=== PATIENT | female | born 1955 | race Caucasian/White ===

== ENCOUNTER 2016-11-15 07:21 | Day surgery (SDC) | payer BC, OTHER ==
[2016-11-09 15:42] VITALS: BMI 30.1
[~2016-11-15 07:21] MED LIST: LACTATED RINGERS 1,000 ML IV SCH; LIDOCAINE 1% 20 ML VIAL (10MG/ML) FOR IV START INTRADERMA PRN
[2016-11-15 07:39] VITALS: TEMP 98.9
[2016-11-15] MEDS: LACTATED RINGERS 1,000 ML IV ONE ×2 (07:45→07:53)
[2016-11-15 07:48] LABS: Glucose,Whole Blood 203 mg/dL (75-99)
[2016-11-15] MEDS ORDERED: PROPOFOL 10 MG/ML 20 ML VIAL IV ONE (07:55)
--- NOTE | 2016-11-15 08:04 | P.PCN ---
Date of Procedure: 11/15/16 Procedure(s) Performed: BRIEF HISTORY: Patient is a 61-year-old, pleasant, white female, scheduled for an upper endoscopy as a part of evaluation of intermittent nausea vomiting for the last 1 year duration. She has these episodes once a week or so. She does have long-standing history of diabetes mellitus diagnosed about 30 years ago. She denies any associated abdominal pain, heartburn, passive regurgitation. No recent weight loss. PROCEDURE PERFORMED: Esophagogastroduodenoscopy with biopsy. PREOPERATIVE DIAGNOSIS: Chronic intermittent nausea/vomiting. IV sedation per anesthesia. PROCEDURE: After informed consent was obtained, the patient was brought into the endoscopy unit. IV conscious sedation was administered by Anesthesia under continuous monitoring. Initially the Olympus GIF-140 video endoscope was inserted into the mouth. Esophagus intubated without any difficulty. It was gradually advanced into the stomach and duodenum and carefully examined. The bulb and the second part of the duodenum appeared normal. The scope at this time was withdrawn to the stomach, adequately insufflated with air, and upon careful examination, mucosa of the antrum had mild diffuse gastritis and biopsies were done from this area. The body, cardia and the fundus appeared normal. The scope was then withdrawn into the esophagus. The GE junction was located at 40 cm from the incisors. The esophagus appeared normal. There were no erosions or ulcerations seen and the patient tolerated the procedure well. IMPRESSION: 1. Mild antral gastritis. 2. No evidence of esophagitis or peptic ulcer or gastric outlet obstruction. RECOMMENDATIONS: The findings of this examination were discussed with the patient as well as a family. She was advised to follow with the biopsy results. She was advised to continue with current medications and use antiemetics as needed. She may have a component of early diabetic gastroparesis can't to be doing to her symptoms and hence I suggested on diet modification with small frequent meals.
[2016-11-15 08:09] VITALS: RESP 16
[2016-11-15 08:33] VITALS: BP 122/65; PULSE 45
== END 2016-11-15 09:05 | disposition home or self-care (01) ==
LOC: ORWHC2ENDO 07:21
PROVIDERS: ATTEND Internal Medicine Gastroenterology
DX: K29.50 Unspecified chronic gastritis without bleeding (principal); K21.9 Gastro-esophageal reflux disease without esophagitis; I10 Essential (primary) hypertension; E78.5 Hyperlipidemia, unspecified; I25.10 Atherosclerotic heart disease of native coronary artery without angina pectoris; Z95.5 Presence of coronary angioplasty implant and graft; E11.9 Type 2 diabetes mellitus without complications; Z79.4 Long term (current) use of insulin; F32.9 Major depressive disorder, single episode, unspecified; Z79.02 Long term (current) use of antithrombotics/antiplatelets; Z79.899 Other long term (current) drug therapy; Z88.0 Allergy status to penicillin
CPT/HCPCS: 88305; 88342; 43239; J2704

== ENCOUNTER 2016-12-28 14:24 | Inpatient (IN) | payer BC ==
[2016-12-28 14:47] LABS: Glucose,Whole Blood 339 mg/dL (75-99)
[2016-12-28] MEDS ORDERED: ONDANSETRON 4 MG/2 ML VIAL IVP STA (14:48)
[2016-12-28] MEDS ORDERED: SODIUM CHLORIDE 0.9% 1,000 ML IV STA (14:48)
[2016-12-28] MEDS ORDERED: INSULIN REGULAR 100 UNIT/ML VIAL IV ONE (14:49)
[2016-12-28 15:30] LABS: Basophils # (A) 0.1 k/uL (0-0.2); Basophils % (A) 0 %; CH 29.7; Eosinophils % (A) 0 %; HCT 42.5 % (34.0-46.0); HDW 2.38; HGB 13.8 gm/dL (11.4-16.0); Luc # (Auto) 0.35; Luc % (Auto) 2; Lymphocytes # (A) 1.4 k/uL (1.0-4.8); Lymphocytes % (A) 8 %; MCH 29.3 pg (25.0-35.0); MCHC 32.4 g/dL (31.0-37.0); MCV 90.6 fL (80.0-100.0); Mean Platelet Volume 8.7; Monocytes % (A) 6 %; Neutrophils # (A) 14.2 k/uL (1.3-7.7); Neutrophils % (A) 83 %; RBC 4.69 m/uL (3.80-5.40); RDW 14.6 % (11.5-15.5); WBC 17.1 k/uL (3.8-10.6); WBC (Perox) 16.72
[2016-12-28 15:38] LABS: Calcium 9.8 mg/dL (8.4-10.2); Potassium 4.3 mmol/L (3.5-5.1); Total Bilirubin 0.8 mg/dL (0.2-1.3); Total Protein 7.4 g/dL (6.3-8.2)
--- NOTE | 2016-12-28 15:39 | XR ---
EXAMINATION TYPE: XR chest 2V DATE OF EXAM: 12/28/2016 3:35 PM HISTORY: Nausea and vomiting. REFERENCE: Previous study dated 07/09/2015. FINDINGS: The lungs are clear. Pleural spaces are clear. The heart is not enlarged. IMPRESSION: NO ACUTE INTRATHORACIC ABNORMALITY.
[2016-12-28 15:42] LABS: INR 1.1 (<1.1); Prothrombin Time 10.8 sec (9.0-12.0)
[2016-12-28] MEDS ORDERED: NALOXONE 0.4 MG/ML 1 ML VIAL IV PRN (16:57)
--- NOTE | 2016-12-28 16:57 | ED ---
General Adult HPI - General Chief complaint: Recheck/Abnormal Lab/Rx Stated complaint: nausea,vomiting Time Seen by Provider: 12/28/16 14:27 Source: patient, EMS Mode of arrival: EMS - History of Present Illness Initial comments: Patient complains of elevated blood sugar. She has nausea and vomiting. She has epigastric abdominal pain as well. She has no fever, chills, chest pain or shortness of breath. She has no lightheadedness or dizziness. She has no back pain. Nothing makes her symptoms better or worse. She took a dose of insulin prior to arrival. She has no focal weakness. She has no loss of continence. - Related Data Home Medications Medication Instructions Recorded Confirmed Escitalopram [Lexapro] 10 mg PO QAM 09/28/14 12/28/16 Hydrochlorothiazide 25 mg PO QAM 09/28/14 12/28/16 Isosorbide Mononitrate ER [Imdur] 30 mg PO QAM 12/22/14 12/28/16 Losartan Potassium 100 mg PO HS 12/22/14 12/28/16 amLODIPine BESYLATE [Norvasc] 5 mg PO HS 06/30/15 12/28/16 Clopidogrel [Plavix] 75 mg PO QAM 07/12/15 12/28/16 Famotidine [Pepcid] 20 mg PO BID 11/09/16 12/28/16 Insulin Aspart (For Pump) [NovoLOG 0.01 unit SQ-PUMP CONTINUOUS 11/09/16 (For Pump)] Gabapentin [Neurontin] 100 mg PO BID 11/10/16 12/28/16 Lorcaserin HCl [Belviq] 10 mg PO BID 11/10/16 12/28/16 Aspirin EC [Ecotrin Low Dose] 81 mg PO QAM 12/28/16 12/28/16 Omeprazole [PriLOSEC] 40 mg PO QAM 12/28/16 12/28/16 Previous Rx's Medication Instructions Recorded Atorvastatin [Lipitor] 80 mg PO HS #90 tab 12/25/14 Allergies Allergy/AdvReac Type Severity Reaction Status Date / Time adhesive tape Allergy Rash/Hives Verified 12/28/16 15:51 Penicillins Allergy Rash/Hives Verified 12/28/16 15:51 Review of Systems ROS Statement: Those systems with pertinent positive or pertinent negative responses have been documented in the HPI. ROS Other: All systems not noted in ROS Statement are negative. Past Medical History Past Medical History: Coronary Artery Disease (CAD), Diabetes Mellitus, Hyperlipidemia, Hypertension, Vascular Disorder Additional Past Medical History / Comment(s): Insulin pump, peripheral neuropathy, poor circulation, PAD, PVD, currently experiencing vomiting History of Any Multi-Drug Resistant Organisms: None Reported Past Surgical History: Appendectomy, Bladder Surgery, Cholecystectomy, Heart Catheterization With Stent, Tubal Ligation Additional Past Surgical History / Comment(s): 07/14/15 CARDIAC CATH-STABLE. 12/24 PTCA with stent, colonoscopy, 10/12/14-aortogram, 10/27/14 RIGHT FEM POP BYPASS Past Anesthesia/Blood Transfusion Reactions: Motion Sickness Date of Last Stent Placement:: 12/24/14 Past Psychological History: Depression Additional Psychological History / Comment(s): Pt lives at home with her of 21 yrs. Pt is independent. Pt drives a car. Smoking Status: Former smoker Past Alcohol Use History: Occasional Additional Past Alcohol Use History / Comment(s): smoked age 16-1992 1 ppd Past Drug Use History: None Reported - Past Family History Father Family Medical History: Coronary Artery Disease (CAD) Mother Family Medical History: COPD, Coronary Artery Disease (CAD), Liver Disease, Myocardial Infarction ([place]) Additional Family Medical History / Comment(s): Mother at age 52 yr. cirrhosis of the liver. Course Vital Signs 12/28/16 14:28 Temperature 98.2 F Pulse Rate 79 Respiratory 16 Rate Blood Pressure 109/57 O2 Sat by Pulse 100 Oximetry EKG Findings - EKG Comments: EKG Findings:: Twelve-lead EKG is obtained, interpreted by me as showing ventricular rate 75 bpm, normal NV interval and QRS complexes, no ST elevation or depression, interpreted by me as normal sinus rhythm. Medical Decision Making - Medical Decision Making Patient presents with nausea and vomiting, hyperglycemia. I gave her IV fluids , 10 units IV regular insulin. Laboratory studies show elevated creatinine, elevated glucose, elevated anion gap, elevated lipase, and elevated troponin. Patient will be admitted to the hospital in serious condition. - Lab Data Result diagrams: 12/28/16 15:15 12/28/16 15:15 Lab Results 12/28/16 12/28/16 12/28/16 Range/Units 14:34 15:15 15:15 WBC 17.1 H (3.8-10.6) k/uL RBC 4.69 (3.80-5.40) m/uL Hgb 13.8 (11.4-16.0) gm/dL Hct 42.5 (34.0-46.0) % MCV 90.6 (80.0-100.0) fL MCH 29.3 (25.0-35.0) pg MCHC 32.4 (31.0-37.0) g/dL RDW 14.6 (11.5-15.5) % Plt Count 306 (150-450) k/uL Neutrophils % 83 % Lymphocytes % 8 % Monocytes % 6 % Eosinophils % 0 % Basophils % 0 % Neutrophils # 14.2 H (1.3-7.7) k/uL Lymphocytes # 1.4 (1.0-4.8) k/uL Monocytes # 1.0 (0-1.0) k/uL Eosinophils # 0.0 (0-0.7) k/uL Basophils # 0.1 (0-0.2) k/uL PT (9.0-12.0) sec INR (<1.1) APTT (22.0-30.0) sec Sodium 138 (137-145) mmol/L Potassium 4.3 (3.5-5.1) mmol/L Chloride 94 L (98-107) mmol/L Carbon Dioxide 21 L (22-30) mmol/L Anion Gap 23 mmol/L BUN 41 H (7-17) mg/dL Creatinine 2.03 H (0.52-1.04) mg/dL Est GFR (MDRD) Af Amer 30 (>60 ml/min/1.73 sqM) Est GFR (MDRD) Non-Af 25 (>60 ml/min/1.73 sqM) Glucose 305 H (74-99) mg/dL POC Glucose (mg/dL) 339 H (75-99) mg/dL POC Glu Horseradish Grinder ID Sabrina Vaca Calcium 9.8 (8.4-10.2) mg/dL Magnesium 2.0 (1.6-2.3) mg/dL Total Bilirubin 0.8 (0.2-1.3) mg/dL AST 25 (14-36) U/L ALT 28 (9-52) U/L Alkaline Phosphatase 159 H (38-126) U/L Troponin I (0.000-0.034) ng/mL NT-Pro-B Natriuret Pep pg/mL Total Protein 7.4 (6.3-8.2) g/dL Albumin 4.6 (3.5-5.0) g/dL Lipase 2685 H (23-300) U/L 12/28/16 12/28/16 12/28/16 Range/Units 15:15 15:15 15:15 WBC (3.8-10.6) k/uL RBC (3.80-5.40) m/uL Hgb (11.4-16.0) gm/dL Hct (34.0-46.0) % MCV (80.0-100.0) fL MCH (25.0-35.0) pg MCHC (31.0-37.0) g/dL RDW (11.5-15.5) % Plt Count (150-450) k/uL Neutrophils % % Lymphocytes % % Monocytes % % Eosinophils % % Basophils % % Neutrophils # (1.3-7.7) k/uL Lymphocytes # (1.0-4.8) k/uL Monocytes # (0-1.0) k/uL Eosinophils # (0-0.7) k/uL Basophils # (0-0.2) k/uL PT 10.8 (9.0-12.0) sec INR 1.1 (<1.1) APTT 20.0 L (22.0-30.0) sec Sodium (137-145) mmol/L Potassium (3.5-5.1) mmol/L Chloride (98-107) mmol/L Carbon Dioxide (22-30) mmol/L Anion Gap mmol/L BUN (7-17) mg/dL Creatinine (0.52-1.04) mg/dL Est GFR (MDRD) Af Amer (>60 ml/min/1.73 sqM) Est GFR (MDRD) Non-Af (>60 ml/min/1.73 sqM) Glucose (74-99) mg/dL POC Glucose (mg/dL) (75-99) mg/dL POC Glu Horseradish Grinder ID Calcium (8.4-10.2) mg/dL Magnesium (1.6-2.3) mg/dL Total Bilirubin (0.2-1.3) mg/dL AST (14-36) U/L ALT (9-52) U/L Alkaline Phosphatase (38-126) U/L Troponin I 0.037 H* (0.000-0.034) ng/mL NT-Pro-B Natriuret Pep 935 pg/mL Total Protein (6.3-8.2) g/dL Albumin (3.5-5.0) g/dL Lipase (23-300) U/L Disposition Clinical Impression: [facility] (acute kidney injury) Disposition: ADMITTED IP TO THIS HOSP Condition: Serious Time of Disposition: 16:57
[2016-12-28 16:58] LABS: Appearance,Urine Cloudy (Clear); Bacteria,Urine Few /hpf; Bilirubin,Urine Negative (Negative); Glucose,Urine (UA) 4+ (Negative); Granular Casts,Urine 1 /lpf (0); Leukocyte Esterase,Urine Negative (Negative); Nitrite,Urine Negative (Negative); Particle Count 4329; Protein,Urine Negative (Negative); RBC,Urine <1 /hpf (0-5); Specific Gravity,Urine 1.014 (1.001-1.035); Squamous Epithelial Cell,Urine 8 /hpf (0-4); UA Billing (MACRO vs. MICRO) MICRO; Urobilinogen,Urine <2.0 mg/dL (<2.0); WBC,Urine 3 /hpf (0-5)
[2016-12-28 17:00] LABS: Ketones,Urine 2+ (Negative)
[2016-12-28] MEDS ORDERED: Insulin Aspart (For Pump) 100 UNIT/ML VIAL SQ-PUMP SCH (17:00)
[2016-12-28] MEDS: MORPHINE SULFATE 4 MG/ML SYRINGE IV PRN (18:22)
[2016-12-28] MEDS: ONDANSETRON 4 MG/2 ML VIAL IVP PRN (18:26)
[2016-12-28] MEDS ORDERED: LOSARTAN 50 MG TAB PO SCH (21:00)
[2016-12-28] MEDS ORDERED: FAMOTIDINE 20 MG TAB PO SCH (21:00)
[2016-12-28] MEDS ORDERED: ACETAMINOPHEN TAB 325 MG TAB PO PRN (21:33)
[2016-12-28 22:23] LABS: Glucose,Whole Blood 223 mg/dL (75-99)
[2016-12-28] MEDS: GABAPENTIN 100 MG CAP PO SCH (22:33)
[2016-12-28] MEDS: ATORVASTATIN 80 MG TAB PO SCH (22:33)
[2016-12-29] MEDS: MORPHINE SULFATE 4 MG/ML SYRINGE IV PRN ×2 (01:58→07:38)
[2016-12-29] MEDS ORDERED: SODIUM CHLORIDE 0.9% 1,000 ML IV SCH (06:30)
[2016-12-29] MEDS: amLODIPine 5 MG TAB PO SCH ×2 (07:02→20:49)
[2016-12-29 07:21] LABS: Glucose,Whole Blood 320 mg/dL (75-99)
[2016-12-29] MEDS: ASPIRIN 81 MG CHEW PO SCH (08:35)
[2016-12-29] MEDS: GABAPENTIN 100 MG CAP PO SCH ×2 (08:35→20:49)
[2016-12-29] MEDS: ESCITALOPRAM 10 MG TAB PO SCH (08:35)
[2016-12-29] MEDS: CLOPIDOGREL 75 MG TAB PO SCH (08:35)
[2016-12-29] MEDS: HYDROCHLOROTHIAZIDE 25 MG TAB PO SCH ×2 (08:36→12:39)
[2016-12-29] MEDS: ISOSORBIDE MONONITRATE ER 30 MG TAB.ER.24H PO SCH (08:36)
[2016-12-29] MEDS ORDERED: INSULIN PUMP BASAL RATES 1 EACH MISC MISCELLANE PRN (10:41)
[2016-12-29] MEDS ORDERED: INSULIN LISPRO (humaLOG) 300 UNIT/3 ML VIAL SQ PRN (10:41)
[2016-12-29] MEDS ORDERED: INSPUCOR MISCELLANE PRN (10:41)
[2016-12-29] MEDS ORDERED: INSULIN PUMP ACTIVE INSULIN 1 EACH MISC MISCELLANE PRN (10:41)
[2016-12-29] MEDS ORDERED: INSULIN PUMP TARGET GLUCOSE 1 EACH MISC MISCELLANE PRN (10:41)
[2016-12-29 11:37] LABS: Glucose,Whole Blood 335 mg/dL (75-99)
[2016-12-29] MEDS: INSULIN PUMP MEAL BOLUS 1 UNIT MISC MISCELLANE SCH ×3 (12:40→20:52)
[2016-12-29] MEDS: CALCIUM CARBONATE LIQUID 500 MG/5 ML CUP PO SCH ×2 (13:29→17:11)
[2016-12-29] MEDS: SODIUM CHLORIDE 0.9% 1,000 ML IV SCH (13:30)
[2016-12-29] MEDS: PANTOPRAZOLE 40 MG TABLET PO SCH (13:30)
--- NOTE | 2016-12-29 15:42 | US ---
EXAMINATION TYPE: US kidneys/renal and bladder DATE OF EXAM: 12/29/2016 3:22 PM COMPARISON: Complete abdominal ultrasound August 02, 2016. CLINICAL HISTORY: renal failure. EXAM MEASUREMENTS: Right Kidney: 10.2 x 4.7 x 4.8 cm Left Kidney: 10.3 x 5.3 x 4.4 cm TECHNOLOGIST IMPRESSION: Right Kidney: each kidney shows a tubular anechoic structure midline, no other distinct mass Left Kidney: each kidney shows a tubular anechoic structure midline, no other distinct mass Bladder: wnl There is no evidence for hydronephrosis at this point in time. No nephrolithiasis is seen. No fredis s are identified. The urinary bladder is anechoic. Bilateral ureteral jets are not seen. Linear structure centrally in both kidneys could reflect ureter stents. IMPRESSION: No hydronephrosis is evident bilaterally.
--- NOTE | 2016-12-29 16:24 | HP ---
DATE OF ADMISSION: 12/28/2016 PRESENTING COMPLAINT: Nausea and vomiting. History of presenting complaint: This is a pleasant 61 -year-old patient of Dr. Perez whose chronic stable medical conditions include coronary artery disease with stent, hypertension, hyperlipidemia, peripheral artery disease. Patient is a diabetic on insulin pump with peripheral neuropathy. Patient presents with started vomiting early in the night with abdominal pain. Did have one bowel movement. Patient had bar-b-cue pork which was sitting around and this all started after that. Patient has a burning sensation in the epigastrium and in the chest. Feels tired. Still having some nausea. Denies any obvious fevers. REVIEW OF SYSTEMS: CONSTITUTIONAL: Tired. HEENT: None. RESPIRATORY: None. CARDIOVASCULAR: No precordial pain. GASTROINTESTINAL: As above. GENITOURINARY: None. MUSCULOSKELETAL: Some aches and pains in the joints. Dermatological: None. HEMATOLOGICAL: None. LYMPHATIC: None. PSYCHIATRY: None. NEUROLOGICAL: Numbness and tingling in the feet. PAST MEDICAL HISTORY: Coronary artery disease, diabetes mellitus type 2 on insulin pump, hyperlipidemia, hypertension, peripheral neuropathy, peripheral artery disease. PAST SURGICAL HISTORY: Appendectomy, bladder surgery, cholecystectomy, cardiac cath with stent, right femoropopliteal bypass. Past psych history of depression. SOCIAL HISTORY: . Smoked for about 20 years a pack a day; stopped in 1992. Family history of coronary artery disease, cirrhosis. HOME MEDICATIONS: 1. Norvasc 5 mg p.o. q.h.s. 2. Prilosec 40 mg p.o. daily. 3. Losartan 100 mg q.h.s. 4. Belviq 10 milligrams p.o. b.i.d. 5. Imdur ER 30 mg a day. 6. Humalog insulin pump. 7. Hydrochlorothiazide 25 mg a day. 8. Neurontin 100 mg b.i.d. 9. Pepcid 20 mg b.i.d. 10. Lexapro 10 mg daily. 11. Plavix 75 mg daily. 12. Lipitor 80 mg q.h.s. 13. Aspirin 81 mg daily. ALLERGIES TO ADHESIVE TAPE AND PENICILLIN. On examination: Vital signs on presentation: Temperature 100, pulse 84, respiratory rate 16, blood pressure 116/56, pulse ox 94% on 2 liters. GENERAL APPEARANCE: Well built, BMI of 31.5. Sitting up, tired appearing. EYES: Pupils equal pupils equal. Conjunctivae normal. HEENT: External appearance of nose and ears normal. Oral cavity normal. NECK: JVD not raised. Mass not palpable. RESPIRATORY: Effort normal. LUNGS: Fair air entry. CARDIOVASCULAR: First and second sounds normal. No edema. ABDOMEN: Upper abdomen diffuse mild tenderness. No guarding or rigidity. Liver and spleen not palpable. LYMPHATIC: No lymph nodes palpable in neck or axillae. PSYCHIATRY: Alert and oriented x3. Mood and affect was normal. NEUROLOGICAL: Pupils equal. Cranial nerves grossly intact. Power and sensation slight decreased sensation in the lower extremity. INVESTIGATIONS: White count 17.1, hemoglobin 13.8, potassium 4.3, BUN 41, creatinine 2.03. Troponin 0.037, 0.066. Accu-Cheks are noted. ASSESSMENT: 1. Acute food poisoning manifesting as abdominal pain, nausea, vomiting, often times these are self-limiting. 2. Diabetes mellitus type 2, chronically on insulin pump, now, uncontrolled. 3. Coronary artery disease with prior history of stent. 4. Hyperlipidemia. 5. Peripheral artery disease. 6. Diabetes mellitus, type II, causing peripheral neuropathy. 7. Troponin leak from hemodynamic instability. Does not cardiac presentation. 8. Chronic kidney disease, likely like a chronic component cannot rule out acute component. 9. Possible mild pancreatitis given the lipase was 2685 in the setting of renal failure. Will recheck it again. Will give the patient clear liquids. Given some TUMS. Sugars will be followed closely. We will check renal ultrasound. Repeat labs in the morning. Care was discussed with the patient and family at the bedside. Copy to Dr. Perez.
[2016-12-29 16:55] LABS: Glucose,Whole Blood 248 mg/dL (75-99)
[2016-12-29] MEDS: ATORVASTATIN 80 MG TAB PO SCH (20:49)
[2016-12-29 20:53] LABS: Glucose,Whole Blood 299 mg/dL (75-99)
[2016-12-30 02:10] LABS: Glucose,Whole Blood 197 mg/dL (75-99)
[2016-12-30] MEDS: SODIUM CHLORIDE 0.9% 1,000 ML IV SCH ×3 (04:57→16:38)
[2016-12-30 05:53] LABS: Glucose,Whole Blood 216 mg/dL (75-99)
[2016-12-30] MEDS: CALCIUM CARBONATE LIQUID 500 MG/5 ML CUP PO SCH (06:36)
[2016-12-30] MEDS: INSULIN PUMP MEAL BOLUS 1 UNIT MISC MISCELLANE SCH ×4 (06:36→21:05)
[2016-12-30] MEDS: PANTOPRAZOLE 40 MG TABLET PO SCH ×2 (06:37→16:37)
[2016-12-30] MEDS: ESCITALOPRAM 10 MG TAB PO SCH (08:51)
[2016-12-30] MEDS: ASPIRIN 81 MG CHEW PO SCH (08:51)
[2016-12-30] MEDS: CLOPIDOGREL 75 MG TAB PO SCH (08:51)
[2016-12-30] MEDS: ISOSORBIDE MONONITRATE ER 30 MG TAB.ER.24H PO SCH (08:51)
[2016-12-30] MEDS: GABAPENTIN 100 MG CAP PO SCH ×2 (08:52→19:44)
[2016-12-30 11:38] LABS: Glucose,Whole Blood 348 mg/dL (75-99)
[2016-12-30 16:23] LABS: Glucose,Whole Blood 290 mg/dL (75-99)
[2016-12-30] MEDS: CALCIUM CARBONATE 500 MG CHEWABLE PO SCH (16:37)
[2016-12-30] MEDS: amLODIPine 5 MG TAB PO SCH (19:44)
[2016-12-30] MEDS: ATORVASTATIN 80 MG TAB PO SCH (19:44)
[2016-12-30 21:22] LABS: Glucose,Whole Blood 252 mg/dL (75-99)
--- NOTE | 2016-12-30 22:22 | PN ---
DATE OF SERVICE: 12/30/2016 PRESENTING COMPLAINT: Nausea, vomiting. INTERVAL HISTORY: Patient presented with acute food poisoning and possibly acute pancreatitis. Feeling a bit better today, has been a bit tired. Review of systems done for constitutional, cardiovascular, GI, pulmonary; relevant findings as above. Current medications are reviewed. On examination, temperature 97.5, pulse 74, respirations 16, blood pressure 109/62, pulse ox 95% on room air. GENERAL APPEARANCE: Sitting up, feeling better. EYES: Pupils equal. Conjunctivae normal. NECK: JVD not raised. Mass not palpable. RESPIRATORY: Effort normal. Lungs are clear. CARDIOVASCULAR: Normal. ABDOMEN: Minimal tenderness, soft. PSYCHIATRY: Alert and oriented x3. Mood and affect were normal. INVESTIGATIONS: No labs from today. ASSESSMENT: 1. Acute pancreatitis with clinical improvement, idiopathic. 2. Diabetes mellitus type 2, chronically on insulin pump. 3. Coronary artery disease with prior history of stent. 4. Hyperlipidemia. 5. Peripheral artery disease. 6. Diabetes mellitus type 2, causing peripheral neuropathy. 7. Check troponin leak from hemodynamic instability, doubt a cardiac presentation. 8. Chronic kidney disease, stage 3 from hypertensive nephrosclerosis and diabetic nephropathy. PLAN: Will repeat labs in the morning. Encouraged to ambulate.
[2016-12-30] MEDS: ONDANSETRON 4 MG/2 ML VIAL IVP PRN (22:54)
[2016-12-31 06:33] LABS: Glucose,Whole Blood 290 mg/dL (75-99)
[2016-12-31] MEDS: SODIUM CHLORIDE 0.9% 1,000 ML IV SCH ×2 (06:37→22:29)
[2016-12-31] MEDS: CALCIUM CARBONATE 500 MG CHEWABLE PO SCH ×3 (06:38→18:01)
[2016-12-31] MEDS: PANTOPRAZOLE 40 MG TABLET PO SCH ×2 (06:38→16:24)
[2016-12-31] MEDS: INSULIN PUMP MEAL BOLUS 1 UNIT MISC MISCELLANE SCH ×4 (06:38→21:30)
[2016-12-31 06:49] LABS: Amylase 93 U/L (30-110); Anion Gap 11 mmol/L; Blood Urea Nitrogen 15 mg/dL (7-17); Calcium 8.8 mg/dL (8.4-10.2); Carbon Dioxide 26 mmol/L (22-30); Chloride 102 mmol/L (98-107); Glucose 265 mg/dL (74-99); Non-African American GFR(MDRD) >60 (>60 ml/min/1.73 sqM); Potassium 4.4 mmol/L (3.5-5.1); Sodium 139 mmol/L (137-145)
[2016-12-31] MEDS: ESCITALOPRAM 10 MG TAB PO SCH (08:13)
[2016-12-31] MEDS: ISOSORBIDE MONONITRATE ER 30 MG TAB.ER.24H PO SCH (08:13)
[2016-12-31] MEDS: GABAPENTIN 100 MG CAP PO SCH ×2 (08:13→20:24)
[2016-12-31] MEDS: CLOPIDOGREL 75 MG TAB PO SCH (08:13)
[2016-12-31] MEDS: ASPIRIN 81 MG CHEW PO SCH (08:13)
[2016-12-31 12:17] LABS: Glucose,Whole Blood 432 mg/dL (75-99)
--- NOTE | 2016-12-31 15:19 | CONS ---
DATE OF CONSULTATION: Maria Anderson is a 61-year-old lady with a known history of CAD, previous PCI performed by Dr. Knutson in 2014. She came into the hospital mainly with multiple medical problems in the form of elevated blood sugar. She has history of hypertension, type 2 diabetes, uses an insulin pump. Also has history of CAD, hypercholesterolemia, previous PCI. During that hospitalization, which was mostly for blood sugar control, nausea, vomiting, a troponin level was performed, it was equivocal and I was asked to see her in this regard. On questioning, patient denies any chest pain. EKG is unremarkable. Troponin profile does not suggest a myocardial injury. She is resting comfortably without symptoms. She has had a previous PCI of her right coronary artery that was performed in December of 2014 and subsequently in September that vessel was widely patent. Since then, she has not seen Dr. Knutson for at least 6 months. I am advising that from a cardiac standpoint, no intervention is necessary. A troponin profile and clinical picture do not represent a myocardial ischemia or injury. She can be discharged once the blood sugar control is optimal and advised to see Dr. Knutson. At the time of my evaluation, she is virtually asymptomatic without chest pain, shortness of breath or palpitation. PAST MEDICAL HISTORY: 1. Hypertension. 2. Type 2 diabetes on insulin pump with suboptimal blood sugar control. 3. Hypertension. 4. Hypercholesterolemia. 5. History of coronary artery disease with previous right coronary artery, percutaneous coronary intervention. Medications at home include Amlodipine, losartan, aspirin, Plavix, atorvastatin, gabapentin and Imdur. Allergies are PENICILLIN. REVIEW OF SYSTEMS: Unremarkable other than above-mentioned fact. On examination, blood pressure is 132/70, pulse rate 70 per minute. HEENT: Unremarkable. Fundus was not examined by me. Neck is supple. No JVD. I do not hear a carotid bruit. There is no thyromegaly. Heart exam reveals S1 and S2 heard normally without a rub, murmur or gallop. Lungs are clear. Abdomen is soft, nontender. Lower extremities reveal normal pulses. No edema. Central nervous system is normal. EKG revealed sinus mechanism. No acute changes. IMPRESSION: 1. No evidence of any chest pain or ongoing myocardial ischemia. Troponin levels are equivocal. 2. Type 2 diabetes mellitus with suboptimal blood sugar control being addressed by hospitalist. 3. Hypertension. 4. Hyperlipidemia. 5. History of previous PCI. RECOMMENDATIONS: From a cardiac standpoint, no intervention necessary. Patient can be discharged if her sugar control is optimal. She is advised to follow with Dr. Knutson in one week. Same medications including aspirin, Plavix and statin agents. Thank you very much for the consult.
[2016-12-31 17:36] LABS: Glucose,Whole Blood 283 mg/dL (75-99)
[2016-12-31] MEDS: ATORVASTATIN 80 MG TAB PO SCH (20:24)
[2016-12-31] MEDS: amLODIPine 5 MG TAB PO SCH (20:24)
[2016-12-31 21:29] LABS: Glucose,Whole Blood 218 mg/dL (75-99)
[2017-01-01 02:40] LABS: Glucose,Whole Blood 173 mg/dL (75-99)
[2017-01-01 06:16] LABS: Glucose,Whole Blood 192 mg/dL (75-99)
[2017-01-01] MEDS: CALCIUM CARBONATE 500 MG CHEWABLE PO SCH ×3 (07:02→17:48)
[2017-01-01] MEDS: PANTOPRAZOLE 40 MG TABLET PO SCH ×2 (07:02→17:48)
[2017-01-01] MEDS: INSULIN PUMP MEAL BOLUS 1 UNIT MISC MISCELLANE SCH ×4 (07:03→20:54)
[2017-01-01] MEDS: SODIUM CHLORIDE 0.9% 1,000 ML IV SCH ×3 (08:14→21:30)
[2017-01-01] MEDS: CLOPIDOGREL 75 MG TAB PO SCH (08:14)
[2017-01-01] MEDS: ESCITALOPRAM 10 MG TAB PO SCH (08:14)
[2017-01-01] MEDS: ASPIRIN 81 MG CHEW PO SCH (08:14)
[2017-01-01] MEDS: ISOSORBIDE MONONITRATE ER 30 MG TAB.ER.24H PO SCH (08:14)
[2017-01-01] MEDS: GABAPENTIN 100 MG CAP PO SCH ×2 (08:14→20:07)
--- NOTE | 2017-01-01 10:38 | PN ---
DATE OF SERVICE: 12/31/2016 Presenting complaint: Abdominal pain. INTERVAL HISTORY: This patient presented with acute pancreatitis ( ) abdominal pain, did not eat too much. is at the bedside. Has been out of bed. Review of systems done for constitutional, cardiovascular, GI, pulmonary; relevant findings as above. Current medications are reviewed. On examination, temperature 98.8, pulse 55, respirations 17, blood pressure 130/60, pulse ox 97% on room air. GENERAL APPEARANCE: Lying in bed, not in distress. EYES: Pupils equal. Conjunctivae normal. NECK: JVD not raised. Mass not palpable. RESPIRATORY: Effort normal. Lungs are clear. CARDIOVASCULAR: First and second sounds normal. No edema. ABDOMEN: Some epigastric tenderness. No guarding or rigidity. PSYCHIATRY: Alert and oriented x3. Mood and affect normal. INVESTIGATIONS: Lipase is 1119. Glucose noted 265, 432. ASSESSMENT: 1. Acute pancreatitis with some biochemical improvement, idiopathic. 2. Patient has diabetes mellitus type 2, chronically on insulin drip, sugars uncontrolled up to 400. Patient thinks she received the wrong meal. 3. Coronary artery disease with prior history of stent. 4. Hyperlipidemia. 5. Peripheral artery disease. 6. Diabetes mellitus type 2, causing peripheral neuropathy. 7. Troponin leak from hemodynamic instability, doubt a cardiac presentation. 8. Acute renal failure, probably prerenal on presentation. There is no evidence of chronic kidney disease as creatinine has totally normalized. PLAN: Care was discussed at length with the patient and . The sugars were raised up to 400, need better control. Diet will be looked at. Also, we will change her back to full liquids to make sure that symptoms are better. We will check again the lipase in the morning.
[2017-01-01] MEDS: ONDANSETRON 4 MG/2 ML VIAL IVP PRN (10:40)
[2017-01-01 12:06] LABS: Glucose,Whole Blood 269 mg/dL (75-99)
[2017-01-01 15:03] VITALS: BMI 29.8
--- NOTE | 2017-01-01 15:12 | P.PN ---
Subjective Principal diagnosis: Elevated blood sugars This is a 61-year-old female with known history of coronary artery disease and prior PCI, hypertension, diabetes, hyperlipidemia, who presented to the hospital with elevated blood sugar. Cardiology was initially requested to see the patient because of mildly abnormal troponins, not consistent with acute coronary syndrome. Overall from the heart standpoint the patient has been stable. He denies any chest pain or difficulty in breathing. The pressure this morning 140/70 with a heart rate in the 70s. Objective - Vital Signs Vital signs: Vital Signs Temp 98 F 01/01/17 14:49 Pulse 70 01/01/17 14:49 Resp 17 01/01/17 14:49 BP 140/75 01/01/17 14:49 Pulse Ox 97 01/01/17 14:49 Intake & Output 12/31/16 01/01/17 01/01/17 18:59 06:59 18:59 Intake Total 1600 1080 Output Total 240 Balance 1360 1080 Weight 74.1 kg 74.1 kg Intake: Intake, IV Titration 300 Amount Sodium Chloride 0.9% 1, 300 000 ml @ 100 mls/hr IV . Q10H [facility] Rx#:[id number] Oral 1600 780 Output: Urine 240 Other: Voiding Method Toilet Toilet Toilet # Voids 2 2 - Exam PHYSICAL EXAMINATION: HEENT: Head is atraumatic, normocephalic. Pupils equal, round. Neck is supple. There is no elevated jugular venous pressure. HEART EXAMINATION: Heart S1, S2 normal. No murmur or gallop heard. CHEST EXAMINATION: Lungs are clear to auscultation and precussion. No chest wall tenderness is noted on palpation or with deep breathing. ABDOMEN: Soft, nontender. Bowel sounds are heard. No organomegaly noted. EXTREMITIES: 2+ peripheral pulses with no evidence of peripheral edema and no calf tenderness noted. NEUROLOGIC patient is awake, alert and oriented -3. . - Labs CBC & Chem 7: 12/28/16 15:15 12/31/16 06:20 Labs: Abnormal Lab Results - Last 24 Hours (Table) 12/31/16 12/31/16 01/01/17 Range/Units 17:34 21:01 02:28 POC Glucose (mg/dL) 283 H 218 H 173 H (75-99) mg/dL Lipase (23-300) U/L 01/01/17 01/01/17 01/01/17 Range/Units 05:53 06:01 12:01 POC Glucose (mg/dL) 192 H 269 H (75-99) mg/dL Lipase 1358 H (23-300) U/L Assessment and Plan (1) CAD (coronary artery disease) Status: Acute (2) HTN (hypertension) Status: Acute (3) Hyperlipemia Status: Acute (4) [facility] (acute kidney injury) Status: Acute (5) Diabetes mellitus Status: Acute Plan: Patient is stable from a cardiology perspective. We will follow her along with you now on an as-needed basis only. Follow-up appointment will be made with Dr. Knutson in the office post discharge. DNP note has been reviewed, I agree with a documented findings and plan of care. Patient was seen and examined.
[2017-01-01 16:47] LABS: Glucose,Whole Blood 138 mg/dL (75-99)
[2017-01-01] MEDS: CALCIUM CARBONATE LIQUID 500 MG/5 ML CUP PO SCH (17:49)
[2017-01-01] MEDS: ATORVASTATIN 80 MG TAB PO SCH (20:07)
[2017-01-01] MEDS: amLODIPine 5 MG TAB PO SCH (20:07)
[2017-01-01 21:15] LABS: Glucose,Whole Blood 168 mg/dL (75-99)
[2017-01-02 02:50] LABS: Glucose,Whole Blood 53 mg/dL (75-99)
[2017-01-02 03:09] LABS: Glucose,Whole Blood 73 mg/dL (75-99)
[2017-01-02 03:46] LABS: Glucose,Whole Blood 196 mg/dL (75-99)
--- NOTE | 2017-01-02 06:29 | PN ---
DATE OF SERVICE: 01/01/2017 PRESENTING COMPLAINT: Abdominal pain. INTERVAL HISTORY: This patient presented with acute pancreatitis, having a bit more pain today, ( ) feel good, also on insulin pump. The patient's was scaled back to full liquid yesterday. Review of systems done for constitutional, cardiovascular, GI, pulmonary; relevant findings as above. Patient also having some nausea. Current medications are reviewed. On examination, temperature 96.8, pulse 56, respirations 17, blood pressure 140/75, pulse ox 97% on room air. GENERAL APPEARANCE: Lying in bed, tired appearing. EYES: Pupils equal. Conjunctivae normal. NECK: JVD not raised. Mass not palpable. RESPIRATORY: Effort normal. Lungs are clear. CARDIOVASCULAR: First and second sounds normal. No edema. ABDOMEN: Epigastric tenderness. No guarding or rigidity. PSYCHIATRY: Alert and oriented x3. Mood and affect, tired appearing. INVESTIGATIONS: Accu-Cheks are noted. Lipase is 1358. ASSESSMENT: 1. Acute pancreatitis with some clinical worsening and lipase going up, idiopathic. 2. Patient has diabetes mellitus type 2, chronically on insulin pump. Sugars still somewhat uncontrolled. 3. Coronary artery disease, prior history of stent. 4. Hyperlipidemia. 5. Peripheral arterial disease. 6. Diabetes mellitus type 2, causing peripheral neuropathy. 7. Troponin leak from hemodynamic instability. No further workup per cardiology. 8. Acute renal failure, probably prerenal on presentation, now recovered. PLAN: We will scale back the patient's diet to clear liquids again. Will repeat amylase and lipase in the morning. Will check triglycerides. Will also get a GI opinion. This was discussed with the patient.
[2017-01-02 07:04] LABS: Glucose,Whole Blood 244 mg/dL (75-99)
[2017-01-02] MEDS: INSULIN PUMP MEAL BOLUS 1 UNIT MISC MISCELLANE SCH ×4 (08:26→21:29)
[2017-01-02] MEDS: PANTOPRAZOLE 40 MG TABLET PO SCH ×2 (08:27→17:27)
[2017-01-02] MEDS: CALCIUM CARBONATE 500 MG CHEWABLE PO SCH ×3 (08:27→17:26)
[2017-01-02] MEDS: GABAPENTIN 100 MG CAP PO SCH ×2 (08:27→20:33)
[2017-01-02] MEDS: ASPIRIN 81 MG CHEW PO SCH (08:28)
[2017-01-02] MEDS: CLOPIDOGREL 75 MG TAB PO SCH (08:28)
[2017-01-02] MEDS: ISOSORBIDE MONONITRATE ER 30 MG TAB.ER.24H PO SCH (08:29)
[2017-01-02] MEDS: ESCITALOPRAM 10 MG TAB PO SCH (08:29)
[2017-01-02] MEDS: SODIUM CHLORIDE 0.9% 1,000 ML IV SCH ×3 (08:30→17:33)
[2017-01-02 09:32] LABS: Amylase 94 U/L (30-110); Triglycerides 140 mg/dL (<150)
--- NOTE | 2017-01-02 10:40 | P.CONS ---
History of Present Illness - Reason for Consult Consult date: 01/02/17 Abdominal pain Requesting physician: Shane Jett - History of Present Illness 61-year-old female patient Dr. Perez with a past medical history long- standing insulin-dependent diabetes mellitus, suspected diabetic gastroparesis, chronic nausea, pancreatitis , cholecystectomy for cholelithiasis, CAD PCI stent 2014, hyperlipidemia, chronic kidney disease, hypertension, PVD, PAD, and depression. Patient presents with acute on chronic intractable nausea with upper abdominal pain that started last after eating a pulled pork lettuce wrap. T-max 100.3. She has been taking a new weight loss medication for the last month called BELVIQ. Admission lipase 2685. Amylase 93. Currently lipase is 1430. Liver chemistries unremarkable. Calcium 8.8-9.8. Triglycerides 140. Troponin 0.037- 0.066. No history of known pancreatic disorders. No history of alcoholism. Review of Systems Constitutional: Denies fever, chills, sweats, weight gain, or loss. HEENT: Negative for migraines, blurred vision or loss, earaches, drainage, tinnitus, oral mucosal lesions, dysphagia, or odynophagia. CARDIAC: CAD. Hyperlipidemia. Hypertension. PVD. PAD. Negative for chest pain, arrhythmias, or palpitation. RESPIRATORY: Negative for shortness of breath, hemoptysis, cough, or sputum production. GI: See HPI for pertinent findings. : Negative for hematuria, urgency, frequency, polyuria, or dysuria. GYNc: Denies possibility of . Negative vaginal discharge. MUSCULOSKELETAL: Negative for muscle aches, swelling, arthritis, and arthralgias. NEUROLOGIC: Negative for stroke or TIA. ENDOCRINE: Diabetes mellitus. Negative for thyroid problems. SKIN: Negative for rash or itching. PSYCHIATRIC: Depression. All systems: negative (See HPI) Past Medical History Past Medical History: Coronary Artery Disease (CAD), Diabetes Mellitus, Hyperlipidemia, Hypertension, Vascular Disorder Additional Past Medical History / Comment(s): Insulin pump, peripheral neuropathy, poor circulation, PAD, PVD, currently experiencing vomiting History of Any Multi-Drug Resistant Organisms: None Reported Past Surgical History: Appendectomy, Bladder Surgery, Cholecystectomy, Heart Catheterization With Stent, Tubal Ligation Additional Past Surgical History / Comment(s): 07/14/15 CARDIAC CATH-STABLE. 12/24 PTCA with stent, colonoscopy, 10/12/14-aortogram, 10/27/14 RIGHT FEM POP BYPASS Past Anesthesia/Blood Transfusion Reactions: Motion Sickness Date of Last Stent Placement:: 12/24/14 Past Psychological History: Depression Additional Psychological History / Comment(s): Pt lives at home with her of 21 yrs. Pt is independent. Pt drives a car. Smoking Status: Former smoker Past Alcohol Use History: Occasional Additional Past Alcohol Use History / Comment(s): smoked age 16-1992 1 ppd Past Drug Use History: None Reported - Past Family History Father Family Medical History: Coronary Artery Disease (CAD) Mother Family Medical History: COPD, Coronary Artery Disease (CAD), Liver Disease, Myocardial Infarction ([place]) Additional Family Medical History / Comment(s): Mother at age 52 yr. cirrhosis of the liver. Medications and Allergies Home Medications Medication Instructions Recorded Confirmed Type Escitalopram [Lexapro] 10 mg PO QAM 09/28/14 12/28/16 History Hydrochlorothiazide 25 mg PO QAM 09/28/14 12/28/16 History Isosorbide Mononitrate ER [Imdur] 30 mg PO QAM 12/22/14 12/28/16 History Losartan Potassium 100 mg PO HS 12/22/14 12/28/16 History amLODIPine BESYLATE [Norvasc] 5 mg PO HS 06/30/15 12/28/16 History Clopidogrel [Plavix] 75 mg PO QAM 07/12/15 12/28/16 History Famotidine [Pepcid] 20 mg PO BID 11/09/16 12/28/16 History Insulin Aspart (For Pump) [NovoLOG 0.01 unit SQ-PUMP CONTINUOUS 11/09/16 History (For Pump)] Gabapentin [Neurontin] 100 mg PO BID 11/10/16 12/28/16 History Lorcaserin HCl [Belviq] 10 mg PO BID 11/10/16 12/28/16 History Aspirin EC [Ecotrin Low Dose] 81 mg PO QAM 12/28/16 12/28/16 History Omeprazole [PriLOSEC] 40 mg PO QAM 12/28/16 12/28/16 History Allergies Allergy/AdvReac Type Severity Reaction Status Date / Time adhesive tape Allergy Rash/Hives Verified 02/16/17 15:51 Penicillins Allergy Rash/Hives Verified 12/28/16 15:51 Physical Exam Vitals: Vital Signs Temp Pulse Pulse Resp BP Pulse Ox 01/02/17 07:00 97.7 F 77 16 146/63 100 01/01/17 23:00 99 F 62 20 140/69 94 L 01/01/17 19:57 67 147/70 01/01/17 15:30 98.4 F 62 16 142/68 97 01/01/17 14:49 98 F 70 17 140/75 97 01/01/17 14:44 66 17 Intake and Output 01/01/17 01/02/17 01/02/17 22:59 06:59 14:59 Intake Total 540 1100 Balance 540 1100 Intake: Intake, IV Titration 1100 Amount Sodium Chloride 0.9% 1, 1100 000 ml @ 100 mls/hr IV . Q10H FEROZ Rx#:[id number] Oral 540 Other: Voiding Method Toilet # Voids 2 1 Weight 73.936 kg 77 kg General appearance: The patient is alert, oriented, in no acute distress. HET: Head is normocephalic and atraumatic. Pupils are equal and reactive. Oropharynx is clear without lesions. Neck: Supple without lymphadenopathy. Trachea midline. Heart: S1 S2. Regular rate and rhythm. Lungs: No crackles or wheezes are heard. Abdomen: Soft, nontender, nondistended with bowel sounds. No peritoneal signs. No palpable organomegaly or masses. Extremities: Normal skin color and turgor. No cyanosis, rash, ulceration, clubbing, or edema. Radial and pedal pulses are 2/4 bilaterally. Neurological: No focal deficits. Strength and sensation are grossly intact. Results CBC & Chem 7: 12/28/16 15:15 12/31/16 06:20 Labs: Abnormal Lab Results - Last 24 Hours (Table) 01/01/17 01/01/17 01/01/17 Range/Units 12:01 16:43 20:51 POC Glucose (mg/dL) 269 H 138 H 168 H (75-99) mg/dL Lipase (23-300) U/L 01/02/17 01/02/17 01/02/17 Range/Units 02:48 03:07 03:36 POC Glucose (mg/dL) 53 L 73 L 196 H (75-99) mg/dL Lipase (23-300) U/L 01/02/17 01/02/17 Range/Units 06:55 08:08 POC Glucose (mg/dL) 244 H (75-99) mg/dL Lipase 1430 H (23-300) U/L Assessment and Plan (1) Acute pancreatitis Narrative/Plan: 61-year-old female presents with long-standing insulin-dependent diabetes mellitus suspect component of diabetic gastroparesis presents with acute on chronic nausea with upper abdominal pain and elevated lipase consistent with acute pancreatitis with history of cholecystectomy and cholelithiasis with unremarkable transaminases and bilirubin. Etiology of pancreatitis unclear however medication related cannot be entirely excluded with new weight loss drug prescribed over the last month. Possible autoimmune pathology. Possible idiopathic possible viral. Status: Acute Plan: 1. Continue with light diet as tolerated with IV hydration. 2. Will obtain ultrasound of the abdomen, TONY and IgG 4 subclass. 3. Supportive measures. Thank you for this kind referral and the opportunity to participate in the care of your patient. This consultation was discussed with Dr. Vargas. The impression and plan of care have been directed as dictated.
[2017-01-02 11:40] LABS: Glucose,Whole Blood 220 mg/dL (75-99)
[2017-01-02 16:30] LABS: Glucose,Whole Blood 178 mg/dL (75-99)
[2017-01-02] MEDS: ATORVASTATIN 80 MG TAB PO SCH (20:33)
[2017-01-02] MEDS: amLODIPine 5 MG TAB PO SCH (20:33)
[2017-01-02 21:06] LABS: Glucose,Whole Blood 131 mg/dL (75-99)
--- NOTE | 2017-01-02 23:27 | PN ---
DATE OF SERVICE: 01/02/2017 PRESENTING COMPLAINT: Abdominal pain. INTERVAL HISTORY: This patient presented with acute pancreatitis. She was switched back to a clear liquid diet yesterday. Patient is actually feeling better. Nausea is improved. She was seen by GI, who ordered an ultrasound. Sugars are doing better. Review of systems done for constitutional, cardiovascular, GI, pulmonary; relevant findings as above. Current medications are reviewed. On examination, temperature 98.3, pulse 66, respiration 16, blood pressure 149/63, pulse ox 96% on room air. GENERAL APPEARANCE: Sitting up; more comfortable. EYES: Pupils equal. Conjunctivae normal. NECK: JVD not raised. Mass not palpable. RESPIRATORY: Effort normal. Lungs are clear. CARDIOVASCULAR: First and second sounds normal. No edema. ABDOMEN: Decreased epigastric tenderness. Soft. Liver and spleen not palpable. PSYCHIATRY: Alert and oriented x3. Mood and affect more cheerful. INVESTIGATIONS: Lipase 1430. ASSESSMENT: 1. Acute pancreatitis which clinically seems to be more stabilizing. 2. Diabetes mellitus, type 2, chronically on insulin pump. 3. Coronary artery disease with prior history of stent. 4. Hyperlipidemia. 5. Peripheral arterial disease. 6. Diabetes mellitus, type 2, causing peripheral neuropathy. 7. Troponin leak from hemodynamic instability on presentation. No further workup per Cardiology. 8. Acute renal failure, probably prerenal, on presentation, now improved. PLAN: Patient's triglycerides were checked yet again; it was 140. Keep the patient on liquid diet. Will check labs in the morning. Will follow.
[2017-01-03 01:45] LABS: Glucose,Whole Blood 173 mg/dL (75-99)
[2017-01-03] MEDS: SODIUM CHLORIDE 0.9% 1,000 ML IV SCH ×2 (03:30→13:32)
[2017-01-03 07:11] LABS: Glucose,Whole Blood 174 mg/dL (75-99)
[2017-01-03 07:56] VITALS: RESP 16
--- NOTE | 2017-01-03 08:15 | US ---
EXAMINATION TYPE: US abdomen limited DATE OF EXAM: 01/03/2017 7:46 AM COMPARISON: NONE CLINICAL HISTORY: pancreatitis. Elevated pancreatic enzymes, GB removed x 38 years ago EXAM MEASUREMENTS: Liver Length: 15.9 cm Gallbladder Wall: Surgically absent CHD: 0.5 cm Right Kidney: 9.5 x 5.2 x 4.9 cm TECHNOLOGIST IMPRESSION: Pancreas: echogenic, heterogenous Liver: wnl Gallbladder: Surgically absent CHD: wnl Right Kidney: wnl IMPRESSION: STATUS POST CHOLECYSTECTOMY.
[2017-01-03] MEDS: ESCITALOPRAM 10 MG TAB PO SCH (08:47)
[2017-01-03] MEDS: ASPIRIN 81 MG CHEW PO SCH (08:47)
[2017-01-03] MEDS: CLOPIDOGREL 75 MG TAB PO SCH (08:47)
[2017-01-03] MEDS: ISOSORBIDE MONONITRATE ER 30 MG TAB.ER.24H PO SCH (08:47)
[2017-01-03] MEDS: CALCIUM CARBONATE 500 MG CHEWABLE PO SCH ×3 (08:47→18:11)
[2017-01-03] MEDS: PANTOPRAZOLE 40 MG TABLET PO SCH ×2 (08:48→18:11)
[2017-01-03] MEDS: GABAPENTIN 100 MG CAP PO SCH (08:48)
[2017-01-03] MEDS: INSULIN PUMP MEAL BOLUS 1 UNIT MISC MISCELLANE SCH ×3 (08:48→18:11)
[2017-01-03 08:50] LABS: ALT 24 U/L (9-52); AST 20 U/L (14-36); Alkaline Phosphatase 119 U/L (38-126); Amylase 95 U/L (30-110); Anion Gap 10 mmol/L; Blood Urea Nitrogen 8 mg/dL (7-17); Calcium 8.8 mg/dL (8.4-10.2); Carbon Dioxide 27 mmol/L (22-30); Chloride 106 mmol/L (98-107); Glucose 160 mg/dL (74-99); Non-African American GFR(MDRD) >60 (>60 ml/min/1.73 sqM); Potassium 4.3 mmol/L (3.5-5.1); Sodium 143 mmol/L (137-145); Total Bilirubin 0.7 mg/dL (0.2-1.3); Total Protein 6.4 g/dL (6.3-8.2)
--- NOTE | 2017-01-03 11:43 | P.PN ---
Subjective Principal diagnosis: Pancreatitis 61-year-old female with acute pancreatitis unclear etiology. Feels better this morning. Requesting diet advancement. Pancreatic enzymes improved; lipase 945. Liver enzymes normal. Afebrile. Objective - Vital Signs Vital signs: Vital Signs Temp 99.0 F 01/03/17 07:00 Pulse 67 01/03/17 08:00 Resp 16 01/03/17 08:00 BP 132/60 01/03/17 07:00 Pulse Ox 98 01/03/17 07:00 Intake & Output 01/02/17 01/03/17 01/03/17 18:59 06:59 18:59 Intake Total 740 1300 250 Balance 740 1300 250 Intake: Intake, IV Titration 500 1100 Amount Sodium Chloride 0.9% 1, 500 1100 000 ml @ 100 mls/hr IV . Q10H FEROZ Rx#:[id number] Oral 240 200 250 Other: Voiding Method Toilet Toilet # Voids 2 1 - Exam General appearance: The patient is alert, oriented, in no acute distress. HET: Head is normocephalic and atraumatic. Pupils are equal and reactive. Oropharynx is clear without lesions. Neck: Supple without lymphadenopathy. Trachea midline. Heart: S1 S2. Regular rate and rhythm. Lungs: No crackles or wheezes are heard. Abdomen: Soft, nontender, nondistended with bowel sounds. No peritoneal signs. No palpable organomegaly or masses. Extremities: Normal skin color and turgor. No cyanosis, rash, ulceration, clubbing, or edema. Radial and pedal pulses are 2/4 bilaterally. Neurological: No focal deficits. Strength and sensation are grossly intact. - Labs CBC & Chem 7: 12/28/16 15:15 01/03/17 08:20 Labs: Abnormal Lab Results - Last 24 Hours (Table) 01/02/17 01/02/17 01/03/17 Range/Units 16:23 20:55 01:43 Glucose (74-99) mg/dL POC Glucose (mg/dL) 178 H 131 H 173 H (75-99) mg/dL Lipase (23-300) U/L 01/03/17 01/03/17 Range/Units 07:09 08:20 Glucose 160 H (74-99) mg/dL POC Glucose (mg/dL) 174 H (75-99) mg/dL Lipase 945 H (23-300) U/L Assessment and Plan (1) Acute pancreatitis Narrative/Plan: 61-year-old female presents with long-standing insulin-dependent diabetes mellitus suspect component of diabetic gastroparesis presents with acute on chronic nausea with upper abdominal pain and elevated lipase consistent with acute pancreatitis with history of cholecystectomy and cholelithiasis with unremarkable transaminases and bilirubin. Etiology of pancreatitis unclear however medication related cannot be entirely excluded with new weight loss drug prescribed over the last month. Possible autoimmune pathology. Possible idiopathic possible viral. Status: Acute Plan: 1. Continue with diet advancement as tolerated with IV hydration. 2. Discharge per medicine. Follow up in GI office in 1-2 weeks after discharge. Assessment and plan of care discussed with Dr. Vargas.
[2017-01-03 12:02] LABS: Glucose,Whole Blood 196 mg/dL (75-99)
[2017-01-03 15:58] VITALS: BP 121/58; TEMP 99.3
[2017-01-03 16:32] VITALS: PULSE 67
[2017-01-03 16:54] LABS: Glucose,Whole Blood 152 mg/dL (75-99)
[2017-01-03 18:12] LABS: ANA w/Reflex to Titer NEGATIVE (NEGATIVE)
[2017-01-04 11:12] LABS: IgG Subclass 3 21.5 mg/dL (11.0-85.0); IgG Subclass 4 18.1 mg/dL (3.0-175.0)
--- NOTE | 2017-01-04 20:16 | DS ---
DATE OF ADMISSION: 12/28/2016 DATE OF DISCHARGE: 01/03/2017 FINAL DIAGNOSES: 1. Acute pancreatitis, idiopathic. 2. Diabetes mellitus, type 2, chronically on insulin pump. 3. Coronary artery disease with prior history of stent. 4. Hyperlipidemia. 5. Peripheral arterial disease. 6. Diabetes mellitus, type 2, causing peripheral neuropathy. 7. Troponin leak from hemodynamic instability on presentation. 8. Acute renal failure, probably prerenal, improved. CONSULTATIONS: 1. Dr. Vargas GI. 2. Dr. Knutson from Cardiology. HOSPITAL COURSE: This patient presented with acute pancreatitis, small amount of troponin leak. Patient's lipase was slowly coming up ( ) by the time of discharge, patient's abdomen is soft, non-tender. Tolerating a diet. Seen by Dr. Vargas; armand to be discharged. Care was discussed in detail with the patient. DISCHARGE MEDICATIONS: 1. Lexapro 10 mg a day. 2. Hydrochlorothiazide 25 mg a day. 3. Imdur ER 30 mg a day. 4. Losartan 100 mg at bedtime. 5. Lipitor 80 mg at bedtime. 6. Norvasc 5 mg p.o. at bedtime. 7. Plavix 75 mg a day. 8. Pepcid 20 mg b.i.d. 9. NovoLog for pump. 10. Neurontin 100 mg p.o. b.i.d. 11. Belviq 10 mg p.o. b.i.d. 12. Aspirin 81 mg p.o. daily. 13. Prilosec 40 mg daily. Follow up with Dr. Vargas in one week, Dr. Knutson in 2 weeks, Dr. Perez in 2 days. DIET: Soft, low-fat. Carbohydrate-consistent. Insulin pump to continue.
== END 2017-01-03 20:12 | disposition home or self-care (01) | DRG 682 ==
LOC: EC 14:24 → 6SEL 16:59 → 4MS4W 01-01 15:40
PROVIDERS: ADMIT Hospitalist; ATTEND Hospitalist
DX: N17.9 Acute kidney failure, unspecified (principal); K85.90 Acute pancreatitis without necrosis or infection, unspecified; E11.21 Type 2 diabetes mellitus with diabetic nephropathy; E11.42 Type 2 diabetes mellitus with diabetic polyneuropathy; T62.91XA Toxic effect of unspecified noxious substance eaten as food, accidental (unintentional), initial encounter; E11.22 Type 2 diabetes mellitus with diabetic chronic kidney disease; E11.65 Type 2 diabetes mellitus with hyperglycemia; E78.00 Pure hypercholesterolemia, unspecified; E78.5 Hyperlipidemia, unspecified; I12.9 Hypertensive chronic kidney disease with stage 1 through stage 4 chronic kidney disease, or unspecified chronic kidney disease; I25.10 Atherosclerotic heart disease of native coronary artery without angina pectoris; I73.9 Peripheral vascular disease, unspecified; N18.3 Chronic kidney disease, stage 3 (moderate); Z79.02 Long term (current) use of antithrombotics/antiplatelets; Z79.4 Long term (current) use of insulin; Z79.82 Long term (current) use of aspirin; Z82.49 Family history of ischemic heart disease and other diseases of the circulatory system; Z87.891 Personal history of nicotine dependence; Z88.0 Allergy status to penicillin; Z95.5 Presence of coronary angioplasty implant and graft; Z96.41 Presence of insulin pump (external) (internal); Z79.84 Long term (current) use of oral hypoglycemic drugs; Z79.899 Other long term (current) drug therapy
CPT/HCPCS: 36415; 71020; 76705; 76770; 80048; 80053; 81001; 82150; 82787; 83036; 83605; 83690; 83735; 83880; 84478; 84484; 85025; 85610; 85730; 86038; 87502; 93005; 96361; 96374; 96375; 99285

== ENCOUNTER 2017-06-20 11:16 | Inpatient (IN) | payer BC ==
[2017-06-20 11:36] LABS: Glucose,Whole Blood >600 mg/dL (75-99)
[2017-06-20] MEDS ORDERED: ONDANSETRON 4 MG/2 ML VIAL IVP STA ×2 (11:43→12:58)
[2017-06-20] MEDS ORDERED: SODIUM CHLORIDE 0.9% 1,000 ML IV STA (11:43)
[2017-06-20 12:36] LABS: Basophils # (A) 0.2 k/uL (0-0.2); Basophils % (A) 1 %; CH 30.2; CHCM 30.3; Eosinophils # (A) 0.2 k/uL (0-0.7); Eosinophils % (A) 1 %; HCT 43.6 % (34.0-46.0); HDW 2.51; HGB 13.4 gm/dL (11.4-16.0); Hypochromasia Moderate; Luc # (Auto) 0.31; Luc % (Auto) 2; Lymphocytes # (A) 1.8 k/uL (1.0-4.8); Lymphocytes % (A) 12 %; MCH 30.7 pg (25.0-35.0); MCHC 30.6 g/dL (31.0-37.0); MCV 100.4 fL (80.0-100.0); Macrocytosis Slight; Monocytes # (A) 0.7 k/uL (0-1.0); Monocytes % (A) 4 %; Neutrophils # (A) 12.4 k/uL (1.3-7.7); Neutrophils % (A) 80 %; RBC 4.35 m/uL (3.80-5.40); WBC 15.5 k/uL (3.8-10.6); WBC (Perox) 15.72
[2017-06-20 12:42] LABS: VBG PH 7.18 (7.31-7.41)
[2017-06-20 12:44] LABS: ALT 34 U/L (9-52); AST 21 U/L (14-36); Alkaline Phosphatase 166 U/L (38-126); Amylase 127 U/L (30-110); Anion Gap 29 mmol/L; Blood Urea Nitrogen 30 mg/dL (7-17); Calcium 9.3 mg/dL (8.4-10.2); Carbon Dioxide 12 mmol/L (22-30); Chloride 95 mmol/L (98-107); Magnesium 1.8 mg/dL (1.6-2.3); Non-African American GFR(MDRD) 52 (>60 ml/min/1.73 sqM); Potassium 4.7 mmol/L (3.5-5.1); Sodium 136 mmol/L (137-145); Total Bilirubin 0.7 mg/dL (0.2-1.3)
[2017-06-20] MEDS ORDERED: SODIUM CHLORIDE 0.9% 1,000 ML IV ONE (12:58)
--- NOTE | 2017-06-20 13:01 | XR ---
EXAMINATION TYPE: XR chest 2V DATE OF EXAM: 06/20/2017 COMPARISON: 12/28/2016 HISTORY: 61-year-old female with chest pain TECHNIQUE: PA and lateral views FINDINGS: The cardiomediastinal silhouette, aorta, and pulmonary vasculature are within normal limits. Mild dif fuse interstitial prominence is unchanged. A nodular density in each lower lung suggestive of nipple shadow. Otherwise, lungs and pleural spaces are clear. IMPRESSION: 1. Chronic changes without acute process seen. 2. A nodular density at each lower lung suspected to represent nipple shadows. Short interval follow- up recommended with the use of nipple markers.
[2017-06-20 13:02] LABS: Prothrombin Time 10.5 sec (9.0-12.0)
--- NOTE | 2017-06-20 13:02 | XR ---
EXAMINATION TYPE: XR abdomen complete w decub DATE OF EXAM: 06/20/2017 COMPARISON: Ultrasound abdomen 01/03/2017 HISTORY: Abdominal pain and vomiting TECHNIQUE: Supine, upright, and left side down lateral decubitus views of the abdomen are obtained. FINDINGS: There is no evidence for pneumoperitoneum. The bowel gas pattern is unremarkable as there is air throughout nondilated small and large bowel. No sizeable air fluid levels. No mass effects are seen. No unusual calcifications. Fallopian tubal ligation clips are present. There are overlying cardiac l jimbo. Surgical clips present in the right groin. There are vascular calcifications present. IMPRESSION: Unremarkable study
[2017-06-20 13:03] LABS: Partial Thromboplastin Time 22.6 sec (22.0-30.0)
[2017-06-20 13:04] LABS: Creatine Kinase 98 U/L (30-135)
[2017-06-20 13:08] LABS: Glucose 735 mg/dL (74-99)
[2017-06-20 13:14] LABS: Creatine Kinase MB 1.7 ng/mL (0.0-2.4); Troponin I <0.012 ng/mL (0.000-0.034)
[2017-06-20 13:21] LABS: Appearance,Urine Clear (Clear); Bilirubin,Urine Negative (Negative); Glucose,Urine (UA) 4+ (Negative); Leukocyte Esterase,Urine Negative (Negative); Nitrite,Urine Negative (Negative); Protein,Urine Negative (Negative); Specific Gravity,Urine 1.013 (1.001-1.035); UA Billing (MACRO vs. MICRO) CHEM; Urobilinogen,Urine <2.0 mg/dL (<2.0)
[2017-06-20 13:28] LABS: Ketones,Urine 3+ (Negative)
[2017-06-20] MEDS ORDERED: INSULIN REGULAR 100 UNIT in SODIUM CHLORIDE 0.9% 100 ML IV SCH (13:30)
[2017-06-20] MEDS ORDERED: SODIUM CHLORIDE 0.9% 1,000 ML IV SCH (13:30)
[2017-06-20 13:49] LABS: Glucose,Whole Blood >600 mg/dL (75-99)
--- NOTE | 2017-06-20 13:50 | ED ---
General Adult HPI - General Chief complaint: Chest Pain Stated complaint: HYPERGLYCEMIA, CHEST PAIN Time Seen by Provider: 06/20/17 11:29 Source: patient, RN notes reviewed, old records reviewed Mode of arrival: ambulatory Limitations: no limitations - History of Present Illness Initial comments: 61-year-old female with type 1 diabetes presents with elevated blood sugar and abdominal pain. Patient also reports developing nausea and vomiting today. She has had difficulty time controlling her blood glucose over the weekend. Patient does have a history of pancreatitis, she is complaining of epigastric abdominal pain. Also urinary frequency and increased thirst. Blood sugar read over 600 and her home, her. She also reports chest neck and shoulder pain. She believes this is likely from vomiting. Additional past medical history peripheral vascular disease status post bypass, pancreatitis and hypertension. - Related Data Home Medications Medication Instructions Recorded Confirmed Hydrochlorothiazide 25 mg PO HS 09/28/14 06/20/17 Isosorbide Mononitrate ER [Imdur] 30 mg PO QAM 12/22/14 06/20/17 Losartan Potassium 100 mg PO HS 12/22/14 06/20/17 amLODIPine BESYLATE [Norvasc] 5 mg PO QAM 06/30/15 06/20/17 Famotidine [Pepcid] 20 mg PO BID 11/09/16 06/20/17 Insulin Aspart (For Pump) [NovoLOG 0.01 unit SQ-PUMP CONTINUOUS 11/09/16 (For Pump)] Gabapentin [Neurontin] 100 mg PO BID 11/10/16 06/20/17 Aspirin EC [Ecotrin Low Dose] 81 mg PO QAM 12/28/16 06/20/17 Omeprazole [PriLOSEC] 40 mg PO QAM 12/28/16 06/20/17 rOPINIRole HCL [rOPINIRole HCL] 0.5 mg PO HS 06/20/17 06/20/17 Previous Rx's Medication Instructions Recorded Atorvastatin [Lipitor] 80 mg PO HS #90 tab 12/25/14 Allergies Allergy/AdvReac Type Severity Reaction Status Date / Time adhesive tape Allergy Rash/Hives Verified 06/20/17 12:05 Penicillins Allergy Rash/Hives Verified 06/20/17 12:05 Review of Systems ROS Statement: Those systems with pertinent positive or pertinent negative responses have been documented in the HPI. ROS Other: All systems not noted in ROS Statement are negative. Past Medical History Past Medical History: Coronary Artery Disease (CAD), Diabetes Mellitus, Hyperlipidemia, Hypertension, Vascular Disorder Additional Past Medical History / Comment(s): Insulin pump, peripheral neuropathy, poor circulation, PAD, PVD, currently experiencing vomiting History of Any Multi-Drug Resistant Organisms: None Reported Past Surgical History: Appendectomy, Bladder Surgery, Cholecystectomy, Heart Catheterization With Stent, Tubal Ligation Additional Past Surgical History / Comment(s): 07/14/15 CARDIAC CATH-STABLE. 12/24 PTCA with stent, colonoscopy, 10/12/14-aortogram, 10/27/14 RIGHT FEM POP BYPASS Past Anesthesia/Blood Transfusion Reactions: Motion Sickness Date of Last Stent Placement:: 12/24/14 Past Psychological History: Depression Smoking Status: Former smoker Past Alcohol Use History: Occasional Past Drug Use History: None Reported - Past Family History Father Family Medical History: Coronary Artery Disease (CAD) Mother Family Medical History: COPD, Coronary Artery Disease (CAD), Liver Disease, Myocardial Infarction ([place]) Additional Family Medical History / Comment(s): Mother at age 52 yr. cirrhosis of the liver. General Exam Limitations: no limitations General appearance: alert, in distress Head exam: Present: atraumatic, normocephalic Eye exam: Present: normal appearance, PERRL ENT exam: Present: normal exam, mucous membranes dry Neck exam: Present: normal inspection, full ROM. Absent: meningismus Respiratory exam: Present: normal lung sounds bilaterally, other. Absent: respiratory distress Cardiovascular Exam: Present: regular rate, normal rhythm GI/Abdominal exam: Present: soft. Absent: distended, tenderness, guarding Extremities exam: Present: normal inspection, normal capillary refill. Absent: pedal edema Back exam: Present: normal inspection Neurological exam: Present: alert, oriented X3, CN II-XII intact. Absent: motor sensory deficit Psychiatric exam: Present: normal affect, normal mood Skin exam: Present: warm, dry. Absent: cyanosis, diaphoretic Course Vital Signs 06/20/17 06/20/17 06/20/17 11:24 11:44 13:18 Temperature 98.4 F 97.4 F L Pulse Rate 78 Pulse Rate [ 99 Right Brachial] Respiratory 20 Rate Blood Pressure 179/75 O2 Sat by Pulse 98 Oximetry 06/20/17 13:20 Temperature 97.4 F L Pulse Rate 93 Pulse Rate [ Right Brachial] Respiratory 18 Rate Blood Pressure 181/77 O2 Sat by Pulse 98 Oximetry EKG Findings - EKG Comments: EKG Findings:: EKG shows normal sinus rhythm ventricular rate is 79,. 148, QRS duration 82, QTC 486 Medical Decision Making - Medical Decision Making 61-year-old female history type 1 diabetes. Presenting with hypoglycemia, abdominal pain nausea vomiting. Patient is found to be in DKA events positive for ketones, she has anion gap metabolic acidosis. Sugar is over 700. Patient is given 2 L of normal saline, started on a ns of 200 mL's per hour, she started on an insulin infusion. X-ray chest, and abdomen is negative for acute process. Venous pH is 7.18. Patient will be admitted to internal medicine. Diagnosis: DKA, anion gap metabolic acidosis, dehydration - Lab Data Result diagrams: 06/20/17 12:15 06/20/17 12:15 Lab Results 06/20/17 06/20/17 06/20/17 Range/Units 11:35 12:15 12:15 WBC (3.8-10.6) k/uL RBC (3.80-5.40) m/uL Hgb (11.4-16.0) gm/dL Hct (34.0-46.0) % MCV (80.0-100.0) fL MCH (25.0-35.0) pg MCHC (31.0-37.0) g/dL RDW (11.5-15.5) % Plt Count (150-450) k/uL Neutrophils % % Lymphocytes % % Monocytes % % Eosinophils % % Basophils % % Neutrophils # (1.3-7.7) k/uL Lymphocytes # (1.0-4.8) k/uL Monocytes # (0-1.0) k/uL Eosinophils # (0-0.7) k/uL Basophils # (0-0.2) k/uL Hypochromasia Macrocytosis PT (9.0-12.0) sec INR (<1.2) APTT (22.0-30.0) sec VBG pH (7.31-7.41) VBG pCO2 (37-51) mmHg VBG HCO3 (24-28) mmol/L Sodium 136 L (137-145) mmol/L Potassium 4.7 (3.5-5.1) mmol/L Chloride 95 L (98-107) mmol/L Carbon Dioxide 12 L (22-30) mmol/L Anion Gap 29 mmol/L BUN 30 H (7-17) mg/dL Creatinine 1.07 H (0.52-1.04) mg/dL Est GFR (MDRD) Af Amer >60 (>60 ml/min/1.73 sqM) Est GFR (MDRD) Non-Af 52 (>60 ml/min/1.73 sqM) Glucose 735 H* (74-99) mg/dL POC Glucose (mg/dL) >600 H (75-99) mg/dL POC Glu General Road Supervisor ID Tammy Hodge Calcium 9.3 (8.4-10.2) mg/dL Magnesium 1.8 (1.6-2.3) mg/dL Total Bilirubin 0.7 (0.2-1.3) mg/dL AST 21 (14-36) U/L ALT 34 (9-52) U/L Alkaline Phosphatase 166 H (38-126) U/L Total Creatine Kinase 98 (30-135) U/L CK-MB (CK-2) 1.7 (0.0-2.4) ng/mL CK-MB (CK-2) Rel Index 1.7 Troponin I <0.012 (0.000-0.034) ng/mL Total Protein 7.0 (6.3-8.2) g/dL Albumin 4.4 (3.5-5.0) g/dL Amylase 127 H (30-110) U/L Lipase 69 (23-300) U/L Urine Color Urine Appearance (Clear) Urine pH (5.0-8.0) Ur Specific [place] (1.001-1.035) Urine Protein (Negative) Urine Glucose (UA) (Negative) Urine Ketones (Negative) Urine Blood (Negative) Urine Nitrite (Negative) Urine Bilirubin (Negative) Urine Urobilinogen (<2.0) mg/dL Ur Leukocyte Esterase (Negative) 06/20/17 06/20/17 06/20/17 Range/Units 12:15 12:15 12:15 WBC 15.5 H (3.8-10.6) k/uL RBC 4.35 (3.80-5.40) m/uL Hgb 13.4 (11.4-16.0) gm/dL Hct 43.6 (34.0-46.0) % MCV 100.4 H (80.0-100.0) fL MCH 30.7 (25.0-35.0) pg MCHC 30.6 L (31.0-37.0) g/dL RDW 15.0 (11.5-15.5) % Plt Count 298 (150-450) k/uL Neutrophils % 80 % Lymphocytes % 12 % Monocytes % 4 % Eosinophils % 1 % Basophils % 1 % Neutrophils # 12.4 H (1.3-7.7) k/uL Lymphocytes # 1.8 (1.0-4.8) k/uL Monocytes # 0.7 (0-1.0) k/uL Eosinophils # 0.2 (0-0.7) k/uL Basophils # 0.2 (0-0.2) k/uL Hypochromasia Moderate Macrocytosis Slight PT 10.5 (9.0-12.0) sec INR 1.0 (<1.2) APTT 22.6 (22.0-30.0) sec VBG pH 7.18 L* (7.31-7.41) VBG pCO2 42 (37-51) mmHg VBG HCO3 15 L (24-28) mmol/L Sodium (137-145) mmol/L Potassium (3.5-5.1) mmol/L Chloride (98-107) mmol/L Carbon Dioxide (22-30) mmol/L Anion Gap mmol/L BUN (7-17) mg/dL Creatinine (0.52-1.04) mg/dL Est GFR (MDRD) Af Amer (>60 ml/min/1.73 sqM) Est GFR (MDRD) Non-Af (>60 ml/min/1.73 sqM) Glucose (74-99) mg/dL POC Glucose (mg/dL) (75-99) mg/dL POC Glu General Road Supervisor ID Calcium (8.4-10.2) mg/dL Magnesium (1.6-2.3) mg/dL Total Bilirubin (0.2-1.3) mg/dL AST (14-36) U/L ALT (9-52) U/L Alkaline Phosphatase (38-126) U/L Total Creatine Kinase (30-135) U/L CK-MB (CK-2) (0.0-2.4) ng/mL CK-MB (CK-2) Rel Index Troponin I (0.000-0.034) ng/mL Total Protein (6.3-8.2) g/dL Albumin (3.5-5.0) g/dL Amylase (30-110) U/L Lipase (23-300) U/L Urine Color Urine Appearance (Clear) Urine pH (5.0-8.0) Ur Specific [place] (1.001-1.035) Urine Protein (Negative) Urine Glucose (UA) (Negative) Urine Ketones (Negative) Urine Blood (Negative) Urine Nitrite (Negative) Urine Bilirubin (Negative) Urine Urobilinogen (<2.0) mg/dL Ur Leukocyte Esterase (Negative) 06/20/17 Range/Units 13:11 WBC (3.8-10.6) k/uL RBC (3.80-5.40) m/uL Hgb (11.4-16.0) gm/dL Hct (34.0-46.0) % MCV (80.0-100.0) fL MCH (25.0-35.0) pg MCHC (31.0-37.0) g/dL RDW (11.5-15.5) % Plt Count (150-450) k/uL Neutrophils % % Lymphocytes % % Monocytes % % Eosinophils % % Basophils % % Neutrophils # (1.3-7.7) k/uL Lymphocytes # (1.0-4.8) k/uL Monocytes # (0-1.0) k/uL Eosinophils # (0-0.7) k/uL Basophils # (0-0.2) k/uL Hypochromasia Macrocytosis PT (9.0-12.0) sec INR (<1.2) APTT (22.0-30.0) sec VBG pH (7.31-7.41) VBG pCO2 (37-51) mmHg VBG HCO3 (24-28) mmol/L Sodium (137-145) mmol/L Potassium (3.5-5.1) mmol/L Chloride (98-107) mmol/L Carbon Dioxide (22-30) mmol/L Anion Gap mmol/L BUN (7-17) mg/dL Creatinine (0.52-1.04) mg/dL Est GFR (MDRD) Af Amer (>60 ml/min/1.73 sqM) Est GFR (MDRD) Non-Af (>60 ml/min/1.73 sqM) Glucose (74-99) mg/dL POC Glucose (mg/dL) (75-99) mg/dL POC Glu General Road Supervisor ID Calcium (8.4-10.2) mg/dL Magnesium (1.6-2.3) mg/dL Total Bilirubin (0.2-1.3) mg/dL AST (14-36) U/L ALT (9-52) U/L Alkaline Phosphatase (38-126) U/L Total Creatine Kinase (30-135) U/L CK-MB (CK-2) (0.0-2.4) ng/mL CK-MB (CK-2) Rel Index Troponin I (0.000-0.034) ng/mL Total Protein (6.3-8.2) g/dL Albumin (3.5-5.0) g/dL Amylase (30-110) U/L Lipase (23-300) U/L Urine Color Colorless Urine Appearance Clear (Clear) Urine pH 5.0 (5.0-8.0) Ur Specific [place] 1.013 (1.001-1.035) Urine Protein Negative (Negative) Urine Glucose (UA) 4+ H (Negative) Urine Ketones 3+ H (Negative) Urine Blood Negative (Negative) Urine Nitrite Negative (Negative) Urine Bilirubin Negative (Negative) Urine Urobilinogen <2.0 (<2.0) mg/dL Ur Leukocyte Esterase Negative (Negative) Critical Care Time Critical Care Time: Yes Total Critical Care Time: 35 Disposition Clinical Impression: [facility] (acute kidney injury), DKA (diabetic ketoacidoses) Disposition[facility] Condition: Stable Referrals: Brian Perez MD [Primary Care Provider] - 1-2 days Decision to Admit Reason: Admit from EC Decision Date: 06/20/17 Decision Time: 13:51
[2017-06-20] MEDS ORDERED: MORPHINE SULFATE 4 MG/ML SYRINGE IVP STA (14:34)
[2017-06-20 14:49] LABS: Glucose,Whole Blood 584 mg/dL (75-99)
[2017-06-20 16:20] LABS: Glucose,Whole Blood 383 mg/dL (75-99)
[2017-06-20 16:34] LABS: Anion Gap 20 mmol/L; Blood Urea Nitrogen 29 mg/dL (7-17); Carbon Dioxide 13 mmol/L (22-30); Chloride 107 mmol/L (98-107); Glucose 409 mg/dL (74-99); Non-African American GFR(MDRD) 57 (>60 ml/min/1.73 sqM); Phosphorous 3.1 mg/dL (2.5-4.5); Potassium 4.2 mmol/L (3.5-5.1); Sodium 140 mmol/L (137-145)
[2017-06-20 16:59] LABS: Glucose,Whole Blood 260 mg/dL (75-99)
[2017-06-20] MEDS ORDERED: Insulin Aspart (For Pump) 100 UNIT/ML VIAL SQ-PUMP SCH (17:00)
[2017-06-20 18:14] LABS: Glucose,Whole Blood 150 mg/dL (75-99)
[2017-06-20] MEDS ORDERED: D5-0.45% NACL WITH KCL 20MEQ/L 1,000 ML IV SCH (19:00)
[2017-06-20 19:06] LABS: Glucose,Whole Blood 87 mg/dL (75-99)
[2017-06-20 19:27] LABS: Glucose,Whole Blood 95 mg/dL (75-99)
[2017-06-20 20:05] LABS: Anion Gap 8 mmol/L; Blood Urea Nitrogen 28 mg/dL (7-17); Carbon Dioxide 24 mmol/L (22-30); Chloride 106 mmol/L (98-107); Glucose 79 mg/dL (74-99); Non-African American GFR(MDRD) >60 (>60 ml/min/1.73 sqM); Phosphorous 2.2 mg/dL (2.5-4.5); Potassium 4.1 mmol/L (3.5-5.1); Sodium 138 mmol/L (137-145)
[2017-06-20 20:05] LABS: Glucose,Whole Blood 122 mg/dL (75-99)
[2017-06-20] MEDS: GABAPENTIN 100 MG CAP PO SCH (20:21)
[2017-06-20] MEDS: FAMOTIDINE 20 MG TAB PO SCH (20:21)
[2017-06-20 20:58] LABS: Glucose,Whole Blood 169 mg/dL (75-99)
[2017-06-20] MEDS ORDERED: LOSARTAN 50 MG TAB PO SCH (21:00)
[2017-06-20] MEDS ORDERED: MELATONIN 3 MG TABLET PO SCH (21:00)
[2017-06-20] MEDS ORDERED: HYDROCHLOROTHIAZIDE 25 MG TAB PO SCH (21:00)
[2017-06-20] MEDS ORDERED: ATORVASTATIN 80 MG TAB PO SCH (21:00)
[2017-06-20] MEDS ORDERED: INSULIN NPH 300 UNIT/3 ML VIAL SQ ONE (21:41)
[2017-06-20] MEDS ORDERED: INSULIN GLARGINE 100 UNIT/ML 10 ML VIAL SQ SCH (21:45)
[2017-06-20 22:05] LABS: Glucose,Whole Blood 148 mg/dL (75-99)
--- NOTE | 2017-06-20 23:54 | P.HPIM ---
History of Present Illness H&P Date: 06/20/17 Chief Complaint: Nausea vomiting History of presenting complaint: This is a pleasant 61-year-old patient of Dr. Perez. Chronic stable medical conditions include coronary artery disease with stent, hyperlipidemia, peripheral artery disease. And diuretic neuropathy. For 4 days patient not been feeling well sugars started running high and I'm of nausea vomiting abdominal pain came and sugars were running really high and patient's former diverticulitis acidosis put on insulin drip and admitted to the medical floor. Patient also had an episode of chest pain not sure what the duration some shortness of breath some dizziness with radiation to the neck and arm. GEN.: Tired EYES: None HEENT: None NECK: None RESPIRATORY: As above CARDIOVASCULAR: As above GASTROINTESTINAL: As above GENITOURINARY: None MUSCULOSKELETAL: None LYMPHATICS: None HEMATOLOGICAL: None PSYCHIATRY: None NEUROLOGICAL: Numbness in the feet Past medical history: Diabetes with peripheral neuropathy, coronary artery disease with stent, hyperlipidemia, peripheral arterial disease Past surgical history: Appendectomy, bladder surgery, cholecystectomy, coronary artery disease with stent, tubal ligation, right fem-pop bypass, bilateral cataract Social history: smoked a pack a day for 22 years to 89 he didsignificant alcohol history Family history: Coronary artery disease, mother age of 52, with cirrhosis of liver Home medications: Reviewed in the computer ALLERGIES: Adhesive and penicillin VITAL SIGNS: 98.4, 78, 20, 179/75, pulse of 98% room air GENERAL: Average built BMI 32.5, laying in bed tired appearing. EYES: Pupils equal. Conjunctiva normal. HEENT: External appearance of nose and ears normal, oral cavity grossly normal. NECK: JVD not raised; masses not palpable. HEART: First and second heart sounds are normal; no edema. LUNGS: Respiratory rate normal; clear to auscultation. ABDOMEN: Soft, nontender, liver spleen not palpable, no masses palpable. LYMPHATICS: No lymph nodes palpable in the axilla and neck. PSYCH: Alert and oriented x3; mood and affect normal. NEUROLOGICAL: Cranial nerves grossly intact; no facial asymmetry, power and sensation grossly intact. Investigations: Depression 4.1, BNP 28, creatinine 0.94 Accu-Chek was 584 and a blood glucose that was followed 9 White count 15.5 Assessment: -Acute diabetic ketoacidosis -Coronary artery disease with stent in place -Hyperlipidemia -Peripheral artery disease Diabetes mellitus type II causing peripheral neuropathy plan: Patient is put on insulin drip IV fluids. Home medications are resumed. Will give Lovenox for DVT prophylaxis. Once patient able to tolerate an advanced diet. Care was discussed with the patient. Follow and address closely Past Medical History Past Medical History: Coronary Artery Disease (CAD), Diabetes Mellitus, Hyperlipidemia, Hypertension, Vascular Disorder Additional Past Medical History / Comment(s): Insulin pump, peripheral neuropathy, poor circulation, PAD, PVD. History of Any Multi-Drug Resistant Organisms: None Reported Past Surgical History: Appendectomy, Bladder Surgery, Cholecystectomy, Heart Catheterization With Stent, Tubal Ligation Additional Past Surgical History / Comment(s): 07/14/15 CARDIAC CATH-STABLE. 12/24 PTCA with stent, colonoscopy, 10/12/14-aortogram, 10/27/14 RIGHT FEM POP BYPASS, MONISHA CATARACTS. Past Anesthesia/Blood Transfusion Reactions: Motion Sickness Date of Last Stent Placement:: 12/24/14 Smoking Status: Former smoker - Past Family History Father Family Medical History: Coronary Artery Disease (CAD) Mother Family Medical History: COPD, Coronary Artery Disease (CAD), Liver Disease, Myocardial Infarction ([place]) Additional Family Medical History / Comment(s): Mother at age 52 yr. cirrhosis of the liver. Medications and Allergies Home Medications Medication Instructions Recorded Confirmed Type Hydrochlorothiazide 25 mg PO HS 09/28/14 06/20/17 History Isosorbide Mononitrate ER [Imdur] 30 mg PO QAM 12/22/14 06/20/17 History Losartan Potassium 100 mg PO HS 12/22/14 06/20/17 History amLODIPine BESYLATE [Norvasc] 5 mg PO QAM 06/30/15 06/20/17 History Famotidine [Pepcid] 20 mg PO BID 11/09/16 06/20/17 History Insulin Aspart (For Pump) [NovoLOG 0.01 unit SQ-PUMP CONTINUOUS 11/09/16 History (For Pump)] Gabapentin [Neurontin] 100 mg PO BID 11/10/16 06/20/17 History Aspirin EC [Ecotrin Low Dose] 81 mg PO QAM 12/28/16 06/20/17 History Omeprazole [PriLOSEC] 40 mg PO QAM 12/28/16 06/20/17 History rOPINIRole HCL [rOPINIRole HCL] 0.5 mg PO HS 06/20/17 06/20/17 History Allergies Allergy/AdvReac Type Severity Reaction Status Date / Time adhesive tape Allergy Rash/Hives Verified 06/20/17 12:05 Penicillins Allergy Rash/Hives Verified 06/20/17 12:05 Results CBC & Chem 7: 06/20/17 12:15 06/20/17 19:28
[2017-06-21 05:53] LABS: Glucose,Whole Blood 115 mg/dL (75-99)
[2017-06-21] MEDS: INSULIN LISPRO (humaLOG) 300 UNIT/3 ML VIAL SQ SCH ×4 (06:01→12:17)
[2017-06-21 06:52] LABS: Basophils # (A) 0.1 k/uL (0-0.2); Basophils % (A) 1 %; CH 30.7; CHCM 32.7; Eosinophils # (A) 0.1 k/uL (0-0.7); Eosinophils % (A) 1 %; HCT 33.8 % (34.0-46.0); HDW 2.43; HGB 10.7 gm/dL (11.4-16.0); Luc # (Auto) 0.36; Luc % (Auto) 3; Lymphocytes # (A) 2.9 k/uL (1.0-4.8); Lymphocytes % (A) 28 %; MCH 29.7 pg (25.0-35.0); MCHC 31.6 g/dL (31.0-37.0); Mean Platelet Volume 8.6; Monocytes # (A) 0.6 k/uL (0-1.0); Monocytes % (A) 5 %; Neutrophils # (A) 6.6 k/uL (1.3-7.7); Neutrophils % (A) 62 %; RBC 3.58 m/uL (3.80-5.40); WBC 10.7 k/uL (3.8-10.6); WBC (Perox) 11.09
[2017-06-21 07:05] LABS: Anion Gap 7 mmol/L; Blood Urea Nitrogen 29 mg/dL (7-17); Calcium 8.2 mg/dL (8.4-10.2); Carbon Dioxide 24 mmol/L (22-30); Chloride 109 mmol/L (98-107); Glucose 101 mg/dL (74-99); Non-African American GFR(MDRD) 50 (>60 ml/min/1.73 sqM); Potassium 4.4 mmol/L (3.5-5.1); Sodium 140 mmol/L (137-145)
[2017-06-21 07:20] LABS: MCV 94.3 fL (80.0-100.0)
[2017-06-21] MEDS: FAMOTIDINE 20 MG TAB PO SCH (08:22)
[2017-06-21] MEDS: GABAPENTIN 100 MG CAP PO SCH (08:22)
--- NOTE | 2017-06-21 08:47 | CDI ---
In responding to this query, please exercise your independent professional judgment. The [facility] Coding Staff and Clinical Documentation Specialists appreciate your assistance in clarifying documentation, maintaining compliance with coding guidelines, accurately documenting patients condition and capturing severity of illness. The fact that a question is asked does not imply that any particular answer is desired or expected. Communication forms are a method of clarifying documentation and are not made part of the Legal Health Record. Thank you in advance for your clarification. Last Revision, September 2015 Janet Guadalupe [address] [place] [address] Documentation Clarification Form Date: 06/21/2017 8:34:00 AM From: Joselin Bruno RN, CDS Admit Date: 06/20/2017 1:25:00 PM Patient Name: Maria Anderson Visit Number: [id number] Dr. Shane Jett, Conflicting documentation has been found in the medical record. On 06/20/17 Diabetes Mellitus Type 1 is documented by ER physician. H&P states "Diabetes Mellitus type 2 causing peripheral neuropathy." Patient admitted for Diabetic Ketoacidosis presenting with blood glucose 735. History/Risk Factors: Diabetes Mellitus, Peripheral Neuropathy, CAd, PVD Clinical Indicators: Glucose: 735, GAP 20, BUN 30, CR 1.07, GFR 50, AMYLASE 127 , UA: 3+ ketones, 4+ glucose Treatment: Insulin infusion, Diabetic education In your opinion what is the most clinically appropriate diagnosis for this patient? - Diabetes Mellitus type 1 - Diabetes Mellitus type 2 - OTHER explanation of clinical findings - Unable to determine (no explanation for clinical findings) Please document in your progress notes and discharge summary in order to capture severity of illness and risk of mortality. Include clinical findings that support your diagnosis. FYI: Press F11 to launch patient chart. Thank you. CHARLIE
[2017-06-21] MEDS ORDERED: amLODIPine 5 MG TAB PO SCH (09:00)
[2017-06-21] MEDS ORDERED: ASPIRIN 81 MG CHEW PO SCH (09:00)
[2017-06-21] MEDS ORDERED: ENOXAPARIN 40 MG/0.4 ML SYRINGE SQ SCH (09:00)
[2017-06-21] MEDS ORDERED: ISOSORBIDE MONONITRATE ER 30 MG TAB.ER.24H PO SCH (09:00)
[2017-06-21 09:29] LABS: Glucose,Whole Blood 49 mg/dL (75-99)
[2017-06-21 09:46] LABS: Glucose,Whole Blood 70 mg/dL (75-99)
[2017-06-21 10:45] VITALS: RESP 18
[2017-06-21 11:37] VITALS: BMI 32.1
[2017-06-21 11:39] LABS: Glucose,Whole Blood 121 mg/dL (75-99)
[2017-06-21 12:49] VITALS: BP 114/55; PULSE 56; TEMP 98.5
--- NOTE | 2017-06-21 18:02 | P.DS ---
Providers Date of admission: 06/20/17 13:25 Attending physician: Shane Jett Primary care physician: Brian Sanabria [place] Hospital Course: 61-year-old female is admitted for diverticular acidosis and patient does have type 1 diabetes mellitus. Patient does have an insulin pump and her DKA was precipitated by inappropriate use of insulin and patient has not been checking her blood sugars as she is supposed to because of lack of test strips. Patient is elevated off appropriate way to use insulin pump and insulin pump is functioning at this time. Extensive counseling was provided and patient will be discharged today DKA resolved. Patient will follow-up with her primary care physician tomorrow. Patient blood sugars are better today. There were actually low on Lantus and pre-meal insulin regimen. PHYSICAL EXAMINATION: GENERAL: The patient is alert and oriented x3, not in any acute distress. Well developed, well nourished. HEENT: Pupils are round and equally reacting to light. EOMI. No scleral icterus. No conjunctival pallor. Normocephalic, atraumatic. No pharyngeal erythema. No thyromegaly. CARDIOVASCULAR: S1 and S2 present. No murmurs, rubs, or gallops. PULMONARY: Chest is clear to auscultation, no wheezing or crackles. ABDOMEN: Soft, nontender, nondistended, normoactive bowel sounds. No palpable organomegaly. MUSCULOSKELETAL: No joint swelling or deformity. EXTREMITIES: No cyanosis, clubbing, or pedal edema. NEUROLOGICAL: Gross neurological examination did not reveal any focal deficits. SKIN: No rashes. #1 diabetic ketoacidosis: Resolved a little red abnormalities were corrected. #2 leukocytosis likely reactive in nature without any signs or symptoms of infection. #3 type 1 diabetes mellitus uncontrolled blood sugars due to inappropriate use of insulin pump. #4 hypertension, I do not believe patient will need had a cold thiazide that's will be discontinued. Patient blood sugars are on the low normal side here. #5 mild acute renal failure: Secondary to intravascular depletion which resolved. Patient Condition at Discharge: Stable Plan - Discharge Summary New Discharge Prescriptions: Discontinued Hydrochlorothiazide 25 mg PO HS No Action Losartan Potassium 100 mg PO HS Isosorbide Mononitrate ER [Imdur] 30 mg PO QAM Atorvastatin [Lipitor] 80 mg PO HS #90 tab amLODIPine BESYLATE [Norvasc] 5 mg PO QAM Famotidine [Pepcid] 20 mg PO BID Insulin Aspart (For Pump) [NovoLOG (For Pump)] 0.01 unit SQ-PUMP CONTINUOUS Gabapentin [Neurontin] 100 mg PO BID Aspirin EC [Ecotrin Low Dose] 81 mg PO QAM Omeprazole [PriLOSEC] 40 mg PO QAM rOPINIRole HCL [rOPINIRole HCL] 0.5 mg PO HS Discharge Medication List Isosorbide Mononitrate ER [Imdur] 30 mg PO QAM 12/22/14 [History] Losartan Potassium 100 mg PO HS 12/22/14 [History] Atorvastatin [Lipitor] 80 mg PO HS #90 tab 12/25/14 [Rx] amLODIPine BESYLATE [Norvasc] 5 mg PO QAM 06/30/15 [History] Famotidine [Pepcid] 20 mg PO BID 11/09/16 [History] Insulin Aspart (For Pump) [NovoLOG (For Pump)] 0.01 unit SQ-PUMP CONTINUOUS [History] Gabapentin [Neurontin] 100 mg PO BID 11/10/16 [History] Aspirin EC [Ecotrin Low Dose] 81 mg PO QAM 12/28/16 [History] Omeprazole [PriLOSEC] 40 mg PO QAM 12/28/16 [History] rOPINIRole HCL [rOPINIRole HCL] 0.5 mg PO HS 06/20/17 [History] Follow up Appointment(s)/Referral(s): Brian Perez MD [Primary Care Provider] - 06/25/17 2:00 pm Patient Instructions/Handouts: Diabetic Ketoacidosis (DC) Discharge Disposition: HOME SELF-CARE
== END 2017-06-21 14:29 | disposition home or self-care (01) | DRG 639 ==
LOC: EC 11:16 → 6SEL 13:25
PROVIDERS: ADMIT Hospitalist; ATTEND Hospitalist
DX: E10.10 Type 1 diabetes mellitus with ketoacidosis without coma (principal); E10.42 Type 1 diabetes mellitus with diabetic polyneuropathy; E10.51 Type 1 diabetes mellitus with diabetic peripheral angiopathy without gangrene; T38.3X6A Underdosing of insulin and oral hypoglycemic [antidiabetic] drugs, initial encounter; I10 Essential (primary) hypertension; E86.0 Dehydration; I25.10 Atherosclerotic heart disease of native coronary artery without angina pectoris; E78.5 Hyperlipidemia, unspecified; Z95.5 Presence of coronary angioplasty implant and graft; Z87.891 Personal history of nicotine dependence; Z79.4 Long term (current) use of insulin; Z79.82 Long term (current) use of aspirin; Z79.899 Other long term (current) drug therapy
CPT/HCPCS: 36415; 71020; 74020; 80048; 80051; 80053; 81003; 82150; 82550; 82553; 82565; 82803; 82947; 83036; 83690; 83735; 84100; 84484; 84520; 85025; 85610; 85730; 93005; 96361; 96374; 96375; 96376; 99285

== ENCOUNTER → 2017-08-02 | Outpatient (CLI) | payer BC ==
--- NOTE | 2017-08-07 07:37 | MM ---
Reason for exam: screening (asymptomatic). Last mammogram was performed 2 years and 10 months ago. History: Patient is postmenopausal. Physical Findings: A clinical breast exam by your physician is recommended on an annual basis and results should be correlated with mammographic findings. MG Screening Mammo w CAD Bilateral CC and MLO view(s) were taken. Prior study comparison: September 24, 2014, mammogram. The breast tissue is heterogeneously dense. This may lower the sensitivity of mammography. No significant changes when compared with prior studies. ASSESSMENT: Negative, BI-RAD 1 RECOMMENDATION: Routine screening mammogram of both breasts in 1 year.
== END | disposition home or self-care (01) ==
LOC: RADMAMWWP 13:53
PROVIDERS: ATTEND Family Medicine
DX: Z12.31 Encounter for screening mammogram for malignant neoplasm of breast (principal)

== ENCOUNTER 2018-05-24 06:42 | Day surgery (SDC) | payer BC ==
[2018-05-22 08:37] VITALS: BMI 30.9
[2018-05-24] MEDS: LACTATED RINGERS 1,000 ML IV SCH ×2 (07:06→07:27)
[2018-05-24 07:13] VITALS: TEMP 99
[2018-05-24 07:13] LABS: Glucose,Whole Blood 184 mg/dL (75-99)
[2018-05-24] MEDS ORDERED: PROPOFOL 10 MG/ML 20 ML VIAL IV ONE (07:42)
[2018-05-24] MEDS ORDERED: LIDOCAINE 1% INJ 10MG/ML (20 ML MDV) ONE (07:42)
--- NOTE | 2018-05-24 07:54 | P.PCN ---
Date of Procedure: 05/24/18 Procedure(s) Performed: BRIEF HISTORY: Patient is a 62-year-old, pleasant, white female , scheduled for an upper endoscopy as a part of evaluation of chronic persistent nausea and occasional emesis for the last 1 year duration. She does have long-standing history of diabetes melitis. She has been on Prilosec 20 mg twice daily as well as Phenergan for nausea with some help. She is scheduled for an upper endoscopy to evaluate further. . PROCEDURE PERFORMED: Esophagogastroduodenoscopy biopsy . PREOPERATIVE DIAGNOSIS: chronic persistent nausea/vomiting of one year duration IV sedation per anesthesia. PROCEDURE: After informed consent was obtained, the patient was brought into the endoscopy unit. IV sedation was administered by Anesthesia under continuous monitoring. Initially the Olympus GIF-140 video endoscope was inserted into the mouth. Esophagus intubated without any difficulty. It was gradually advanced into the stomach and duodenum and carefully examined. The bulb and the second part of the duodenum appeared normal. The scope at this time was withdrawn to the stomach, adequately insufflated with air, and upon careful examination, mucosa of the antrum had mild gastritis and biopsies were done from this area. The , body, cardia and the fundus appeared normal. The scope was then withdrawn into the esophagus. The GE junction was located at 39 cm from the incisors. The esophagus appeared normal. There were no erosions or ulcerations seen . Biopsies were done from the distal esophagus and the patient tolerated the procedure well. IMPRESSION: 1. Mild antral gastritis. 2. No evidence of gastroparesis or gastric outlet obstruction. RECOMMENDATIONS: The findings of this examination were discussed with the patient as well as a family. She was advised to follow with the biopsy results. In the meantime she will continue with Prilosec 20 mg twice daily as well as Phenergan as needed and educated about small frequent meals.
[2018-05-24 07:55] VITALS: BP 99/55; PULSE 60; RESP 16
[2018-05-24 08:03] LABS: Glucose,Whole Blood 228 mg/dL (75-99)
== END 2018-05-24 08:41 | disposition home or self-care (01) ==
LOC: ORWHC2ENDO 06:42
PROVIDERS: ATTEND Internal Medicine Gastroenterology
DX: K29.50 Unspecified chronic gastritis without bleeding (principal); E11.9 Type 2 diabetes mellitus without complications; M54.5 Low back pain; G89.29 Other chronic pain; I10 Essential (primary) hypertension; Z95.5 Presence of coronary angioplasty implant and graft; Z96.41 Presence of insulin pump (external) (internal); Z79.4 Long term (current) use of insulin; Z79.899 Other long term (current) drug therapy; Z88.0 Allergy status to penicillin; Z91.048 Other nonmedicinal substance allergy status; Z87.891 Personal history of nicotine dependence
CPT/HCPCS: 88305; 43239; J2001; J2704

== ENCOUNTER → 2019-05-22 | Outpatient (CLI) | payer BC ==
[2019-05-22 11:55] LABS: HCT 38.5 % (34.0-46.0); HGB 12.6 gm/dL (11.4-16.0); MCH 29.4 pg (25.0-35.0); MCHC 32.7 g/dL (31.0-37.0); MCV 90.1 fL (80.0-100.0); Mean Platelet Volume 9.4; Platelet Count 218 k/uL (150-450); RBC 4.27 m/uL (3.80-5.40); RDW 14.4 % (11.5-15.5); WBC 9.2 k/uL (3.8-10.6)
[2019-05-22 12:20] LABS: Potassium 4.9 mmol/L (3.5-5.1)
== END | disposition home or self-care (01) ==
LOC: LABPAT 11:08
PROVIDERS: ATTEND Internal Medicine Interventional Cardiology
DX: Z01.812 Encounter for preprocedural laboratory examination (principal)
CPT/HCPCS: 36415; 80051; 82565; 82947; 84520; 85027

== ENCOUNTER 2019-05-26 06:13 | Day surgery (SDC) | payer BC ==
[2019-05-22 10:47] VITALS: BMI 28.1
[2019-05-26] MEDS ORDERED: ALPRAZolam 0.25 MG TAB PO PRN (06:22)
[2019-05-26] MEDS ORDERED: SODIUM CHLORIDE 0.9% 1,000 ML in EMPTY BAG 1 BAG IV ONE (06:22)
[2019-05-26] MEDS ORDERED: NITROGLYCERIN SL TABS 0.4 MG TAB SUBLINGUAL PRN ×2 (06:22→08:26)
[2019-05-26] MEDS ORDERED: ALPRAZolam 0.5 MG TAB PO PRN (06:22)
[2019-05-26 06:51] LABS: Glucose,Whole Blood 59 mg/dL (75-99)
[2019-05-26] MEDS ORDERED: DEXTROSE 5% IN WATER 250 ML IV ONE (06:52)
[2019-05-26] MEDS ORDERED: ASPIRIN 325 MG TAB PO ONE (07:00)
[2019-05-26] MEDS ORDERED: ATORVASTATIN 80 MG TAB PO ONE (07:00)
[2019-05-26] MEDS ORDERED: fentaNYL (PF) 50 MCG/ML 2 ML AMP IV ONE (07:30)
[2019-05-26] MEDS ORDERED: LIDOCAINE 1% INJ 10MG/ML (20 ML MDV) SQ ONE (07:34)
[2019-05-26] MEDS ORDERED: VERAPAMIL SYRINGE (5 MG/10 ML) INTRAARTER ONE (07:37)
[2019-05-26 07:40] LABS: Glucose,Whole Blood 84 mg/dL (75-99)
[2019-05-26] MEDS: HEPARIN SODIUM 1,000 UN/ML (10ML VL) IV ONE ×2 (07:44→07:58)
[2019-05-26] MEDS ORDERED: NITROGLYCERIN 1000MCG/10ML SYRINGE INTRACORON ONE (07:54)
[2019-05-26] MEDS ORDERED: CLOPIDOGREL 75 MG TAB PO ONE (08:01)
[2019-05-26] MEDS ORDERED: IOPAMIDOL-370 50ML BTL INJ ONE (08:10)
[2019-05-26] MEDS ORDERED: IOPAMIDOL-370 125ML BTL INJ ONE (08:10)
[2019-05-26] MEDS ORDERED: RX INFO: IV CONTRAST WAS GIVEN 1 EACH MISC MISCELLANE PRN ×2 (08:24→08:26)
[2019-05-26] MEDS ORDERED: PROMETHAZINE 25 MG TAB PO PRN (08:25)
[2019-05-26 08:26] LABS: Glucose,Whole Blood 47 mg/dL (75-99)
[2019-05-26] MEDS ORDERED: MAG HYDROX/AL HYDROX/SIMETH 30 ML CUP PO PRN (08:26)
[2019-05-26] MEDS ORDERED: ATROPINE SULFATE 0.1 MG/ML 10ML SYRINGE IV PRN (08:26)
[2019-05-26] MEDS ORDERED: ZOLPIDEM 5 MG TAB PO PRN (08:26)
[2019-05-26] MEDS ORDERED: SODIUM CHLORIDE 0.9% 1,000 ML IV SCH (08:30)
--- NOTE | 2019-05-26 08:56 | PTCA ---
PERCUTANEOUSTRANS CORORONARY ANGIOGRAPHY Mrs. Anderson is a 63-year-old female with known history of hypertension, hyperlipidemia, diabetes mellitus, who has been complaining of exertional chest discomfort. She underwent cardiac catheterization, was found to have moderate significant disease in the mid right coronary artery. In view of that, recommendation was made regarding Doppler flow wire measurement of the mid right coronary artery and depending on that, further recommendation will be made. Those findings and recommendation were discussed with the patient and she was in full understanding and agreement. PROCEDURE: A 6-Polish FR4 guiding catheter was introduced in the system. After cannulating the right coronary ostium, a [employer] Doppler FloWire was introduced in the distal right coronary artery and positioned distally. Following that, an iFR was calculated at 80%. At that point, a 2.5 x 18 mm Xience Kait stent was deployed postdilated to 16 atmospheres. After the last inflation, after appropriate wait, the balloon and the guidewire were withdrawn back in the guiding catheter. Images were obtained, repeated. Those images reveal stable successful stenting. At that point, the guiding catheter, the balloon and the guidewire were removed. Left ventriculogram was performed. Following that, catheter and sheath were removed. Hemostasis was obtained with deployment of TR band. There was no immediate complication. Patient was returned to her room in stable condition. Of note, the patient had no chest discomfort or significant EKG changes with inflation. He received a total of 10,000 units of intravenous heparin. Her ACT was monitored. RESULTS: Successful stenting of the mid right coronary artery with reduction of stenosis from 60% to 70% down to 0% with a positive pre iFR. RECOMMENDATION: Patient will be continued on aspirin, Plavix, angiotensin receptor enrique and statin. The importance of dual antiplatelet treatment were discussed with the patient and her family in full understanding and agreement. MMODL / IJN: [id number] /
[2019-05-26] MEDS ORDERED: amLODIPine 5 MG TAB PO SCH (09:00)
[2019-05-26] MEDS ORDERED: ESCITALOPRAM 20 MG TAB PO SCH (09:00)
[2019-05-26] MEDS ORDERED: GABAPENTIN 300 MG CAP PO SCH (09:00)
[2019-05-26] MEDS ORDERED: SODIUM CHLORIDE 0.9% 100 ML BAG ONE (09:05)
[2019-05-26] MEDS ORDERED: ADENOSINE 3 MG/ML 4 ML VIAL IVP ONE (09:05)
[2019-05-26 09:19] LABS: Glucose,Whole Blood 185 mg/dL (75-99)
--- NOTE | 2019-05-26 09:32 | CC ---
CARDIAC CATHETERIZATION REPORT Mrs. Anderson is a 63-year-old female with known history of hypertension, hyperlipidemia, diabetes mellitus, history of peripheral vascular disease and prior history of smoking, who presented with symptoms of exertional chest discomfort. Because of that, recommendation made regarding cardiac catheterization. The procedures, risks, and complications were discussed with the patient who is in full understanding and agreement. PROCEDURE: Patient was brought to the laboratory courier in a fasting semi-sedated state after receiving fentanyl and Benadryl and achieving moderate conscious sedated state. Using Xylocaine anesthesia and Seldinger technique, a 6-Prydeinig sheath was introduced in the right radial artery. Selective right and left coronary angiography was performed using 5- Prydeinig 3.5 bend right and left Sharon catheter. Multiple views of the coronary artery including hemiaxial views obtained. Following that, angioplasty and stenting was performed. Following that, 5-Prydeinig tight pigtail catheter was introduced in the left ventricle and a 30 degree GOODMAN view of the left ventricle was obtained. Following that, catheter and sheath were removed. Hemostasis was obtained with deployment of a TR band. There was no immediate complication. Patient is returned to her room in stable condition. Of note, the patient received intra-arterial verapamil and a total of 10,000 units of intravenous heparin. Her ACT was monitored. FINDINGS: LEFT MAIN: This is a large-sized vessel trifurcating into left circumflex, left anterior descending artery, ramus intermedius. Left main coronary artery has no evidence of high-grade stenosis. LEFT ANTERIOR DESCENDING ARTERY: This is a large-sized vessel, reaching toward the apex with a wrap around apex segment giving rise to a small diagonal branch. The left anterior descending artery in the proximal segment has 20% to 30% plaque, after the takeoff of the first septal technologist infectious disease, there is a 30% to 40% plaque. The rest of the vessel has no evidence of high-grade stenosis. LEFT CIRCUMFLEX: This is a nondominant vessel giving rise to a small obtuse marginal branch. The left circumflex has mild intimal disease without any evidence of high- grade stenosis. RAMUS INTERMEDIUS: This is a large-sized vessel reaching to the apical lateral wall, has diffuse mild intimal disease of 20% to 30% without any evidence of high-grade stenosis. RIGHT CORONARY ARTERY: This is a large dominant vessel, bifurcating distally into PDA and posterolateral segment branches. The right coronary artery stented segment proximally is patent. After the stented segment, there is a 60%-70% plaque. The rest of the vessel has no high-grade stenosis. LEFT VENTRICULOGRAM: Left ventriculogram is performed in 30 degree GOODMAN view and revealed normal left ventricular size and systolic function. Ejection fraction 60%. There was no significant mitral regurgitation. HEMODYNAMICS: There was no gradient across the aortic valve. The left ventricular end- diastolic pressure was 12 mmHg. CONCLUSION: 1. Borderline significant lesion in the mid right coronary artery distal to the prior stented segment. 2. Mild disease in the left anterior descending artery and the left circumflex. 3. Normal left ventricular size and systolic function. RECOMMENDATION: In view of finding anatomy, I recommend proceeding with a Doppler flow wire measurement of the right coronary artery. If hemodynamically significant, proceed with angioplasty and stenting. The procedure, as well as the risks and complication were discussed with the patient who is in full understanding and agreement. MMODL / IJN: [id number] /
[2019-05-26 11:39] VITALS: RESP 18
[2019-05-26 11:56] LABS: Glucose,Whole Blood 182 mg/dL (75-99)
[2019-05-26] MEDS: Insulin Aspart (For Pump) 100 UNIT/ML VIAL SQ-PUMP SCH (16:28)
[2019-05-26 16:54] LABS: Glucose,Whole Blood 251 mg/dL (75-99)
[2019-05-26] MEDS: ESCITALOPRAM 20 MG TAB PO SCH (17:51)
[2019-05-26] MEDS: ISOSORBIDE MONONITRATE ER 30 MG TAB.ER.24H PO SCH (17:51)
[2019-05-26] MEDS: GABAPENTIN 300 MG CAP PO SCH ×2 (17:51→21:51)
[2019-05-26] MEDS: amLODIPine 5 MG TAB PO SCH (17:52)
[2019-05-26 20:32] LABS: Glucose,Whole Blood 248 mg/dL (75-99)
[2019-05-26] MEDS ORDERED: ASPIRIN 81 MG PO SCH (21:00)
[2019-05-26] MEDS ORDERED: rOPINIRole HCL 4 MG TABLET PO SCH (21:00)
[2019-05-26] MEDS ORDERED: LOSARTAN 50 MG TAB PO SCH (21:00)
[2019-05-26] MEDS ORDERED: ATORVASTATIN 80 MG TAB PO SCH (21:00)
[2019-05-27 05:48] LABS: Glucose,Whole Blood 126 mg/dL (75-99)
[2019-05-27 06:43] LABS: African American GFR (CKD) >90 (>60 ml/min/1.73 sqM); Anion Gap 4 mmol/L; Blood Urea Nitrogen 20 mg/dL (7-17); Calcium 8.9 mg/dL (8.4-10.2); Carbon Dioxide 28 mmol/L (22-30); Chloride 109 mmol/L (98-107); Glucose 137 mg/dL (74-99); Potassium 4.6 mmol/L (3.5-5.1); Sodium 141 mmol/L (137-145)
--- NOTE | 2019-05-27 07:21 | PN ---
PROGRESS NOTE Mrs. Anderson is a 63-year-old female with known history of coronary artery disease, history of hypertension, hyperlipidemia, as well as a history of diabetes mellitus, who presented with symptoms of chest pain, underwent cardiac catheterization, was found to have significant lesion in the right coronary artery. After iFR, underwent stenting of that vessel, she is doing well this morning. Her breathing is stable. She is denying any chest pain. No dizziness. No palpitation. She denies any nausea. She is ambulating without difficulty. Continues to be on aspirin once a day, Lipitor 80 mg daily, Plavix 75 mg daily, gabapentin, insulin, isosorbide mononitrate 30 mg daily, losartan 100 mg daily, ropinirole. PHYSICAL EXAMINATION: Blood pressure 140/50 with the heart rate in the 50s. LUNGS: Clear. HEART: Regular rate and rhythm. S1, S2. No S3. No rub. ABDOMEN: Soft, nontender. EXTREMITIES: No edema. LAB DATA: Lab data revealed BUN and creatinine 20 and 0.81, potassium 4.6. IMPRESSION: 1. Status post stenting of the right coronary artery. 2. Hypertension. 3. Hyperlipidemia. 4. Diabetes mellitus. RECOMMENDATION: Patient will be discharged home today to be followed as an outpatient. MMODL / IJN: [id number] /
[2019-05-27] MEDS: ESCITALOPRAM 20 MG TAB PO SCH (08:25)
[2019-05-27] MEDS: amLODIPine 5 MG TAB PO SCH (08:25)
[2019-05-27] MEDS: ISOSORBIDE MONONITRATE ER 30 MG TAB.ER.24H PO SCH (08:25)
[2019-05-27] MEDS: GABAPENTIN 300 MG CAP PO SCH (08:25)
[2019-05-27] MEDS: Insulin Aspart (For Pump) 100 UNIT/ML VIAL SQ-PUMP SCH (08:33)
[2019-05-27 08:40] VITALS: BP 140/71; PULSE 50; TEMP 98
[2019-05-27] MEDS ORDERED: CLOPIDOGREL 75 MG TAB PO SCH (09:00)
== END 2019-05-27 08:46 | disposition home or self-care (01) ==
LOC: CATHCVL 06:13 → 3SCARD 08:13 → CATHCVL 05-27 08:46
PROVIDERS: ATTEND Internal Medicine Interventional Cardiology
DX: I25.10 Atherosclerotic heart disease of native coronary artery without angina pectoris (principal); I10 Essential (primary) hypertension; E11.9 Type 2 diabetes mellitus without complications; E78.2 Mixed hyperlipidemia; F17.210 Nicotine dependence, cigarettes, uncomplicated; E11.51 Type 2 diabetes mellitus with diabetic peripheral angiopathy without gangrene; Z88.0 Allergy status to penicillin; Z79.82 Long term (current) use of aspirin; Z79.4 Long term (current) use of insulin; Z79.899 Other long term (current) drug therapy; Z82.49 Family history of ischemic heart disease and other diseases of the circulatory system
CPT/HCPCS: 94760; 93571; 93458; 85347; 80048; C9600; C1887; C1894; C1769; C1874; J2001; J3010; J1644; J0153; Q9967 ×2

== ENCOUNTER → 2019-09-23 | Outpatient (CLI) | payer BC ==
--- NOTE | 2019-09-23 09:40 | MM ---
Reason for exam: screening (asymptomatic). Last mammogram was performed 2 years and 2 months ago. History: Patient is postmenopausal. Physical Findings: A clinical breast exam by your physician is recommended on an annual basis and results should be correlated with mammographic findings. MG Screening Mammo w CAD Bilateral CC and MLO view(s) were taken. Prior study comparison: August 02, 2017, bilateral MG screening mammo w CAD. September 24, 2014, mammogram. The breast tissue is heterogeneously dense. This may lower the sensitivity of mammography. Benign appearing bilateral calcifications. No significant changes when compared with prior studies. ASSESSMENT: Benign, BI-RAD 2 RECOMMENDATION: Routine screening mammogram of both breasts in 1 year.
== END | disposition home or self-care (01) ==
LOC: RADMAMWWP 06:56
PROVIDERS: ATTEND Family Medicine
DX: Z12.31 Encounter for screening mammogram for malignant neoplasm of breast (principal)
CPT/HCPCS: 77067

== ENCOUNTER → 2020-08-03 | Outpatient (CLI) | payer BC ==
[2020-08-03 10:03] LABS: Basophils # (A) 0.2 k/uL (0-0.2); Basophils % (A) 2 %; Eosinophils # (A) 0.4 k/uL (0-0.7); Eosinophils % (A) 3 %; HCT 42.8 % (34.0-46.0); HGB 13.4 gm/dL (11.4-16.0); Lymphocytes # (A) 3.5 k/uL (1.0-4.8); Lymphocytes % (A) 30 %; MCH 28.6 pg (25.0-35.0); MCHC 31.3 g/dL (31.0-37.0); MCV 91.2 fL (80.0-100.0); Mean Platelet Volume 8.1; Monocytes # (A) 0.7 k/uL (0-1.0); Monocytes % (A) 6 %; Neutrophils # (A) 6.6 k/uL (1.3-7.7); Neutrophils % (A) 57 %; Platelet Count 227 k/uL (150-450); RBC 4.69 m/uL (3.80-5.40); RDW 13.6 % (11.5-15.5); WBC 11.7 k/uL (3.8-10.6)
[2020-08-03 19:54] LABS: African American GFR (CKD) 62.3 (60.0-200.0); Albumin 3.9 g/dL (3.80-4.90); Albumin/Globulin Ratio 2.17 (1.60-3.17); Anion Gap 8.6 mmol/L (4.00-12.00); BUN/Creat Ratio 30.91 Ratio (12.00-20.00); Carbon Dioxide 25.4 mmol/L (21.6-31.8); Chol/HDL Ratio 2.48; Globulin 1.8 g/dL (1.6-3.3); LDL Cholesterol,Calculated 86.8 mg/dL (0.0-131.0); Non-African American GFR(CKD) 53.8 (60.0-200.0); Potassium 4.7 mmol/L (3.5-5.5); Total Bilirubin 0.6 mg/dL (0.2-1.2); Total Protein 5.7 g/dL (6.2-8.2); VLDL Calculation 12.2 mg/dL (5.00-40.00)
[2020-08-03 20:10] LABS: T4, Free (Free Thyroxine) 0.8 ng/dL (0.80-1.80)
== END | disposition home or self-care (01) ==
LOC: LABWHC1 08:54
PROVIDERS: ATTEND Nurse Practitioner Adult Health
DX: E10.9 Type 1 diabetes mellitus without complications (principal); E78.2 Mixed hyperlipidemia
CPT/HCPCS: 36415; 80053; 80061; 82550; 84439; 84443; 85025

== ENCOUNTER → 2020-10-29 | Outpatient (CLI) | payer BC ==
--- NOTE | 2020-10-29 11:06 | US ---
EXAMINATION TYPE: US venous doppler duplex LE DATE OF EXAM: 10/29/2020 10:54 AM COMPARISON: US 2016 CLINICAL HISTORY: R60.0 edema of lower extremities. Calf pain following recent long car ride SIDE PERFORMED: Bilateral TECHNIQUE: The lower extremity deep venous system is examined utilizing real time linear array sonog fabien with graded compression, doppler sonography and color-flow sonography. VESSELS IMAGED: Common Femoral Vein Deep Femoral Vein Greater Saphenous Vein * Femoral Vein Popliteal Vein Small Saphenous Vein * Proximal Calf Veins (* superficial vessels) Right Leg: Appears negative for DVT Left Leg: Appears negative for DVT IMPRESSION: 1. Bilateral large renal ultrasound negative for deep venous thrombosis.
== END | disposition home or self-care (01) ==
LOC: RADUSWWP 10:24
PROVIDERS: ATTEND Family Medicine
DX: R60.0 Localized edema (principal)
CPT/HCPCS: 93970

== ENCOUNTER → 2021-03-22 | Outpatient (CLI) | payer BC ==
[2021-03-22 08:25] LABS: HCT 39.6 % (34.0-46.0); HGB 13.1 gm/dL (11.4-16.0); MCHC 33.1 g/dL (31.0-37.0); MCV 93.7 fL (80.0-100.0); Mean Platelet Volume 8.7; Platelet Count 210 k/uL (150-450); RBC 4.23 m/uL (3.80-5.40); RDW 14.1 % (11.5-15.5); WBC 9.2 k/uL (3.8-10.6)
[2021-03-22 08:44] LABS: Potassium 4.8 mmol/L (3.5-5.1)
== END | disposition home or self-care (01) ==
LOC: LABPAT 07:36
PROVIDERS: ATTEND Internal Medicine Interventional Cardiology
DX: Z01.812 Encounter for preprocedural laboratory examination (principal); I25.10 Atherosclerotic heart disease of native coronary artery without angina pectoris
CPT/HCPCS: 36415; 80051; 82565; 84520; 85027

== ENCOUNTER → 2021-03-28 | Day surgery (SDC) | payer BC ==
[2021-03-21 16:03] VITALS: BMI 30.5
[~2021-03-28] MED LIST changes: +ALPRAZolam 0.25 MG TAB PO PRN; +ASPIRIN 325 MG TAB PO STA; +ASPIRIN 81 MG PO SCH; +ATORVASTATIN 80 MG TAB PO SCH; +CHOLECALCIFEROL 25 MCG (1000 IU) TABLET PO SCH; +ESCITALOPRAM 20 MG TAB PO SCH; +GABAPENTIN 300 MG CAP PO SCH; +HEPARIN SODIUM 1,000 UN/ML (10ML VL) IV ONE; +HEPARIN SODIUM 1,000 UN/ML (10ML VL) ONE; +HEPARIN SODIUM,PORCINE 10,000 UNIT in SODIUM CHLORIDE 0.9% 1,000 ML IRRIGATION PRN; +HEPARIN SODIUM,PORCINE 2,500 UNIT in SODIUM CHLORIDE 0.9% 250 ML IRRIGATION PRN; +IOPAMIDOL-370 125ML BTL INJ ONE; +ISOSORBIDE MONONITRATE ER 30 MG TAB.ER.24H PO SCH; -LACTATED RINGERS 1,000 ML IV SCH; -LIDOCAINE 1% 20 ML VIAL (10MG/ML) FOR IV START INTRADERMA PRN; +LIDOCAINE 1% INJ 10MG/ML (20 ML MDV) ONE; +LIDOCAINE 1% INJ 10MG/ML (20 ML MDV) SQ ONE; +LOSARTAN 50 MG TAB PO SCH; +MELATONIN 5 MG TABLET PO PRN; +MIDAZOLAM 2 MG/2 ML VIAL IVP ONE; +NITROGLYCERIN SL TABS 0.4 MG TAB SUBLINGUAL PRN; +PROMETHAZINE 25 MG TAB PO PRN; +RX INFO: IV CONTRAST WAS GIVEN 1 EACH MISC MISCELLANE PRN; +SODIUM CHLORIDE 0.9% 1,000 ML IV SCH; +SODIUM CHLORIDE 0.9% 1,000 ML in EMPTY BAG 1 BAG IV ONE; +VERAPAMIL 2.5 MG/ML 2 ML AMP ONE; +VERAPAMIL SYRINGE (5 MG/10 ML) INTRAARTER ONE; +amLODIPine 5 MG TAB PO SCH; +fentaNYL (PF) 50 MCG/ML 2 ML AMP IVP ONE; +fentaNYL (PF) 50 MCG/ML 2 ML AMP ONE
[2021-03-28 06:18] LABS: Glucose,Whole Blood 198 mg/dL (75-99)
[2021-03-28 06:21] VITALS: RESP 16; TEMP 98.3
--- NOTE | 2021-03-28 08:49 | CC ---
CARDIAC CATHETERIZATION REPORT Mrs. Anderson is a 65-year-old female with a known history of coronary artery disease, prior stenting, history of peripheral vascular disease and diabetes who presented with symptoms of recent onset angina pectoris, exertional pattern and relieved with rest. In view of that, recommendation was made regarding cardiac catheterization. The procedure as well as the risks and complications were discussed with the patient who is in full understanding and agreement. PROCEDURE: Patient was brought to the laboratory technologist in a fasting semi-sedated state after receiving fentanyl and Benadryl and achieving moderate conscious sedated state. Using Xylocaine anesthesia and Seldinger technique, a 6-Divehi sheath was introduced in the right radial artery. Selective right and left coronary angiography performed using 5-Divehi 3.5 bend right and left Sharon catheter. Multiple views of the coronary artery including hemiaxial views were obtained. The right Sharon was used to cross the aortic valve and left ventricular end-diastolic pressure was calculated. Following that, catheter and sheath were removed. Hemostasis was obtained with deployment of a TR band. There was no immediate complication. Patient was returned to her room in stable condition. Of note, patient received 4000 units of intravenous heparin as well as intra-arterial verapamil. FINDINGS: LEFT MAIN: This is a large-sized vessel, bifurcating into left circumflex and left anterior descending artery. Left main coronary artery has no evidence of high-grade stenosis. LEFT ANTERIOR DESCENDING ARTERY: This is a large-sized vessel reaching to the apex with a wraparound apex segment giving rise to a moderately sized diagonal branch. Proximally the left anterior descending artery has diffuse intimal disease of 20% to 30% without any evidence of high-grade stenosis. LEFT CIRCUMFLEX: This is a nondominant vessel giving rise to 2 obtuse marginal branches. The left circumflex has mild intimal disease in the mid segment of 20% to 30% without any evidence of high-grade stenosis. RIGHT CORONARY ARTERY: This is a large dominant vessel bifurcating distally PDA and posterolateral segment and branches. The stented segment in the proximal and mid RCA are patent. There is diffuse intimal disease throughout the vessel in the proximal and mid segment of 20% to 30% without any evidence of high-grade stenosis. LEFT VENTRICULOGRAM: Left ventriculogram was not performed. HEMODYNAMICS: There was no gradient across the aortic valve. The left ventricular end-diastolic pressure was 18 mmHg. CONCLUSION: 1. No evidence of restenosis at the site of prior stenting. 2. Mild triple-vessel coronary artery disease. RECOMMENDATION: In view of finding anatomy, recommend continue medical therapy with aggressive coronary risk modifications that have been initiated. Those findings and recommendations were discussed with the patient and her family and they are in full understanding and agreement. Duration of procedure is 18 minutes. MMTYRONEL / CINTHIAN: [id number] /
[2021-03-28 10:00] VITALS: PULSE 46
[2021-03-28 10:01] VITALS: BP 155/70
== END | disposition home or self-care (01) ==
LOC: CATHCVL 05:59
PROVIDERS: ATTEND Internal Medicine Interventional Cardiology
DX: I25.110 Atherosclerotic heart disease of native coronary artery with unstable angina pectoris (principal); I10 Essential (primary) hypertension; Z95.820 Peripheral vascular angioplasty status with implants and grafts; E78.00 Pure hypercholesterolemia, unspecified; E11.51 Type 2 diabetes mellitus with diabetic peripheral angiopathy without gangrene; Z20.822 Contact with and (suspected) exposure to COVID-19; E78.2 Mixed hyperlipidemia; Z82.49 Family history of ischemic heart disease and other diseases of the circulatory system; Z87.891 Personal history of nicotine dependence; Z90.49 Acquired absence of other specified parts of digestive tract; Z90.89 Acquired absence of other organs; Z98.890 Other specified postprocedural states; Z79.82 Long term (current) use of aspirin; Z79.4 Long term (current) use of insulin; Z79.899 Other long term (current) drug therapy
CPT/HCPCS: 93458; 87635; C1894; C1769; J2250; J2001; J3010; J1644; Q9967

== ENCOUNTER → 2022-06-20 | Outpatient (CLI) | payer BC ==
--- NOTE | 2022-06-20 10:24 | US ---
EXAMINATION TYPE: US groin RT DATE OF EXAM: 06/20/2022 COMPARISON: NONE CLINICAL HISTORY: R59.0 Localized enlarged lymph nodes. pain within the right groin Scanned over the patient's area of concern, there is a normal appearing 2.8 x 0.7 x 1.0cm lymph node seen. IMPRESSION: As above
== END | disposition home or self-care (01) ==
LOC: RADUSWWP 09:29
PROVIDERS: ATTEND Family Medicine
DX: R59.0 Localized enlarged lymph nodes (principal)

== ENCOUNTER → 2022-07-20 | Outpatient (CLI) | payer BC ==
--- NOTE | 2022-07-23 07:18 | CT ---
EXAMINATION TYPE: CT abdomen pelvis w con DATE OF EXAM: 07/20/2022 HISTORY: Right side inguinal hernia. Right groin pain CT DLP: 1019.5mGycm Automated Exposure Control for Dose Reduction was Utilized. CONTRAST: CT scan of the abdomen and pelvis is performed with IV Contrast, patient injected with 80 ML mL of Is ovue 300. COMPARISON: None. FINDINGS: LUNG BASES: No significant abnormality is appreciated. LIVER/GB: Gallbladder not seen and thought surgically absent. No biliary dilatation. PANCREAS: No significant abnormality is seen. SPLEEN: Prominent splenule anterior inferior to the spleen on coronal image 38 is felt present. ADRENALS: No significant abnormality is seen. KIDNEYS: Symmetric cortical medullary uptake and excretion without hydronephrosis seen bilaterally. BOWEL: Oral contrast does not reach the level of terminal ileum making evaluation of distal bowel sli ghtly suboptimal. No suspicious small or large bowel dilatation. UTERUS/ADNEXA: Anteverted uterus. Small focus of calcification centrally axial image 69. Tubal ligati on clips along the periphery. No free fluid. LYMPH NODES: No greater than 1cm abdominal or pelvic lymph nodes are appreciated. OSSEOUS STRUCTURES: Facet arthropathy lower lumbar levels. OTHER: Mild/moderate calcified plaque distal abdominal aorta extends into branch vessels. Surgical clips in the right groin region without recurrent hiatal hernia identified. Scarring is seen . Slightly asymmetrically prominent but subcentimeter lymph nodes at this level are identified. IMPRESSION: Asymmetric slightly more prominent borderline enlarged right groin lymph nodes with surgi ezequiel changes noted. No recurrent hiatal hernia seen. No well-formed fluid collection or abscess noted. .
== END | disposition home or self-care (01) ==
LOC: RADCTMAIN 15:12
PROVIDERS: ATTEND Surgery
DX: R10.31 Right lower quadrant pain (principal); R59.0 Localized enlarged lymph nodes
CPT/HCPCS: 82565; 84520; 74177; 36415; Q9967 ×2

== ENCOUNTER → 2022-08-07 | Outpatient (CLI) | payer BC ==
--- NOTE | 2022-08-08 11:31 | CT ---
EXAMINATION TYPE: CT lumbar spine wo con CT DLP: 905 mGycm, Automated exposure control for dose reduction was used. DATE OF EXAM: 08/07/2022 4:42 PM COMPARISON: CT abdomen pelvis 07/20/2022. CLINICAL INDICATION:Female, 66 years old with history of M54.16 RADICULOPATHY, LUMBAR REGION; TECHNIQUE: Multiple axial images were obtained from the midportion of T11 through the sacroiliac joel nts. Soft tissue and bone windows in coronal and sagittal planes were obtained and reviewed. FINDINGS: Alignment: There are 5 lumbar type vertebral bodies within normal alignment. Bone: No evidence of fracture is identified. Minimal scattered osteophyte formation. Discs: T12-L1: No spinal canal or neural foraminal stenosis is identified. L1-L2: No spinal canal or neural foraminal stenosis is identified. L2-L3: Disc bulging and facet joint arthropathy resulting in mild spinal canal and mild bilateral yulisa ral foramen stenosis. L3-L4: Disc bulging and facet joint arthropathy resulting in mild spinal canal and mild bilateral yulisa ral foramen stenosis. L4-L5: Disc bulging and facet joint arthropathy resulting in mild spinal canal and mild bilateral yulisa ral foramen stenosis. L5-S1: No spinal canal or neural foraminal stenosis is identified. Other: Mild atherosclerosis of the arterial vasculature. IMPRESSION: 1. No evidence of fracture of the lumbar spine. 2. No CT evidence for significant spinal canal neural foraminal stenosis.
== END | disposition home or self-care (01) ==
LOC: RADCTMAIN 16:20
PROVIDERS: ATTEND Family Medicine
DX: M54.16 Radiculopathy, lumbar region (principal)
CPT/HCPCS: 72131

== ENCOUNTER → 2022-08-24 | Outpatient (CLI) | payer BC ==
[2022-08-24 07:48] VITALS: BP 180/84; PULSE 43; RESP 16; TEMP 97.8
--- NOTE | 2022-08-24 14:46 | P.PAINPG ---
Objective - Vital Signs Vital signs: Intake & Output 08/23/22 08/24/22 08/24/22 18:59 06:59 18:59 Weight 79.832 kg PQRS Measure Charge Sheet Comment: HISTORY OF PRESENT ILLNESS: 66 yr old female as a referral from Dr Perez presents today w severe and chronic LBP secondary to spinal stenosis, DDD, spondylosis and facet arthropathy without myelopathy for evaluation. Pt states her pain level is currently at 8/10 in intensity, constant, dull/achy in character, localized in the lower lumbar spine with radiation of shooting pain down the lower extremities when standing and walking for periods of 10 minutes or more. Pain is relieved with medications (Tylenol), home daily exercise regimen, sitting and rest. PMH: CAD, Diabetes Mellitus, Hyperlipidemia, HTN, PVD, PAD PSH: Insulin Pump, Appendectomy, Bladder Surgery, Cholecystectomy, Aortogram (2013), Heart Catheterization With Stent (2014), Tubal Ligation, Colonoscopy/ EGD (2016), R Femoral Popliteal Bypass, BL Cataract Resection SH: Former tobacco user, No ETOH abuse, No illicit drug use FH: Fa- CAD. Mo- CAD/ CT/ Cirrhosis/ at age 54. All: See list Meds: See list REVIEW OF ORGAN SYSTEMS: CONSTITUTIONAL: No fevers or chills. No recent weight loss. NEUROLOGICAL: + numbness and tingling along the distal extremities. No seizure disorders or headaches. MUSCULOSKELETAL: + pain PSYCHIATRIC: Denies current depression or suicidal thoughts. Physical Examinations : Constitutional : Cooperative , not in acute distress . Neurologic : Cranial nerve II to XII intact. No focal neurological deficits. Psychiatric : alert & oriented x 3. Matching mood & appropriate affect. Judgment & insight intact. Musculoskeletal : Cervical Spine Motor strength in the deltoid and biceps: Normal right side. Normal Left side Motor strength biceps and the wrist extensors: Normal right side . Normal left side Motor strength in the triceps muscle: Normal right side. Normal left side Deep tendon reflexes: Normal at the biceps. Normal at Brachioradialis. Normal at triceps Vertebral body tenderness to deep palpation over Cervical facet loading test: positive bilaterally Spurling test: positive bilaterally Neck distraction test: positive bilaterally Ame sign: positive bilaterally Lumbar spine Motor strength lower extremities ,thigh and legs 5/5 Right side , 5/5 Left side Deep tendon reflexes : Normal Knee Jerk. Normal Ankle Jerk Vertebral body tenderness over L5 Lumbar facet Loading Test: positive Right / positive Left Range of motion of the lumbar spine Flexion 30 degrees, extension 10 degrees Straight Leg Raise test: Left/ Right positive at degree Moon test: positive right / positive left. Severe tenderness over the Sacroiliac joint on the Right / Left sides Gaenslen test: positive bilaterally Seated flexion test: positive bilaterally. Sacral spine : Severe tenderness over the Sacroiliac joint: right side / left side Range of motion: Flexion of the lumbar spine <60 degrees Range of motion: Extension of the lumbar spine <20 degrees Gaenslen's Test positive Eliezer's Test positive Moon test: positive right side / left side Thigh Thrust Test Sacral Thrust Test Imaging: CT without contrast from 08/07/22 reviewed Assessment/ Plan : Lumbar stenosis, Lumbar DDD Recommendation of DAVID L5-S1. May need a series of injections, up to 3 within a 6 mo period, for optimal pain relief. Risks, benefits of procedure discussed and patient verbalized understanding. Admits to aspirin or anti- coagulant use or medical history of diabetes. Protocol for discontinuation/ continuation of medications kaley procedure discussed. All questions answered. I have spent greater than 30 minutes on patient care today. Dr Canada was available by phone for the evaluation of this patient. The time was used to review the medical records including relevant urine studies and Prescription history (MAPs), review of the available imaging, evaluation and examination of the patient, coordination of care with the medical staff and if applicable referring physicians, as well as creation of the medical record - Pain Location Lower Back Non-Pharmacological Interventions: Home Exercise, Inactivity, Sitting, Stretching Pharmacological Interventions: PRN Medication PQRS Narrative: Smoking Status Former smoker Pain Intensity [Lower Back] 8 Scale Used Numeric (1 - 10) Hx Alcohol Use (MH) No Home Medications: Ambulatory Orders Isosorbide Mononitrate ER [Imdur] 30 mg PO DAILY 12/22/14 Losartan Potassium 100 mg PO DAILY 12/22/14 Atorvastatin [Lipitor] 80 mg PO HS #90 tab 12/25/14 amLODIPine BESYLATE [Norvasc] 5 mg PO DAILY 06/30/15 Insulin Aspart (For Pump) [NovoLOG (For Pump)] 0 unit SQ-PUMP CONTINUOUS 11/09/16 Aspirin EC [Ecotrin Low Dose] 81 mg PO HS 12/28/16 Promethazine HCl 25 mg PO DIRECTED PRN 05/22/18 Nitroglycerin Sl Tabs [Nitrostat] 0.4 mg SUBLINGUAL Q5M PRN #25 tab 05/27/19 Melatonin [Melatonin ER] 10 mg PO HS PRN 03/21/21 Desvenlafaxine [Desvenlafaxine ER] 50 mg PO DAILY 08/23/22 Ezetimibe [Zetia] 10 mg PO DAILY 08/23/22 Famotidine 40 mg PO DAILY 08/23/22 Rivaroxaban [Xarelto] 2.5 mg PO BID 08/23/22 Solifenacin Succinate [Vesicare] 5 mg PO DAILY 08/23/22 atenoloL 25 mg PO DAILY 08/23/22 Controlled Substance Measures - Controlled Substance Measures Is patient prescribed a controlled substance at discharge?: No
== END | disposition home or self-care (01) ==
LOC: PNWHC3 07:24
PROVIDERS: ATTEND Specialist
DX: M54.16 Radiculopathy, lumbar region (principal)
CPT/HCPCS: 99211

== ENCOUNTER → 2022-09-28 | Day surgery (SDC) | payer BC ==
[~2022-09-28] MED LIST changes: -ALPRAZolam 0.25 MG TAB PO PRN; -ASPIRIN 325 MG TAB PO STA; -ASPIRIN 81 MG PO SCH; -ATORVASTATIN 80 MG TAB PO SCH; -CHOLECALCIFEROL 25 MCG (1000 IU) TABLET PO SCH; -ESCITALOPRAM 20 MG TAB PO SCH; -GABAPENTIN 300 MG CAP PO SCH; -HEPARIN SODIUM 1,000 UN/ML (10ML VL) IV ONE; -HEPARIN SODIUM 1,000 UN/ML (10ML VL) ONE; -HEPARIN SODIUM,PORCINE 10,000 UNIT in SODIUM CHLORIDE 0.9% 1,000 ML IRRIGATION PRN; -HEPARIN SODIUM,PORCINE 2,500 UNIT in SODIUM CHLORIDE 0.9% 250 ML IRRIGATION PRN; +IOPAMIDOL M200 10 ML VIAL ONE; -IOPAMIDOL-370 125ML BTL INJ ONE; -ISOSORBIDE MONONITRATE ER 30 MG TAB.ER.24H PO SCH; +IV FLUID CONTINUATION 1,000 ML IV ONE; +LACTATED RINGERS 1,000 ML IV SCH; +LIDOCAINE 1% (10MG/ML) FOR IV START INTRADERMA PRN; -LIDOCAINE 1% INJ 10MG/ML (20 ML MDV) ONE; -LIDOCAINE 1% INJ 10MG/ML (20 ML MDV) SQ ONE; -LOSARTAN 50 MG TAB PO SCH; -MELATONIN 5 MG TABLET PO PRN; -MIDAZOLAM 2 MG/2 ML VIAL IVP ONE; +MIDAZOLAM 2 MG/2 ML VIAL ONE; -NITROGLYCERIN SL TABS 0.4 MG TAB SUBLINGUAL PRN; -PROMETHAZINE 25 MG TAB PO PRN; -RX INFO: IV CONTRAST WAS GIVEN 1 EACH MISC MISCELLANE PRN; -SODIUM CHLORIDE 0.9% 1,000 ML IV SCH; -SODIUM CHLORIDE 0.9% 1,000 ML in EMPTY BAG 1 BAG IV ONE; -VERAPAMIL 2.5 MG/ML 2 ML AMP ONE; -VERAPAMIL SYRINGE (5 MG/10 ML) INTRAARTER ONE; -amLODIPine 5 MG TAB PO SCH; -fentaNYL (PF) 50 MCG/ML 2 ML AMP IVP ONE; +methylPREDNISolone ACETATE 40 MG/ML 1 ML VIAL ONE
[2022-09-28 07:14] VITALS: TEMP 98.1
[2022-09-28 07:35] LABS: Glucose,Whole Blood 112 mg/dL (70-110)
--- NOTE | 2022-09-28 07:47 | P.PCN ---
Date of Procedure: 09/28/22 Procedure(s) Performed: PREOPERATIVE DIAGNOSIS: 1- Lumbar Degenerative Disc Diseases 2-lumbar spinal stenosis POSTOPERATIVE DIAGNOSIS: Same as preop diagnosis. PROCEDURE 1. Lumbar epidural steroid injection under fluoroscopic guidance at the L5-S1 level. (Fluoroscopy imaging was available in radiology department) 2. Lumbar epidurogram. ANESTHESIA: moderate sedation with intravenous Versed 1 mg ,and fentanyle 50 Mcg Sedation start time : 07 Sedation end time : 743 EBL: Minimal PROCEDURE INDICATION: The patient with low back pain and radiculitis symptoms unresponsive to conservative treatment. Fluoroscopy was used to optimize visualization of the needle placement and to maximize safety. PROCEDURE DESCRIPTION / TECHNIQUE: The patient was seen and identified in the preoperative area. Risks, benefits, complications including but not limited to infections ,bleeding ,allergic reaction to the medications ,nerve damage and not complete pain releife , and alternatives were discussed with the patient. The patient agreed to proceed with the procedure and signed the consent. IV was started, and vital signs were stable. Patient was taken to the OR and time out was completed. The patient was placed in the prone position on procedure table and a pillow was placed under the abdomen to reduce lumbar lordosis. The lumbosacral area was prepped and draped in the usual sterile fashion.ere closely monitored during the procedure. Conscious sedation was used during the procedure to decrease patients anxiety. Vital signs was monitered during the entire procedure. Using anterior-posterior fluoroscopy, the L5-S1 interlaminar space was identified and the skin over this site was marked and then infiltrated with 1% lidocaine subcutaneously. Subsequently, a 20-gauge Tuohy epidural needle was inserted and advanced toward the epidural space using the ``Loss of resistance technique and guided by AP and lateral fluoroscopy. The correct needle position in the epidural space was verified with the injection of 2 mL of the water soluble contrast dye Isovue 200 contrast and observing an excellent epidurogram with the epidural spread of the dye, after negative aspiration for blood and CSF and in the absence of paresthesias. Again after negative aspiration, a 6 ml mixture containing 40 mg of Depo-medrol ( Preservetive Free ), and 2 ml of preservative free Normal Saline, and 2 ml of preservative free lidocaine 1% solution was injected and a washout of epidurogram was seen. Needle was withdrawn intact, skin was cleansed, and bandages were applied. COMPLICATIONS: None DISPOSITION / PLANS: The patient was placed in a supine position and transferred to the recovery area in a stable condition for observation. There was no evidence of lower extremity motor or sensory deficit after the procedure. Patient was discharged from the recovery room after meeting discharge criteria. Home discharge instructions were given to the patient by the staff. The patient was reexamined prior to discharge. The patient will schedule a follow up in the clinic in 2-4 weeks. note= patient takes Xeralto and the last dose was more than 3 days ago
--- NOTE | 2022-09-28 07:55 | FL ---
Intraoperative/procedural fluoroscopic services were provided for lumbar epidural injection. Total fl uoroscopy time is 5 seconds with a total of 1 submitted image to PACS. Please see the operative note for further details.
[2022-09-28 07:57] VITALS: RESP 18
[2022-09-28 08:23] VITALS: BP 150/70; PULSE 45
== END ==
LOC: ORPAIN 06:24
PROVIDERS: ATTEND Specialist
DX: M51.16 Intervertebral disc disorders with radiculopathy, lumbar region (principal); M48.061 Spinal stenosis, lumbar region without neurogenic claudication; Z88.0 Allergy status to penicillin
CPT/HCPCS: 62323; J2250; J1030; J3010; Q9966

== ENCOUNTER → 2022-10-18 | Outpatient (CLI) | payer BC, MEDICARE ==
[2022-10-18 08:01] VITALS: BP 144/64; PULSE 48; RESP 18; TEMP 98
--- NOTE | 2022-10-18 14:23 | P.PAINPG ---
PQRS Measure Charge Sheet Comment: A 66 yr old female with a history of severe and chronic low back pain x 5 mo secondary to lumbar DDD and spondylosis with facet arthropathy without myelopathy presents today for evaluation s/p DAVID L4-L5. Pt states she experienced 40% pain relief s/p procedure. Pain level is currently at 4/10 in intensity, constant, localized in the mid to lower lumbar spine, sharp in character w shooting towards the BLEs. Pain is provoked by walking/ standing for periods of 20 min or more, bending and lifting. Pain is alleviated with chiropractic treatments as needed, medications (Tyl) and sitting. Interventional pain procedures completed include DAVID L4-L5 x1 Patient is currently on Tylenol Patient denies any side effects of the medication(s), denies excessive drowsiness or sleepiness, denies suicidal ideation and reports that the current pain medication is helping to control the pain and improve activities of daily living. Patient denies any motor or sensory deficits. Patient denies any fever or night sweats, denies any change in the bowel movements or urination. Physical Examination: -Constitutional: Cooperative. Not in acute distress . - Neurologic: Cranial nerve II to XII intact. No focal neurological deficits. - Psychatric: Alert & oriented x 3. Matching mood & appropriate affect. Judgment and insight intact. - Musculoskeletal: Cervical spine: Muscle bulk/ tone/ strength in the bilateral upper extremities normal Vertebral body tenderness to palpation over Spurling test positive Distraction test positive Facet loading test positive Thoracic spine Muscle bulk / tone/ strength in the bilateral paraspinal muscles normal Vertebral body tender to palpation over Facet loading test positive Lumbar spine: Motor bulk/ tone/ strength lower extremities , thigh and legs : 5/5 Deep tendon reflexes : Normal Knee Jerk. Normal Ankle Jerk . Vertebral body tenderness to palpation over Lumbar Facet Loading Test positive TTP over BL L4-L5, L5-S1 facets Straight Leg Raise: positive at 30 degrees right side/ left side Gaenslen's Test positive Sacral spine : Severe tenderness over the Sacroiliac joint: right side / left side Range of motion: Flexion of the lumbar spine <60 degrees Range of motion: Extension of the lumbar spine <20 degrees Gaenslen's Test positive Moon test: positive right side / left side Thigh Thrust Test Sacral Thrust Test Assessment and plan: Chronic low back pain secondary to lumbar degenerative disc disease, spondylosis with facet arthropathy without myelopathy Recommendation of BL facet blocks of the medial branches L4-L5, L5-S1 #1. May need a series of injections, up until RFA, for optimal pain relief. Risks, benefits of procedure discussed and pt verbalized understanding. Admits to anticoagulant use or medical history of diabetes. Protocol for discontinuation/ continuation of medications kaley procedure discussed. All patient questions answered I have spent less than 30 minutes on patient care today. Dr Canada was available by phone for the evaluation of this patient. The time was used to review the medical records including relevant urine studies and Prescription history (MAPs), review of the available imaging, evaluation and examination of the patient, coordination of care with the medical staff and if applicable referring physicians, as well as creation of the medical record PQRS Narrative: Smoking Status Former smoker Hx Alcohol Use (MH) No Home Medications: Ambulatory Orders Isosorbide Mononitrate ER [Imdur] 30 mg PO DAILY 12/22/14 Losartan Potassium 100 mg PO DAILY 12/22/14 Atorvastatin [Lipitor] 80 mg PO HS #90 tab 12/25/14 amLODIPine BESYLATE [Norvasc] 5 mg PO DAILY 06/30/15 Insulin Aspart (For Pump) [NovoLOG (For Pump)] 0 unit SQ-PUMP CONTINUOUS 11/09/16 Aspirin EC [Ecotrin Low Dose] 81 mg PO HS 12/28/16 Promethazine HCl 25 mg PO DIRECTED PRN 05/22/18 Nitroglycerin Sl Tabs [Nitrostat] 0.4 mg SUBLINGUAL Q5M PRN #25 tab 05/27/19 Melatonin [Melatonin ER] 10 mg PO HS PRN 03/21/21 Desvenlafaxine [Desvenlafaxine ER] 50 mg PO DAILY 08/23/22 Ezetimibe [Zetia] 10 mg PO DAILY 08/23/22 Famotidine 40 mg PO DAILY 08/23/22 Rivaroxaban [Xarelto] 2.5 mg PO BID 08/23/22 Solifenacin Succinate [Vesicare] 5 mg PO DAILY 08/23/22 atenoloL 25 mg PO DAILY 08/23/22 Controlled Substance Measures - Controlled Substance Measures Is patient prescribed a controlled substance at discharge?: No
== END ==
LOC: PNWHC3 07:30
PROVIDERS: ATTEND Specialist
DX: M47.816 Spondylosis without myelopathy or radiculopathy, lumbar region (principal); M51.36 Other intervertebral disc degeneration, lumbar region; G89.29 Other chronic pain; E11.9 Type 2 diabetes mellitus without complications; Z79.4 Long term (current) use of insulin; Z91.048 Other nonmedicinal substance allergy status; Z88.0 Allergy status to penicillin; Z87.891 Personal history of nicotine dependence
CPT/HCPCS: 99211

== ENCOUNTER → 2022-11-13 | Outpatient (CLI) | payer MEDICARE ==
--- NOTE | 2022-11-14 06:50 | MM ---
Reason for Exam: Screening (asymptomatic). Last mammogram was performed 3 year(s) and 2 month(s) ago. Patient History: Menarche at age 15. First Full-Term at age 19. Postmenopausal. Risk Values: Scarlet 5 year model risk: 1.2%. NCI Lifetime model risk: 4.6%. Prior Study Comparison: 09/24/2014 Bilateral Screening Mammogram, [facility]. 08/02/2017 Bilateral Screening Mammogram, [facility]. 09/23/2019 Bilateral Screening Mammogram, [facility]. Tissue Density: The breast tissue is heterogeneously dense. This may lower the sensitivity of mammography. Findings: Analyzed By CAD. Some benign-appearing vascular calcification bilaterally is redemonstrated. Benign-appearing bilateral axillary lymph nodes are again seen. There is no suspicious new group of microcalcifications or new suspicious mass in either breast. Overall Assessment: Benign, BI-RAD 2 Management: Screening Mammogram of both breasts in 1 year. A clinical breast exam by your physician is recommended on an annual basis and results should be correlated with mammographic findings. Electronically signed and approved by: Scott Valladares M.D.
== END | disposition home or self-care (01) ==
LOC: RADMAMWWP 10:12
PROVIDERS: ATTEND Family Medicine
DX: Z12.31 Encounter for screening mammogram for malignant neoplasm of breast (principal); Z78.0 Asymptomatic menopausal state
CPT/HCPCS: 77063; 77067

== ENCOUNTER 2022-11-24 07:38 | Day surgery (SDC) | payer MEDICARE ==
[2022-11-24 07:57] LABS: Glucose,Whole Blood 162 mg/dL (70-110)
[2022-11-24] MEDS ORDERED: LACTATED RINGERS 1,000 ML IV ONE (08:00)
[2022-11-24] MEDS ORDERED: methylPREDNISolone ACETATE 40 MG/ML 1 ML VIAL ONE (08:14)
[2022-11-24] MEDS ORDERED: MIDAZOLAM 2 MG/2 ML VIAL ONE (08:14)
[2022-11-24] MEDS ORDERED: fentaNYL (PF) 50 MCG/ML 2 ML AMP ONE (08:14)
[2022-11-24] MEDS ORDERED: ROPIVACAINE 5 MG/ML 20 ML AMPULE ONE (08:14)
--- NOTE | 2022-11-24 08:32 | P.PCN ---
Date of Procedure: 11/24/22 Procedure(s) Performed: PREOPERATIVE DIAGNOSIS : 1- Lumbar spondylosis with Facet Arthropathy without myelopathy . 2- Lumber degenerative disc disease POSTOPERATIVE DIAGNOSIS: 1- Lumbar spondylosis with Facet Arthropathy without myelopathy . 2- Lumber degenerative disc disease PROCEDURE: Diagnostic bilateral L3 , L4 , and L5 medial branch block under fluoroscopy guidance(fluoroscopy images available in the radiology Department ) ( To target the facet joint between bilateral L4-5 , and L5-S1 ) ANESTHESIA:, Monitored anesthesia care as per anesthesia department. EBL: Minimal COMPLICATION: None PROCEDURE INDICATION: Chronic low back pain secondary to Facet arthropathy unresponsive to conservative treatment. PROCEDURE DESCRIPTION: the patient was seen and identified in the preop holding area , risks and benefits and possible complications of the procedure and alternative were discussed with the patient, and the patient agreed to proceed with the procedure and signed the consent and vital signs monitored during the procedure and fluoroscopy was used to maximize the benefit and accuracy of the needle placement, and sedation was given to decrease patient anxiety, patient was taken to the procedure room and placed in prone position vital signs monitored in the back prepped with chlorhexidine X3 then under strict sterile technique using a right oblique fluoroscopy ,the junction of the transverse process and the superior articulating process of the right L3 , L4 , and L5 vertebra which corresponding to the fluoroscopy image of the eye of the Too dog on the block side for the medial branches and subsequently , after local infiltration of skin and subcu tissuies with Ropivacaine 0.5 % , one mL at each level ,then 22-gauge Quincke-type needles , 3 needle was used , each one of them placed at the junction of the base of the transverse process and the superior articular process at the appropriate level, and the needle was advanced until the periosteum contacted, needle placement confirmed with AP oblique and lateral view and after appropriate needle placement confirmed, and after negative aspiration for heme and CSF and there was no paresthesia 1-1/2 mL of Ropivacaine 0.5% mixed with 20 mg Depo-Medrol , then half mL injected at each level after negative aspiration the needle subsequently removed and the same procedure repeated for the left side at left side at L3 , L4 and L5 levels. At the end of the procedure and the needles removed and a bandage applied after the skin was cleaned the cleaning solution patient taken to recovery room in stable condition and monitors in the recovery room for 20-30 minutes and discharged home in stable condition after discharge criteria met and patient will follow up with the pain clinic in 2-4 weeks
[2022-11-24] MEDS ORDERED: IV FLUID CONTINUATION 1,000 ML IV ONE (08:42)
[2022-11-24 08:46] VITALS: RESP 16; TEMP 98
[2022-11-24 09:03] VITALS: BP 166/61; PULSE 40
--- NOTE | 2022-11-24 09:13 | FL ---
Intraoperative/procedural fluoroscopic services were provided for bilateral lumbar facet blocks. Tota l fluoroscopy time is 14 seconds with a total of 4 submitted images to PACS. Please see the operative note for further details.
== END 2022-11-24 09:13 | disposition home or self-care (01) ==
LOC: ORPAIN 07:38
PROVIDERS: ATTEND Specialist
DX: M47.816 Spondylosis without myelopathy or radiculopathy, lumbar region (principal); M51.36 Other intervertebral disc degeneration, lumbar region; G89.29 Other chronic pain; I25.10 Atherosclerotic heart disease of native coronary artery without angina pectoris; I10 Essential (primary) hypertension; E78.5 Hyperlipidemia, unspecified; G47.33 Obstructive sleep apnea (adult) (pediatric); E11.9 Type 2 diabetes mellitus without complications; Z95.5 Presence of coronary angioplasty implant and graft; Z99.89 Dependence on other enabling machines and devices; Z79.01 Long term (current) use of anticoagulants; Z96.41 Presence of insulin pump (external) (internal); Z79.82 Long term (current) use of aspirin; Z79.899 Other long term (current) drug therapy; Z88.0 Allergy status to penicillin; Z98.890 Other specified postprocedural states; Z90.49 Acquired absence of other specified parts of digestive tract; Z98.51 Tubal ligation status; T75.3XXD Motion sickness, subsequent encounter; Z91.09 Other allergy status, other than to drugs and biological substances
CPT/HCPCS: 64493; 64494; J2250; J1030; J3010; J2795

== ENCOUNTER → 2023-01-25 | Outpatient (CLI) | payer MEDICARE ==
[2023-01-25 16:42] LABS: ALT 15 U/L (8-44); AST 19 U/L (13-35); African American GFR (CKD) 56.6 (60.0-200.0); Albumin 3.9 g/dL (3.8-4.9); Alkaline Phosphatase 104 U/L (41-126); BUN/Creat Ratio 18.38 Ratio (12.00-20.00); Blood Urea Nitrogen 21.5 mg/dL (9.0-27.0); Calcium 9.4 mg/dL (8.7-10.3); Carbon Dioxide 27.4 mmol/L (20.0-27.5); Chloride 104 mmol/L (96-109); Chol/HDL Ratio 2.61 Ratio; Globulin 2.3 g/dL (1.6-3.3); Glucose 232 mg/dL (70-110); LDL Cholesterol,Calculated 85.5 mg/dL (0.0-131.0); Non-African American GFR(CKD) 48.9 (60.0-200.0); Potassium 5.1 mmol/L (3.5-5.5); Sodium 141 mmol/L (135-145); Total Protein 6.2 g/dL (6.2-8.2)
== END | disposition home or self-care (01) ==
LOC: LABWHC1 09:04
PROVIDERS: ATTEND Internal Medicine Interventional Cardiology
DX: E78.2 Mixed hyperlipidemia (principal)
CPT/HCPCS: 36415; 80053; 80061

== ENCOUNTER 2023-01-31 11:03 | Day surgery (SDC) | payer MEDICARE ==
[~2023-01-31 11:03] MED LIST changes: +ALPRAZolam 0.25 MG TAB PO PRN; +ALPRAZolam 0.5 MG TAB PO PRN; +ASPIRIN 325 MG TAB PO PRN; +HEPARIN SODIUM,PORCINE 10,000 UNIT in SODIUM CHLORIDE 0.9% 1,000 ML IRRIGATION PRN; +HEPARIN SODIUM,PORCINE 2,500 UNIT in SODIUM CHLORIDE 0.9% 250 ML IRRIGATION PRN; -IOPAMIDOL M200 10 ML VIAL ONE; -IV FLUID CONTINUATION 1,000 ML IV ONE; -LACTATED RINGERS 1,000 ML IV SCH; -LIDOCAINE 1% (10MG/ML) FOR IV START INTRADERMA PRN; -MIDAZOLAM 2 MG/2 ML VIAL ONE; +SODIUM CHLORIDE 0.9% 1,000 ML in EMPTY BAG 1 BAG IV ONE; +ZOLPIDEM 5 MG TAB PO PRN; -fentaNYL (PF) 50 MCG/ML 2 ML AMP ONE; -methylPREDNISolone ACETATE 40 MG/ML 1 ML VIAL ONE
[2023-01-31 11:37] LABS: Glucose,Whole Blood 158 mg/dL (70-110)
[2023-01-31] MEDS ORDERED: MIDAZOLAM 2 MG/2 ML VIAL IV ONE ×2 (14:13)
[2023-01-31] MEDS ORDERED: LIDOCAINE 1% INJ 10MG/ML (20 ML MDV) SQ ONE (14:14)
[2023-01-31] MEDS ORDERED: IOPAMIDOL-250 100ML BTL INTRAARTER ONE (14:59)
[2023-01-31] MEDS ORDERED: CLOPIDOGREL 75 MG TAB PO ONE (15:15)
--- NOTE | 2023-01-31 15:40 | P.OP ---
Date of Procedure: 01/31/23 Description of Procedure: Preoperative diagnosis: Bilateral iliac artery stenosis Postoperative diagnosis: Same Procedure: #1 ultrasound guided bilateral common femoral artery access #2 bilateral iliofemoral angiogram done #3 placement of catheter in aorta #4 bilateral iliac artery stent placement #5 moderate conscious sedation x 49 minutes of certified RN administration with hemodynamic monitoring Surgeon: Sandrine Romero D.O. EBL: 10 mL IV fluids: See records Urine output: Not measured Drains: None Complications: None immediately apparent Condition: Stable to recovery Operative indication and findings: Patient is a 67-year-old female with bilateral iliac artery stenosis as previously diagnosed. She has severe Leksell any claudication worse on her left. She presents today for bilateral iliac artery stents. Risks and benefits were discussed and she seemingly understood and was willing to proceed. Procedure in detail: The patient was taken to the special suite placed in supine position. Bilateral groins are prepped and draped in usual sterile fashion. A timeout was performed, all parties were in agreement. Using ultrasound, the left common femoral artery was identified. It was found to be compressible and free of significant calcific disease. A prone images stored. Using Seldinger technique a 7-Lao sheath was placed. The same was then attempted on the right, a 5-Lao sheath was left in place due to the significant amount of scar tissue from a previous femoral-popliteal bypass and lymph node biopsy. Bilateral iliofemoral angiogram performed reconfirming the areas of significant stenosis. Catheters and wires were used access the aorta and aortogram was performed showing true luminal gain due to the severe high-grade near occlusion of the left iliac artery. The worsened significantly left iliac artery the decision was made to place a covered stent in this location, due to the essentially focal and noncalcific nature of the right, noncovered stent was placed. The right femoral sheath was upsized to a 6-Lao sheath. A 7 x 57 visit peroneal balloon incidental noncovered stent was placed in the right common iliac artery at the same time as a left 7 x 59 the BX balloon expandable covered stent. After the procedure repeat angiogram was performed showing significant improvement of the areas of stenosis. Catheters and wires were then removed. Pre-closure angiogram the iliofemoral system were obtained to show suitable access for percutaneous closure device. Vascular closure devices were placed bilaterally and hemostasis was achieved with additional pressure. The patient tolerated the procedure well. Plan - Discharge Summary Discharge Rx Participant: No New Discharge Prescriptions: No Action Losartan Potassium 100 mg PO HS Isosorbide Mononitrate ER [Imdur] 30 mg PO HS Atorvastatin [Lipitor] 80 mg PO HS #90 tab amLODIPine BESYLATE [Norvasc] 5 mg PO BID Insulin Aspart (For Pump) [NovoLOG (For Pump)] 0 unit SQ-PUMP CONTINUOUS Aspirin EC [Ecotrin Low Dose] 81 mg PO HS Promethazine HCl 25 mg PO DIRECTED PRN PRN Reason: Nausea Nitroglycerin Sl Tabs [Nitrostat] 0.4 mg SUBLINGUAL Q5M PRN #25 tab PRN Reason: Chest Pain Ezetimibe [Zetia] 10 mg PO HS Melatonin [Melatonin ER] 10 mg PO HS PRN PRN Reason: Insomnia Desvenlafaxine [Desvenlafaxine ER] 50 mg PO HS atenoloL 25 mg PO HS Solifenacin Succinate [Vesicare] 5 mg PO HS Famotidine 40 mg PO DAILY Discharge Medication List Isosorbide Mononitrate ER [Imdur] 30 mg PO HS 12/22/14 [History] Losartan Potassium 100 mg PO HS 12/22/14 [History] Atorvastatin [Lipitor] 80 mg PO HS #90 tab 12/25/14 [Rx] amLODIPine BESYLATE [Norvasc] 5 mg PO BID 06/30/15 [History] Insulin Aspart (For Pump) [NovoLOG (For Pump)] 0 unit SQ-PUMP CONTINUOUS 11/09/16 [History] Aspirin EC [Ecotrin Low Dose] 81 mg PO HS 12/28/16 [History] Promethazine HCl 25 mg PO DIRECTED PRN 05/22/18 [History] Nitroglycerin Sl Tabs [Nitrostat] 0.4 mg SUBLINGUAL Q5M PRN #25 tab 05/27/19 [Rx] Melatonin [Melatonin ER] 10 mg PO HS PRN 03/21/21 [History] Desvenlafaxine [Desvenlafaxine ER] 50 mg PO HS 08/23/22 [History] Ezetimibe [Zetia] 10 mg PO HS 08/23/22 [History] Famotidine 40 mg PO DAILY 08/23/22 [History] Solifenacin Succinate [Vesicare] 5 mg PO HS 08/23/22 [History] atenoloL 25 mg PO HS 08/23/22 [History]
--- NOTE | 2023-01-31 15:47 | IR ---
EXAMINATION TYPE: IR stent intravas non coronary DATE OF EXAM: 01/31/2023 CLINICAL HISTORY: Leg pain TECHNIQUE: Fluoroscopy. COMPARISON: None. FINDINGS: Fluoroscopic guidance was provided during bilateral groin vascades procedure performed by Dr. Romero. A total of 4.4 minutes of fluoroscopic time was utilized during the procedure and 229 spo t images was acquired. Please refer to procedure note for further details. IMPRESSION: As Above.
[2023-01-31 22:24] VITALS: BP 180/78; PULSE 54; RESP 17; TEMP 98.2
== END 2023-01-31 21:22 | disposition home or self-care (01) ==
LOC: CATHCVL 11:03 → 6NMEDSUR 15:02 → CATHCVL 21:22
PROVIDERS: ATTEND Surgery
DX: I70.203 Unspecified atherosclerosis of native arteries of extremities, bilateral legs (principal); I74.5 Embolism and thrombosis of iliac artery
CPT/HCPCS: 37221; 76937; C1894 ×3; C1769 ×5; C1876; C1874; J2250; J2001; Q9966

== ENCOUNTER 2023-04-07 12:07 | Inpatient (IN) | payer MEDICARE ==
[2023-04-07 12:21] LABS: Glucose,Whole Blood >600 mg/dL (70-110)
[2023-04-07] MEDS ORDERED: SODIUM CHLORIDE 0.9% 1,000 ML IV STA ×2 (12:37)
[2023-04-07] MEDS ORDERED: ONDANSETRON 4 MG/2 ML VIAL IVP STA (12:37)
[2023-04-07] MEDS ORDERED: FAMOTIDINE 20 MG/2 ML VIAL IV STA (12:38)
--- NOTE | 2023-04-07 12:40 | ED ---
General Adult HPI - General Chief complaint: Nausea/Vomiting/Diarrhea Stated complaint: Hyperglycemia, Abd Pain Time Seen by Provider: 04/07/23 12:09 Source: patient, family, EMS, RN notes reviewed Mode of arrival: EMS Limitations: no limitations - History of Present Illness Initial comments: Patient is a pleasant 67-year-old female presenting to the emergency department with concerns with high blood sugar. Onset was last night. Blood sugar read high and does again today. Patient omits to 2 alcoholic beverages last night. Patient does not normally drink very much at all. Patient does have one episode of pancreatitis years ago. Patient does have some mild epigastric discomfort. Patient received 4 of Zofran by EMS with some mild improvement of symptoms. No chest pain. Patient has had an episode or 2 of diarrhea. Patient has had more than 6 or 8 episodes of vomiting. No fever. - Related Data Home Medications Medication Instructions Recorded Confirmed Isosorbide Mononitrate ER [Imdur] 30 mg PO HS 12/22/14 01/31/23 Losartan Potassium 100 mg PO HS 12/22/14 01/31/23 amLODIPine BESYLATE [Norvasc] 5 mg PO BID 06/30/15 01/31/23 Insulin Aspart (For Pump) [NovoLOG 0 unit SQ-PUMP CONTINUOUS 11/09/16 01/31/23 (For Pump)] Aspirin EC [Ecotrin Low Dose] 81 mg PO HS 12/28/16 01/31/23 Promethazine HCl 25 mg PO DIRECTED PRN 05/22/18 01/31/23 Melatonin [Melatonin ER] 10 mg PO HS PRN 03/21/21 01/31/23 Desvenlafaxine [Desvenlafaxine ER] 50 mg PO HS 08/23/22 01/31/23 Ezetimibe [Zetia] 10 mg PO HS 08/23/22 01/31/23 Famotidine 40 mg PO DAILY 08/23/22 01/31/23 Solifenacin Succinate [Vesicare] 5 mg PO HS 08/23/22 01/31/23 atenoloL 25 mg PO HS 08/23/22 01/31/23 Previous Rx's Medication Instructions Recorded Atorvastatin [Lipitor] 80 mg PO HS #90 tab 12/25/14 Nitroglycerin Sl Tabs [Nitrostat] 0.4 mg SUBLINGUAL Q5M PRN #25 tab 05/27/19 Clopidogrel [Plavix] 75 mg PO DAILY #30 tablet 01/31/23 Allergies Allergy/AdvReac Type Severity Reaction Status Date / Time adhesive tape Allergy Rash/Hives Verified 01/31/23 11:17 Penicillins Allergy Rash/Hives Verified 01/31/23 11:17 Review of Systems ROS Statement: Those systems with pertinent positive or pertinent negative responses have been documented in the HPI. ROS Other: All systems not noted in ROS Statement are negative. Constitutional: Denies: fever Eyes: Denies: eye pain ENT: Denies: ear pain Respiratory: Denies: cough Cardiovascular: Denies: chest pain Endocrine: Denies: fatigue Gastrointestinal: Reports: as per HPI, abdominal pain, nausea, vomiting, diarrhea Genitourinary: Denies: dysuria Musculoskeletal: Denies: back pain Skin: Denies: rash Neurological: Denies: weakness Past Medical History Past Medical History: Coronary Artery Disease (CAD), Chest Pain / Angina, Diabetes Mellitus, Hyperlipidemia, Hypertension, Sleep Apnea/CPAP/BIPAP, Vascular Disorder Additional Past Medical History / Comment(s): Has Insulin pump, RLS, peripheral neuropathy, poor circulation, PVD, heart murmur, hx pancreatitis X2, bladder leakage, gastric paresis, dupuytren's, CPAP use. History of Any Multi-Drug Resistant Organisms: None Reported Past Surgical History: Appendectomy, Bladder Surgery, Cholecystectomy, Heart Catheterization, Heart Catheterization With Stent, Orthopedic Surgery, Tubal Ligation Additional Past Surgical History / Comment(s): PTCA with stent, colonoscopy, aortogram, RIGHT FEM POP BYPASS, CATARACTS, bilateral carpal tunnel, right hand surgery. dye procedure. to lower extremities Past Anesthesia/Blood Transfusion Reactions: No Reported Reaction, Motion Sickness Additional Past Anesthesia/Blood Transfusion Reaction / Comment(s): Legs "jump" when she lies down (RLS). Date of Last Stent Placement:: 12/24/14 Past Psychological History: Anxiety Smoking Status: Former smoker Past Alcohol Use History: Occasional Past Drug Use History: None Reported - Past Family History Mother Family Medical History: No Reported History Additional Family Medical History / Comment(s): . Father Family Medical History: Cancer General Exam Limitations: no limitations General appearance: alert, in no apparent distress Head exam: Present: normocephalic Eye exam: Present: normal appearance Neck exam: Present: normal inspection Respiratory exam: Present: normal lung sounds bilaterally Cardiovascular Exam: Present: regular rate, normal rhythm Expanded Peripheral pulses: 2+: Posterior Tibialis (R), Posterior Tibialis (L) GI/Abdominal exam: Present: soft, tenderness (Mild epigastric tenderness), normal bowel sounds. Absent: distended, guarding, rebound, rigid, pulsatile mass Extremities exam: Present: normal inspection Neurological exam: Present: alert Psychiatric exam: Present: normal affect, normal mood Skin exam: Present: normal color Course Vital Signs 04/07/23 12:08 Temperature 98.0 F Pulse Rate 79 Respiratory 18 Rate Blood Pressure 139/55 EKG Findings - EKG Results: EKG: interpreted by ERMD (Septal Q waves. Nonspecific ST-T.), sinus rhythm, normal axis Medical Decision Making - Medical Decision Making Was pt. sent in by a medical professional or institution (Dr. PA, OFFICE SERVICES CLERK, urgent care, hospital, or senior care...) When possible be specific @ -No Did you speak to anyone other than the patient for history (EMS, parent, family, police, friend...)? What history was obtained from this source @ - is present and helps provide history including that patient is not a frequent drinker Did you review nursing and triage notes (agree or disagree)? Why? @ -I reviewed and agree with nursing and triage notes Were old charts reviewed (outside hosp., previous admission, EMS record, old EKG, old radiological studies, urgent care reports/EKG's, senior care records)? Report findings @ -Previous EKG reviewed Differential Diagnosis (chest pain, altered mental status, abdominal pain women, abdominal pain men, vaginal bleeding, weakness, fever, dyspnea, syncope, headache, dizziness, GI bleed, back pain, seizure, CVA, palpatations, mental health)? @ -Differential Abdominal Pain Women: Appendicitis, Cholecystitis, diverticulosis, ischemic bowel, pancreatitis, hepatitis, UTI, gastroenteritis, AAA, incarcerated hernia, bowel obstruction, constipation, inflammatory bowel, hepatitis, peptic ulcer disease, splenic infarction, perforated viscus, vulvitis, ovarian torsion, PID, kidney stone, placenta abruption, this is not meant to be an all-inclusive list EKG interpreted by me (3pts min.). @ -As above X-rays interpreted by me (1pt min.). @ -Abdominal x-rays show some fecal stasis otherwise no acute abnormality CT interpreted by me (1pt min.). @ -None done U/S interpreted by me (1pt. min.). @ -None done What testing was considered but not performed or refused? (CT, X-rays, U/S, labs)? Why? @ -None What meds were considered but not given or refused? Why? @ -None Did you discuss the management of the patient with other professionals (professionals i.e. , PA, OFFICE SERVICES CLERK, lab, RT, psych nurse, director of social work, ward aide, teacher, booking police officer, director case management)? Give summary @ -Case was discussed with Dr. Guillen, who will admit covering Dr. Perez Was smoking cessation discussed for >3mins.? @ -No Was critical care preformed (if so, how long)? @ -30 to miss critical care performed. Were there social determinants of health that impacted care today? How? (Homelessness, low income, unemployed, alcoholism, drug addiction, transportation, low edu. Level, literacy, decrease access to med. care, skilled nursing, rehab)? @ -No Was there de-escalation of care discussed even if they declined (Discuss DNR or withdrawal of care, Hospice)? DNR status @ -No What co-morbidities impacted this encounter? (DM, HTN, Smoking, COPD, CAD, Cancer, CVA, ARF, Chemo, Hep., AIDS, mental health diagnosis, sleep apnea, morbid obesity)? @ -None Was patient admitted / discharged? Hospital course, mention meds given and route, prescriptions, significant lab abnormalities, going to OR and other pertinent info. @ -Patient reevaluated and feels somewhat better. Patient with DKA criteria. IV insulin and drip will be provided. Patient will be admitted. Further hydrat ion will be provided. Undiagnosed new problem with uncertain prognosis? @ -No Drug Therapy requiring intensive monitoring for toxicity (Heparin, Nitro, Insulin, Cardizem)? @ -Patient on an insulin drip that will need monitoring and frequent blood checks Were any procedures done? @ -No Diagnosis/symptom? @ -Diabetic ketoacidosis Acute, or Chronic, or Acute on Chronic? @ -Acute Uncomplicated (without systemic symptoms) or Complicated (systemic symptoms)? @ -default Side effects of treatment? @ -No Exacerbation, Progression, or Severe Exacerbation? @ -No Poses a threat to life or bodily function? How? (Chest pain, [place], [place], pneumonia, PE, COPD, DKA, ARF, appy, cholecystitis, CVA, Diverticulitis, Homicidal, Suicidal, threat to staff... and all critical care pts) @ -Potential threat for related to severe acidosis, CO2 is 12 - Lab Data Result diagrams: 04/07/23 12:48 04/07/23 12:48 Lab Results 04/07/23 04/07/23 04/07/23 Range/Units 12:19 12:48 12:48 WBC 14.6 H (3.8-10.6) k/uL RBC 3.63 L (3.80-5.40) m/uL Hgb 11.1 L (11.4-16.0) gm/dL Hct 35.8 (34.0-46.0) % MCV 98.6 (80.0-100.0) fL MCH 30.7 (25.0-35.0) pg MCHC 31.1 (31.0-37.0) g/dL RDW 14.3 (11.5-15.5) % Plt Count 226 (150-450) k/uL MPV 9.2 Neutrophils % 84 % Lymphocytes % 6 % Monocytes % 7 % Eosinophils % 0 % Basophils % 0 % Neutrophils # 12.2 H (1.3-7.7) k/uL Lymphocytes # 0.9 L (1.0-4.8) k/uL Monocytes # 1.1 H (0-1.0) k/uL Eosinophils # 0.1 (0-0.7) k/uL Basophils # 0.1 (0-0.2) k/uL Hypochromasia Marked Sodium (137-145) mmol/L Potassium (3.5-5.1) mmol/L Chloride (98-107) mmol/L Carbon Dioxide (22-30) mmol/L Anion Gap mmol/L BUN (7-17) mg/dL Creatinine (0.52-1.04) mg/dL Est GFR (CKD-EPI)AfAm (>60 ml/min/1.73 sqM) Est GFR (CKD-EPI)NonAf (>60 ml/min/1.73 sqM) Glucose (74-99) mg/dL POC Glucose (mg/dL) >600 H (70-110) mg/dL POC Glu Director Of Construction ID Michael Chavis Calcium (8.4-10.2) mg/dL Total Bilirubin (0.2-1.3) mg/dL AST (14-36) U/L ALT (4-34) U/L Alkaline Phosphatase (38-126) U/L Troponin I (0.000-0.034) ng/mL Total Protein (6.3-8.2) g/dL Albumin (3.5-5.0) g/dL Amylase (30-110) U/L Lipase (23-300) U/L Urine Color Light Yellow Urine Appearance Clear (Clear) Urine pH 5.0 (5.0-8.0) Ur Specific Otis 1.018 (1.001-1.035) Urine Protein Negative (Negative) Urine Glucose (UA) 4+ H (Negative) Urine Ketones 1+ H (Negative) Urine Blood Negative (Negative) Urine Nitrite Negative (Negative) Urine Bilirubin Negative (Negative) Urine Urobilinogen <2.0 (<2.0) mg/dL Ur Leukocyte Esterase Negative (Negative) Acetone, Qual (Negative) 04/07/23 04/07/23 Range/Units 12:48 12:48 WBC (3.8-10.6) k/uL RBC (3.80-5.40) m/uL Hgb (11.4-16.0) gm/dL Hct (34.0-46.0) % MCV (80.0-100.0) fL MCH (25.0-35.0) pg MCHC (31.0-37.0) g/dL RDW (11.5-15.5) % Plt Count (150-450) k/uL MPV Neutrophils % % Lymphocytes % % Monocytes % % Eosinophils % % Basophils % % Neutrophils # (1.3-7.7) k/uL Lymphocytes # (1.0-4.8) k/uL Monocytes # (0-1.0) k/uL Eosinophils # (0-0.7) k/uL Basophils # (0-0.2) k/uL Hypochromasia Sodium 130 L (137-145) mmol/L Potassium 5.8 H (3.5-5.1) mmol/L Chloride 98 (98-107) mmol/L Carbon Dioxide 12 L (22-30) mmol/L Anion Gap 20 mmol/L BUN 37 H (7-17) mg/dL Creatinine 1.54 H (0.52-1.04) mg/dL Est GFR (CKD-EPI)AfAm 41 (>60 ml/min/1.73 sqM) Est GFR (CKD-EPI)NonAf 35 (>60 ml/min/1.73 sqM) Glucose 739 H* (74-99) mg/dL POC Glucose (mg/dL) (70-110) mg/dL POC Glu Director Of Construction ID Calcium 8.5 (8.4-10.2) mg/dL Total Bilirubin 1.0 (0.2-1.3) mg/dL AST 29 (14-36) U/L ALT 36 H (4-34) U/L Alkaline Phosphatase 113 (38-126) U/L Troponin I <0.012 (0.000-0.034) ng/mL Total Protein 5.6 L (6.3-8.2) g/dL Albumin 3.6 (3.5-5.0) g/dL Amylase 78 (30-110) U/L Lipase 68 (23-300) U/L Urine Color Urine Appearance (Clear) Urine pH (5.0-8.0) Ur Specific Otis (1.001-1.035) Urine Protein (Negative) Urine Glucose (UA) (Negative) Urine Ketones (Negative) Urine Blood (Negative) Urine Nitrite (Negative) Urine Bilirubin (Negative) Urine Urobilinogen (<2.0) mg/dL Ur Leukocyte Esterase (Negative) Acetone, Qual Positive (Negative) Critical Care Time Critical Care Time: Yes Total Critical Care Time: 32 Disposition Clinical Impression: DKA (diabetic ketoacidoses) Disposition: ADMITTED IP TO THIS HOSP Condition: Serious Is patient prescribed a controlled substance at d/c from ED?: No Referrals: Brian Perez MD [Primary Care Provider] - 1-2 days Time of Disposition: 13:59
[2023-04-07] MEDS ORDERED: INSULIN REGULAR 100 UNIT/ML VIAL (IV) IV ONE (13:07)
[2023-04-07 13:15] LABS: Basophils # (A) 0.1 k/uL (0-0.2); Basophils % (A) 0 %; Eosinophils # (A) 0.1 k/uL (0-0.7); Eosinophils % (A) 0 %; HCT 35.8 % (34.0-46.0); HGB 11.1 gm/dL (11.4-16.0); Hypochromasia Marked; Lymphocytes # (A) 0.9 k/uL (1.0-4.8); Lymphocytes % (A) 6 %; MCH 30.7 pg (25.0-35.0); MCHC 31.1 g/dL (31.0-37.0); MCV 98.6 fL (80.0-100.0); Mean Platelet Volume 9.2; Monocytes # (A) 1.1 k/uL (0-1.0); Monocytes % (A) 7 %; Neutrophils # (A) 12.2 k/uL (1.3-7.7); Neutrophils % (A) 84 %; Platelet Count 226 k/uL (150-450); RBC 3.63 m/uL (3.80-5.40); RDW 14.3 % (11.5-15.5); WBC 14.6 k/uL (3.8-10.6)
[2023-04-07 13:16] LABS: Appearance,Urine Clear (Clear); Bilirubin,Urine Negative (Negative); Blood,Urine Negative (Negative); Color,Urine Light Yellow; Glucose,Urine (UA) 4+ (Negative); Ketones,Urine 1+ (Negative); Leukocyte Esterase,Urine Negative (Negative); Nitrite,Urine Negative (Negative); Protein,Urine Negative (Negative); Specific Gravity,Urine 1.018 (1.001-1.035); Urobilinogen,Urine <2.0 mg/dL (<2.0)
--- NOTE | 2023-04-07 13:22 | XR ---
EXAMINATION TYPE: XR KUB DATE OF EXAM: 04/07/2023 1:10 PM CLINICAL HISTORY: Abdominal pain and hyperglycemia. TECHNIQUE: Two Upright KUB images of the abdomen are obtained. COMPARISON: CT abdomen and pelvis July 20, 2022 FINDINGS: Gas is seen in nondistended stomach. Scattered gas is seen in non-distended small bowel loo ps. Gas and fecal material is seen in non-distended colon. Mild to moderate diffuse colonic fecal pro minence. Tubal ligation clips redemonstrated over the bilateral pelvis. No free air. No visceromegaly . Lung bases are clear. Surgical clips right groin region are redemonstrated. Osseous structures are intact. IMPRESSION: Overall nonobstructive bowel gas pattern. Mild to moderate diffuse colonic fecal stasis or constipati on noted.
[2023-04-07 13:33] LABS: AST 29 U/L (14-36); African American GFR (CKD) 41 (>60 ml/min/1.73 sqM); Albumin 3.6 g/dL (3.5-5.0); Alkaline Phosphatase 113 U/L (38-126); Amylase 78 U/L (30-110); Anion Gap 20 mmol/L; Blood Urea Nitrogen 37 mg/dL (7-17); Calcium 8.5 mg/dL (8.4-10.2); Carbon Dioxide 12 mmol/L (22-30); Chloride 98 mmol/L (98-107); Lipase 68 U/L (23-300); Non-African American GFR(CKD) 35 (>60 ml/min/1.73 sqM); Potassium 5.8 mmol/L (3.5-5.1); Sodium 130 mmol/L (137-145); Total Protein 5.6 g/dL (6.3-8.2)
[2023-04-07 13:40] LABS: ALT 36 U/L (4-34)
[2023-04-07 13:45] LABS: Glucose 739 mg/dL (74-99)
[2023-04-07] MEDS ORDERED: SODIUM CHLORIDE 0.9% 1,000 ML IV ONE ×2 (13:59→14:43)
[2023-04-07] MEDS ORDERED: INSULIN REGULAR 100 UNIT in SODIUM CHLORIDE 0.9% 100 ML IV SCH (14:00)
[2023-04-07] MEDS ORDERED: MELATONIN 5 MG TABLET PO PRN (14:00)
[2023-04-07 14:08] LABS: INR 1.1 (<1.2); Partial Thromboplastin Time 22.1 sec (22.0-30.0); Prothrombin Time 11.6 sec (9.0-12.0)
[2023-04-07 15:11] LABS: Glucose,Whole Blood 543 mg/dL (70-110)
[2023-04-07 16:04] LABS: Glucose,Whole Blood 433 mg/dL (70-110)
[2023-04-07 16:31] LABS: VBG PH 7.28 (7.31-7.41)
[2023-04-07 16:42] LABS: Phosphorus 2.9 mg/dL (2.5-4.5)
[2023-04-07 16:43] LABS: Potassium 4.2 mmol/L (3.5-5.1)
[2023-04-07 17:05] LABS: Glucose,Whole Blood 395 mg/dL (70-110)
[2023-04-07] MEDS: SODIUM CHLORIDE 0.9% 1,000 ML IV SCH ×2 (17:10→18:32)
[2023-04-07 18:03] LABS: Glucose,Whole Blood 286 mg/dL (70-110)
[2023-04-07] MEDS ORDERED: SODIUM BICARB 8.4% 50 ML SYR (1 MEQ/ML) IV STA (18:12)
--- NOTE | 2023-04-07 18:39 | P.HPIM ---
History of Present Illness H&P Date: 04/07/23 History of Presenting Illness: Patient is a very pleasant 67-year-old female with a past medical history of CAD with previous stent placement, hypertension, hyperlipidemia, peripheral vascular disease status post bilateral iliac artery stenting on Plavix , type 1 diabetes mellitus with insulin pump, and obstructive sleep apnea CPAP dependent nightly. She reports that she and her were celebrating their anniversary last night and drinking alcoholic beverages which she normally does not drink. Patient reports this has been known to cause her recurrent episodes of pa ncreatitis as well as elevate her blood glucose levels in the past. Patient states she began noticing elevated blood glucose levels, abdominal pain, and nausea beginning yesterday evening and progressively worsening. Patient reports that this morning she had diffuse abdominal pain, uncontrolled nausea, multiple episodes of vomiting greater than 8, and 2 episodes of diarrhea similar to previous episodes of DKA. Patient states up until yesterday evening prior to celebrating her anniversary and drinking some alcoholic beverages she was feeling great, she denies having any known ill contacts, fevers, chills, chest pain, cough or congestion, shortness of breath, difficulties with her changes in her urinary function, or experiencing any numbness/tingling/weakness/swelling of her extremities. Patient underwent full evaluation in the emergency department. Vital signs stable upon arrival with temp 98.0F, heart rate 79, respiratory rate 18, blood pressure 139/55, and SpO2 of 99% on room air. Labs completed and reviewed. CBC completed showing leukocytosis with WBC count of 14.6 and normo cytic anemia with hemoglobin of 11.1. Coagulation profile unremarkable. Venous blood gas showing metabolic acidosis with pH of 7.28 and bicarb of 19. BMP revealing hypernatremia with sodium of 130, hyperkalemia with potassium of 5.8, hypocarbia with bicarb of 12, elevated anion gap at 20, acute kidney injury with BUN of 37, creatinine of 1.54, and GFR of 35, hyperglycemia with glucose of 739. Positive acetone. And urinalysis positive for glucose and ketones. Patient was given IV fluid bolus and started on insulin infusion for DKA. Discussed in great detail with the ED physician. Patient being admitted under our services to stepdown unit with telemetry at this time. Review of systems: Pertinent positives and negatives as discussed in HPI, a complete review of systems was performed and all other systems are negative. Physical exam: Vital signs reviewed and stable. General: Nontoxic, no distress and appears stated age. Derm: Skin warm and dry, normal coloration for ethnicity. Head: Atraumatic, normocephalic and symmetric. Eyes: EOMs intact, no lid lag, and anicteric sclera Mouth: no lip lesions, mucus membranes moist Cardiovascular: regular rate and rhythm with normal S1S2, systolic murmur, positive posterior tibial pulses bilaterally, and cap refill < 2 seconds. Lungs: Respirations even, regular, and unlabored on room air. Lungs CTA bilaterally, no rhonchi, no rales, no wheezing, and no accessory muscle usage. Abdominal: soft, nontender to palpation, no guarding, no appreciable organomegaly Ext: ROM intact. No gross muscle atrophy, no edema, no contractures Neuro: Speech clear, face symmetrical and CN II-XII grossly intact with no noted focal neuro deficits Psych: Alert and oriented to person, place, time, and situation. Appropriate and pleasant affect. Assessment and Plan of Care: Diabetic ketoacidosis Metabolic acidosis secondary to DKA Hyperkalemia, no need for correction as insulin infusion will decrease potassium Hyponatremia Hypocarbia -Vital signs stable upon arrival with temp 98.0F, heart rate 79, respiratory rate 18, blood pressure 139/55, and SpO2 of 99% on room air. -Labs completed and reviewed. CBC completed showing leukocytosis with WBC count of 14.6 and normocytic anemia with hemoglobin of 11.1. Coagulation profile unr emarkable. Venous blood gas showing metabolic acidosis with pH of 7.28 and bicarb of 19. BMP revealing hypernatremia with sodium of 130, hyperkalemia with potassium of 5.8, hypocarbia with bicarb of 12, elevated anion gap at 20, acute kidney injury with BUN of 37, creatinine of 1.54, and GFR of 35, hyperglycemia with glucose of 739. Positive acetone. -Urinalysis positive for glucose and ketones. -Patient was given IV fluid bolus and to continue on insulin infusion for DKA. Patient also to receive 1 amp of bicarb. -Discussed in great detail with the ED physician. Patient admitted under our services to stepdown unit with telemetry at this time. -Order placed for repeat phosphorus, BUN, creatinine, electrolytes, and VBG every 4 hours while patient remains on insulin infusion. -Patient to be strict nothing by mouth. -Symptomatic care with Zofran 4 mg IVP as needed for nausea. -Vigorous IV fluid hydration with 0.9% normal saline at 200 mL's per hour and once blood glucose levels are equal to or less than 300 mg/dL patient may be transitioned to D5 0.45%NS at 150 mL's per hour. -Continue point care glucose checks every hour. -Patient's personal insulin pump disconnected at this time, patient may resume at time of discharge. CAD with previous stent placement Hypertension Hyperlipidemia Peripheral vascular disease status post bilateral iliac artery stenting 01/31/23 -Home medications reviewed and reordered. Patient to continue daily Norvasc 5 mg twice daily, atenolol 25 mg nightly, atorvastatin 80 mg nightly, Plavix 75 mg daily, and isosorbide mononitrate 30 mg nightly Obstructive sleep apnea CPAP dependent nightly. -Order placed for patient to continue CPAP nightly and well mapping. The patient is admitted with an anticipated greater than 2 midnight stay for s[place] luation of diabetic ketoacidosis CODE STATUS: Full code DVT prophylaxis: heparin Discussed with: patient, RN, and ED physician Anticipated discharge date: clinical course to determine Anticipated discharge place: Patient was seen independently by Nurse Practitioner. This document was prepared using [employer] dictation software. Please allow for errors in agency sales representative while rare they do occur. Miguel Zambrano NP rendered care for this patient independently, reviewed the findings and plan as documented in the note above. I did not physically speak with or examine the patient on this date. Past Medical History Past Medical History: Coronary Artery Disease (CAD), Chest Pain / Angina, Diabetes Mellitus, Hyperlipidemia, Hypertension, Sleep Apnea/CPAP/BIPAP, Vascular Disorder Additional Past Medical History / Comment(s): Has Insulin pump, RLS, peripheral neuropathy, poor circulation, PVD, heart murmur, hx pancreatitis X2, bladder leakage, gastric paresis, dupuytren's, CPAP use. History of Any Multi-Drug Resistant Organisms: None Reported Past Surgical History: Appendectomy, Bladder Surgery, Cholecystectomy, Heart Catheterization, Heart Catheterization With Stent, Orthopedic Surgery, Tubal Ligation Additional Past Surgical History / Comment(s): PTCA with stent, colonoscopy, aortogram, RIGHT FEM POP BYPASS, CATARACTS, bilateral carpal tunnel, right hand surgery. dye procedure. to lower extremities Past Anesthesia/Blood Transfusion Reactions: No Reported Reaction, Motion Sickness Additional Past Anesthesia/Blood Transfusion Reaction / Comment(s): Legs "jump" when she lies down (RLS). Date of Last Stent Placement:: 12/24/14 Past Psychological History: Anxiety Smoking Status: Former smoker Past Alcohol Use History: Occasional Past Drug Use History: None Reported - Past Family History Mother Family Medical History: No Reported History Additional Family Medical History / Comment(s): . Father Family Medical History: Cancer Medications and Allergies Home Medications Medication Instructions Recorded Confirmed Type Isosorbide Mononitrate ER [Imdur] 30 mg PO HS 12/22/14 04/07/23 History Losartan Potassium 100 mg PO HS 12/22/14 04/07/23 History Atorvastatin [Lipitor] 80 mg PO HS #90 tab 12/25/14 04/07/23 Rx amLODIPine BESYLATE [Norvasc] 5 mg PO DAILY 06/30/15 04/07/23 History Insulin Aspart (For Pump) [NovoLOG 0.01 unit SQ-PUMP CONTINUOUS 11/09/16 History (For Pump)] Aspirin EC [Ecotrin Low Dose] 81 mg PO HS 12/28/16 04/07/23 History Ezetimibe [Zetia] 10 mg PO HS 08/23/22 04/07/23 History Famotidine 40 mg PO DAILY 08/23/22 04/07/23 History Solifenacin Succinate [Vesicare] 5 mg PO HS 08/23/22 04/07/23 History atenoloL 25 mg PO HS 08/23/22 04/07/23 History Clopidogrel [Plavix] 75 mg PO DAILY #30 tablet 01/31/23 04/07/23 Rx Pantoprazole Sodium [Protonix] 40 mg PO DAILY 04/07/23 04/07/23 History Vitamin D3(Unknown Dose) 1 tab PO DAILY 04/07/23 04/07/23 History Allergies Allergy/AdvReac Type Severity Reaction Status Date / Time adhesive tape Allergy Rash/Hives Verified 04/07/23 16:44 Penicillins Allergy Rash/Hives Verified 04/07/23 16:44 Physical Exam Vitals: Vital Signs Temp Pulse Resp BP 04/07/23 12:08 98.0 F 79 18 139/55 Intake and Output 04/06/23 04/07/23 04/07/23 22:59 06:59 14:59 Other: Weight 80.286 kg Results CBC & Chem 7: 04/09/23 08:11 04/09/23 08:11 Labs: Abnormal Lab Results - Last 24 Hours (Table) 04/07/23 04/07/23 04/07/23 Range/Units 12:19 12:48 12:48 WBC 14.6 H (3.8-10.6) k/uL RBC 3.63 L (3.80-5.40) m/uL Hgb 11.1 L (11.4-16.0) gm/dL Neutrophils # 12.2 H (1.3-7.7) k/uL Lymphocytes # 0.9 L (1.0-4.8) k/uL Monocytes # 1.1 H (0-1.0) k/uL Sodium (137-145) mmol/L Potassium (3.5-5.1) mmol/L Carbon Dioxide (22-30) mmol/L BUN (7-17) mg/dL Creatinine (0.52-1.04) mg/dL Glucose (74-99) mg/dL POC Glucose (mg/dL) >600 H (70-110) mg/dL ALT (4-34) U/L Total Protein (6.3-8.2) g/dL Urine Glucose (UA) 4+ H (Negative) Urine Ketones 1+ H (Negative) 04/07/23 Range/Units 12:48 WBC (3.8-10.6) k/uL RBC (3.80-5.40) m/uL Hgb (11.4-16.0) gm/dL Neutrophils # (1.3-7.7) k/uL Lymphocytes # (1.0-4.8) k/uL Monocytes # (0-1.0) k/uL Sodium 130 L (137-145) mmol/L Potassium 5.8 H (3.5-5.1) mmol/L Carbon Dioxide 12 L (22-30) mmol/L BUN 37 H (7-17) mg/dL Creatinine 1.54 H (0.52-1.04) mg/dL Glucose 739 H* (74-99) mg/dL POC Glucose (mg/dL) (70-110) mg/dL ALT 36 H (4-34) U/L Total Protein 5.6 L (6.3-8.2) g/dL Urine Glucose (UA) (Negative) Urine Ketones (Negative)
[2023-04-07] MEDS ORDERED: D5-0.45% NACL WITH KCL 20MEQ/L 1,000 ML IV SCH (19:00)
[2023-04-07 19:05] LABS: Glucose,Whole Blood 186 mg/dL (70-110)
[2023-04-07 19:54] LABS: Glucose,Whole Blood 171 mg/dL (70-110)
[2023-04-07 20:18] LABS: VBG PH 7.39 (7.31-7.41)
[2023-04-07 20:30] LABS: Potassium 4.1 mmol/L (3.5-5.1)
[2023-04-07] MEDS ORDERED: INSULIN DETEMIR (LEVEMIR) 100 UNIT/ML SYR SQ SCH (21:00)
[2023-04-07 21:08] LABS: Glucose,Whole Blood 145 mg/dL (70-110)
[2023-04-07] MEDS: atenoloL 25 MG TAB PO SCH (21:15)
[2023-04-07] MEDS: amLODIPine 5 MG TAB PO SCH (21:15)
[2023-04-07] MEDS: EZETIMIBE 10 MG TAB PO SCH (21:15)
[2023-04-07] MEDS: ISOSORBIDE MONONITRATE ER 30 MG TAB.ER.24H PO SCH (21:16)
[2023-04-07] MEDS: ATORVASTATIN 80 MG TAB PO SCH (21:16)
[2023-04-07 22:07] LABS: Glucose,Whole Blood 112 mg/dL (70-110)
[2023-04-07 22:56] LABS: VBG PH 7.38 (7.31-7.41)
[2023-04-07 23:12] LABS: Phosphorus 2.7 mg/dL (2.5-4.5); Potassium 4.3 mmol/L (3.5-5.1)
[2023-04-08] MEDS: HEPARIN SODIUM,PORCINE/PF 5,000 UNIT/0.5 ML SYRINGE SQ SCH ×3 (00:48→16:02)
[2023-04-08 02:08] LABS: VBG PH 7.36 (7.31-7.41)
[2023-04-08 02:15] LABS: Calcium 7.9 mg/dL (8.4-10.2); Phosphorus 3.9 mg/dL (2.5-4.5); Potassium 4.5 mmol/L (3.5-5.1)
[2023-04-08 06:02] LABS: Glucose,Whole Blood 52 mg/dL (70-110)
[2023-04-08 06:03] LABS: Glucose,Whole Blood 62 mg/dL (70-110)
[2023-04-08 06:27] LABS: Glucose,Whole Blood 117 mg/dL (70-110)
[2023-04-08 08:36] LABS: Glucose,Whole Blood 220 mg/dL (70-110)
[2023-04-08] MEDS ORDERED: FAMOTIDINE 20 MG TAB PO SCH (09:00)
[2023-04-08] MEDS: amLODIPine 5 MG TAB PO SCH ×2 (09:04→20:35)
[2023-04-08] MEDS: FAMOTIDINE 20 MG TAB PO SCH (09:04)
[2023-04-08] MEDS: SODIUM CHLORIDE 0.9% 1,000 ML IV SCH ×2 (09:04→18:48)
[2023-04-08] MEDS: CLOPIDOGREL 75 MG TAB PO SCH (09:04)
[2023-04-08 11:34] LABS: Glucose,Whole Blood 156 mg/dL (70-110)
[2023-04-08 12:31] VITALS: BMI 32.3
[2023-04-08 16:28] LABS: Glucose,Whole Blood 133 mg/dL (70-110)
--- NOTE | 2023-04-08 16:38 | P.PN ---
Subjective Progress Note Date: 04/08/23 Hospital course: Patient is a very pleasant 67-year-old female with a past medical history of CAD with previous stent placement, hypertension, hyperlipidemia, peripheral vascular disease status post bilateral iliac artery stenting on Plavix , type 1 diabetes mellitus with insulin pump, and obstructive sleep apnea CPAP dependent nightly. She reports that she and her were celebrating their anniversary last night and drinking alcoholic beverages which she normally does not drink. Patient reports this has been known to cause her recurrent episodes of pancreatitis as well as elevate her blood glucose levels in the past. Patient states she began noticing elevated blood glucose levels, abdominal pain, and nausea beginning yesterday evening and progressively worsening. Patient reports that this morning she had diffuse abdominal pain, uncontrolled nausea, multiple episodes of vomiting greater than 8, and 2 episodes of diarrhea similar to previous episodes of DKA. Patient states up until yesterday evening prior to celebrating her anniversary and drinking some alcoholic beverages she was feeling great, she denies having any known ill contacts, fevers, chills, chest pain, cough or congestion, shortness of breath, difficulties with her changes in her urinary function, or experiencing any numbness/tingling/weakness/swelling of her extremities. Patient underwent full evaluation in the emergency department. Vital signs stable upon arrival with temp 98.0F, heart rate 79, respiratory rate 18, blood pressure 139/55, and SpO2 of 99% on room air. Labs completed and reviewed. CBC completed showing leukocytosis with WBC count of 14.6 and normocytic anemia with hemoglobin of 11.1. Coagulation profile unremarkable. Venous blood gas showing metabolic acidosis with pH of 7.28 and bicarb of 19. BMP revealing hypernatremia with sodium of 130, hyperkalemia with potassium of 5.8, hypocarbia with bicarb of 12, elevated anion gap at 20, acute kidney injury with BUN of 37, creatinine of 1.54, and GFR of 35, hyperglycemia with glucose of 739. Positive acetone. And urinalysis positive for glucose and ketones. Patient was given IV fluid bolus and started on insulin infusion for DKA. Discussed in great detail with the ED physician. Patient being admitted under our services to stepdown unit with telemetry at this time. Physical exam: Patient seen and fully evaluated at bedside this morning. Patient reports he is feeling much better and no longer having any episodes of nausea or vomiting and tolerated eating oatmeal for breakfast. Anion gap was closed yesterday evening around 9 PM and patient was provided with an oral challenge and was able to tole rate oral intake without any episodes of nausea or vomiting so patient was given a one-time dose of Levemir 20 units and insulin infusion was discontinued. This morning patient had episode of hypoglycemia with blood glucose dropping down to 52. This resolved with oral intake. Instead of placing patient on NovoLog sliding scale patient requesting to use only insulin pump and this was restarted at this time.. Morning labs completed and reviewed. Sodium 134, chloride 104, bicarb 23, and anion gap of 7. Patient does have noted worsening renal function with BUN of 45, creatinine 2.01, and GFR of 25. Creatinine was 1.5 on admission with baseline creatinine around 1.0. Order placed to resume IV fluids at this time with 0.9% normal saline and we will repeat morning BMP to follow-up on reso lution/improvement of acute kidney injury. Vital signs reviewed and stable. General: Nontoxic, no distress and appears stated age. Derm: Skin warm and dry, normal coloration for ethnicity. Head: Atraumatic, normocephalic and symmetric. Eyes: EOMs intact, no lid lag, and anicteric sclera Mouth: no lip lesions, mucus membranes moist Cardiovascular: regular rate and rhythm with normal S1S2, systolic murmur, positive posterior tibial pulses bilaterally, and cap refill < 2 seconds. Lungs: Respirations even, regular, and unlabored on room air. Lungs CTA bilaterally, no rhonchi, no rales, no wheezing, and no accessory muscle usage. Abdominal: soft, nontender to palpation, no guarding, no appreciable organomegaly Ext: ROM intact. No gross muscle atrophy, no edema, no contractures Neuro: Speech clear, face symmetrical and CN II-XII grossly intact with no noted focal neuro deficits Psych: Alert and oriented to person, place, time, and situation. Appropriate and pleasant affect. Assessment and Plan of Care: Diabetic ketoacidosis Acute kidney injury Metabolic acidosis secondary to DKA Hyperkalemia, resolved HyponatremiaComment. Hypocarbia, Resolved -Anion gap closed yesterday evening around 9 PM and patient was provided with an oral challenge and was able to tolerate oral intake without any episodes of nausea or vomiting so patient was given a one-time dose of Levemir 20 units and insulin infusion was discontinued. This morning patient had episode of hypoglycemia with blood glucose dropping down to 52. This resolved with oral intake. Instead of placing patient on NovoLog sliding scale patient requesting to use only insulin pump and this was restarted at this time.. -Morning labs completed and reviewed. Sodium 134, chloride 104, bicarb 23, and anion gap of 7. Patient does have noted worsening renal function with BUN of 45, creatinine 2.01, and GFR of 25. Creatinine was 1.5 on admission with baseline creatinine around 1.0. -Order placed for continue gentle IV fluids at this time with 0.9% normal saline for treatment of acute kidney injury and we will repeat morning BMP to follow-up on resolution/improvement of acute kidney injury. -Order also placed for bladder scanning as needed to monitor for postvoid residual. -As stated above, Patient resumed use of personal insulin pump at this time, we will continue with glucose checks with meals and at bedtime. CAD with previous stent placement Hypertension Hyperlipidemia Peripheral vascular disease status post bilateral iliac artery stenting 01/31/23 -Patient to continue daily Norvasc 5 mg twice daily, atenolol 25 mg nightly, atorvastatin 80 mg nightly, Plavix 75 mg daily, and isosorbide mononitrate 30 mg nightly Obstructive sleep apnea CPAP dependent nightly. -Order placed for patient to continue CPAP nightly and well mapping. CODE STATUS: Full code DVT prophylaxis: heparin Discussed with: Patient and RN Anticipated discharge date: clinical course to determine Anticipated discharge place: Patient was seen independently by Nurse Practitioner. This document was prepared using [employer] dictation software. Please allow for errors in complaint inspector while rare they do occur. Miguel Zambrano NP rendered care for this patient independently, reviewed the f indings and plan as documented in the note above. I did not physically speak with or examine the patient on this date. Objective - Vital Signs Vital signs: Vital Signs Temp 99.2 F 04/08/23 04:47 Pulse 45 L 04/08/23 04:47 Resp 14 04/08/23 04:47 BP 97/50 04/08/23 04:47 Pulse Ox 94 L 04/08/23 04:47 FiO2 Intake & Output 04/07/23 04/08/23 04/08/23 18:59 06:59 18:59 Intake Total 38.354 578.980 Balance 38.354 578.980 Weight 80.286 kg Intake: Intake, IV Titration 38.354 38.980 Amount Insulin Regular 100 unit 38.354 38.980 In Sodium Chloride 0.9% 100 ml @ 0.1 UNITS/KG/HR 8.109 mls/hr IV .[id number] [facility] Rx#:[id number] Oral 540 Other: Voiding Method Toilet # Voids 1 - Labs CBC & Chem 7: 04/09/23 08:11 04/09/23 08:11 Labs: Abnormal Lab Results - Last 24 Hours (Table) 04/07/23 04/07/23 04/07/23 Range/Units 12:19 12:48 12:48 WBC 14.6 H (3.8-10.6) k/uL RBC 3.63 L (3.80-5.40) m/uL Hgb 11.1 L (11.4-16.0) gm/dL Neutrophils # 12.2 H (1.3-7.7) k/uL Lymphocytes # 0.9 L (1.0-4.8) k/uL Monocytes # 1.1 H (0-1.0) k/uL VBG pH (7.31-7.41) VBG HCO3 (24-28) mmol/L Sodium (137-145) mmol/L Potassium (3.5-5.1) mmol/L Carbon Dioxide (22-30) mmol/L BUN (7-17) mg/dL Creatinine (0.52-1.04) mg/dL Glucose (74-99) mg/dL POC Glucose (mg/dL) >600 H (70-110) mg/dL Calcium (8.4-10.2) mg/dL Phosphorus (2.5-4.5) mg/dL ALT (4-34) U/L Total Protein (6.3-8.2) g/dL Urine Glucose (UA) 4+ H (Negative) Urine Ketones 1+ H (Negative) 04/07/23 04/07/23 04/07/23 Range/Units 12:48 15:09 15:53 WBC (3.8-10.6) k/uL RBC (3.80-5.40) m/uL Hgb (11.4-16.0) gm/dL Neutrophils # (1.3-7.7) k/uL Lymphocytes # (1.0-4.8) k/uL Monocytes # (0-1.0) k/uL VBG pH (7.31-7.41) VBG HCO3 (24-28) mmol/L Sodium 130 L (137-145) mmol/L Potassium 5.8 H (3.5-5.1) mmol/L Carbon Dioxide 12 L (22-30) mmol/L BUN 37 H (7-17) mg/dL Creatinine 1.54 H 1.54 H (0.52-1.04) mg/dL Glucose 739 H* (74-99) mg/dL POC Glucose (mg/dL) 543 H (70-110) mg/dL Calcium (8.4-10.2) mg/dL Phosphorus (2.5-4.5) mg/dL ALT 36 H (4-34) U/L Total Protein 5.6 L (6.3-8.2) g/dL Urine Glucose (UA) (Negative) Urine Ketones (Negative) 04/07/23 04/07/23 04/07/23 Range/Units 15:53 15:53 16:00 WBC (3.8-10.6) k/uL RBC (3.80-5.40) m/uL Hgb (11.4-16.0) gm/dL Neutrophils # (1.3-7.7) k/uL Lymphocytes # (1.0-4.8) k/uL Monocytes # (0-1.0) k/uL VBG pH 7.28 L (7.31-7.41) VBG HCO3 19 L (24-28) mmol/L Sodium 132 L (137-145) mmol/L Potassium (3.5-5.1) mmol/L Carbon Dioxide 18 L (22-30) mmol/L BUN 38 H (7-17) mg/dL Creatinine 1.54 H (0.52-1.04) mg/dL Glucose 412 H (74-99) mg/dL POC Glucose (mg/dL) 433 H (70-110) mg/dL Calcium (8.4-10.2) mg/dL Phosphorus (2.5-4.5) mg/dL ALT (4-34) U/L Total Protein (6.3-8.2) g/dL Urine Glucose (UA) (Negative) Urine Ketones (Negative) 04/07/23 04/07/23 04/07/23 Range/Units 17:03 18:01 19:03 WBC (3.8-10.6) k/uL RBC (3.80-5.40) m/uL Hgb (11.4-16.0) gm/dL Neutrophils # (1.3-7.7) k/uL Lymphocytes # (1.0-4.8) k/uL Monocytes # (0-1.0) k/uL VBG pH (7.31-7.41) VBG HCO3 (24-28) mmol/L Sodium (137-145) mmol/L Potassium (3.5-5.1) mmol/L Carbon Dioxide (22-30) mmol/L BUN (7-17) mg/dL Creatinine (0.52-1.04) mg/dL Glucose (74-99) mg/dL POC Glucose (mg/dL) 395 H 286 H 186 H (70-110) mg/dL Calcium (8.4-10.2) mg/dL Phosphorus (2.5-4.5) mg/dL ALT (4-34) U/L Total Protein (6.3-8.2) g/dL Urine Glucose (UA) (Negative) Urine Ketones (Negative) 04/07/23 04/07/23 04/07/23 Range/Units 19:41 19:47 19:47 WBC (3.8-10.6) k/uL RBC (3.80-5.40) m/uL Hgb (11.4-16.0) gm/dL Neutrophils # (1.3-7.7) k/uL Lymphocytes # (1.0-4.8) k/uL Monocytes # (0-1.0) k/uL VBG pH (7.31-7.41) VBG HCO3 (24-28) mmol/L Sodium 134 L (137-145) mmol/L Potassium (3.5-5.1) mmol/L Carbon Dioxide (22-30) mmol/L BUN 43 H (7-17) mg/dL Creatinine 1.70 H 1.75 H (0.52-1.04) mg/dL Glucose 143 H (74-99) mg/dL POC Glucose (mg/dL) 171 H (70-110) mg/dL Calcium (8.4-10.2) mg/dL Phosphorus 2.0 L (2.5-4.5) mg/dL ALT (4-34) U/L Total Protein (6.3-8.2) g/dL Urine Glucose (UA) (Negative) Urine Ketones (Negative) 04/07/23 04/07/23 04/07/23 Range/Units 21:07 22:04 22:41 WBC (3.8-10.6) k/uL RBC (3.80-5.40) m/uL Hgb (11.4-16.0) gm/dL Neutrophils # (1.3-7.7) k/uL Lymphocytes # (1.0-4.8) k/uL Monocytes # (0-1.0) k/uL VBG pH (7.31-7.41) VBG HCO3 (24-28) mmol/L Sodium 132 L (137-145) mmol/L Potassium (3.5-5.1) mmol/L Carbon Dioxide (22-30) mmol/L BUN 45 H (7-17) mg/dL Creatinine 1.95 H (0.52-1.04) mg/dL Glucose (74-99) mg/dL POC Glucose (mg/dL) 145 H 112 H (70-110) mg/dL Calcium (8.4-10.2) mg/dL Phosphorus (2.5-4.5) mg/dL ALT (4-34) U/L Total Protein (6.3-8.2) g/dL Urine Glucose (UA) (Negative) Urine Ketones (Negative) 04/08/23 04/08/23 04/08/23 Range/Units 01:51 01:51 05:48 WBC (3.8-10.6) k/uL RBC (3.80-5.40) m/uL Hgb (11.4-16.0) gm/dL Neutrophils # (1.3-7.7) k/uL Lymphocytes # (1.0-4.8) k/uL Monocytes # (0-1.0) k/uL VBG pH (7.31-7.41) VBG HCO3 23 L (24-28) mmol/L Sodium 134 L (137-145) mmol/L Potassium (3.5-5.1) mmol/L Carbon Dioxide (22-30) mmol/L BUN 45 H (7-17) mg/dL Creatinine 2.01 H (0.52-1.04) mg/dL Glucose (74-99) mg/dL POC Glucose (mg/dL) 52 L (70-110) mg/dL Calcium 7.9 L (8.4-10.2) mg/dL Phosphorus (2.5-4.5) mg/dL ALT (4-34) U/L Total Protein (6.3-8.2) g/dL Urine Glucose (UA) (Negative) Urine Ketones (Negative) 04/08/23 04/08/23 Range/Units 06:02 06:25 WBC (3.8-10.6) k/uL RBC (3.80-5.40) m/uL Hgb (11.4-16.0) gm/dL Neutrophils # (1.3-7.7) k/uL Lymphocytes # (1.0-4.8) k/uL Monocytes # (0-1.0) k/uL VBG pH (7.31-7.41) VBG HCO3 (24-28) mmol/L Sodium (137-145) mmol/L Potassium (3.5-5.1) mmol/L Carbon Dioxide (22-30) mmol/L BUN (7-17) mg/dL Creatinine (0.52-1.04) mg/dL Glucose (74-99) mg/dL POC Glucose (mg/dL) 62 L 117 H (70-110) mg/dL Calcium (8.4-10.2) mg/dL Phosphorus (2.5-4.5) mg/dL ALT (4-34) U/L Total Protein (6.3-8.2) g/dL Urine Glucose (UA) (Negative) Urine Ketones (Negative)
[2023-04-08 20:13] LABS: Glucose,Whole Blood 105 mg/dL (70-110)
[2023-04-08] MEDS: atenoloL 25 MG TAB PO SCH (20:35)
[2023-04-08] MEDS: EZETIMIBE 10 MG TAB PO SCH (20:35)
[2023-04-08] MEDS: ACETAMINOPHEN TAB 325 MG TAB PO PRN (20:36)
[2023-04-08] MEDS: ATORVASTATIN 80 MG TAB PO SCH (20:36)
[2023-04-08] MEDS: ISOSORBIDE MONONITRATE ER 30 MG TAB.ER.24H PO SCH (20:36)
[2023-04-09] MEDS: ACETAMINOPHEN TAB 325 MG TAB PO PRN ×4 (00:26→22:16)
[2023-04-09] MEDS: HEPARIN SODIUM,PORCINE/PF 5,000 UNIT/0.5 ML SYRINGE SQ SCH ×3 (00:26→20:12)
[2023-04-09] MEDS: SODIUM CHLORIDE 0.9% 1,000 ML IV SCH ×2 (04:25→18:32)
[2023-04-09] MEDS: ONDANSETRON 4 MG/2 ML VIAL IVP PRN (04:38)
[2023-04-09 04:40] LABS: Glucose,Whole Blood 125 mg/dL (70-110)
[2023-04-09] MEDS ORDERED: KETOROLAC 15 MG/ML 1 ML VIAL IVP STA (08:38)
[2023-04-09] MEDS: amLODIPine 5 MG TAB PO SCH ×2 (08:52→21:22)
[2023-04-09] MEDS: FAMOTIDINE 20 MG TAB PO SCH (08:53)
[2023-04-09] MEDS: CLOPIDOGREL 75 MG TAB PO SCH (08:53)
[2023-04-09 09:08] LABS: Calcium 7.8 mg/dL (8.4-10.2); Magnesium 1.8 mg/dL (1.6-2.3); Potassium 3.8 mmol/L (3.5-5.1)
[2023-04-09 09:20] LABS: HCT 30.6 % (34.0-46.0); MCH 29.8 pg (25.0-35.0); MCHC 32.6 g/dL (31.0-37.0); Mean Platelet Volume 9.3; Platelet Count 170 k/uL (150-450); RBC 3.35 m/uL (3.80-5.40); RDW 14.9 % (11.5-15.5); WBC 18.4 k/uL (3.8-10.6)
[2023-04-09 09:27] LABS: MCV 91.3 fL (80.0-100.0)
--- NOTE | 2023-04-09 09:49 | XR ---
EXAMINATION TYPE: XR chest 1V portable DATE OF EXAM: 04/09/2023 CLINICAL HISTORY: Congestion and fever. TECHNIQUE: Single AP portable upright view of the chest is obtained. COMPARISON: Chest x-ray from June 30, 2017 FINDINGS: Reticular increased markings bilaterally redemonstrated. No new focal airspace opacity, pl eural effusion, or pneumothorax is seen. Cardiac silhouette size stable and within normal limits. Oss eous structures are intact. IMPRESSION: Chronic changes without new acute focal infiltrate
[2023-04-09 11:22] LABS: Glucose,Whole Blood 163 mg/dL (70-110)
[2023-04-09] MEDS ORDERED: CEFDINIR 300 MG CAP PO SCH (15:45)
--- NOTE | 2023-04-09 15:58 | P.PN ---
Subjective Progress Note Date: 04/09/23 Hospital course: Patient is a very pleasant 67-year-old female with a past medical history of CAD with previous stent placement, hypertension, hyperlipidemia, peripheral vascular disease status post bilateral iliac artery stenting on Plavix , type 1 diabetes mellitus with insulin pump, and obstructive sleep apnea CPAP dependent nightly. She reports that she and her were celebrating their anniversary last night and drinking alcoholic beverages which she normally does not drink. Patient reports this has been known to cause her recurrent episodes of pancreatitis as well as elevate her blood glucose levels in the past. Patient states she began noticing elevated blood glucose levels, abdominal pain, and nausea beginning yesterday evening and progressively worsening. Patient reports that this morning she had diffuse abdominal pain, uncontrolled nausea, multiple episodes of vomiting greater than 8, and 2 episodes of diarrhea similar to previous episodes of DKA. Patient states up until yesterday evening prior to celebrating her anniversary and drinking some alcoholic beverages she was feeling great, she denies having any known ill contacts, fevers, chills, chest pain, cough or congestion, shortness of breath, difficulties with her changes in her urinary function, or experiencing any numbness/tingling/weakness/swelling of her extremities. Patient underwent full evaluation in the emergency department. Vital signs stable upon arrival with temp 98.0F, heart rate 79, respiratory rate 18, blood pressure 139/55, and SpO2 of 99% on room air. Labs completed and reviewed. CBC completed showing leukocytosis with WBC count of 14.6 and normocytic anemia with hemoglobin of 11.1. Coagulation profile unremarkable. Venous blood gas showing metabolic acidosis with pH of 7.28 and bicarb of 19. BMP revealing hypernatremia with sodium of 130, hyperkalemia with potassium of 5.8, hypocarbia with bicarb of 12, elevated anion gap at 20, acute kidney injury with BUN of 37, creatinine of 1.54, and GFR of 35, hyperglycemia with glucose of 739. Positive acetone. And urinalysis positive for glucose and ketones. Patient was given IV fluid bolus and started on insulin infusion for DKA. She was admitted under our services to stepdown unit with telemetry at this time. Patient was weaned off of insulin infusion and placed back on carb consistent diet. Patient using her own insulin pump to control blood glucose levels and these levels are being monitored closely by staff. Patient did develop acute kidney injury with creatinine elevating up to 2.01 but this resolved with IV fluid hydration and creatinine is currently 1.25. Overnight on 04/08/23 through 04/09/23 patient began running an elevated temperature. Physical exam: Patient seen and fully evaluated at bedside this morning. Patient was reported to spike a temperature overnight and currently has a fever with oral temp of 102.0F. Patient nonspecific with complains reports only experiencing gene ralized body aches and some stuffiness to her nose. She denies having any nasal drainage, sinus pressure pain, earache or drainage, sore throat or dysphasia, cough, shortness of breath, chest pain, abdominal pain, nausea, vomiting, or experiencing any difficulties with her changes in urinary or bowel function. Patient denies having any noted rash or any other complaints at this time. Vital signs reviewed and stable. General: Nontoxic, no distress and appears stated age. Derm: Skin warm and dry, normal coloration for ethnicity. Head: Atraumatic, normocephalic and symmetric. Eyes: EOMs intact, no lid lag, and anicteric sclera Mouth: no lip lesions, mucus membranes moist Cardiovascular: regular rate and rhythm with normal S1S2, systolic murmur, positive posterior tibial pulses bilaterally, and cap refill < 2 seconds. Lungs: Respirations even, regular, and unlabored on room air. Lungs CTA bilaterally, no rhonchi, no rales, no wheezing, and no accessory muscle usage. Abdominal: soft, nontender to palpation, no guarding, no appreciable organomegaly Ext: ROM intact. No gross muscle atrophy, no edema, no contractures Neuro: Speech clear, face symmetrical and CN II-XII grossly intact with no noted focal neuro deficits Psych: Alert and oriented to person, place, time, and situation. Appropriate and pleasant affect. Assessment and Plan of Care: Pyrexia unclear etiology Leukocytosis Diabetic ketoacidosis, resolved Acute kidney injury, resolved after IV fluid hydration Metabolic acidosis secondary to DKA, resolved Hyperkalemia, resolved Hyponatremia, resolved Hypocarbia, Resolved -Patient was reported to spike a temperature overnight and currently has a fever with oral temp of 102.0F. Patient nonspecific with complains reports only experiencing generalized body aches and some stuffiness to her nose. -Morning labs reviewed. CBC showing worsening leukocytosis with WBC count increasing to 18.4 and stable normocytic anemia with hemoglobin of 10.0. BMP revealing resolution of acute kidney injury with BUN of 35, creatinine 1.25, and GFR 45. -Order placed for Tylenol 650 mg by mouth every 4 hours as needed for mild pain/fever -Order placed for Covid PCR, influenza A, influenza B, and RSV PCR is to be completed. Chest x-ray to be completed. Urinalysis reviewed and was negative for infection and patient free from any urinary complaints at this time. -At this time we will continue gentle IV fluids with 0.9% normal saline for an additional 24 hours. -Blood culture and pro-calcitonin to be obtained. -We will start patient on empiric antibiotics with Cefdinir 600 mg daily and clindamycin 600 mg 3 times daily for treatment of acute sinusitis/development of pneumonia pending further results. -As stated above, Patient resumed use of personal insulin pump once weaned off of insulin infusion when DKA resolved, blood glucose levels stable ranging from 105-220 over the past 24 hours. CAD with previous stent placement Hypertension Hyperlipidemia Peripheral vascular disease status post bilateral iliac artery stenting 01/31/23 -Patient to continue daily Norvasc 5 mg twice daily, atenolol 25 mg nightly, atorvastatin 80 mg nightly, Plavix 75 mg daily, and isosorbide mononitrate 30 mg nightly Obstructive sleep apnea CPAP dependent nightly. -Order placed for patient to continue CPAP nightly and well mapping. CODE STATUS: Full code DVT prophylaxis: heparin Discussed with: Patient and RN Anticipated discharge date: clinical course to determine Anticipated discharge place: Patient was seen independently by Nurse Practitioner. This document was prepared using [employer] dictation software. Please allow for errors in city magistrate while rare they do occur. Miguel Zambrano NP rendered care for this patient independently, reviewed the findings and plan as documented in the note above. I did not physically speak with or examine the patient on this date. Objective - Vital Signs Vital signs: Vital Signs Temp 100.1 F H 04/09/23 04:00 Pulse 82 04/09/23 04:00 Resp 20 04/09/23 04:00 BP 182/77 04/09/23 04:00 Pulse Ox 94 L 04/09/23 04:00 FiO2 Intake & Output 04/08/23 04/09/23 04/09/23 18:59 06:59 18:59 Intake Total 1240 540 0 Output Total 200 Balance 1240 340 0 Weight 80.286 kg Intake: Intake, IV Titration 1000 Amount Sodium Chloride 0.9% 1, 1000 000 ml @ 100 mls/hr IV . Q10H [facility] Rx#:[id number] Oral 240 540 0 Output: Oral Regurgitation 200 Other: Voiding Method Toilet Toilet # Voids 2 1 - Labs CBC & Chem 7: 04/09/23 08:11 04/09/23 08:11 Labs: Abnormal Lab Results - Last 24 Hours (Table) 04/08/23 04/08/23 04/08/23 Range/Units 08:33 11:32 16:27 POC Glucose (mg/dL) 220 H 156 H 133 H (70-110) mg/dL 04/09/23 Range/Units 04:36 POC Glucose (mg/dL) 125 H (70-110) mg/dL
[2023-04-09] MEDS ORDERED: CLINDAMYCIN 150 MG CAP PO SCH (16:00)
[2023-04-09 16:27] LABS: Glucose,Whole Blood 259 mg/dL (70-110)
--- NOTE | 2023-04-09 16:36 | CT ---
EXAMINATION TYPE: CT sinus wo con CT DLP: 411.5 mGycm, Automated exposure control for dose reduction was used. DATE OF EXAM: 04/09/2023 4:16 PM COMPARISON: None. CLINICAL INDICATION:Female, 67 years old with history of fever, sinus congestion; , congestion and fe renée. TECHNIQUE: Multiple thin axial images were obtained through the paranasal sinuses without the use of IV contrast. Additional coronal and sagittal reformatted images were submitted for evaluation. Contrast used: none Oral contrast used: none FINDINGS: Frontal sinuses: Hypoplastic right normal left mucosal thickening near the recesses with narrowing bi laterally. Maxillary Sinuses: Normally developed and mostly aerated there are scattered mild/minimal mucosal thi ckening. Maxillary Infundibula([facility]): Mildly narrowed bilaterally, No Michael cells identified. Ethmoid sinuses: Scattered mild mucosal thickening in the anterior and posterior aspects bilaterally. Ethmoidal notch: Protected right unprotected left anterior ethmoidal arteries. Sphenoid sinuses: Normally developed with scattered mucosal thickening.. There is sellar sphenoid sin us pneumatization without evidence of dehiscence. No dehiscence of carotid canal. No evidence of opt ic nerve dehiscence within the sphenoid sinus. No evidence of Onodi cells. Sphenoethmoidal recesses: Mucosal thickening with partial obstruction. Nasal septum: Within normal limits with mild deviation to the left posteriorly. Nasal Turbinates: Mild mucosal thickening most pronounced in the left middle and inferior turbinates. Mastoid air cells & middle ears: Few opacified left mastoid air cells. The right mastoid sinuses are hypoplastic. The middle ears are grossly unremarkable. Modified Soft tissues & Brain: Partially seen without gross abnormality. Globes are intact. Other: Cribriform plate demonstrates symmetric Keros classification type 2 cribriform plate. No evidence of bony dehiscence of skull base. Lamina papyracea is intact without evidence of remote orbital fracture or orbital prolapse into the e thmoid sinus. IMPRESSION: 1. Mild paranasal sinus disease. 2. The ostiomeatal units, frontonasal and sphenoethmoidal recesses are partially narrowed bilaterally .
--- NOTE | 2023-04-09 16:38 | US ---
EXAMINATION TYPE: US groin RT DATE OF EXAM: 04/09/2023 COMPARISON: US, CT CLINICAL INDICATION: Female, 67 years old with history of painful lump right groin, fever; Fever, pt states right groin palp, however pt unable to feel palpable when tech was bedside Technique: Grayscale imaging of the right groin. FINDINGS: No organizing fluid collection or mass. IMPRESSION: No organizing fluid collection or mass.
[2023-04-09 17:33] LABS: Glucose,Whole Blood 253 mg/dL (70-110)
[2023-04-09 18:00] LABS: ABG Base Excess -1.9 mmol/L; ABG HCO3 23 mmol/L (21-25); ABG Oxygen Saturation 75.1 % (94-97); ABG PCO2 36 mmHg (35-45); ABG PH 7.41 (7.35-7.45); ABG TCO2 24 mmol/L (19-24); Allen Test Performed? Yes
[2023-04-09] MEDS: IPRATROPIUM-ALBUTEROL 3 ML NEB INHALATION PRN (18:07)
[2023-04-09 18:17] LABS: ABG PO2 39 mmHg (83-108)
--- NOTE | 2023-04-09 18:27 | XR ---
EXAMINATION TYPE: XR chest 1V portable DATE OF EXAM: 04/09/2023 6:12 PM COMPARISON: Chest radiographs from 04/09/2023 earlier in the day. TECHNIQUE: XR chest 1V portable Frontal view of the chest. CLINICAL INDICATION:Female, 67 years old with history of hypoxia; FINDINGS: Lungs/Pleura: Right lower airspace opacities. There is no evidence of pleural effusion or pneumothora x. Chronic appearing airspace opacities throughout the lungs. Pulmonary vascularity: Unremarkable. Heart/mediastinum: Cardiomediastinal silhouette is unremarkable. Musculoskeletal: No acute osseous pathology. IMPRESSION: Right lower lung airspace opacities new from same day radiograph correlate for aspiration consider de veloping pneumonia. Chronic airspace opacities throughout the lungs remain present.
--- NOTE | 2023-04-09 18:28 | P.PN ---
Progress Note - Text Progress Note Date: 04/09/23 Received a page from RN that patient whom was previously on room air now hypoxic requiring oxygen supplementation at 11 L O2 with SpO2 of 86% and remains febrile at 102F. When the bedside to assess, found patient to be tachypneic and labored with respirations show, patient over and expressing that she is short of breath. She is alert and oriented but showing episodes of confusion. Blood glucose checked resulting at 253. Patient's at bedside reports patient did have episode of emesis last night. When the bedside to assess, Orders place for stat repeat chest x-ray, ABG, and lactate. ABG drawn by next with venous blood however resulting at pH 7.41 and PcO2 36. Stat x-ray at bedside, upon personal review showing concerns of right lower lobe infiltrate. Concerns of aspiration. Respiratory brought to bedside for breathing treatment. Patient has been updated on plan. Patient started on IV antibiotics clindamycin 600 mg every 6 hours and Rocephin 2 g every 24 hours for treatment of aspiration pneumonitis.
[2023-04-09 20:03] LABS: Glucose,Whole Blood 259 mg/dL (70-110)
[2023-04-09] MEDS ORDERED: DEXTROSE 50% SYRINGE 50 ML IVP PRN ×2 (20:09)
[2023-04-09 20:11] LABS: Calcium 7.7 mg/dL (8.4-10.2); Potassium 4.2 mmol/L (3.5-5.1)
--- NOTE | 2023-04-09 21:12 | CT ---
EXAMINATION TYPE: CT brain wo con CT DLP: 1371.4 mGycm, Automated exposure control for dose reduction was used. DATE OF EXAM: 04/09/2023 9:02 PM COMPARISON: None. CLINICAL INDICATION:Female, 67 years old with history of AMS, AMS TECHNIQUE: Brain: Axial CT images of the brain were obtained with coronal and sagittal reformats created and rev iewed. Contrast used: None. Oral contrast used: None. FINDINGS: Brain: Extra-axial spaces: No abnormal extra-axial fluid collections. Ventricular system: Within normal limits Cerebral parenchyma: No acute intraparenchymal hemorrhage or mass effect. The herron-white junction is well differentiated. Cerebellum: Unremarkable. Mass effect: No evidence of midline shift. Intracranial vasculature: unremarkable Soft tissues: Normal. Calvarium/osseous structures: No depressed skull fracture. Paranasal sinuses and mastoid air cells: Mild scattered paranasal sinus disease. Visualized orbits: Orbital contents are intact. IMPRESSION: No acute intracranial process.
[2023-04-09] MEDS: atenoloL 25 MG TAB PO SCH (21:22)
[2023-04-09] MEDS: ATORVASTATIN 80 MG TAB PO SCH (21:22)
[2023-04-09] MEDS: INSULIN ASPART (NovoLOG) 100 UNIT/ML VIAL SQ SCH (21:22)
[2023-04-09] MEDS: ISOSORBIDE MONONITRATE ER 30 MG TAB.ER.24H PO SCH (21:22)
[2023-04-09] MEDS: EZETIMIBE 10 MG TAB PO SCH (21:22)
[2023-04-10] MEDS: SODIUM CHLORIDE 0.9% 1,000 ML IV SCH ×3 (00:20→17:24)
[2023-04-10] MEDS: CLINDAMYCIN 600 MG in DEXTROSE 5% IN WATER 50 ML IVPB SCH ×8 (00:20→19:21)
[2023-04-10] MEDS: HEPARIN SODIUM,PORCINE/PF 5,000 UNIT/0.5 ML SYRINGE SQ SCH ×3 (00:20→16:46)
[2023-04-10] MEDS: IPRATROPIUM-ALBUTEROL 3 ML NEB INHALATION PRN ×2 (01:20→08:22)
[2023-04-10 01:31] LABS: Glucose,Whole Blood 134 mg/dL (70-110)
[2023-04-10 01:43] LABS: ABG Base Excess -5.1 mmol/L; ABG HCO3 20 mmol/L (21-25); ABG Oxygen Saturation 90.6 % (94-97); ABG PCO2 32 mmHg (35-45); ABG TCO2 21 mmol/L (19-24); Allen Test Performed? Yes
[2023-04-10] MEDS ORDERED: ACETAMINOPHEN IV (For NPO) 1,000 MG in EMPTY BAG 1 BAG IVPB PRN (01:46)
[2023-04-10 01:49] LABS: ABG PO2 55 mmHg (83-108)
[2023-04-10] MEDS: ONDANSETRON 4 MG/2 ML VIAL IVP PRN (01:54)
[2023-04-10 05:26] LABS: Glucose,Whole Blood 345 mg/dL (70-110)
[2023-04-10] MEDS: INSULIN ASPART (NovoLOG) 100 UNIT/ML VIAL SQ SCH ×4 (06:11→22:34)
[2023-04-10] MEDS: FAMOTIDINE 20 MG TAB PO SCH (09:49)
[2023-04-10] MEDS: amLODIPine 5 MG TAB PO SCH ×2 (09:49→21:14)
[2023-04-10] MEDS: CLOPIDOGREL 75 MG TAB PO SCH (09:49)
[2023-04-10 11:48] LABS: Glucose,Whole Blood 318 mg/dL (70-110)
--- NOTE | 2023-04-10 12:16 | P.CNPUL ---
History of Present Illness Consult date: 04/10/23 History of present illness: 67-year-old female patient with known history of diabetes mellitus along with history of coronary artery disease previous coronary artery stenting, hypertension hyperlipidemia, peripheral Vascular disease with previous bilateral iliac artery stenting. The patient has type 1 diabetes mellitus and the patient's current on insulin pump. She also has obstructive sleep apnea maintained on CPAP therapy. The patient came into the hospital after weekend celebration and the patient was drinking alcoholic beverages. She has had previous episodes of pancreatitis also. She came into the hospital and the patient was having diffuse abdominal pain, along with nausea and emesis. She was found to be in a mild component of DKA. Her serum bicarb level was down to 12 and anion gap was at 20. The patient also had an acute kidney injury with a BUN of 37 and a creatinine 1.5. Blood sugar was 739. Acetone was positive. PH was at 7.28 with a CBC showing a WBC count of 14.6 and the hemoglobin of 11.1. The patient was using her on insulin pump to control the blood sugar. The patient was treated accordingly. The patient however, developed an acute hypoxic respiratory failure which appeared to be febrile and tachypneic and hypoxic. She apparently aspirated. She was having some altered mentation. Chest x-ray was ordered and the patient was identified to have a right lower lobe pulmonary infiltrate which is of a new onset of the patient's current on accommodation of Rocephin and Zithromax. On today's evaluation, she is awake and alert and communicating. She is on 4 L of oxygen by nasal cannula. There is obvious triggers the right lung base consistent with an underlying aspiration. The blood gas showed a pH of 7.4 with a pCO2 of 32 and pO2 of 55 and this was on FiO2 of 44%. The white cell count was 18.4 with a hemoglobin of 10 and a platelet count of 170. Review of Systems Constitutional: Reports fatigue, Reports poor appetite, Reports weakness Eyes: denies as per HPI, denies blurred vision, denies bulging eye, denies decreased vision, denies diplopia, denies discharge, denies dry eye, denies irritation, denies itching, denies pain, denies photophobia, denies loss of peripheral vision, denies loss of vision, denies tunnel vision/blind spots Ears: deny: decreased hearing, ear discharge, earache, tinnitus Ears, nose, mouth and throat: Reports as per HPI Breasts: absent: as per HPI, change in shape, gynecomastia, masses, nipple discharge, pain, skin changes, swelling Cardiovascular: Reports as per HPI Respiratory: Reports cough, Reports dyspnea Gastrointestinal: Reports nausea, Reports vomiting Genitourinary: Reports as per HPI Menstruation: Reports as per HPI Musculoskeletal: Reports as per HPI Musculoskeletal: absent: ankle pain, ankle stiffness, ankle swelling Integumentary: Reports as per HPI Neurological: Reports as per HPI, Reports change in mentation Psychiatric: Reports as per HPI Endocrine: Reports excessive thirst, Reports fatigue, Reports high blood sugars Hematologic/Lymphatic: Reports as per HPI Allergic/Immunologic: Reports as per HPI Past Medical History Past Medical History: Coronary Artery Disease (CAD), Chest Pain / Angina, Diabetes Mellitus, Hyperlipidemia, Hypertension, Sleep Apnea/CPAP/BIPAP, Vascular Disorder Additional Past Medical History / Comment(s): Has Insulin pump, RLS, peripheral neuropathy, poor circulation, PVD, heart murmur, hx pancreatitis X2, bladder leakage, gastric paresis, dupuytren's, CPAP use. History of Any Multi-Drug Resistant Organisms: None Reported Past Surgical History: Appendectomy, Bladder Surgery, Cholecystectomy, Heart Catheterization, Heart Catheterization With Stent, Orthopedic Surgery, Tubal Ligation Additional Past Surgical History / Comment(s): PTCA with stent, colonoscopy, aortogram, RIGHT FEM POP BYPASS, CATARACTS, bilateral carpal tunnel, right hand surgery. dye procedure. to lower extremities Past Anesthesia/Blood Transfusion Reactions: No Reported Reaction, Motion Sickness Additional Past Anesthesia/Blood Transfusion Reaction / Comment(s): Legs "jump" when she lies down (RLS). Date of Last Stent Placement:: 12/24/14 Past Psychological History: Anxiety Smoking Status: Former smoker Past Alcohol Use History: Occasional Past Drug Use History: None Reported - Past Family History Mother Family Medical History: No Reported History Additional Family Medical History / Comment(s): . Father Family Medical History: Cancer Medications and Allergies Home Medications Medication Instructions Recorded Confirmed Type Isosorbide Mononitrate ER [Imdur] 30 mg PO HS 12/22/14 04/07/23 History Losartan Potassium 100 mg PO HS 12/22/14 04/07/23 History Atorvastatin [Lipitor] 80 mg PO HS #90 tab 12/25/14 04/07/23 Rx amLODIPine BESYLATE [Norvasc] 5 mg PO DAILY 06/30/15 04/07/23 History Insulin Aspart (For Pump) [NovoLOG 0.01 unit SQ-PUMP CONTINUOUS 11/09/16 04/07/23 History (For Pump)] Aspirin EC [Ecotrin Low Dose] 81 mg PO HS 12/28/16 04/07/23 History Ezetimibe [Zetia] 10 mg PO HS 08/23/22 04/07/23 History Famotidine 40 mg PO DAILY 08/23/22 04/07/23 History Solifenacin Succinate [Vesicare] 5 mg PO HS 08/23/22 04/07/23 History atenoloL 25 mg PO HS 08/23/22 04/07/23 History Clopidogrel [Plavix] 75 mg PO DAILY #30 tablet 01/31/23 04/07/23 Rx Pantoprazole Sodium [Protonix] 40 mg PO DAILY 04/07/23 04/07/23 History Vitamin D3(Unknown Dose) 1 tab PO DAILY 04/07/23 04/07/23 History Allergies Allergy/AdvReac Type Severity Reaction Status Date / Time adhesive tape Allergy Rash/Hives Verified 04/07/23 16:44 Penicillins Allergy Rash/Hives Verified 04/07/23 16:44 Physical Exam Vitals: Vital Signs Temp Pulse Pulse Resp BP Pulse Ox FiO2 04/10/23 09:38 98.9 F 64 18 91/58 97 04/10/23 08:31 68 04/10/23 08:22 66 99 04/10/23 03:35 100.8 F H 73 30 H 107/58 99 04/10/23 02:15 80 24 124/56 99 04/10/23 01:45 102.8 F H 89 28 H 153/75 99 100 04/10/23 01:32 87 04/10/23 01:25 92 L 04/10/23 01:22 84 04/10/23 01:15 100.8 F H 84 34 H 141/70 92 L 04/10/23 00:00 100.8 F H 67 18 127/60 97 04/09/23 22:15 102.3 F H 04/09/23 20:00 99.5 F 73 20 148/66 91 L 04/09/23 18:22 88 04/09/23 18:10 90 04/09/23 17:00 101.8 F H 85 20 187/82 76 L 04/09/23 14:00 61 18 04/09/23 12:00 99.5 F 61 18 113/57 92 L Intake and Output 04/09/23 04/10/23 04/10/23 22:59 06:59 14:59 Intake Total 100 10 10 Output Total 300 Balance 100 -290 10 Intake: IV 10 10 Invasive Line 2 10 10 Oral 100 Output: Urine 300 Uretheral (Romero) 100 Other: Voiding Method Bedside Commode Bedside Commode # Voids 1 General: Nontoxic, no distress and appears stated age. The patient is currently comfortable on 4 L of oxygen by nasal cannula. No chest pain. Derm: Skin warm and dry, normal coloration for ethnicity. Head: Atraumatic, normocephalic and symmetric. Eyes: EOMs intact, no lid lag, and anicteric sclera Mouth: no lip lesions, mucus membranes moist Cardiovascular: regular rate and rhythm with normal S1S2, systolic murmur, positive posterior tibial pulses bilaterally, and cap refill < 2 seconds. Lungs: Respirations even, regular, and unlabored on room air. Lungs CTA bilaterally, no rhonchi, no rales, no wheezing, and no accessory muscle usage. The patient's corrected in the right lung base Abdominal: soft, nontender to palpation, no guarding, no appreciable organomegaly Ext: ROM intact. No gross muscle atrophy, no edema, no contractures Neuro: Speech clear, face symmetrical and CN II-XII grossly intact with no noted focal neuro deficits Psych: Alert and oriented to person, place, time, and situation. Appropriate and pleasant affect. Results - Laboratory Findings CBC and BMP: 04/09/23 08:11 04/09/23 19:00 ABG ABG pH 7.40 (7.35-7.45) 04/10/23 01:40 ABG pCO2 32 mmHg (35-45) L 04/10/23 01:40 ABG pO2 55 mmHg (83-108) L* 04/10/23 01:40 ABG O2 Saturation 90.6 % (94-97) L 04/10/23 01:40 PT/INR, D-dimer PT 11.6 sec (9.0-12.0) 04/07/23 13:45 INR 1.1 (<1.2) 04/07/23 13:45 Abnormal lab findings: Abnormal Labs 04/07/23 04/07/23 04/07/23 12:19 12:48 12:48 WBC 14.6 H RBC 3.63 L Hgb 11.1 L Hct Neutrophils # 12.2 H Lymphocytes # 0.9 L Monocytes # 1.1 H ABG pCO2 ABG pO2 ABG HCO3 ABG O2 Saturation VBG pH VBG HCO3 Sodium Potassium Carbon Dioxide BUN Creatinine Glucose POC Glucose (mg/dL) >600 H Calcium Phosphorus ALT Total Protein Procalcitonin Urine Glucose (UA) 4+ H Urine Ketones 1+ H 04/07/23 04/07/23 04/07/23 12:48 15:09 15:53 WBC RBC Hgb Hct Neutrophils # Lymphocytes # Monocytes # ABG pCO2 ABG pO2 ABG HCO3 ABG O2 Saturation VBG pH VBG HCO3 Sodium 130 L Potassium 5.8 H Carbon Dioxide 12 L BUN 37 H Creatinine 1.54 H 1.54 H Glucose 739 H* POC Glucose (mg/dL) 543 H Calcium Phosphorus ALT 36 H Total Protein 5.6 L Procalcitonin Urine Glucose (UA) Urine Ketones 04/07/23 04/07/23 04/07/23 15:53 15:53 16:00 WBC RBC Hgb Hct Neutrophils # Lymphocytes # Monocytes # ABG pCO2 ABG pO2 ABG HCO3 ABG O2 Saturation VBG pH 7.28 L VBG HCO3 19 L Sodium 132 L Potassium Carbon Dioxide 18 L BUN 38 H Creatinine 1.54 H Glucose 412 H POC Glucose (mg/dL) 433 H Calcium Phosphorus ALT Total Protein Procalcitonin Urine Glucose (UA) Urine Ketones 04/07/23 04/07/23 04/07/23 17:03 18:01 19:03 WBC RBC Hgb Hct Neutrophils # Lymphocytes # Monocytes # ABG pCO2 ABG pO2 ABG HCO3 ABG O2 Saturation VBG pH VBG HCO3 Sodium Potassium Carbon Dioxide BUN Creatinine Glucose POC Glucose (mg/dL) 395 H 286 H 186 H Calcium Phosphorus ALT Total Protein Procalcitonin Urine Glucose (UA) Urine Ketones 04/07/23 04/07/23 04/07/23 19:41 19:47 19:47 WBC RBC Hgb Hct Neutrophils # Lymphocytes # Monocytes # ABG pCO2 ABG pO2 ABG HCO3 ABG O2 Saturation VBG pH VBG HCO3 Sodium 134 L Potassium Carbon Dioxide BUN 43 H Creatinine 1.70 H 1.75 H Glucose 143 H POC Glucose (mg/dL) 171 H Calcium Phosphorus 2.0 L ALT Total Protein Procalcitonin Urine Glucose (UA) Urine Ketones 04/07/23 04/07/23 04/07/23 21:07 22:04 22:41 WBC RBC Hgb Hct Neutrophils # Lymphocytes # Monocytes # ABG pCO2 ABG pO2 ABG HCO3 ABG O2 Saturation VBG pH VBG HCO3 Sodium 132 L Potassium Carbon Dioxide BUN 45 H Creatinine 1.95 H Glucose POC Glucose (mg/dL) 145 H 112 H Calcium Phosphorus ALT Total Protein Procalcitonin Urine Glucose (UA) Urine Ketones 04/08/23 04/08/23 04/08/23 01:51 01:51 05:48 WBC RBC Hgb Hct Neutrophils # Lymphocytes # Monocytes # ABG pCO2 ABG pO2 ABG HCO3 ABG O2 Saturation VBG pH VBG HCO3 23 L Sodium 134 L Potassium Carbon Dioxide BUN 45 H Creatinine 2.01 H Glucose POC Glucose (mg/dL) 52 L Calcium 7.9 L Phosphorus ALT Total Protein Procalcitonin Urine Glucose (UA) Urine Ketones 04/08/23 04/08/23 04/08/23 06:02 06:25 08:33 WBC RBC Hgb Hct Neutrophils # Lymphocytes # Monocytes # ABG pCO2 ABG pO2 ABG HCO3 ABG O2 Saturation VBG pH VBG HCO3 Sodium Potassium Carbon Dioxide BUN Creatinine Glucose POC Glucose (mg/dL) 62 L 117 H 220 H Calcium Phosphorus ALT Total Protein Procalcitonin Urine Glucose (UA) Urine Ketones 04/08/23 04/08/23 04/09/23 11:32 16:27 04:36 WBC RBC Hgb Hct Neutrophils # Lymphocytes # Monocytes # ABG pCO2 ABG pO2 ABG HCO3 ABG O2 Saturation VBG pH VBG HCO3 Sodium Potassium Carbon Dioxide BUN Creatinine Glucose POC Glucose (mg/dL) 156 H 133 H 125 H Calcium Phosphorus ALT Total Protein Procalcitonin Urine Glucose (UA) Urine Ketones 04/09/23 04/09/23 04/09/23 08:11 08:11 11:21 WBC 18.4 H RBC 3.35 L Hgb 10.0 L Hct 30.6 L Neutrophils # Lymphocytes # Monocytes # ABG pCO2 ABG pO2 ABG HCO3 ABG O2 Saturation VBG pH VBG HCO3 Sodium 135 L Potassium Carbon Dioxide BUN 35 H Creatinine 1.25 H Glucose 138 H POC Glucose (mg/dL) 163 H Calcium 7.8 L Phosphorus ALT Total Protein Procalcitonin Urine Glucose (UA) Urine Ketones 04/09/23 04/09/23 04/09/23 16:26 17:13 17:55 WBC RBC Hgb Hct Neutrophils # Lymphocytes # Monocytes # ABG pCO2 ABG pO2 39 L* ABG HCO3 ABG O2 Saturation 75.1 L VBG pH VBG HCO3 Sodium Potassium Carbon Dioxide BUN Creatinine Glucose POC Glucose (mg/dL) 259 H 253 H Calcium Phosphorus ALT Total Protein Procalcitonin Urine Glucose (UA) Urine Ketones 04/09/23 04/09/23 04/09/23 19:00 19:00 19:54 WBC RBC Hgb Hct Neutrophils # Lymphocytes # Monocytes # ABG pCO2 ABG pO2 ABG HCO3 ABG O2 Saturation VBG pH VBG HCO3 Sodium 132 L Potassium Carbon Dioxide 21 L BUN 34 H Creatinine 1.26 H Glucose 224 H POC Glucose (mg/dL) 259 H Calcium 7.7 L Phosphorus ALT Total Protein Procalcitonin 10.90 H Urine Glucose (UA) Urine Ketones 04/10/23 04/10/23 04/10/23 01:18 01:40 05:20 WBC RBC Hgb Hct Neutrophils # Lymphocytes # Monocytes # ABG pCO2 32 L ABG pO2 55 L* ABG HCO3 20 L ABG O2 Saturation 90.6 L VBG pH VBG HCO3 Sodium Potassium Carbon Dioxide BUN Creatinine Glucose POC Glucose (mg/dL) 134 H 345 H Calcium Phosphorus ALT Total Protein Procalcitonin Urine Glucose (UA) Urine Ketones - Diagnostic Findings Chest x-ray: image reviewed Assessment and Plan Plan: Acute hypoxic respiratory failure secondary to an aspiration pneumonia and the patient is currently on 4 L nasal cannula. She was taken off the nonrebreather facemask. The patient is currently on 4 L of oxygen by nasal cannula and this is likely an aspiration pneumonia involving the right lower lobe. Acute right lower lobe aspiration pneumonia Acute Leukocytosis Altered mental status secondary to above, improved and the patient's mentation is back to normal Diabetes mellitus type 1 maintain on insulin pump on outpatient basis Diabetic ketoacidosis, resolved Acute kidney injury, resulted fluid resuscitation treatment of DKA. Metabolic acidosis secondary to DKA, resolved Hyperkalemia, resolved Hyponatremia, resolved CAD with previous stent placement Hypertension Hyperlipidemia Peripheral vascular disease status post bilateral iliac artery stenting 01/31/23 Plan Provide the patient incentive spirometer Wean down FiO2 as tolerated [facility] about 90% Continue Rocephin and clindamycin Repeat chest x-ray was placed 24 hours Management of diabetes per medicine We'll continue to follow
--- NOTE | 2023-04-10 14:37 | P.PN ---
Subjective Progress Note Date: 04/10/23 Hospital course: Patient is a very pleasant 67-year-old female with a past medical history of CAD with previous stent placement, hypertension, hyperlipidemia, peripheral vascular disease status post bilateral iliac artery stenting on Plavix , type 1 diabetes mellitus with insulin pump, and obstructive sleep apnea CPAP dependent nightly. She reports that she and her were celebrating their anniversary last night and drinking alcoholic beverages which she normally does not drink. Patient reports this has been known to cause her recurrent episodes of pancreatitis as well as elevate her blood glucose levels in the past. Patient states she began noticing elevated blood glucose levels, abdominal pain, and nausea beginning yesterday evening and progressively worsening. Patient reports that this morning she had diffuse abdominal pain, uncontrolled nausea, multiple episodes of vomiting greater than 8, and 2 episodes of diarrhea similar to previous episodes of DKA. Patient states up until yesterday evening prior to celebrating her anniversary and drinking some alcoholic beverages she was feeling great, she denies having any known ill contacts, fevers, chills, chest pain, cough or congestion, shortness of breath, difficulties with her changes in her urinary function, or experiencing any numbness/tingling/weakness/swelling of her extremities. Patient underwent full evaluation in the emergency department. Vital signs stable upon arrival with temp 98.0F, heart rate 79, respiratory rate 18, blood pressure 139/55, and SpO2 of 99% on room air. Labs completed and reviewed. CBC completed showing leukocytosis with WBC count of 14.6 and normocytic anemia with hemoglobin of 11.1. Coagulation profile unremarkable. Venous blood gas showing metabolic acidosis with pH of 7.28 and bicarb of 19. BMP revealing hypernatremia with sodium of 130, hyperkalemia with potassium of 5.8, hypocarbia with bicarb of 12, elevated anion gap at 20, acute kidney injury with BUN of 37, creatinine of 1.54, and GFR of 35, hyperglycemia with glucose of 739. Positive acetone. And urinalysis positive for glucose and ketones. Patient was given IV fluid bolus and started on insulin infusion for DKA. She was admitted under our services to stepdown unit with telemetry at this time. Patient was weaned off of insulin infusion and placed back on carb consistent diet. Patient using her own insulin pump to control blood glucose levels and these levels are being monitored closely by staff. Patient did develop acute kidney injury with creatinine elevating up to 2.01 but this resolved with IV fluid hydration and creatinine is currently 1.25. Overnight on 04/08/23 through 04/09/23 patient began running an elevated temperature as high as 103F. Covid PCR, influenza A, influenza B, and RSV were obtained all negative. Chest x-ray initially completed negative for acute process. CT sinuses negative for acute process. Patient then reports tenderness right groin from previous stent placement and ultrasound completed negative for abscess or abnormality. Later in the evening patient went from room air to acute respiratory distress with hypoxia with oxygen saturation of 76% on room air. Patient started on 4 L via nasal cannula and was titrated up to 15 L via nonrebreather. Repeat chest x-ray completed at this time showing right lower lobe infiltrate consistent with a spiration pneumonitis. Oral antibiotics discontinued and patient placed on IV antibiotics with clindamycin 600 mg every 6 hours and Rocephin 2 g every 24 hours for treatment of aspiration pneumonitis. Physical exam: Patient seen and fully evaluated at bedside this morning. Per RN patient had worsening mentation overnight and she was taken down for a CT brain which was negative for acute intracranial process. Patient maintained on 15 L nonrebreather throughout the night. Consult placed this morning to tableau developer for evaluation.. Patient's mentation much improved this morning. Patient currently alert and oriented to person, place, time, and situation. She has been weaned down to 4 L O2 via nasal cannula and is maintaining SpO2 at 97% at this time. Vital signs reviewed and stable. General: Nontoxic, no distress and appears stated age. Derm: Skin warm and dry, normal coloration for ethnicity. Head: Atraumatic, normocephalic and symmetric. Eyes: EOMs intact, no lid lag, and anicteric sclera Mouth: no lip lesions, mucus membranes moist Cardiovascular: regular rate and rhythm with normal S1S2, systolic murmur, positive posterior tibial pulses bilaterally, and cap refill < 2 seconds. Lungs: Respirations even, regular, and unlabored on room air. Lungs CTA bilaterally, no rhonchi, no rales, no wheezing, and no accessory muscle usage. Abdominal: soft, nontender to palpation, no guarding, no appreciable organomegaly Ext: ROM intact. No gross muscle atrophy, no edema, no contractures Neuro: Speech clear, face symmetrical and CN II-XII grossly intact with no noted focal neuro deficits Psych: Alert and oriented to person, place, time, and situation. Appropriate and pleasant affect. Assessment and Plan of Care: Aspiration pneumonia right lower lobe, it is believed patient aspirated with emesis experienced during episode of DKA Acute hypoxic respiratory failure secondary to above Acute metabolic encephalopathy secondary to above and resolved currently at baseline mentation Leukocytosis Diabetic ketoacidosis, resolved Acute kidney injury, likely on underlying chronic kidney disease Metabolic acidosis secondary to DKA, resolved Hyperkalemia, resolved Hyponatremia, resolved Hypocarbia, Resolved -Chest x-ray consistent with right lower lobe infiltrate concerning for aspiration pneumonitis -Patient started on IV antibiotics with Rocephin 2 g daily and clindamycin 600 mg every 6 hours -Pro-calcitonin 10.90 -Per RN patient had worsening mentation overnight and she was taken down for a CT brain and upon review of radiology report was negative for acute intracranial process. -Patient was maintained on 15 L nonrebreather throughout the night. She has been weaned down to 4 L O2 via nasal cannula and is maintaining SpO2 at 97% at this time. -Consult placed this morning to tableau developer for evaluation and discussed plan of care with Dr. Vallejo... -Patient's mentation much improved this morning and she is alert and oriented to person, place, time, and situation. -Influenza A, influenza B, Covid, and RSV PCR's were all negative. -Morning labs reviewed revealing resolution of previously noted leukocytosis with WBC count decreasing from 18.4 down to 9.6. -Order placed for Tylenol 650 mg by mouth every 4 hours as needed for mild pain/fever -Morning labs reviewed. CBC gentle resolution of previous leukocytosis with WBC count decreasing from 18.4 down to 9.6. Hemoglobin stable at 9.4. Thrombocytopenia with platelet count of 124. BMP showing hyponatremia with sodium 133, normal potassium of 4.1, chloride of 104, bicarb 19, anion gap of 10. Renal function remains elevated with BUN of 43, creatinine 1.85, and GFR of 28. Liver profile revealing elevated AST of 125 and ALT of 49. -At this time we will continue gentle IV fluids with 0.9% normal saline for an additional 24 hours in order placed for repeat morning CBC and BMP. -Follow up on Blood culture -Now that patient has returned to normal mentation returned back to use of her personal insulin pump CAD with previous stent placement Hypertension Hyperlipidemia Peripheral vascular disease status post bilateral iliac artery stenting 01/31/23 Painful lump right groin 2 months -Ultrasound right groin completed showing no organizing fluid collection or mass seen. -Patient to continue daily Norvasc 5 mg twice daily, atenolol 25 mg nightly, atorvastatin 80 mg nightly, Plavix 75 mg daily, and isosorbide mononitrate 30 mg nightly Obstructive sleep apnea CPAP dependent nightly. -Order placed for patient to continue CPAP nightly and well napping. CODE STATUS: DO NOT RESUSCITATE/DO NOT INTUBATE DVT prophylaxis: heparin Discussed with: Patient, tableau developer and RN Anticipated discharge date: clinical course to determine Anticipated discharge place: Home Patient was seen independently by Nurse Practitioner. This document was prepared using Grid20/20 dictation software. Please allow for errors in dot net developer while rare they do occur. I reviewed the documentation as provided by the GHAZAL above, who is the original author of this note. I agree with the documented assessment and plan, with the following changes: none Objective - Vital Signs Vital signs: Vital Signs Temp 98.9 F 04/10/23 09:38 Pulse 71 04/10/23 12:17 Resp 18 04/10/23 12:20 BP 100/58 04/10/23 12:17 Pulse Ox 94 L 04/10/23 12:20 FiO2 100 04/10/23 01:45 Intake & Output 04/09/23 04/10/23 04/10/23 18:59 06:59 18:59 Intake Total 0 110 10 Output Total 300 25 Balance 0 -190 -15 Intake: IV 10 10 Invasive Line 2 10 10 Oral 0 100 Output: Urine 300 25 Uretheral (Romero) 100 25 Other: Voiding Method Toilet Bedside Commode Bedside Commode # Voids 1 - Labs CBC & Chem 7: 04/11/23 08:05 04/11/23 08:05 Labs: Abnormal Lab Results - Last 24 Hours (Table) 04/09/23 04/09/23 04/09/23 Range/Units 16:26 17:13 17:55 ABG pCO2 (35-45) mmHg ABG pO2 39 L* (83-108) mmHg ABG HCO3 (21-25) mmol/L ABG O2 Saturation 75.1 L (94-97) % Sodium (137-145) mmol/L Carbon Dioxide (22-30) mmol/L BUN (7-17) mg/dL Creatinine (0.52-1.04) mg/dL Glucose (74-99) mg/dL POC Glucose (mg/dL) 259 H 253 H (70-110) mg/dL Calcium (8.4-10.2) mg/dL Procalcitonin (0.02-0.09) ng/mL 04/09/23 04/09/23 04/09/23 Range/Units 19:00 19:00 19:54 ABG pCO2 (35-45) mmHg ABG pO2 (83-108) mmHg ABG HCO3 (21-25) mmol/L ABG O2 Saturation (94-97) % Sodium 132 L (137-145) mmol/L Carbon Dioxide 21 L (22-30) mmol/L BUN 34 H (7-17) mg/dL Creatinine 1.26 H (0.52-1.04) mg/dL Glucose 224 H (74-99) mg/dL POC Glucose (mg/dL) 259 H (70-110) mg/dL Calcium 7.7 L (8.4-10.2) mg/dL Procalcitonin 10.90 H (0.02-0.09) ng/mL 04/10/23 04/10/23 04/10/23 Range/Units 01:18 01:40 05:20 ABG pCO2 32 L (35-45) mmHg ABG pO2 55 L* (83-108) mmHg ABG HCO3 20 L (21-25) mmol/L ABG O2 Saturation 90.6 L (94-97) % Sodium (137-145) mmol/L Carbon Dioxide (22-30) mmol/L BUN (7-17) mg/dL Creatinine (0.52-1.04) mg/dL Glucose (74-99) mg/dL POC Glucose (mg/dL) 134 H 345 H (70-110) mg/dL Calcium (8.4-10.2) mg/dL Procalcitonin (0.02-0.09) ng/mL 04/10/23 Range/Units 11:43 ABG pCO2 (35-45) mmHg ABG pO2 (83-108) mmHg ABG HCO3 (21-25) mmol/L ABG O2 Saturation (94-97) % Sodium (137-145) mmol/L Carbon Dioxide (22-30) mmol/L BUN (7-17) mg/dL Creatinine (0.52-1.04) mg/dL Glucose (74-99) mg/dL POC Glucose (mg/dL) 318 H (70-110) mg/dL Calcium (8.4-10.2) mg/dL Procalcitonin (0.02-0.09) ng/mL
[2023-04-10 16:29] LABS: HCT 28.6 % (34.0-46.0); HGB 9.4 gm/dL (11.4-16.0); MCH 30.5 pg (25.0-35.0); MCHC 32.7 g/dL (31.0-37.0); MCV 93.3 fL (80.0-100.0); Mean Platelet Volume 9.9; Platelet Count 124 k/uL (150-450); RBC 3.07 m/uL (3.80-5.40); RDW 14.9 % (11.5-15.5); WBC 9.6 k/uL (3.8-10.6)
[2023-04-10 16:32] LABS: VBG PH 7.35 (7.31-7.41)
[2023-04-10 16:44] LABS: Glucose,Whole Blood 253 mg/dL (70-110)
[2023-04-10] MEDS: ACETAMINOPHEN TAB 325 MG TAB PO PRN (16:45)
[2023-04-10 16:58] LABS: Albumin 2.8 g/dL (3.5-5.0); Calcium 7.1 mg/dL (8.4-10.2); Magnesium 1.7 mg/dL (1.6-2.3); Potassium 4.1 mmol/L (3.5-5.1); Total Bilirubin 0.4 mg/dL (0.2-1.3); Total Protein 5.1 g/dL (6.3-8.2)
[2023-04-10] MEDS: MAGNESIUM SULFATE-D5W PMX 1 GM in DEXTROSE/WATER 1 100ML.BAG IVPB SCH ×2 (17:58→21:14)
[2023-04-10 19:47] LABS: Glucose,Whole Blood 209 mg/dL (70-110)
[2023-04-10] MEDS: EZETIMIBE 10 MG TAB PO SCH (21:14)
[2023-04-10] MEDS: ISOSORBIDE MONONITRATE ER 30 MG TAB.ER.24H PO SCH (21:14)
[2023-04-10] MEDS: atenoloL 25 MG TAB PO SCH (21:15)
[2023-04-10] MEDS: ATORVASTATIN 80 MG TAB PO SCH (21:15)
--- NOTE | 2023-04-11 00:19 | XR ---
EXAMINATION TYPE: XR chest 1V portable DATE OF EXAM: 04/11/2023 COMPARISON: 04/09/2023 INDICATION: Hypoxemia TECHNIQUE: Single frontal view of the chest is obtained. FINDINGS: The heart size is mildly prominent. The pulmonary vasculature is normal. Mild diffuse increased lung markings are present greater at the right lung base. Correlate for pulmon oj edema. Pneumonia could be considered. Continued follow-up is recommended. IMPRESSION: 1. Increasing diffuse lung markings greater at the right lung base. Correlate for pulmonary edema or pneumonia. Follow-up is recommended
[2023-04-11] MEDS: CLINDAMYCIN 600 MG in DEXTROSE 5% IN WATER 50 ML IVPB SCH ×8 (00:36→17:22)
[2023-04-11] MEDS: HEPARIN SODIUM,PORCINE/PF 5,000 UNIT/0.5 ML SYRINGE SQ SCH ×3 (00:36→17:22)
[2023-04-11] MEDS: ACETAMINOPHEN TAB 325 MG TAB PO PRN ×4 (00:37→20:39)
[2023-04-11 06:14] LABS: Glucose,Whole Blood 343 mg/dL (70-110)
[2023-04-11] MEDS: SODIUM CHLORIDE 0.9% 1,000 ML IV SCH ×2 (06:19→16:11)
[2023-04-11] MEDS: INSULIN ASPART (NovoLOG) 100 UNIT/ML VIAL SQ SCH ×4 (06:19→22:38)
--- NOTE | 2023-04-11 07:59 | XR ---
EXAMINATION TYPE: XR chest 1V portable DATE OF EXAM: 04/11/2023 CLINICAL HISTORY: Difficulty breathing an right lower lobe infiltrate progress study. TECHNIQUE: Single AP portable upright view of the chest is obtained. COMPARISON: Chest x-ray from one day earlier and older studies FINDINGS: Reticular increased markings bilaterally redemonstrated. Improved aeration right lung base . Patchy left basilar opacity redemonstrated. Cardiac silhouette size stable and mildly enlarged. Oss eous structures are intact. IMPRESSION: Mild cardiomegaly with interstitial fibrosis and/or edema redemonstrated and stable. Stab le patchy left basilar atelectasis and/or acute infiltrate. Improved aeration right lung base noted.
[2023-04-11 08:34] LABS: HCT 25.9 % (34.0-46.0); HGB 8.8 gm/dL (11.4-16.0); MCH 31.4 pg (25.0-35.0); MCHC 33.9 g/dL (31.0-37.0); MCV 92.6 fL (80.0-100.0); Mean Platelet Volume 11.1; Platelet Count 117 k/uL (150-450); WBC 8.5 k/uL (3.8-10.6)
[2023-04-11 09:04] LABS: Albumin 2.4 g/dL (3.5-5.0); Magnesium 2.4 mg/dL (1.6-2.3); Potassium 3.8 mmol/L (3.5-5.1); Total Bilirubin 0.7 mg/dL (0.2-1.3); Total Protein 4.6 g/dL (6.3-8.2)
[2023-04-11] MEDS: amLODIPine 5 MG TAB PO SCH ×2 (09:11→20:39)
[2023-04-11] MEDS: CLOPIDOGREL 75 MG TAB PO SCH (09:12)
[2023-04-11] MEDS: FAMOTIDINE 20 MG TAB PO SCH (09:12)
[2023-04-11] MEDS: INSULIN DETEMIR (LEVEMIR) 100 UNIT/ML SYR SQ SCH (11:14)
--- NOTE | 2023-04-11 12:03 | P.PN ---
Subjective Progress Note Date: 04/11/23 67-year-old female patient with known history of diabetes mellitus along with history of coronary artery disease previous coronary artery stenting, hypertension hyperlipidemia, peripheral Vascular disease with previous bilateral iliac artery stenting. The patient has type 1 diabetes mellitus and the pat abhay's current on insulin pump. She also has obstructive sleep apnea maintained on CPAP therapy. The patient came into the hospital after weekend celebration and the patient was drinking alcoholic beverages. She has had previous episodes of pancreatitis also. She came into the hospital and the patient was having diffuse abdominal pain, along with nausea and emesis. She was found to be in a mild component of DKA. Her serum bicarb level was down to 12 and anion gap was at 20. The patient also had an acute kidney injury with a BUN of 37 and a creatinine 1.5. Blood sugar was 739. Acetone was positive. PH was at 7.28 with a CBC showing a WBC count of 14.6 and the hemoglobin of 11.1. The patient was using her on insulin pump to control the blood sugar. The patient was treated accordingly. The patient however, developed an acute hypoxic respiratory failure which appeared to be febrile and tachypneic and hypoxic. She apparently aspirated. She was having some altered mentation. Chest x-ray was ordered and the patient was identified to have a right lower lobe pulmonary infiltrate which is of a new onset of the patient's current on accommodation of Rocephin and Zithromax. On today's evaluation, she is awake and alert and communicating. She is on 4 L of oxygen by nasal cannula. There is obvious triggers the right lung base consistent with an underlying aspi ration. The blood gas showed a pH of 7.4 with a pCO2 of 32 and pO2 of 55 and this was on FiO2 of 44%. The white cell count was 18.4 with a hemoglobin of 10 and a platelet count of 170. On today's evaluation of 04/10/2023, the patient is complaining of some vague abdominal pain. She is known to have previous episodes of pancreatitis. Otherwise, she is on oxygen. His oxygen requirements went up yesterday and the patient was placed on 8 L and currently she is down to 5 L again. Pulse ox on 8 L was up to 97%. The chest x-ray from today shows improvement in the right lower lobe pulmonary infiltrates. The patient's blood sugar from today is 288. Motor the patient was hospitalized for an acute DKA which is essentially recovered and the patient's anion gap is down to 11 and a serum bicarbs at 17. Sodium levels of 129. The white cycles of 8.5 with a hemoglobin of 8.8 and a platelet count of 117. The patient has limited cough. No significant sputum production. No signs of any respiratory distress. She is known to have coronary artery disease with previous coronary stenting, hypertension and hyperlipidemia and peripheral vascular disease. She is known to be diabetic and she is on insulin pump on outpatient basis. She does have a component of chronic kidney disease, stage III Objective - Vital Signs Vital signs: Vital Signs Temp 98.5 F 04/11/23 04:00 Pulse 63 04/11/23 04:00 Resp 24 04/11/23 04:00 BP 118/64 04/11/23 04:00 Pulse Ox 94 L 04/11/23 04:00 FiO2 100 04/10/23 01:45 Intake & Output 04/10/23 04/11/23 04/11/23 18:59 06:59 18:59 Intake Total 260 540 Output Total 75 300 Balance 185 240 Intake: IV 10 Invasive Line 2 10 Intake, IV Titration 250 Amount Clindamycin 600 mg In 50 Dextrose 5% in Water 50 ml @ 50 mls/hr IVPB Q6HR FEROZ Rx#:[id number] Magnesium Sulfate-D5w Pmx 100 1 gm In Dextrose/Water 1 100ml.bag @ 100 mls/hr IVPB Q1H FEROZ Rx#: [id number] cefTRIAXone 2 gm In 100 Sodium Chloride 0.9% 50 ml @ 100 mls/hr IVPB Q24HR FEROZ Rx#:[id number] Oral 540 Output: Urine 75 300 Uretheral (Romero) 25 Other: Voiding Method Bedside Commode Bedside Commode # Voids 1 - Exam General: Nontoxic, no distress and appears stated age. The patient is currently comfortable on 5-8 liters per minute nasal cannula Head: Atraumatic, normocephalic and symmetric. Eyes: EOMs intact, no lid lag, and anicteric sclera Mouth: no lip lesions, mucus membranes moist Cardiovascular: regular rate and rhythm with normal S1S2, systolic murmur, positive posterior tibial pulses bilaterally, and cap refill < 2 seconds. Lungs: Respirations even, regular, and unlabored on room air. Lungs CTA bilaterally, no rhonchi, no rales, no wheezing, and no accessory muscle usage. The patient's corrected in the right lung base Abdominal: soft, nontender to palpation, no guarding, no appreciable organomegaly Ext: ROM intact. No gross muscle atrophy, no edema, no contractures Neuro: Speech clear, face symmetrical and CN II-XII grossly intact with no noted focal neuro deficits Psych: Alert and oriented to person, place, time, and situation. Appropriate and pleasant affect. - Labs CBC & Chem 7: 04/11/23 08:05 04/11/23 08:05 Labs: Abnormal Lab Results - Last 24 Hours (Table) 04/10/23 04/10/23 04/10/23 Range/Units 11:43 15:15 15:15 RBC 3.07 L (3.80-5.40) m/uL Hgb 9.4 L (11.4-16.0) gm/dL Hct 28.6 L (34.0-46.0) % Plt Count 124 L (150-450) k/uL VBG pCO2 (37-51) mmHg VBG HCO3 (24-28) mmol/L Sodium 133 L (137-145) mmol/L Carbon Dioxide 19 L (22-30) mmol/L BUN 43 H (7-17) mg/dL Creatinine 1.85 H (0.52-1.04) mg/dL Glucose 258 H (74-99) mg/dL POC Glucose (mg/dL) 318 H (70-110) mg/dL Calcium 7.1 L (8.4-10.2) mg/dL Magnesium (1.6-2.3) mg/dL AST 125 H (14-36) U/L ALT 49 H (4-34) U/L Total Protein 5.1 L (6.3-8.2) g/dL Albumin 2.8 L (3.5-5.0) g/dL 04/10/23 04/10/23 04/10/23 Range/Units 15:15 16:39 19:44 RBC (3.80-5.40) m/uL Hgb (11.4-16.0) gm/dL Hct (34.0-46.0) % Plt Count (150-450) k/uL VBG pCO2 36 L (37-51) mmHg VBG HCO3 20 L (24-28) mmol/L Sodium (137-145) mmol/L Carbon Dioxide (22-30) mmol/L BUN (7-17) mg/dL Creatinine (0.52-1.04) mg/dL Glucose (74-99) mg/dL POC Glucose (mg/dL) 253 H 209 H (70-110) mg/dL Calcium (8.4-10.2) mg/dL Magnesium (1.6-2.3) mg/dL AST (14-36) U/L ALT (4-34) U/L Total Protein (6.3-8.2) g/dL Albumin (3.5-5.0) g/dL 04/11/23 04/11/23 04/11/23 Range/Units 06:12 08:05 08:05 RBC 2.80 L (3.80-5.40) m/uL Hgb 8.8 L (11.4-16.0) gm/dL Hct 25.9 L (34.0-46.0) % Plt Count 117 L (150-450) k/uL VBG pCO2 (37-51) mmHg VBG HCO3 (24-28) mmol/L Sodium 129 L (137-145) mmol/L Carbon Dioxide 17 L (22-30) mmol/L BUN 49 H (7-17) mg/dL Creatinine 1.93 H (0.52-1.04) mg/dL Glucose 288 H (74-99) mg/dL POC Glucose (mg/dL) 343 H (70-110) mg/dL Calcium 7.0 L (8.4-10.2) mg/dL Magnesium 2.4 H (1.6-2.3) mg/dL AST 107 H (14-36) U/L ALT 47 H (4-34) U/L Total Protein 4.6 L (6.3-8.2) g/dL Albumin 2.4 L (3.5-5.0) g/dL Assessment and Plan Plan: Acute hypoxic respiratory failure secondary to an aspiration pneumonia and the patient is currently on oxygen between 5 and 8 L and the patient is able to maintain a saturation above 90%. No further episode of aspiration chest x-ray from today showing some improvement in the right lower lobe pulmonary infiltrate. The patient remains on a combination of Rocephin and clindamycin. Acute right lower lobe aspiration pneumonia, still hypoxic, improvement on the chest x-ray findings Acute Leukocytosis, improving Altered mental status secondary to above, improved and the patient's mentation i s back to normal Diabetes mellitus type 1 maintain on insulin pump on outpatient basis, blood sugars elevated and the patient has a component of non-anion gap metabolic acidosis Diabetic ketoacidosis, resolved Acute kidney injury, resulted fluid resuscitation treatment of DKA. Metabolic acidosis secondary to DKA, resolved, and the patient has a component of melena negative metabolic acidosis Hyperkalemia, resolved Hyponatremia, resolved CAD with previous stent placement Hypertension Hyperlipidemia Peripheral vascular disease status post bilateral iliac artery stenting 01/31/23 Plan Provide the patient incentive spirometer Wean down FiO2 as tolerated to [facility] about 90% Continue Rocephin and clindamycin Provide the patient incentive spirometer Start the patient on Levemir insulin 12 units daily along with sliding scale coverage for intensive blood sugar control Monitor serum bicarb Monitor the anion gap Repeat chest x-ray was placed 24 hours Titrate FiO2 to maintain a saturation above 90% We'll continue to follow
[2023-04-11 12:06] LABS: Glucose,Whole Blood 309 mg/dL (70-110)
[2023-04-11] MEDS ORDERED: SODIUM CHLORIDE 0.9% 1,000 ML IV SCH ×2 (15:15)
--- NOTE | 2023-04-11 15:45 | P.PN ---
Subjective Progress Note Date: 04/11/23 Patient seen and examined at bedside. No acute changes overnight. Patient states that her breathing has improved since admission. Patient denies chest pain, nausea, vomiting, fever or chills. Patient does admit to epigastric pain. Patient states that she has had pancreatitis in the past and is concerned. Objective - Vital Signs Vital signs: Vital Signs Temp 98.0 F 04/11/23 12:00 Pulse 51 L 04/11/23 12:00 Resp 18 04/11/23 12:00 BP 120/59 04/11/23 12:00 Pulse Ox 98 04/11/23 12:00 FiO2 100 04/10/23 01:45 Intake & Output 04/10/23 04/11/23 04/11/23 18:59 06:59 18:59 Intake Total 260 540 Output Total 75 300 Balance 185 240 Intake: IV 10 Invasive Line 2 10 Intake, IV Titration 250 Amount Clindamycin 600 mg In 50 Dextrose 5% in Water 50 ml @ 50 mls/hr IVPB Q6HR FEROZ Rx#:[id number] Magnesium Sulfate-D5w Pmx 100 1 gm In Dextrose/Water 1 100ml.bag @ 100 mls/hr IVPB Q1H FEROZ Rx#: [id number] cefTRIAXone 2 gm In 100 Sodium Chloride 0.9% 50 ml @ 100 mls/hr IVPB Q24HR FEROZ Rx#:[id number] Oral 540 Output: Urine 75 300 Uretheral (Romero) 25 Other: Voiding Method Bedside Commode Bedside Commode Bedside Commode # Voids 1 - Exam General: [non toxic], [no distress], [appears at stated age] Derm: [warm], [dry] Head: [atraumatic], [normocephalic], [symmetric] Eyes: [EOMI], [no lid lag], [anicteric sclera] Mouth: [no lip lesion], [mucus membranes moist] Cardiovascular: [S1S2 reg], [no murmur], [positive posterior tibial pulse bilateral], Lungs: [CTA bilateral], [no rhonchi, no rales] , [no accessory muscle use] Abdominal: [soft], [ nontender to palpation], [no guarding], [no appreciable organomegaly] Ext: [no gross muscle atrophy], [no edema], [no contractures] Neuro: [ CN II-XI grossly intact], [no focal neuro deficits] Psych: [Alert], [oriented], [appropriate affect] - Labs CBC & Chem 7: 04/11/23 08:05 04/11/23 08:05 Labs: Abnormal Lab Results - Last 24 Hours (Table) 04/10/23 04/10/23 04/10/23 Range/Units 15:15 15:15 15:15 RBC 3.07 L (3.80-5.40) m/uL Hgb 9.4 L (11.4-16.0) gm/dL Hct 28.6 L (34.0-46.0) % Plt Count 124 L (150-450) k/uL VBG pCO2 36 L (37-51) mmHg VBG HCO3 20 L (24-28) mmol/L Sodium 133 L (137-145) mmol/L Carbon Dioxide 19 L (22-30) mmol/L BUN 43 H (7-17) mg/dL Creatinine 1.85 H (0.52-1.04) mg/dL Glucose 258 H (74-99) mg/dL POC Glucose (mg/dL) (70-110) mg/dL Calcium 7.1 L (8.4-10.2) mg/dL Magnesium (1.6-2.3) mg/dL AST 125 H (14-36) U/L ALT 49 H (4-34) U/L Total Protein 5.1 L (6.3-8.2) g/dL Albumin 2.8 L (3.5-5.0) g/dL 04/10/23 04/10/23 04/11/23 Range/Units 16:39 19:44 06:12 RBC (3.80-5.40) m/uL Hgb (11.4-16.0) gm/dL Hct (34.0-46.0) % Plt Count (150-450) k/uL VBG pCO2 (37-51) mmHg VBG HCO3 (24-28) mmol/L Sodium (137-145) mmol/L Carbon Dioxide (22-30) mmol/L BUN (7-17) mg/dL Creatinine (0.52-1.04) mg/dL Glucose (74-99) mg/dL POC Glucose (mg/dL) 253 H 209 H 343 H (70-110) mg/dL Calcium (8.4-10.2) mg/dL Magnesium (1.6-2.3) mg/dL AST (14-36) U/L ALT (4-34) U/L Total Protein (6.3-8.2) g/dL Albumin (3.5-5.0) g/dL 04/11/23 04/11/23 04/11/23 Range/Units 08:05 08:05 12:03 RBC 2.80 L (3.80-5.40) m/uL Hgb 8.8 L (11.4-16.0) gm/dL Hct 25.9 L (34.0-46.0) % Plt Count 117 L (150-450) k/uL VBG pCO2 (37-51) mmHg VBG HCO3 (24-28) mmol/L Sodium 129 L (137-145) mmol/L Carbon Dioxide 17 L (22-30) mmol/L BUN 49 H (7-17) mg/dL Creatinine 1.93 H (0.52-1.04) mg/dL Glucose 288 H (74-99) mg/dL POC Glucose (mg/dL) 309 H (70-110) mg/dL Calcium 7.0 L (8.4-10.2) mg/dL Magnesium 2.4 H (1.6-2.3) mg/dL AST 107 H (14-36) U/L ALT 47 H (4-34) U/L Total Protein 4.6 L (6.3-8.2) g/dL Albumin 2.4 L (3.5-5.0) g/dL Assessment and Plan Assessment: Aspiration pneumonia right lower lobe, it is believed patient aspirated with emesis experienced during episode of DKA Acute hypoxic respiratory failure secondary to above -Chest x-ray consistent with right lower lobe infiltrate concerning for aspirat ion pneumonitis -Wean down FiO2 as tolerated to [facility] about 90% -Patient started on IV antibiotics with Rocephin 2 g daily and clindamycin 600 mg every 6 hours -Pro-calcitonin 10.90 -Morning labs reviewed revealing resolution of previously noted leukocytosis with WBC count decreasing from 18.4 down to 8.5 -Influenza A, influenza B, Covid, and RSV PCR's were all negative. -pulmonary recommendations appreciated Hyponatremia likely related to HHS -long acting insulin added today -sodium chloride 75ml/hr added -glucose checks q 6 hours Acute kidney injury on chronic kidney disease -creatinine trending up -start slow IV hydartion with sodium chloride 75ml/hr -consult nephrology -obtain renal ultrasound Normocytic anemia multifactorial likely dilutional, inflammatory and related to renal disease -trend cbc -no sign of acute GI bleeeding -check iron studies Diabetic ketoacidosis, resolved -insulin 12u sub q daily added today -Patient is on an insulin pump but it does not seem to be working appropriately blood sugars have been in the 300s Acute metabolic encephalopathy secondary to above resolved -CT brain and upon review of radiology report was negative for acute intracranial process. -Patient's mentation much improved this morning and she is alert and oriented to person, place, time, and situation. Hyperkalemia, resolved Chronic conditions: CAD with previous stent placement Hypertension Hyperlipidemia Peripheral vascular disease status post bilateral iliac artery stenting 01/31/23 Painful lump right groin 2 months -Ultrasound right groin completed showing no organizing fluid collection or mass seen. -Patient to continue daily Norvasc 5 mg twice daily, atenolol 25 mg nightly, atorvastatin 80 mg nightly, Plavix 75 mg daily, and isosorbide mononitrate 30 mg nightly Obstructive sleep apnea CPAP dependent nightly. -Order placed for patient to continue CPAP nightly and well napping. CODE STATUS: DO NOT RESUSCITATE/DO NOT INTUBATE DVT prophylaxis: heparin Anticipated discharge date: clinical course to determine Anticipated discharge place: Home vs home with home care vs rehab This document was prepared using [employer] dictation software. Please allow for errors in draw operator while rare they do occur.
[2023-04-11] MEDS: IPRATROPIUM-ALBUTEROL 3 ML NEB INHALATION PRN (16:04)
[2023-04-11 16:54] LABS: Glucose,Whole Blood 127 mg/dL (70-110)
[2023-04-11 19:59] LABS: Glucose,Whole Blood 115 mg/dL (70-110)
--- NOTE | 2023-04-11 20:18 | US ---
EXAMINATION TYPE: US abdomen comp/pelvis limited DATE OF EXAM: 04/11/2023 COMPARISON: 01/03/17 CLINICAL INDICATION: Female, 67 years old with history of abdominal pain; epigastric pain. Cholecyste ctomy years ago EXAM MEASUREMENTS: Liver Length: 17.8 cm Gallbladder Wall: Surgically absent CBD: 0.44 cm Spleen: 10.1 cm Right Kidney: 10.4 x 5.5 x 4.8 cm Left Kidney: 10.7 x 4.3 x 5.4 cm Pancreas: Parts visualized appear wnl Liver: wnl Gallbladder: Surgically absent CBD: wnl Spleen: wnl Right Kidney: No hydronephrosis or masses seen Left Kidney: No hydronephrosis or masses seen Upper IVC: wnl Abd Aorta: wnl Bladder: wnl Bilateral Jets Seen No The visualized portions are unremarkable. The abdominal aorta and upper IVC are within normal limits. The urinary bladder appears unremarkable. Both ureteral jets are not visualized. The liver is unrema rkable without focal lesion. Both kidneys are unremarkable without evidence of hydronephrosis, solid mass, or shadowing calculi. Common bile duct is within normal limits. The gallbladder is surgically a bsent. The spleen is within normal limits. IMPRESSION: 1. No ultrasound evidence for acute process. 2. Postcholecystectomy changes.
[2023-04-11] MEDS: ATORVASTATIN 80 MG TAB PO SCH (20:39)
[2023-04-11] MEDS: EZETIMIBE 10 MG TAB PO SCH (20:39)
[2023-04-11] MEDS: ISOSORBIDE MONONITRATE ER 30 MG TAB.ER.24H PO SCH (20:39)
[2023-04-11] MEDS: atenoloL 25 MG TAB PO SCH (20:39)
[2023-04-12] MEDS: HEPARIN SODIUM,PORCINE/PF 5,000 UNIT/0.5 ML SYRINGE SQ SCH ×3 (01:52→17:12)
[2023-04-12] MEDS: CLINDAMYCIN 600 MG in DEXTROSE 5% IN WATER 50 ML IVPB SCH ×8 (01:52→17:59)
[2023-04-12 02:10] LABS: Glucose,Whole Blood 73 mg/dL (70-110)
[2023-04-12] MEDS: SODIUM CHLORIDE 0.9% 1,000 ML IV SCH (05:18)
[2023-04-12 06:08] LABS: Glucose,Whole Blood 68 mg/dL (70-110)
[2023-04-12 06:27] LABS: Glucose,Whole Blood 81 mg/dL (70-110)
[2023-04-12] MEDS ORDERED: INSULIN DETEMIR (LEVEMIR) 100 UNIT/ML SYR SQ SCH (07:00)
[2023-04-12] MEDS: INSULIN ASPART (NovoLOG) 100 UNIT/ML VIAL SQ SCH ×2 (07:46→12:15)
[2023-04-12] MEDS: INSULIN DETEMIR (LEVEMIR) 100 UNIT/ML SYR SQ SCH (08:13)
[2023-04-12] MEDS: ACETAMINOPHEN TAB 325 MG TAB PO PRN (09:03)
[2023-04-12] MEDS: FAMOTIDINE 20 MG TAB PO SCH (09:04)
[2023-04-12] MEDS: amLODIPine 5 MG TAB PO SCH ×2 (09:04→20:36)
[2023-04-12] MEDS: CLOPIDOGREL 75 MG TAB PO SCH (09:04)
[2023-04-12 09:14] LABS: HCT 28.9 % (34.0-46.0); HGB 9.3 gm/dL (11.4-16.0); MCH 29.7 pg (25.0-35.0); MCHC 32.2 g/dL (31.0-37.0); MCV 92.4 fL (80.0-100.0); Mean Platelet Volume 10.4; Platelet Count 133 k/uL (150-450); RBC 3.12 m/uL (3.80-5.40); RDW 15.4 % (11.5-15.5); WBC 6.5 k/uL (3.8-10.6)
[2023-04-12 09:51] LABS: Albumin 2.6 g/dL (3.5-5.0); Calcium 7.4 mg/dL (8.4-10.2); Magnesium 2.5 mg/dL (1.6-2.3); Total Bilirubin 0.8 mg/dL (0.2-1.3); Total Protein 4.9 g/dL (6.3-8.2)
--- NOTE | 2023-04-12 11:40 | P.NPCON ---
History of Present Illness - Reason for Consult acute renal failure, chronic renal failure - History of Present Illness Reason for consultation: Acute kidney injury on chronic kidney disease History of present illness: Patient is a 67-year-old female seen in renal consultation for acute kidney injury on chronic kidney disease. Patient has chronic kidney disease stage IIIA with baseline creatinine in the range of 1-1.2. Patient's creatinine this admission was 1.5 and peaked at 2.01 on 03/31/2023. It is 1.61 today. Patient has long-standing history of diabetes. Patient came to the hospital due to vomiting. She was noted to be in DKA. She is currently on normal saline. Oral intake is good. No vomiting or diarrhea now. Has been waiting. No gross hematuria. Hemodynamically stable. She is also on IV antibiotics for right lower lobe pneumonia. She denies use of nonsteroidals. She does have a history of coronary artery disease and has cardiac stents. Also has peripheral vascular disease with lower extremity stents. No proteinuria noted on UA. present at bedside. Vital signs are stable. Afebrile. General: No acute distress. HEENT: Head exam is unremarkable. LUNGS: No audible rhonchi or wheezes. HEART: Rate and Rhythm are regular. ABDOMEN: Soft, nontender. EXTREMITITES: No edema. Past Medical History Past Medical History: Coronary Artery Disease (CAD), Chest Pain / Angina, Diabetes Mellitus, Hyperlipidemia, Hypertension, Sleep Apnea/CPAP/BIPAP, Vascular Disorder Additional Past Medical History / Comment(s): Has Insulin pump, RLS, peripheral neuropathy, poor circulation, PVD, heart murmur, hx pancreatitis X2, bladder leakage, gastric paresis, dupuytren's, CPAP use. History of Any Multi-Drug Resistant Organisms: None Reported Past Surgical History: Appendectomy, Bladder Surgery, Cholecystectomy, Heart Catheterization, Heart Catheterization With Stent, Orthopedic Surgery, Tubal Ligation Additional Past Surgical History / Comment(s): PTCA with stent, colonoscopy, aortogram, RIGHT FEM POP BYPASS, CATARACTS, bilateral carpal tunnel, right hand surgery. dye procedure. to lower extremities Past Anesthesia/Blood Transfusion Reactions: No Reported Reaction, Motion Sickness Additional Past Anesthesia/Blood Transfusion Reaction / Comment(s): Legs "jump" when she lies down (RLS). Date of Last Stent Placement:: 12/24/14 Past Psychological History: Anxiety Smoking Status: Former smoker Past Alcohol Use History: Occasional Past Drug Use History: None Reported - Past Family History Mother Family Medical History: No Reported History Additional Family Medical History / Comment(s): . Father Family Medical History: Cancer Medications and Allergies Home Medications Medication Instructions Recorded Confirmed Type RX: Isosorbide Mononitrate ER 30 mg PO HS 12/22/14 04/07/23 History [Imdur] RX: Losartan Potassium 100 mg PO HS 12/22/14 04/07/23 History RX: Atorvastatin [Lipitor] 80 mg PO HS #90 tab 12/25/14 04/07/23 Rx RX: amLODIPine BESYLATE [Norvasc] 5 mg PO DAILY 06/30/15 04/07/23 History RX: Insulin Aspart (For Pump) 0.01 unit SQ-PUMP CONTINUOUS 11/09/16 04/07/23 History [NovoLOG (For Pump)] RX: Aspirin EC [Ecotrin Low Dose] 81 mg PO HS 12/28/16 04/07/23 History Ezetimibe [Zetia] 10 mg PO HS 08/23/22 04/07/23 History RX: Famotidine 40 mg PO DAILY 08/23/22 04/07/23 History RX: atenoloL 25 mg PO HS 08/23/22 04/07/23 History Solifenacin Succinate [Vesicare] 5 mg PO HS 08/23/22 04/07/23 History Clopidogrel [Plavix] 75 mg PO DAILY #30 tablet 01/31/23 04/07/23 Rx Pantoprazole Sodium [Protonix] 40 mg PO DAILY 04/07/23 04/07/23 History Vitamin D3(Unknown Dose) 1 tab PO DAILY 04/07/23 04/07/23 History Allergies Allergy/AdvReac Type Severity Reaction Status Date / Time adhesive tape Allergy Rash/Hives Verified 04/07/23 16:44 Penicillins Allergy Rash/Hives Verified 04/07/23 16:44 Physical Exam Vitals: Vital Signs Temp Pulse Pulse Resp BP Pulse Ox 04/12/23 10:50 100.2 F H 04/12/23 10:34 72 18 04/12/23 08:57 100.2 F H 72 18 149/77 91 L 04/12/23 08:19 93 L 04/12/23 04:00 59 L 20 122/64 93 L 04/12/23 02:00 60 22 04/12/23 00:00 60 22 100/58 93 L 04/11/23 20:00 98.2 F 64 18 110/56 92 L 04/11/23 16:12 77 16 04/11/23 16:04 72 16 04/11/23 16:00 59 L 18 118/59 92 L 04/11/23 14:00 51 L 18 04/11/23 12:00 98.0 F 51 L 18 120/59 98 Intake and Output 04/11/23 04/12/23 04/12/23 22:59 06:59 14:59 Other: Voiding Method Bedside Commode Bedside Commode Bedside Commode # Voids 1 1 # Bowel Movements 1 Results - Lab Results Most recent lab results ABG pH 7.40 (7.35-7.45) 04/10/23 01:40 ABG pCO2 32 mmHg (35-45) L 04/10/23 01:40 ABG pO2 55 mmHg (83-108) L* 04/10/23 01:40 ABG HCO3 20 mmol/L (21-25) L 04/10/23 01:40 ABG O2 Saturation 90.6 % (94-97) L 04/10/23 01:40 Calcium 7.4 mg/dL (8.4-10.2) L 04/12/23 08:45 Phosphorus 3.9 mg/dL (2.5-4.5) 04/08/23 01:51 Magnesium 2.5 mg/dL (1.6-2.3) H 04/12/23 08:45 04/12/23 08:45 04/12/23 08:45 Assessment and Plan Plan: Assessment: 1. Acute kidney injury secondary to severe sepsis secondary to pneumonia and also hypovolemia from DKA. Creatinine peaked at 2.0 on this admission and is 1.61 today. No proteinuria on UA. 2. Chronic kidney disease stage III with baseline creatinine 1-1.2. Suspect diabetic kidney disease. 3. DKA, resolved. 4. Type 1 diabetes mellitus. 5. Metabolic acidosis secondary to acute kidney injury and IV fluids. Improved. 6. Hyponatremia secondary to acute kidney injury. 7. Anemia. Rule out iron deficiency. 8. Aspiration pneumonia on antibiotics. Plan: Normal saline at 50 mL an hour. Encourage oral intake. Check renal ultrasound. 1500 mL fluid restriction. Check iron studies. Continue to monitor renal function and urine output. Thank you for the consultation. I will continue to follow the patient with you during her hospital stay.
[2023-04-12 11:45] LABS: Glucose,Whole Blood 275 mg/dL (70-110)
[2023-04-12] MEDS ORDERED: DEXTROSE 50% SYRINGE 50 ML IVP PRN ×2 (13:22)
[2023-04-12 13:33] LABS: Band Neutrophils % 1 %; Lymphocytes # (M) 0.46 k/uL (1.0-4.8); Monocytes # (M) 0.46 k/uL (0-1.0); Neutrophils % (M) 85 %; Nucleated Red Blood Cells 0 /100 WBC (0-0); Total Cells Counted 100
[2023-04-12 13:35] LABS: Poikilocytosis (M) Present
--- NOTE | 2023-04-12 15:00 | P.PN ---
Subjective Progress Note Date: 04/12/23 Hospital course: Patient is a very pleasant 67-year-old female with a past medical history of CAD with previous stent placement, hypertension, hyperlipidemia, peripheral vascular disease status post bilateral iliac artery stenting on Plavix , type 1 diabetes mellitus with insulin pump, and obstructive sleep apnea CPAP dependent nightly. She reports that she and her were celebrating their anniversary last night and drinking alcoholic beverages which she normally does not drink. Patient reports this has been known to cause her recurrent episodes of pancreatitis as well as elevate her blood glucose levels in the past. Patient states she began noticing elevated blood glucose levels, abdominal pain, and nausea beginning yesterday evening and progressively worsening. Patient reports that this morning she had diffuse abdominal pain, uncontrolled nausea, multiple episodes of vomiting greater than 8, and 2 episodes of diarrhea similar to previous episodes of DKA. Patient states up until yesterday evening prior to celebrating her anniversary and drinking some alcoholic beverages she was feeling great, she denies having any known ill contacts, fevers, chills, chest pain, cough or congestion, shortness of breath, difficulties with her changes in her urinary function, or experiencing any numbness/tingling/weakness/swelling of her extremities. Patient underwent full evaluation in the emergency department. Vital signs stable upon arrival with temp 98.0F, heart rate 79, respiratory rate 18, blood pressure 139/55, and SpO2 of 99% on room air. Labs completed and reviewed. CBC completed showing leukocytosis with WBC count of 14.6 and nor mocytic anemia with hemoglobin of 11.1. Coagulation profile unremarkable. Venous blood gas showing metabolic acidosis with pH of 7.28 and bicarb of 19. BMP revealing hypernatremia with sodium of 130, hyperkalemia with potassium of 5.8, hypocarbia with bicarb of 12, elevated anion gap at 20, acute kidney injury with BUN of 37, creatinine of 1.54, and GFR of 35, hyperglycemia with glucose of 739. Positive acetone. And urinalysis positive for glucose and ketones. Patient was given IV fluid bolus and started on insulin infusion for DKA. She was admitted under our services to stepdown unit with telemetry at this time. Patient was weaned off of insulin infusion and placed back on carb consistent diet. Patient using her own insulin pump to control blood glucose levels and these levels are being monitored closely by staff. Patient did develop acute kidney injury with creatinine elevating up to 2.01 but this resolved with IV fluid hydration and creatinine is currently 1.25. Overnight on 04/08/23 through 04/09/23 patient began running an elevated temperature as high as 103F. Covid PCR, influenza A, influenza B, and RSV were obtained all negative. Chest x-ray initially completed negative for acute process. CT sinuses negative for acute process. Patient then reports tenderness right groin from previous stent placement and ultrasound completed negative for abscess or abnormality. Later in the evening patient went from room air to acute respiratory distress with hypoxia with oxygen saturation of 76% on room air. Patient started on 4 L via nasal cannula and was titrated up to 15 L via nonrebreather. Repeat chest x-ray completed at this time showing right lower lobe infiltrate consistent with aspiration pneumonitis. Oral antibiotics discontinued and patient placed on IV antibiotics with clindamycin 600 mg every 6 hours and Rocephin 2 g every 24 hours for treatment of aspiration pneumonitis. Physical exam: Patient seen and fully evaluated at bedside this morning. She had another episode of hypoglycemia overnight. Patient was started back on long-acting Levemir yesterday. Levemir again discontinued. Discussed with patient's at bedside patient's to bring in supply so patient can return to insulin pump to obtain optimal control over blood glucose levels. Vital signs reviewed and stable. General: Nontoxic, no distress and appears stated age. Derm: Skin warm and dry, normal coloration for ethnicity. Head: Atraumatic, normocephalic and symmetric. Eyes: EOMs intact, no lid lag, and anicteric sclera Mouth: no lip lesions, mucus membranes moist Cardiovascular: regular rate and rhythm with normal S1S2, systolic murmur, positive posterior tibial pulses bilaterally, and cap refill < 2 seconds. Lungs: Respirations even, regular, and unlabored on 4 L O2. Lungs diminished with crackles at the right lower lobe. No rhonchi, no rales, no wheezing, and no accessory muscle usage. Abdominal: soft, nontender to palpation, no guarding, no appreciable organomegaly Ext: ROM intact. No gross muscle atrophy, no edema, no contractures Neuro: Speech clear, face symmetrical and CN II-XII grossly intact with no noted focal neuro deficits Psych: Alert and oriented to person, place, time, and situation. Appropriate and pleasant affect. Assessment and Plan of Care: Aspiration pneumonia right lower lobe, it is believed patient aspirated with emesis experienced during episode of DKA Acute hypoxic respiratory failure secondary to above Sepsis secondary to above Transaminitis secondary to sepsis -Chest x-ray consistent with right lower lobe infiltrate concerning for aspiration pneumonitis -Wean down FiO2 as tolerated to maintain SpO2 equal to or greater than 90% -Continue with IV antibiotics with Rocephin 2 g daily and clindamycin 600 mg every 6 hours -Pro-calcitonin 10.90 -Morning labs reviewed. CBC showing continued resolution of leukocytosis with WBC count of 6.5, normocytic anemia with hemoglobin of 9.3 and thrombocytopenia with platelet count of 133. BMP revealing hyponatremia with sodium 131, hypochloremia with chloride of 20, and elevated renal function with BUN of 50, creatinine 1.61, and GFR of 33. -Influenza A, influenza B, Covid, and RSV PCR's were all negative. -Marine Mammal Trainer following and discussed plan of care. Hyponatremia likely related to HHS -Patient was started back on long-acting Levemir yesterday and began exp eriencing another episode of hypoglycemia this morning. Levemir again discontinued. Discussed with patient's at bedside patient's to bring in supply so patient can return to insulin pump to obtain optimal control over blood glucose levels. -Continue with gentle IV fluid hydration with 0.9% normal saline at 50 mL's per hour. -Continue glucose checks 5 times daily before meals at bedtime and at 2 AM Acute kidney injury onstage III chronic kidney disease with baseline creatinine of 1.2 -Morning labs reviewed. BUN of 50, creatinine 1.61, and GFR of 33. -Continue gentle IV fluid hydration with 0.9% normal saline at 50 mL's per hour. -Nephrology following and review documentation in chart. They're recommending continued IV fluid hydration, renal ultrasound, and 1500 mL fluid restriction. -Renal ultrasound completed showing unremarkable kidneys without evidence of hydronephrosis, solid mass, or shadowing calculi Normocytic anemia multifactorial likely dilutional, inflammatory and related to renal disease -Trend WBC -No sign of acute GI bleeeding -Follow up on iron studies Diabetic ketoacidosis, resolved Episode of hypoglycemia -Patient DKA resolved and was initially using home pump however. Patient and RN meet O broke to pump and patient was placed back on sliding scale. 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 -Patient was started back on long-acting Levemir yesterday and again had a hypoglycemic event this morning. Levemir again discontinued. Discussed with patient's at bedside patient's to bring in supply so patient can return to insulin pump to obtain optimal control over blood glucose levels. Acute metabolic encephalopathy secondary to above resolved -CT brain and upon review of radiology report was negative for acute intracranial process. -Patient's mentation much improved this morning and she is alert and oriented to person, place, time, and situation. Hyperkalemia, resolved Chronic conditions: CAD with previous stent placement Hypertension Hyperlipidemia Peripheral vascular disease status post bilateral iliac artery stenting 01/31/23 Painful lump right groin 2 months -Ultrasound right groin completed showing no organizing fluid collection or mass seen. -Patient to continue daily Norvasc 5 mg twice daily, atenolol 25 mg nightly, atorvastatin 80 mg nightly, Plavix 75 mg daily, and isosorbide mononitrate 30 mg nightly Obstructive sleep apnea CPAP dependent nightly. -Order placed for patient to continue CPAP nightly and well napping. CODE STATUS: DO NOT RESUSCITATE/DO NOT INTUBATE DVT prophylaxis: heparin Discussed with: Patient, child care leader and RN Anticipated discharge date: clinical course to determine Anticipated discharge place: Home Patient was seen independently by Nurse Practitioner. This document was prepared using [employer] dictation software. Please allow for errors in band director while rare they do occur. I reviewed the documentation as provided by the GHAZAL above, who is the original author of this note. I agree with the documented assessment and plan, with the following changes: none Objective - Vital Signs Vital signs: Vital Signs Temp 98.2 F 04/11/23 20:00 Pulse 59 L 04/12/23 04:00 Resp 20 04/12/23 04:00 BP 122/64 04/12/23 04:00 Pulse Ox 93 L 04/12/23 04:00 FiO2 100 04/10/23 01:45 Intake & Output 04/11/23 04/12/23 04/12/23 18:59 06:59 18:59 Other: Voiding Method Bedside Commode Bedside Commode # Voids 1 1 # Bowel Movements 1 - Labs CBC & Chem 7: 04/12/23 08:45 04/12/23 08:45 Labs: Abnormal Lab Results - Last 24 Hours (Table) 04/11/23 04/11/23 04/11/23 Range/Units 08:05 08:05 12:03 RBC 2.80 L (3.80-5.40) m/uL Hgb 8.8 L (11.4-16.0) gm/dL Hct 25.9 L (34.0-46.0) % Plt Count 117 L (150-450) k/uL Sodium 129 L (137-145) mmol/L Carbon Dioxide 17 L (22-30) mmol/L BUN 49 H (7-17) mg/dL Creatinine 1.93 H (0.52-1.04) mg/dL Glucose 288 H (74-99) mg/dL POC Glucose (mg/dL) 309 H (70-110) mg/dL Calcium 7.0 L (8.4-10.2) mg/dL Magnesium 2.4 H (1.6-2.3) mg/dL AST 107 H (14-36) U/L ALT 47 H (4-34) U/L Total Protein 4.6 L (6.3-8.2) g/dL Albumin 2.4 L (3.5-5.0) g/dL 04/11/23 04/11/23 04/12/23 Range/Units 16:33 19:57 06:07 RBC (3.80-5.40) m/uL Hgb (11.4-16.0) gm/dL Hct (34.0-46.0) % Plt Count (150-450) k/uL Sodium (137-145) mmol/L Carbon Dioxide (22-30) mmol/L BUN (7-17) mg/dL Creatinine (0.52-1.04) mg/dL Glucose (74-99) mg/dL POC Glucose (mg/dL) 127 H 115 H 68 L (70-110) mg/dL Calcium (8.4-10.2) mg/dL Magnesium (1.6-2.3) mg/dL AST (14-36) U/L ALT (4-34) U/L Total Protein (6.3-8.2) g/dL Albumin (3.5-5.0) g/dL
--- NOTE | 2023-04-12 15:31 | P.PN ---
Subjective Progress Note Date: 04/12/23 67-year-old female patient with known history of diabetes mellitus along with history of coronary artery disease previous coronary artery stenting, hypertension hyperlipidemia, peripheral Vascular disease with previous bilateral iliac artery stenting. The patient has type 1 diabetes mellitus and the pat abhay's current on insulin pump. She also has obstructive sleep apnea maintained on CPAP therapy. The patient came into the hospital after weekend celebration and the patient was drinking alcoholic beverages. She has had previous episodes of pancreatitis also. She came into the hospital and the patient was having diffuse abdominal pain, along with nausea and emesis. She was found to be in a mild component of DKA. Her serum bicarb level was down to 12 and anion gap was at 20. The patient also had an acute kidney injury with a BUN of 37 and a creatinine 1.5. Blood sugar was 739. Acetone was positive. PH was at 7.28 with a CBC showing a WBC count of 14.6 and the hemoglobin of 11.1. The patient was using her on insulin pump to control the blood sugar. The patient was treated accordingly. The patient however, developed an acute hypoxic respiratory failure which appeared to be febrile and tachypneic and hypoxic. She apparently aspirated. She was having some altered mentation. Chest x-ray was ordered and the patient was identified to have a right lower lobe pulmonary infiltrate which is of a new onset of the patient's current on accommodation of Rocephin and Zithromax. On today's evaluation, she is awake and alert and communicating. She is on 4 L of oxygen by nasal cannula. There is obvious triggers the right lung base consistent with an underlying aspi ration. The blood gas showed a pH of 7.4 with a pCO2 of 32 and pO2 of 55 and this was on FiO2 of 44%. The white cell count was 18.4 with a hemoglobin of 10 and a platelet count of 170. On today's evaluation of 04/10/2023, the patient is complaining of some vague abdominal pain. She is known to have previous episodes of pancreatitis. Otherwise, she is on oxygen. His oxygen requirements went up yesterday and the patient was placed on 8 L and currently she is down to 5 L again. Pulse ox on 8 L was up to 97%. The chest x-ray from today shows improvement in the right lower lobe pulmonary infiltrates. The patient's blood sugar from today is 288. Motor the patient was hospitalized for an acute DKA which is essentially recovered and the patient's anion gap is down to 11 and a serum bicarbs at 17. Sodium levels of 129. The white cycles of 8.5 with a hemoglobin of 8.8 and a platelet count of 117. The patient has limited cough. No significant sputum production. No signs of any respiratory distress. She is known to have coronary artery disease with previous coronary stenting, hypertension and hyperlipidemia and peripheral vascular disease. She is known to be diabetic and she is on insulin pump on outpatient basis. She does have a component of chronic kidney disease, stage III On today's evaluation of 04/12/2023, the patient has no new complaints. She still on oxygen at 4 L/m nasal cannula. No significant shortness of breath. No significant abdominal pain. The ultrasound of THE ABDOMEN WAS DONE AND WAS ESSENTIALLY NEGATIVE A NONSPECIFIC.. Meanwhile, the patient was given Levemir insulin which cause some hypoglycemia. The patient will be taken off the Levemir insulin and she'll be gradually transitioned into her insulin pump. She remains on accommodation of Rocephin and clindamycin. Blood work from today shows a BUN of 50 and a creatinine of 1.6 and a WBC count of 6.5 with a hemoglobin of 9.3 and a platelet count of 133. Nephrology was also consulted on the case regarding the renal failure noted the patient had an underlying chronic kidney disease stage III . Recovered from the DKA and the patient's gap is currently closed at 8 with a serum bicarb of 20 Objective - Vital Signs Vital signs: Vital Signs Temp 100.2 F H 04/12/23 10:50 Pulse 72 04/12/23 10:34 Resp 18 04/12/23 10:34 BP 149/77 04/12/23 08:57 Pulse Ox 91 L 04/12/23 08:57 FiO2 100 04/10/23 01:45 Intake & Output 04/11/23 04/12/23 04/12/23 18:59 06:59 18:59 Other: Voiding Method Bedside Commode Bedside Commode Bedside Commode # Voids 1 1 # Bowel Movements 1 - Exam General: Nontoxic, no distress and appears stated age. The patient is currently comfortable on 5-8 liters per minute nasal cannula Head: Atraumatic, normocephalic and symmetric. Eyes: EOMs intact, no lid lag, and anicteric sclera Mouth: no lip lesions, mucus membranes moist Cardiovascular: regular rate and rhythm with normal S1S2, systolic murmur, positive posterior tibial pulses bilaterally, and cap refill < 2 seconds. Lungs: Respirations even, regular, and unlabored on room air. Lungs CTA bilaterally, no rhonchi, no rales, no wheezing, and no accessory muscle usage. The patient's corrected in the right lung base Abdominal: soft, nontender to palpation, no guarding, no appreciable organomegaly Ext: ROM intact. No gross muscle atrophy, no edema, no contractures Neuro: Speech clear, face symmetrical and CN II-XII grossly intact with no noted focal neuro deficits Psych: Alert and oriented to person, place, time, and situation. Appropriate and pleasant affect. - Labs CBC & Chem 7: 04/12/23 08:45 04/12/23 08:45 Labs: Abnormal Lab Results - Last 24 Hours (Table) 04/11/23 04/11/23 04/11/23 Range/Units 12:03 16:33 19:57 RBC (3.80-5.40) m/uL Hgb (11.4-16.0) gm/dL Hct (34.0-46.0) % Plt Count (150-450) k/uL Sodium (137-145) mmol/L Carbon Dioxide (22-30) mmol/L BUN (7-17) mg/dL Creatinine (0.52-1.04) mg/dL Glucose (74-99) mg/dL POC Glucose (mg/dL) 309 H 127 H 115 H (70-110) mg/dL Calcium (8.4-10.2) mg/dL Magnesium (1.6-2.3) mg/dL AST (14-36) U/L ALT (4-34) U/L Total Protein (6.3-8.2) g/dL Albumin (3.5-5.0) g/dL 04/12/23 04/12/23 04/12/23 Range/Units 06:07 08:45 08:45 RBC 3.12 L (3.80-5.40) m/uL Hgb 9.3 L (11.4-16.0) gm/dL Hct 28.9 L (34.0-46.0) % Plt Count 133 L (150-450) k/uL Sodium 131 L (137-145) mmol/L Carbon Dioxide 20 L (22-30) mmol/L BUN 50 H (7-17) mg/dL Creatinine 1.61 H (0.52-1.04) mg/dL Glucose 174 H (74-99) mg/dL POC Glucose (mg/dL) 68 L (70-110) mg/dL Calcium 7.4 L (8.4-10.2) mg/dL Magnesium 2.5 H (1.6-2.3) mg/dL AST 101 H (14-36) U/L ALT 49 H (4-34) U/L Total Protein 4.9 L (6.3-8.2) g/dL Albumin 2.6 L (3.5-5.0) g/dL Assessment and Plan Plan: Acute hypoxic respiratory failure secondary to an aspiration pneumonia and the patient is currently on oxygen between 5 and 8 L and the patient is able to maintain a saturation above 90%. No further episode of aspiration chest x-ray from today showing some improvement in the right lower lobe pulmonary infiltra te. The patient remains on a combination of Rocephin and clindamycin. Acute right lower lobe aspiration pneumonia, still hypoxic, improvement on the chest x-ray findings Acute Leukocytosis, improving Altered mental status secondary to above, improved and the patient's mentation is back to normal Diabetes mellitus type 1 maintain on insulin pump on outpatient basis, blood sugars elevated and the patient has a component of non-anion gap metabolic acidosis Diabetic ketoacidosis, resolved Acute kidney injury, resulted fluid resuscitation treatment of DKA. Metabolic acidosis secondary to DKA, resolved, and the patient has a component of melena negative metabolic acidosis Hyperkalemia, resolved Hyponatremia, resolved CAD with previous stent placement Hypertension Hyperlipidemia Peripheral vascular disease status post bilateral iliac artery stenting 01/31/23 Plan Provide the patient incentive spirometer Wean down FiO2 as tolerated to [facility] about 90% Continue Rocephin and clindamycin Provide the patient incentive spirometer Repeated chest x-ray tomorrow Titrate FiO2 to maintain a saturation above 90% stop Levemir insulin the patient insulin pump Monitor serum bicarb Monitor the anion gap Repeat chest x-ray was placed 24 hours Titrate FiO2 to maintain a saturation above 90% We'll continue to follow
[2023-04-12 16:32] LABS: Glucose,Whole Blood 209 mg/dL (70-110)
[2023-04-12 16:49] LABS: % Iron Saturation 4.1 (12.00-45.00)
[2023-04-12] MEDS ORDERED: INSULIN ASPART (NovoLOG) 100 UNIT/ML VIAL SQ PRN (16:56)
[2023-04-12] MEDS ORDERED: INSPUCOR MISCELLANE PRN (16:56)
[2023-04-12] MEDS: INSULIN PUMP MEAL BOLUS 1 UNIT MISC MISCELLANE SCH ×2 (17:59→20:37)
[2023-04-12 20:16] LABS: Glucose,Whole Blood 117 mg/dL (70-110)
[2023-04-12] MEDS: atenoloL 25 MG TAB PO SCH (20:36)
[2023-04-12] MEDS: EZETIMIBE 10 MG TAB PO SCH (20:36)
[2023-04-12] MEDS: ATORVASTATIN 80 MG TAB PO SCH (20:36)
[2023-04-12] MEDS: ISOSORBIDE MONONITRATE ER 30 MG TAB.ER.24H PO SCH (20:36)
[2023-04-13] MEDS: SODIUM CHLORIDE 0.9% 1,000 ML IV SCH (00:03)
[2023-04-13] MEDS: HEPARIN SODIUM,PORCINE/PF 5,000 UNIT/0.5 ML SYRINGE SQ SCH ×3 (00:03→16:55)
[2023-04-13] MEDS: CLINDAMYCIN 600 MG in DEXTROSE 5% IN WATER 50 ML IVPB SCH ×8 (00:03→16:55)
[2023-04-13] MEDS ORDERED: INSULIN ASPART (NovoLOG) 100 UNIT/ML VIAL SQ SCH (02:00)
[2023-04-13 02:01] LABS: Glucose,Whole Blood 105 mg/dL (70-110)
[2023-04-13 06:13] LABS: Glucose,Whole Blood 269 mg/dL (70-110)
[2023-04-13] MEDS: INSULIN PUMP MEAL BOLUS 1 UNIT MISC MISCELLANE SCH ×4 (06:30→20:25)
[2023-04-13] MEDS ORDERED: INSULIN DETEMIR (LEVEMIR) 100 UNIT/ML SYR SQ SCH (07:00)
--- NOTE | 2023-04-13 08:13 | XR ---
EXAMINATION TYPE: XR chest 2V DATE OF EXAM: 04/13/2023 COMPARISON: 04/11/2023 HISTORY: Shortness of breath TECHNIQUE: Frontal and lateral views of the chest are obtained. FINDINGS: Scattered senescent parenchymal changes noted. Hyperinflation compatible with COPD. Mixed scattered reticulonodular densities may reflect underlying pneumonia. No significant change sanam reciated. Correlate clinically. Heart size is stable. Mediastinal structures are stable and grossly unremarkable. No evidence for hilar prominence. Degenerative changes dorsal spine. IMPRESSION: 1. Mixed scattered reticulonodular densities may reflect underlying pneumonia. No significant change appreciated. Correlate clinically.
[2023-04-13 08:50] LABS: HCT 29.1 % (34.0-46.0); HGB 9.3 gm/dL (11.4-16.0); Hypochromasia Slight; MCH 30.7 pg (25.0-35.0); MCHC 32.1 g/dL (31.0-37.0); MCV 95.5 fL (80.0-100.0); Mean Platelet Volume 10.3; Platelet Count 147 k/uL (150-450); RBC 3.05 m/uL (3.80-5.40); RDW 15.3 % (11.5-15.5); WBC 7.2 k/uL (3.8-10.6)
[2023-04-13] MEDS: amLODIPine 5 MG TAB PO SCH ×2 (09:17→20:25)
[2023-04-13] MEDS: CLOPIDOGREL 75 MG TAB PO SCH (09:17)
[2023-04-13] MEDS: FAMOTIDINE 20 MG TAB PO SCH (09:17)
[2023-04-13 09:19] LABS: Albumin 2.5 g/dL (3.5-5.0); Calcium 7.2 mg/dL (8.4-10.2); Magnesium 2.5 mg/dL (1.6-2.3); Potassium 4.4 mmol/L (3.5-5.1); Total Bilirubin 0.8 mg/dL (0.2-1.3); Total Protein 4.8 g/dL (6.3-8.2)
--- NOTE | 2023-04-13 10:38 | P.PN ---
Subjective Patient is seen in follow-up for acute kidney injury. Renal function stable. Blood sugar 260. Acidosis worse. Overall feels better. Oral intake is good. No vomiting or diarrhea. Vital signs are stable. General: No acute distress. HEENT: Head exam is unremarkable. LUNGS: No audible rhonchi or wheezes. HEART: Rate and Rhythm are regular. ABDOMEN: Nontender. EXTREMITITES: No edema. Objective - Vital Signs Vital signs: Vital Signs Temp 98.8 F 04/13/23 08:00 Pulse 58 L 04/13/23 08:00 Resp 18 04/13/23 08:00 BP 118/63 04/13/23 08:00 Pulse Ox 94 L 04/13/23 08:37 FiO2 100 04/10/23 01:45 Intake & Output 04/12/23 04/13/23 04/13/23 18:59 06:59 18:59 Intake Total 450 118 Output Total 400 Balance 50 118 Intake: IV 450 Sodium Chloride 0.9% 1, 450 000 ml @ 50 mls/hr IV . Q20H [facility] Rx#:[id number] Oral 118 Output: Urine 400 Other: Voiding Method Bedside Commode Bedside Commode # Voids 2 - Labs CBC & Chem 7: 04/13/23 07:16 04/13/23 07:16 Labs: Abnormal Lab Results - Last 24 Hours (Table) 04/12/23 04/12/23 04/12/23 Range/Units 08:45 08:45 08:45 RBC (3.80-5.40) m/uL Hgb (11.4-16.0) gm/dL Hct (34.0-46.0) % Plt Count (150-450) k/uL Lymphocytes # (Manual) 0.46 L (1.0-4.8) k/uL Sodium (137-145) mmol/L Carbon Dioxide (22-30) mmol/L BUN (7-17) mg/dL Creatinine (0.52-1.04) mg/dL Glucose (74-99) mg/dL POC Glucose (mg/dL) (70-110) mg/dL Calcium (8.4-10.2) mg/dL Magnesium (1.6-2.3) mg/dL Iron 8 L (50-170) ug/dL TIBC 189 L (228-460) ug/dL % Saturation 4.10 L (12.00-45.00) Transferrin 135.0 L (204.0-354.0) mg/dL Ferritin 398.0 H (10.0-291.0) ng/mL AST (14-36) U/L ALT (4-34) U/L Total Protein (6.3-8.2) g/dL Albumin (3.5-5.0) g/dL Vitamin B12 1607.0 H (200.0-944.0) pg/mL 04/12/23 04/12/23 04/12/23 Range/Units 11:44 16:30 20:14 RBC (3.80-5.40) m/uL Hgb (11.4-16.0) gm/dL Hct (34.0-46.0) % Plt Count (150-450) k/uL Lymphocytes # (Manual) (1.0-4.8) k/uL Sodium (137-145) mmol/L Carbon Dioxide (22-30) mmol/L BUN (7-17) mg/dL Creatinine (0.52-1.04) mg/dL Glucose (74-99) mg/dL POC Glucose (mg/dL) 275 H 209 H 117 H (70-110) mg/dL Calcium (8.4-10.2) mg/dL Magnesium (1.6-2.3) mg/dL Iron (50-170) ug/dL TIBC (228-460) ug/dL % Saturation (12.00-45.00) Transferrin (204.0-354.0) mg/dL Ferritin (10.0-291.0) ng/mL AST (14-36) U/L ALT (4-34) U/L Total Protein (6.3-8.2) g/dL Albumin (3.5-5.0) g/dL Vitamin B12 (200.0-944.0) pg/mL 04/13/23 04/13/23 04/13/23 Range/Units 06:11 07:16 07:16 RBC 3.05 L (3.80-5.40) m/uL Hgb 9.3 L (11.4-16.0) gm/dL Hct 29.1 L (34.0-46.0) % Plt Count 147 L (150-450) k/uL Lymphocytes # (Manual) (1.0-4.8) k/uL Sodium 129 L (137-145) mmol/L Carbon Dioxide 15 L (22-30) mmol/L BUN 49 H (7-17) mg/dL Creatinine 1.64 H (0.52-1.04) mg/dL Glucose 259 H (74-99) mg/dL POC Glucose (mg/dL) 269 H (70-110) mg/dL Calcium 7.2 L (8.4-10.2) mg/dL Magnesium 2.5 H (1.6-2.3) mg/dL Iron (50-170) ug/dL TIBC (228-460) ug/dL % Saturation (12.00-45.00) Transferrin (204.0-354.0) mg/dL Ferritin (10.0-291.0) ng/mL AST 82 H (14-36) U/L ALT 44 H (4-34) U/L Total Protein 4.8 L (6.3-8.2) g/dL Albumin 2.5 L (3.5-5.0) g/dL Vitamin B12 (200.0-944.0) pg/mL Microbiology - Last 24 Hours (Table) 04/10/23 19:19 Blood Culture - Preliminary Blood Assessment and Plan Plan: Assessment: 1. Acute kidney injury secondary to severe sepsis secondary to pneumonia and also hypovolemia from DKA. Creatinine peaked at 2.0 on this admission and is 1.64 today. No proteinuria on UA. No hydronephrosis noted on kidney ultrasound. 2. Chronic kidney disease stage III with baseline creatinine 1-1.2. Suspect diabetic kidney disease. 3. DKA, resolved. 4. Type 1 diabetes mellitus. 5. Metabolic acidosis secondary to acute kidney injury and IV fluids. 6. Hyponatremia secondary to acute kidney injury and hyperglycemia. Receiving antibiotics with D5W. 7. Anemia. Iron deficiency noted. 8. Aspiration pneumonia on antibiotics. Plan: Change IV fluids to bicarb drip. Add oral bicarb as well. Add IV iron. Encourage oral intake. Blood sugar control. Avoid nephrotoxins. Continue to monitor renal function and urine output.
[2023-04-13 11:43] LABS: Glucose,Whole Blood 350 mg/dL (70-110)
[2023-04-13] MEDS: SODIUM FERRIC GLUCONAT-SUCROSE 125 MG in SODIUM CHLORIDE 0.9% 100 ML IVPB SCH (12:21)
[2023-04-13] MEDS: SODIUM BICARBONATE TAB 650 MG TAB PO SCH ×3 (12:21→21:36)
--- NOTE | 2023-04-13 13:00 | P.PN ---
Subjective Progress Note Date: 04/13/23 Hospital course: Patient is a very pleasant 67-year-old female with a past medical history of CAD with previous stent placement, hypertension, hyperlipidemia, peripheral vascular disease status post bilateral iliac artery stenting on Plavix , type 1 diabetes mellitus with insulin pump, and obstructive sleep apnea CPAP dependent nightly. Patient presented to the emergency department with her on 04/07/23 with a chief complaint of elevated glucose levels and intractable nausea and vomiting. Patient reports she and her were celebrating their anniversary and drinking alcoholic beverages which she normally does not drink. Patient underwent full evaluation in the emergency department. Vital signs stable upon arrival with temp 98.0F, heart rate 79, respiratory rate 18, blood pressure 139/55, and SpO2 of 99% on room air. Labs completed and reviewed. CBC completed showing leukocytosis with WBC count of 14.6 and normocytic anemia with hemoglobin of 11.1. Coagulation profile unremarkable. Venous blood gas showing metabolic acidosis with pH of 7.28 and bicarb of 19. BMP revealing hypernatremia with sodium of 130, hyperkalemia with potassium of 5.8, hypocarbia with bicarb of 12, elevated anion gap at 20, acute kidney injury with BUN of 37, creatinine of 1.54, and GFR of 35, hyperglycemia with glucose of 739. Positive acetone. And urinalysis positive for glucose and ketones. Patient was given IV fluid bolus and started on insulin infusion for DKA. She was admitted under our services to stepdown unit with telemetry at this time. Patient was weaned off of insulin infusion and placed back on carb consistent diet. Patient using her own insulin pump to control blood glucose levels and these levels are being monitored closely by staff. Patient did develop acute kidney injury with creatinine elevating up to 2.01 but this resolved with IV fluid hydration and creatinine is currently 1.25. Overnight on 04/08/23 through 04/09/23 patient began running an elevated temperature as high as 103F. Covid PCR, influenza A, influenza B, and RSV were obtained all negative. Chest x-ray initially completed negative for acute process. CT sinuses negative for acute process. Patient then reports tenderness right groin from previous stent placement and ultrasound completed negative for abscess or abnormality. Later in the evening patient went from room air to acute respiratory distress with hypoxia with oxygen saturation of 76% on room air. Patient started on 4 L via nasal cannula and was titrated up to 15 L via nonrebreather. Repeat chest x-ray completed at this time showing right lower lobe infiltrate consistent with aspiration pneumonitis. Pro-calcitonin 10.90. Oral antibiotics discontinued and patient placed on IV antibiotics with clindamycin 600 mg every 6 hours and Rocephin 2 g every 24 hours for treatment of aspiration pneumonitis. Physical exam: Patient seen and fully evaluated at bedside this morning. Her brought in equipment for her insulin pump. Patient reports feeling better today. She is currently afebrile and temperature high over the past 24 hours was 100.2 with last noted elevated temp being at 10:50 AM on 04/12/23. Patient reports she is breathing better, but remains on 4 L O2 via nasal cannula with SpO2 of 95% at this time. Vital signs reviewed and stable. General: Nontoxic, no distress and appears stated age. Derm: Skin warm and dry, normal coloration for ethnicity. Head: Atraumatic, normocephalic and symmetric. Eyes: EOMs intact, no lid lag, and anicteric sclera Mouth: no lip lesions, mucus membranes moist Cardiovascular: regular rate and rhythm with normal S1S2, systolic murmur, positive posterior tibial pulses bilaterally, and cap refill < 2 seconds. Lungs: Respirations even, regular, and unlabored on 4 L O2. Lungs diminished with crackles at the right lower lobe. No rhonchi, no rales, no wheezing, and no accessory muscle usage. Abdominal: soft, nontender to palpation, no guarding, no appreciable organomega ly Ext: ROM intact. No gross muscle atrophy, no edema, no contractures Neuro: Speech clear, face symmetrical and CN II-XII grossly intact with no noted focal neuro deficits Psych: Alert and oriented to person, place, time, and situation. Appropriate and pleasant affect. Assessment and Plan of Care: Aspiration pneumonia right lower lobe, it is believed patient aspirated with emesis experienced during episode of DKA Acute hypoxic respiratory failure secondary to above Sepsis secondary to above Transaminitis secondary to sepsis Acute kidney injury on stage III chronic kidney disease with baseline creatinine of 1.0 Hyponatremia. Multifactorial secondary to sepsis, AKA, and hyperglycemia Metabolic acidosis Diabetic ketoacidosis, resolved -Morning labs reviewed. CBC showing stable normocytic anemia with hemoglobin of 9.3 and thrombocytopenia with platelet count of 147. BMP showing hyponatremia with sodium of 129 and worsening hypocarbia with bicarb of 15. Renal function remains elevated with BUN of 49, creatinine 1.64, and GFR of 33. -Discussed plan of care with fluid dynamicist, he is starting patient on bicarb infusion and 50 mL per hour and recommending continuation of sodium bicarb tablets 650 mg 3 times daily. -Patient has been brought supplies in for insulin pump and patient reconnected to personal insulin pump at this time.. We will continue to monitor blood glucose levels closely. -Personal insulin pump should provide optimal control of blood glucose levels. We will continue to monitor closely. -Wean down FiO2 as tolerated to maintain SpO2 equal to or greater than 90%, patient remains on 4 L O2 via nasal cannula -Continue with IV antibiotics with Rocephin 2 g daily and clindamycin 600 mg every 6 hours -Chalk Cutter following and reviewed documentation in chart. -Continue glucose checks 5 times daily before meals, at bedtime and at 2 AM -Renal ultrasound completed showing unremarkable kidneys without evidence of hydronephrosis, solid mass, or shadowing calculi Normocytic anemia multifactorial likely dilutional, inflammatory and related to renal disease -Trend CBC -No sign of acute GI bleeeding -Follow up on iron studies Acute metabolic encephalopathy secondary to aspiration pneumonia, resolved -CT brain and upon review of radiology report was negative for acute intracranial process. -Patient's mentation much improved this morning and she is alert and oriented to person, place, time, and situation. Hyperkalemia, resolved Chronic conditions: CAD with previous stent placement Hypertension Hyperlipidemia Peripheral vascular disease status post bilateral iliac artery stenting 01/31/23 Painful lump right groin 2 months -Ultrasound right groin completed showing no organizing fluid collection or mass seen. -Patient to continue daily Norvasc 5 mg twice daily, atenolol 25 mg nightly, atorvastatin 80 mg nightly, Plavix 75 mg daily, and isosorbide mononitrate 30 mg nightly Obstructive sleep apnea CPAP dependent nightly. -Order placed for patient to continue CPAP nightly and well napping. CODE STATUS: DO NOT RESUSCITATE/DO NOT INTUBATE DVT prophylaxis: heparin Discussed with: Patient, aquarist and RN Anticipated discharge date: clinical course to determine Anticipated discharge place: Home Patient was seen independently by Nurse Practitioner. This document was prepared using reportbrain dictation software. Please allow for errors in mailroom courier while rare they do occur. I reviewed the documentation as provided by the GHAZAL above, who is the original author of this note. I agree with the documented assessment and plan, with the following changes: none Objective - Vital Signs Vital signs: Vital Signs Temp 97.7 F 04/13/23 04:00 Pulse 62 04/13/23 04:00 Resp 20 04/13/23 04:00 BP 132/65 04/13/23 04:00 Pulse Ox 95 04/13/23 04:00 FiO2 100 04/10/23 01:45 Intake & Output 04/12/23 04/13/23 04/13/23 18:59 06:59 18:59 Intake Total 450 Output Total 400 Balance 50 Intake: IV 450 Sodium Chloride 0.9% 1, 450 000 ml @ 50 mls/hr IV . Q20H [facility] Rx#:[id number] Output: Urine 400 Other: Voiding Method Bedside Commode Bedside Commode # Voids 2 - Labs CBC & Chem 7: 04/13/23 07:16 04/13/23 07:16 Labs: Abnormal Lab Results - Last 24 Hours (Table) 04/12/23 04/12/23 04/12/23 Range/Units 08:45 08:45 08:45 RBC 3.12 L (3.80-5.40) m/uL Hgb 9.3 L (11.4-16.0) gm/dL Hct 28.9 L (34.0-46.0) % Plt Count 133 L (150-450) k/uL Lymphocytes # (Manual) 0.46 L (1.0-4.8) k/uL Sodium 131 L (137-145) mmol/L Carbon Dioxide 20 L (22-30) mmol/L BUN 50 H (7-17) mg/dL Creatinine 1.61 H (0.52-1.04) mg/dL Glucose 174 H (74-99) mg/dL POC Glucose (mg/dL) (70-110) mg/dL Calcium 7.4 L (8.4-10.2) mg/dL Magnesium 2.5 H (1.6-2.3) mg/dL Iron 8 L (50-170) ug/dL TIBC 189 L (228-460) ug/dL % Saturation 4.10 L (12.00-45.00) Transferrin 135.0 L (204.0-354.0) mg/dL Ferritin 398.0 H (10.0-291.0) ng/mL AST 101 H (14-36) U/L ALT 49 H (4-34) U/L Total Protein 4.9 L (6.3-8.2) g/dL Albumin 2.6 L (3.5-5.0) g/dL Vitamin B12 1607.0 H (200.0-944.0) pg/mL 04/12/23 04/12/23 04/12/23 Range/Units 11:44 16:30 20:14 RBC (3.80-5.40) m/uL Hgb (11.4-16.0) gm/dL Hct (34.0-46.0) % Plt Count (150-450) k/uL Lymphocytes # (Manual) (1.0-4.8) k/uL Sodium (137-145) mmol/L Carbon Dioxide (22-30) mmol/L BUN (7-17) mg/dL Creatinine (0.52-1.04) mg/dL Glucose (74-99) mg/dL POC Glucose (mg/dL) 275 H 209 H 117 H (70-110) mg/dL Calcium (8.4-10.2) mg/dL Magnesium (1.6-2.3) mg/dL Iron (50-170) ug/dL TIBC (228-460) ug/dL % Saturation (12.00-45.00) Transferrin (204.0-354.0) mg/dL Ferritin (10.0-291.0) ng/mL AST (14-36) U/L ALT (4-34) U/L Total Protein (6.3-8.2) g/dL Albumin (3.5-5.0) g/dL Vitamin B12 (200.0-944.0) pg/mL 04/13/23 Range/Units 06:11 RBC (3.80-5.40) m/uL Hgb (11.4-16.0) gm/dL Hct (34.0-46.0) % Plt Count (150-450) k/uL Lymphocytes # (Manual) (1.0-4.8) k/uL Sodium (137-145) mmol/L Carbon Dioxide (22-30) mmol/L BUN (7-17) mg/dL Creatinine (0.52-1.04) mg/dL Glucose (74-99) mg/dL POC Glucose (mg/dL) 269 H (70-110) mg/dL Calcium (8.4-10.2) mg/dL Magnesium (1.6-2.3) mg/dL Iron (50-170) ug/dL TIBC (228-460) ug/dL % Saturation (12.00-45.00) Transferrin (204.0-354.0) mg/dL Ferritin (10.0-291.0) ng/mL AST (14-36) U/L ALT (4-34) U/L Total Protein (6.3-8.2) g/dL Albumin (3.5-5.0) g/dL Vitamin B12 (200.0-944.0) pg/mL Microbiology - Last 24 Hours (Table) 04/10/23 19:19 Blood Culture - Preliminary Blood
--- NOTE | 2023-04-13 13:54 | P.PN ---
Subjective Progress Note Date: 04/13/23 67-year-old female patient with known history of diabetes mellitus along with history of coronary artery disease previous coronary artery stenting, hypertension hyperlipidemia, peripheral Vascular disease with previous bilateral iliac artery stenting. The patient has type 1 diabetes mellitus and the pat abhay's current on insulin pump. She also has obstructive sleep apnea maintained on CPAP therapy. The patient came into the hospital after weekend celebration and the patient was drinking alcoholic beverages. She has had previous episodes of pancreatitis also. She came into the hospital and the patient was having diffuse abdominal pain, along with nausea and emesis. She was found to be in a mild component of DKA. Her serum bicarb level was down to 12 and anion gap was at 20. The patient also had an acute kidney injury with a BUN of 37 and a creatinine 1.5. Blood sugar was 739. Acetone was positive. PH was at 7.28 with a CBC showing a WBC count of 14.6 and the hemoglobin of 11.1. The patient was using her on insulin pump to control the blood sugar. The patient was treated accordingly. The patient however, developed an acute hypoxic respiratory failure which appeared to be febrile and tachypneic and hypoxic. She apparently aspirated. She was having some altered mentation. Chest x-ray was ordered and the patient was identified to have a right lower lobe pulmonary infiltrate which is of a new onset of the patient's current on accommodation of Rocephin and Zithromax. On today's evaluation, she is awake and alert and communicating. She is on 4 L of oxygen by nasal cannula. There is obvious triggers the right lung base consistent with an underlying aspi ration. The blood gas showed a pH of 7.4 with a pCO2 of 32 and pO2 of 55 and this was on FiO2 of 44%. The white cell count was 18.4 with a hemoglobin of 10 and a platelet count of 170. On today's evaluation of 04/10/2023, the patient is complaining of some vague abdominal pain. She is known to have previous episodes of pancreatitis. Otherwise, she is on oxygen. His oxygen requirements went up yesterday and the patient was placed on 8 L and currently she is down to 5 L again. Pulse ox on 8 L was up to 97%. The chest x-ray from today shows improvement in the right lower lobe pulmonary infiltrates. The patient's blood sugar from today is 288. Motor the patient was hospitalized for an acute DKA which is essentially recovered and the patient's anion gap is down to 11 and a serum bicarbs at 17. Sodium levels of 129. The white cycles of 8.5 with a hemoglobin of 8.8 and a platelet count of 117. The patient has limited cough. No significant sputum production. No signs of any respiratory distress. She is known to have coronary artery disease with previous coronary stenting, hypertension and hyperlipidemia and peripheral vascular disease. She is known to be diabetic and she is on insulin pump on outpatient basis. She does have a component of chronic kidney disease, stage III On today's evaluation of 04/12/2023, the patient has no new complaints. She still on oxygen at 4 L/m nasal cannula. No significant shortness of breath. No significant abdominal pain. The ultrasound of THE ABDOMEN WAS DONE AND WAS ESSENTIALLY NEGATIVE A NONSPECIFIC.. Meanwhile, the patient was given Levemir insulin which cause some hypoglycemia. The patient will be taken off the Levemir insulin and she'll be gradually transitioned into her insulin pump. She remains on accommodation of Rocephin and clindamycin. Blood work from today shows a BUN of 50 and a creatinine of 1.6 and a WBC count of 6.5 with a hemoglobin of 9.3 and a platelet count of 133. Nephrology was also consulted on the case regarding the renal failure noted the patient had an underlying chronic kidney disease stage III . Recovered from the DKA and the patient's gap is currently closed at 8 with a serum bicarb of 20 On 04/13/2023, the patient's condition is stable. The patient was already weaned down to 2 L of oxygen by nasal cannula and the patient is going to be placed on room air oxygen and the oxygen saturation is going to be monitored. No respiratory difficulties for now. The patient remains on a combination of Rocephin and clindamycin. On a separate note, the patient is being seen by nephrology. The patient's chronic kidney disease. Creatinine is stable. The patient has developed recurrent non-anion gap metabolic acidosis and the patient is currently on a bicarb infusion per recommendations given by tracie. The patient is also on a insulin pump. The most recent blood work shows a WBC count of 7.2 with a hemoglobin of 9.3 and a platelet count of 147. BUN is at 49 with a creatinine of 1.6 and the sodium is at 129. Blood sugars are fluctuating. Currently is elevated at 259. Objective - Vital Signs Vital signs: Vital Signs Temp 98.8 F 04/13/23 08:00 Pulse 59 L 04/13/23 12:00 Resp 18 04/13/23 12:00 BP 128/61 04/13/23 12:00 Pulse Ox 94 L 04/13/23 12:00 FiO2 100 04/10/23 01:45 Intake & Output 04/12/23 04/13/23 04/13/23 18:59 06:59 18:59 Intake Total 450 118 Output Total 400 Balance 50 118 Intake: IV 450 Sodium Chloride 0.9% 1, 450 000 ml @ 50 mls/hr IV . Q20H FEROZ Rx#:[id number] Oral 118 Output: Urine 400 Other: Voiding Method Bedside Commode Bedside Commode # Voids 2 - Exam General: Nontoxic, no distress and appears stated age. The patient is currently comfortable on room air oxygen for now Head: Atraumatic, normocephalic and symmetric. Eyes: EOMs intact, no lid lag, and anicteric sclera Mouth: no lip lesions, mucus membranes moist Cardiovascular: regular rate and rhythm with normal S1S2, systolic murmur, positive posterior tibial pulses bilaterally, and cap refill < 2 seconds. Lungs: Respirations even, regular, and unlabored on room air. Lungs CTA bilaterally, no rhonchi, no rales, no wheezing, and no accessory muscle usage. The patient's corrected in the right lung base Abdominal: soft, nontender to palpation, no guarding, no appreciable organomegaly Ext: ROM intact. No gross muscle atrophy, no edema, no contractures Neuro: Speech clear, face symmetrical and CN II-XII grossly intact with no noted focal neuro deficits Psych: Alert and oriented to person, place, time, and situation. Appropriate and pleasant affect. - Labs CBC & Chem 7: 04/13/23 07:16 04/13/23 07:16 Labs: Abnormal Lab Results - Last 24 Hours (Table) 04/12/23 04/12/23 04/12/23 Range/Units 08:45 08:45 16:30 RBC (3.80-5.40) m/uL Hgb (11.4-16.0) gm/dL Hct (34.0-46.0) % Plt Count (150-450) k/uL Sodium (137-145) mmol/L Carbon Dioxide (22-30) mmol/L BUN (7-17) mg/dL Creatinine (0.52-1.04) mg/dL Glucose (74-99) mg/dL POC Glucose (mg/dL) 209 H (70-110) mg/dL Calcium (8.4-10.2) mg/dL Magnesium (1.6-2.3) mg/dL Iron 8 L (50-170) ug/dL TIBC 189 L (228-460) ug/dL % Saturation 4.10 L (12.00-45.00) Transferrin 135.0 L (204.0-354.0) mg/dL Ferritin 398.0 H (10.0-291.0) ng/mL AST (14-36) U/L ALT (4-34) U/L Total Protein (6.3-8.2) g/dL Albumin (3.5-5.0) g/dL Vitamin B12 1607.0 H (200.0-944.0) pg/mL 04/12/23 04/13/23 04/13/23 Range/Units 20:14 06:11 07:16 RBC (3.80-5.40) m/uL Hgb (11.4-16.0) gm/dL Hct (34.0-46.0) % Plt Count (150-450) k/uL Sodium 129 L (137-145) mmol/L Carbon Dioxide 15 L (22-30) mmol/L BUN 49 H (7-17) mg/dL Creatinine 1.64 H (0.52-1.04) mg/dL Glucose 259 H (74-99) mg/dL POC Glucose (mg/dL) 117 H 269 H (70-110) mg/dL Calcium 7.2 L (8.4-10.2) mg/dL Magnesium 2.5 H (1.6-2.3) mg/dL Iron (50-170) ug/dL TIBC (228-460) ug/dL % Saturation (12.00-45.00) Transferrin (204.0-354.0) mg/dL Ferritin (10.0-291.0) ng/mL AST 82 H (14-36) U/L ALT 44 H (4-34) U/L Total Protein 4.8 L (6.3-8.2) g/dL Albumin 2.5 L (3.5-5.0) g/dL Vitamin B12 (200.0-944.0) pg/mL 04/13/23 04/13/23 Range/Units 07:16 11:40 RBC 3.05 L (3.80-5.40) m/uL Hgb 9.3 L (11.4-16.0) gm/dL Hct 29.1 L (34.0-46.0) % Plt Count 147 L (150-450) k/uL Sodium (137-145) mmol/L Carbon Dioxide (22-30) mmol/L BUN (7-17) mg/dL Creatinine (0.52-1.04) mg/dL Glucose (74-99) mg/dL POC Glucose (mg/dL) 350 H (70-110) mg/dL Calcium (8.4-10.2) mg/dL Magnesium (1.6-2.3) mg/dL Iron (50-170) ug/dL TIBC (228-460) ug/dL % Saturation (12.00-45.00) Transferrin (204.0-354.0) mg/dL Ferritin (10.0-291.0) ng/mL AST (14-36) U/L ALT (4-34) U/L Total Protein (6.3-8.2) g/dL Albumin (3.5-5.0) g/dL Vitamin B12 (200.0-944.0) pg/mL Microbiology - Last 24 Hours (Table) 04/10/23 19:19 Blood Culture - Preliminary Blood Assessment and Plan Plan: Acute hypoxic respiratory failure secondary to an aspiration pneumonia recovered and the patient's oxygenation is normalized and the patient is currently on room air oxygen. The patient remains on a combination of Rocephin and clindamycin. Chest x-ray shows improved aeration of the right lung Acute right lower lobe aspiration pneumonia, still hypoxic, improvement on the chest x-ray findings Acute Leukocytosis, improving, white cell count is also improved and normalized Altered mental status secondary to above, improved and the patient's mentation is back to normal Diabetes mellitus type 1 maintain on insulin pump on outpatient basis, blood sugars elevated and the patient has a component of non-anion gap metabolic acidosis Diabetic ketoacidosis, resolved Acute kidney injury, resulted fluid resuscitation treatment of DKA. Metabolic acidosis secondary to DKA, resolved, and the patient has a component of melena negative metabolic acidosis Hyperkalemia, resolved Hyponatremia, resolved CAD with previous stent placement Hypertension Hyperlipidemia Peripheral vascular disease status post bilateral iliac artery stenting 01/31/23 Plan Oxygenation is improved and the patient is currently on room air oxygen Provide the patient incentive spirometer The patient can be discharged on a combination of Ceftin and clindamycin at time of discharge, to complete a seven-day course Provide the patient incentive spirometer Chest x-ray from this morning has been noted Titrate FiO2 to maintain a saturation above 90% , currently on room air oxygen Continue insulin pump Monitor serum bicarb, the patient was given bicarb infusion by nephrology Monitor the anion gap
[2023-04-13 16:23] LABS: Glucose,Whole Blood 279 mg/dL (70-110)
[2023-04-13] MEDS: DEXTROSE 5% IN WATER 1,000 ML with SODIUM BICARB (1 MEQ/ML) 150 ML IV SCH (16:55)
[2023-04-13 20:08] LABS: Glucose,Whole Blood 281 mg/dL (70-110)
[2023-04-13] MEDS: ATORVASTATIN 80 MG TAB PO SCH (20:25)
[2023-04-13] MEDS: atenoloL 25 MG TAB PO SCH (20:25)
[2023-04-13] MEDS: ISOSORBIDE MONONITRATE ER 30 MG TAB.ER.24H PO SCH (20:25)
[2023-04-13] MEDS: EZETIMIBE 10 MG TAB PO SCH (20:25)
[2023-04-14] MEDS: HEPARIN SODIUM,PORCINE/PF 5,000 UNIT/0.5 ML SYRINGE SQ SCH ×4 (00:18→23:53)
[2023-04-14] MEDS: CLINDAMYCIN 600 MG in DEXTROSE 5% IN WATER 50 ML IVPB SCH ×10 (00:18→23:53)
[2023-04-14 02:33] LABS: Glucose,Whole Blood 126 mg/dL (70-110)
[2023-04-14 06:17] LABS: Glucose,Whole Blood 130 mg/dL (70-110)
[2023-04-14] MEDS: INSULIN PUMP MEAL BOLUS 1 UNIT MISC MISCELLANE SCH ×4 (06:32→20:21)
[2023-04-14 07:41] LABS: Calcium 7.6 mg/dL (8.4-10.2); Magnesium 2.4 mg/dL (1.6-2.3); Potassium 3.7 mmol/L (3.5-5.1)
[2023-04-14] MEDS: CLOPIDOGREL 75 MG TAB PO SCH (09:07)
[2023-04-14] MEDS: FAMOTIDINE 20 MG TAB PO SCH (09:07)
[2023-04-14] MEDS: amLODIPine 5 MG TAB PO SCH ×2 (09:07→20:21)
[2023-04-14] MEDS: SODIUM BICARBONATE TAB 650 MG TAB PO SCH (09:07)
--- NOTE | 2023-04-14 12:03 | P.PN ---
Subjective Progress Note Date: 04/14/23 67-year-old female patient with known history of diabetes mellitus along with history of coronary artery disease previous coronary artery stenting, hypertension hyperlipidemia, peripheral Vascular disease with previous bilateral iliac artery stenting. The patient has type 1 diabetes mellitus and the pat abhay's current on insulin pump. She also has obstructive sleep apnea maintained on CPAP therapy. The patient came into the hospital after weekend celebration and the patient was drinking alcoholic beverages. She has had previous episodes of pancreatitis also. She came into the hospital and the patient was having diffuse abdominal pain, along with nausea and emesis. She was found to be in a mild component of DKA. Her serum bicarb level was down to 12 and anion gap was at 20. The patient also had an acute kidney injury with a BUN of 37 and a creatinine 1.5. Blood sugar was 739. Acetone was positive. PH was at 7.28 with a CBC showing a WBC count of 14.6 and the hemoglobin of 11.1. The patient was using her on insulin pump to control the blood sugar. The patient was treated accordingly. The patient however, developed an acute hypoxic respiratory failure which appeared to be febrile and tachypneic and hypoxic. She apparently aspirated. She was having some altered mentation. Chest x-ray was ordered and the patient was identified to have a right lower lobe pulmonary infiltrate which is of a new onset of the patient's current on accommodation of Rocephin and Zithromax. On today's evaluation, she is awake and alert and communicating. She is on 4 L of oxygen by nasal cannula. There is obvious triggers the right lung base consistent with an underlying aspi ration. The blood gas showed a pH of 7.4 with a pCO2 of 32 and pO2 of 55 and this was on FiO2 of 44%. The white cell count was 18.4 with a hemoglobin of 10 and a platelet count of 170. On today's evaluation of 04/10/2023, the patient is complaining of some vague abdominal pain. She is known to have previous episodes of pancreatitis. Otherwise, she is on oxygen. His oxygen requirements went up yesterday and the patient was placed on 8 L and currently she is down to 5 L again. Pulse ox on 8 L was up to 97%. The chest x-ray from today shows improvement in the right lower lobe pulmonary infiltrates. The patient's blood sugar from today is 288. Motor the patient was hospitalized for an acute DKA which is essentially recovered and the patient's anion gap is down to 11 and a serum bicarbs at 17. Sodium levels of 129. The white cycles of 8.5 with a hemoglobin of 8.8 and a platelet count of 117. The patient has limited cough. No significant sputum production. No signs of any respiratory distress. She is known to have coronary artery disease with previous coronary stenting, hypertension and hyperlipidemia and peripheral vascular disease. She is known to be diabetic and she is on insulin pump on outpatient basis. She does have a component of chronic kidney disease, stage III On today's evaluation of 04/12/2023, the patient has no new complaints. She still on oxygen at 4 L/m nasal cannula. No significant shortness of breath. No significant abdominal pain. The ultrasound of THE ABDOMEN WAS DONE AND WAS ESSENTIALLY NEGATIVE A NONSPECIFIC.. Meanwhile, the patient was given Levemir insulin which cause some hypoglycemia. The patient will be taken off the Levemir insulin and she'll be gradually transitioned into her insulin pump. She remains on accommodation of Rocephin and clindamycin. Blood work from today shows a BUN of 50 and a creatinine of 1.6 and a WBC count of 6.5 with a hemoglobin of 9.3 and a platelet count of 133. Nephrology was also consulted on the case regarding the renal failure noted the patient had an underlying chronic kidney disease stage III . Recovered from the DKA and the patient's gap is currently closed at 8 with a serum bicarb of 20 On 04/13/2023, the patient's condition is stable. The patient was already weaned down to 2 L of oxygen by nasal cannula and the patient is going to be placed on room air oxygen and the oxygen saturation is going to be monitored. No respiratory difficulties for now. The patient remains on a combination of Rocephin and clindamycin. On a separate note, the patient is being seen by nephrology. The patient's chronic kidney disease. Creatinine is stable. The patient has developed recurrent non-anion gap metabolic acidosis and the patient is currently on a bicarb infusion per recommendations given by tracie. The patient is also on a insulin pump. The most recent blood work shows a WBC count of 7.2 with a hemoglobin of 9.3 and a platelet count of 147. BUN is at 49 with a creatinine of 1.6 and the sodium is at 129. Blood sugars are fluctuating. Currently is elevated at 259. On 04/14/2023, no new complaints and the patient is doing well. He is on 2 L of oxygen by nasal cannula with a pulse ox of 94%. On room air, her pulse ox is 91%. The patient had a non-anion gap metabolic acidosis which is recovered and the serum bicarbs of 24. The patient's creatinine is down to 1.3. No nausea or emesis. She is back on her insulin pump. Objective - Vital Signs Vital signs: Vital Signs Temp 98.2 F 04/13/23 20:00 Pulse 61 04/14/23 04:00 Resp 18 04/14/23 04:00 BP 135/57 04/14/23 04:00 Pulse Ox 94 L 04/14/23 08:49 FiO2 100 04/10/23 01:45 Intake & Output 04/13/23 04/14/23 04/14/23 18:59 06:59 18:59 Intake Total 118 250 0 Balance 118 250 0 Intake: Oral 118 250 0 Other: Voiding Method Bedside Commode # Voids 3 1 - Exam General: Nontoxic, no distress and appears stated age. The patient is currently comfortable on room air oxygen for now Head: Atraumatic, normocephalic and symmetric. Eyes: EOMs intact, no lid lag, and anicteric sclera Mouth: no lip lesions, mucus membranes moist Cardiovascular: regular rate and rhythm with normal S1S2, systolic murmur, positive posterior tibial pulses bilaterally, and cap refill < 2 seconds. Lungs: Respirations even, regular, and unlabored on room air. Lungs CTA bilaterally, no rhonchi, no rales, no wheezing, and no accessory muscle usage. The patient's corrected in the right lung base Abdominal: soft, nontender to palpation, no guarding, no appreciable organomegaly Ext: ROM intact. No gross muscle atrophy, no edema, no contractures Neuro: Speech clear, face symmetrical and CN II-XII grossly intact with no noted focal neuro deficits Psych: Alert and oriented to person, place, time, and situation. Appropriate and pleasant affect. - Labs CBC & Chem 7: 04/13/23 07:16 04/14/23 07:08 Labs: Abnormal Lab Results - Last 24 Hours (Table) 04/13/23 04/13/23 04/13/23 Range/Units 11:40 16:19 20:07 Sodium (137-145) mmol/L BUN (7-17) mg/dL Creatinine (0.52-1.04) mg/dL Glucose (74-99) mg/dL POC Glucose (mg/dL) 350 H 279 H 281 H (70-110) mg/dL Calcium (8.4-10.2) mg/dL Magnesium (1.6-2.3) mg/dL 04/14/23 04/14/23 04/14/23 Range/Units 02:29 06:15 07:08 Sodium 135 L (137-145) mmol/L BUN 44 H (7-17) mg/dL Creatinine 1.30 H (0.52-1.04) mg/dL Glucose 120 H (74-99) mg/dL POC Glucose (mg/dL) 126 H 130 H (70-110) mg/dL Calcium 7.6 L (8.4-10.2) mg/dL Magnesium 2.4 H (1.6-2.3) mg/dL Microbiology - Last 24 Hours (Table) 04/10/23 19:19 Blood Culture - Preliminary Blood Assessment and Plan Plan: Acute hypoxic respiratory failure secondary to an aspiration pneumonia recovered and the patient's oxygenation is normalized and the patient is currently on room air oxygen. The patient remains on a combination of Rocephin and clindamycin. Chest x-ray shows improved aeration of the right lung Acute right lower lobe aspiration pneumonia, still hypoxic, improvement on the chest x-ray findings Acute Leukocytosis, improving, white cell count is also improved and normalized Altered mental status secondary to above, improved and the patient's mentation is back to normal Diabetes mellitus type 1 maintain on insulin pump on outpatient basis, blood sugars elevated and the patient has a component of non-anion gap metabolic acidosis Diabetic ketoacidosis, resolved Acute kidney injury, resulted fluid resuscitation treatment of DKA. Metabolic acidosis secondary to DKA, resolved, and the patient has a component of melena negative metabolic acidosis Hyperkalemia, resolved Hyponatremia, resolved CAD with previous stent placement Hypertension Hyperlipidemia Peripheral vascular disease status post bilateral iliac artery stenting 01/31/23 Plan Oxygenation is improved and the patient is currently on room air oxygen Evaluate this patient for home O2. Provide the patient incentive spirometer The patient can be discharged on a combination of Ceftin and clindamycin at time of discharge, to complete a seven-day course Provide the patient incentive spirometer Patient is back on insulin pump Acidosis is recovered Creatinine is improved
[2023-04-14] MEDS: SODIUM FERRIC GLUCONAT-SUCROSE 125 MG in SODIUM CHLORIDE 0.9% 100 ML IVPB SCH (12:25)
[2023-04-14] MEDS: DEXTROSE 5% IN WATER 1,000 ML with SODIUM BICARB (1 MEQ/ML) 150 ML IV SCH ×2 (12:25→18:40)
[2023-04-14 12:59] LABS: Glucose,Whole Blood 149 mg/dL (70-110)
--- NOTE | 2023-04-14 13:16 | P.PN ---
Subjective Progress Note Date: 04/14/23 Hospital course: Patient is a very pleasant 67-year-old female with a past medical history of CAD with previous stent placement, hypertension, hyperlipidemia, peripheral vascular disease status post bilateral iliac artery stenting on Plavix , type 1 diabetes mellitus with insulin pump, and obstructive sleep apnea CPAP dependent nightly. Patient presented to the emergency department with her on 04/07/23 with a chief complaint of elevated glucose levels and intractable nausea and vomiting. Patient reports she and her were celebrating their anniversary and drinking alcoholic beverages which she normally does not drink. Patient underwent full evaluation in the emergency department. Vital signs stable upon arrival with temp 98.0F, heart rate 79, respiratory rate 18, blood pressure 139/55, and SpO2 of 99% on room air. Labs completed and reviewed. CBC completed showing leukocytosis with WBC count of 14.6 and normocytic anemia with hemoglobin of 11.1. Coagulation profile unremarkable. Venous blood gas showing metabolic acidosis with pH of 7.28 and bicarb of 19. BMP revealing hypernatremia with sodium of 130, hyperkalemia with potassium of 5.8, hypocarbia with bicarb of 12, elevated anion gap at 20, acute kidney injury with BUN of 37, creatinine of 1.54, and GFR of 35, hyperglycemia with glucose of 739. Positive acetone. And urinalysis positive for glucose and ketones. Patient was given IV fluid bolus and started on insulin infusion for DKA. She was admitted under our services to stepdown unit with telemetry at this time. Patient was weaned off of insulin infusion and placed back on carb consistent diet. Patient using her own insulin pump to control blood glucose levels and these levels are being monitored closely by staff. Patient did develop acute kidney injury with creatinine elevating up to 2.01 but this resolved with IV fluid hydration and creatinine is currently 1.25. Overnight on 04/08/23 through 04/09/23 patient began running an elevated temperature as high as 103F. Covid PCR, influenza A, influenza B, and RSV were obtained all negative. Chest x-ray initially completed negative for acute process. CT sinuses negative for acute process. Patient then reports tenderness right groin from previous stent placement and ultrasound completed negative for abscess or abnormality. Later in the evening patient went from room air to acute respiratory distress with hypoxia with oxygen saturation of 76% on room air. Patient started on 4 L via nasal cannula and was titrated up to 15 L via nonrebreather. Repeat chest x-ray completed at this time showing right lower lobe infiltrate consistent with aspiration pneumonitis. Pro-calcitonin 10.90. Oral antibiotics discontinued and patient placed on IV antibiotics with clindamycin 600 mg every 6 hours and Rocephin 2 g every 24 hours for treatment of aspiration pneumonitis. Physical exam: Patient seen and fully evaluated at bedside this morning. Patient sitting up in the chair and appears agitated. Patient wanting to go home. Discussed with RN to complete ambulatory pulse ox. RN reports patient was taken off of oxygen and shortly later just prior to ambulation noted to be 79% on room air. Discussed with beck operator as patient unable to get home oxygen, patient will require an additional complaints in the hospital until she can be fully weaned off of oxygen. Vital signs reviewed and stable. General: Nontoxic, no distress and appears stated age. Derm: Skin warm and dry, normal coloration for ethnicity. Head: Atraumatic, normocephalic and symmetric. Eyes: EOMs intact, no lid lag, and anicteric sclera Mouth: no lip lesions, mucus membranes moist Cardiovascular: regular rate and rhythm with normal S1S2, systolic murmur, positive posterior tibial pulses bilaterally, and cap refill < 2 seconds. Lungs: Respirations even, regular, and unlabored on 2 L O2. Lungs diminished with No noted crackles, rhonchi, rales, or wheezing, and no accessory muscle usage. Abdominal: soft, nontender to palpation, no guarding, no appreciable organomegaly Ext: ROM intact. No gross muscle atrophy, no edema, no contractures Neuro: Speech clear, face symmetrical and CN II-XII grossly intact with no noted focal neuro deficits Psych: Alert and oriented to person, place, time, and situation. Appropriate and pleasant affect. Assessment and Plan of Care: Aspiration pneumonia right lower lobe, it is believed patient aspirated with emesis experienced during episode of DKA Acute hypoxic respiratory failure secondary to above Sepsis secondary to above Transaminitis secondary to sepsis Acute kidney injury on stage III chronic kidney disease with baseline creatinine of 1.0 Hyponatremia. Multifactorial secondary to sepsis, AKA, and hyperglycemia Metabolic acidosis, resolved Diabetic ketoacidosis, resolved -Morning labs reviewed. BMP showing resolution of metabolic acidosis. Sodium 135, chloride 104, I carb 24, and anion gap of 7. Renal function also improving with BUN 44, creatinine 1.30, and GFR 43. -Nephrology following, patient remains on bicarb infusion and 50 mL per hour and nephrology recommending continuation of sodium bicarb tablets 650 mg 3 times daily. -Patient resumed home insulin pump yesterday for optimal control of blood glucose levels, since resumption of personal insulin pump blood glucose levels have ranged between 126-281 over the past 24 hours. -Wean down FiO2 as tolerated to maintain SpO2 equal to or greater than 90%, patient remains on 2 L O2 via nasal cannula (Home O2 [place], RN reports patient desaturated to 79% room air) -Continue with IV antibiotics with Rocephin 2 g daily and clindamycin 600 mg every 6 hours (day 6 of antibiotics after elevated pro-calcitonin of 10.90) -Industrial Maintenance Tech following and recommending discharge once patient can be weaned off of oxygen -Continue glucose checks 5 times daily before meals, at bedtime and at 2 AM Iron deficiency anemia -Hemoglobin stable at 9.3. Iron 8, TIBC 189, iron percent saturation 4.10, transferrin 135, and total ferritin 398. -Today is day 2/3 IV iron supplementation with Ferric sodium gluconate 125 mg. Recommend discharge home on daily ferrous sulfate 325 mg. Acute metabolic encephalopathy secondary to aspiration pneumonia, resolved -CT brain and upon review of radiology report was negative for acute intracranial process. -Patient's mentation much improved this morning and she is alert and oriented to person, place, time, and situation. Hyperkalemia, secondary to acute kidney injury resolved Chronic conditions: CAD with previous stent placement Hypertension Hyperlipidemia Peripheral vascular disease status post bilateral iliac artery stenting 01/31/23 Painful lump right groin 2 months -Ultrasound right groin completed showing no organizing fluid collection or mass seen. -Patient to continue daily Norvasc 5 mg twice daily, atenolol 25 mg nightly, atorvastatin 80 mg nightly, Plavix 75 mg daily, and isosorbide mononitrate 30 mg nightly Obstructive sleep apnea CPAP dependent nightly. -Order placed for patient to continue CPAP nightly and well napping. CODE STATUS: DO NOT RESUSCITATE/DO NOT INTUBATE DVT prophylaxis: heparin Discussed with: Patient, beck operator and RN Anticipated discharge date: clinical course to determine Anticipated discharge place: Home Patient was seen independently by Nurse Practitioner. This document was prepared using [employer] dictation software. Please allow for errors in technical specialist while rare they do occur. I reviewed the documentation as provided by the GHAZAL above, who is the original author of this note. I agree with the documented assessment and plan, with the following changes: none Objective - Vital Signs Vital signs: Vital Signs Temp 98.2 F 04/13/23 20:00 Pulse 61 04/14/23 04:00 Resp 18 04/14/23 04:00 BP 135/57 04/14/23 04:00 Pulse Ox 94 L 04/14/23 04:00 FiO2 100 04/10/23 01:45 Intake & Output 04/13/23 04/14/23 04/14/23 18:59 06:59 18:59 Intake Total 118 250 Balance 118 250 Intake: Oral 118 250 Other: Voiding Method Bedside Commode # Voids 3 1 - Labs CBC & Chem 7: 04/13/23 07:16 04/14/23 07:08 Labs: Abnormal Lab Results - Last 24 Hours (Table) 04/13/23 04/13/23 04/13/23 Range/Units 07:16 07:16 11:40 RBC 3.05 L (3.80-5.40) m/uL Hgb 9.3 L (11.4-16.0) gm/dL Hct 29.1 L (34.0-46.0) % Plt Count 147 L (150-450) k/uL Sodium 129 L (137-145) mmol/L Carbon Dioxide 15 L (22-30) mmol/L BUN 49 H (7-17) mg/dL Creatinine 1.64 H (0.52-1.04) mg/dL Glucose 259 H (74-99) mg/dL POC Glucose (mg/dL) 350 H (70-110) mg/dL Calcium 7.2 L (8.4-10.2) mg/dL Magnesium 2.5 H (1.6-2.3) mg/dL AST 82 H (14-36) U/L ALT 44 H (4-34) U/L Total Protein 4.8 L (6.3-8.2) g/dL Albumin 2.5 L (3.5-5.0) g/dL 04/13/23 04/13/23 04/14/23 Range/Units 16:19 20:07 02:29 RBC (3.80-5.40) m/uL Hgb (11.4-16.0) gm/dL Hct (34.0-46.0) % Plt Count (150-450) k/uL Sodium (137-145) mmol/L Carbon Dioxide (22-30) mmol/L BUN (7-17) mg/dL Creatinine (0.52-1.04) mg/dL Glucose (74-99) mg/dL POC Glucose (mg/dL) 279 H 281 H 126 H (70-110) mg/dL Calcium (8.4-10.2) mg/dL Magnesium (1.6-2.3) mg/dL AST (14-36) U/L ALT (4-34) U/L Total Protein (6.3-8.2) g/dL Albumin (3.5-5.0) g/dL 04/14/23 04/14/23 Range/Units 06:15 07:08 RBC (3.80-5.40) m/uL Hgb (11.4-16.0) gm/dL Hct (34.0-46.0) % Plt Count (150-450) k/uL Sodium 135 L (137-145) mmol/L Carbon Dioxide (22-30) mmol/L BUN 44 H (7-17) mg/dL Creatinine 1.30 H (0.52-1.04) mg/dL Glucose 120 H (74-99) mg/dL POC Glucose (mg/dL) 130 H (70-110) mg/dL Calcium 7.6 L (8.4-10.2) mg/dL Magnesium 2.4 H (1.6-2.3) mg/dL AST (14-36) U/L ALT (4-34) U/L Total Protein (6.3-8.2) g/dL Albumin (3.5-5.0) g/dL Microbiology - Last 24 Hours (Table) 04/10/23 19:19 Blood Culture - Preliminary Blood
--- NOTE | 2023-04-14 15:06 | P.PN ---
Subjective Progress Note Date: 04/14/23 Follow-up for acute kidney injury. Doing better. No nausea vomiting diarrhea. No documented urine output. Objective - Vital Signs Vital signs: Vital Signs Temp 98.6 F 04/14/23 08:50 Pulse 52 L 04/14/23 08:50 Resp 18 04/14/23 08:50 BP 140/65 04/14/23 08:50 Pulse Ox 95 04/14/23 08:50 FiO2 100 04/10/23 01:45 Intake & Output 04/13/23 04/14/23 04/14/23 18:59 06:59 18:59 Intake Total 118 250 0 Balance 118 250 0 Intake: Oral 118 250 0 Other: Voiding Method Bedside Commode Bedside Commode # Voids 3 1 - Exam No acute distress S1-S2 heard Lungs clear No edema - Labs CBC & Chem 7: 04/13/23 07:16 04/14/23 07:08 Labs: Abnormal Lab Results - Last 24 Hours (Table) 04/13/23 04/13/23 04/14/23 Range/Units 16:19 20:07 02:29 Sodium (137-145) mmol/L BUN (7-17) mg/dL Creatinine (0.52-1.04) mg/dL Glucose (74-99) mg/dL POC Glucose (mg/dL) 279 H 281 H 126 H (70-110) mg/dL Calcium (8.4-10.2) mg/dL Magnesium (1.6-2.3) mg/dL 04/14/23 04/14/23 04/14/23 Range/Units 06:15 07:08 12:57 Sodium 135 L (137-145) mmol/L BUN 44 H (7-17) mg/dL Creatinine 1.30 H (0.52-1.04) mg/dL Glucose 120 H (74-99) mg/dL POC Glucose (mg/dL) 130 H 149 H (70-110) mg/dL Calcium 7.6 L (8.4-10.2) mg/dL Magnesium 2.4 H (1.6-2.3) mg/dL Microbiology - Last 24 Hours (Table) 04/10/23 19:19 Blood Culture - Preliminary Blood Assessment and Plan Assessment: #1 acute kidney injury secondary to septic ATN and component of hypovolemia. #2 chronic kidney disease stage III with a baseline creatinine of 1-1.2 MG per DL suspect diabetic kidney disease. #3 type 1 diabetes mellitus #4 DKA resolved #5 anemia with chronic kidney disease #6 hypertension with chronic kidney disease Plan: #1 renal function stable and improving. #2 stop sodium bicarbonate #3 stable from nephrology for discharge.
[2023-04-14 16:24] LABS: Glucose,Whole Blood 133 mg/dL (70-110)
[2023-04-14 20:01] LABS: Glucose,Whole Blood 158 mg/dL (70-110)
[2023-04-14] MEDS: atenoloL 25 MG TAB PO SCH (20:20)
[2023-04-14] MEDS: EZETIMIBE 10 MG TAB PO SCH (20:21)
[2023-04-14] MEDS: ATORVASTATIN 80 MG TAB PO SCH (20:21)
[2023-04-14] MEDS: ISOSORBIDE MONONITRATE ER 30 MG TAB.ER.24H PO SCH (20:21)
[2023-04-15 02:09] LABS: Glucose,Whole Blood 159 mg/dL (70-110)
[2023-04-15 06:06] LABS: Glucose,Whole Blood 97 mg/dL (70-110)
[2023-04-15] MEDS: CLINDAMYCIN 600 MG in DEXTROSE 5% IN WATER 50 ML IVPB SCH ×2 (06:25)
[2023-04-15 07:40] LABS: HCT 28.3 % (34.0-46.0); HGB 9.5 gm/dL (11.4-16.0); MCH 30.5 pg (25.0-35.0); MCHC 33.4 g/dL (31.0-37.0); MCV 91.2 fL (80.0-100.0); Mean Platelet Volume 9.5; Platelet Count 257 k/uL (150-450); RDW 15.3 % (11.5-15.5); WBC 12.1 k/uL (3.8-10.6)
[2023-04-15 07:46] LABS: Albumin 2.4 g/dL (3.5-5.0); Calcium 7.3 mg/dL (8.4-10.2); Magnesium 2.2 mg/dL (1.6-2.3); Potassium 3.4 mmol/L (3.5-5.1); Total Bilirubin 0.6 mg/dL (0.2-1.3); Total Protein 4.8 g/dL (6.3-8.2)
[2023-04-15] MEDS: INSULIN PUMP MEAL BOLUS 1 UNIT MISC MISCELLANE SCH ×2 (09:04→12:32)
[2023-04-15] MEDS: DEXTROSE 5% IN WATER 1,000 ML with SODIUM BICARB (1 MEQ/ML) 150 ML IV SCH (09:12)
[2023-04-15] MEDS: HEPARIN SODIUM,PORCINE/PF 5,000 UNIT/0.5 ML SYRINGE SQ SCH (09:12)
[2023-04-15] MEDS: CLOPIDOGREL 75 MG TAB PO SCH (09:13)
[2023-04-15] MEDS: FAMOTIDINE 20 MG TAB PO SCH (09:13)
[2023-04-15] MEDS: amLODIPine 5 MG TAB PO SCH (09:13)
[2023-04-15] MEDS: SODIUM FERRIC GLUCONAT-SUCROSE 125 MG in SODIUM CHLORIDE 0.9% 100 ML IVPB SCH (10:26)
--- NOTE | 2023-04-15 10:33 | P.DS ---
Providers Date of admission: 04/07/23 13:59 Expected date of discharge: 04/15/23 Attending physician: Edwin Schumacher MD Consults: 04/10/23 08:27 Consult Physician Routine Consulting Provider: Rolando Schneider Consult Reason/Comments: aspiation pneumonitis Do you want consulting provider notified?: Yes 04/11/23 15:03 Consult Physician Routine Consulting Provider: Juan Miguel Gibbs Consult Reason/Comments: paul Do you want consulting provider notified?: Yes Primary care physician: Brian Daniele [facility] Course: Discharge Diagnosis: Aspiration pneumonia right lower lobe with sepsis Acute hypoxic respiratory failure secondary to above Transaminitis secondary to sepsis Acute kidney injury on stage III chronic kidney disease with baseline creatinine of 1.0 Hyponatremia Metabolic acidosis Diabetic ketoacidosis Iron deficiency anemia Acute metabolic encephalopathy secondary to aspiration pneumonia Hyperkalemia, secondary to acute kidney injury resolved CAD with previous stent placement Hypertension Hyperlipidemia Peripheral vascular disease status post bilateral iliac artery stenting 01/31/23 Painful lump right groin 2 months Obstructive sleep apnea CPAP dependent nightly. Hospital Course: Patient is a very pleasant 67-year-old female with CAD and previous stent placement, hypertension, hyperlipidemia, peripheral vascular disease status post bilateral iliac artery stenting on Plavix , type 1 diabetes mellitus with insulin pump, and obstructive sleep apnea CPAP dependent nightly who presented w ith elevated glucose levels and intractable nausea and vomiting. In the emergency department she underwent an extensive evaluation. Vital signs stable upon arrival. Laboratory analysis remarkable for WBC count 14.6, hemoglobin of 11.1, potassium 5, bicarbonate 12, anion gap 22, BUN 37, creatinine 1.54, and glucose of 739. She was acetone positive. Venous blood gas with pH of 7.28 and bicarb of 19. She was started on IV fluid bolus and insulin infusion for DKA. Patient was weaned off of insulin infusion and placed back on carb consistent diet. Patient using her own insulin pump to control blood glucose levels and these levels are being monitored closely by staff. Patient did develop acute kidney injury with creatinine elevating up to 2.01 but this resolved with IV fluid hydration and creatinine is currently 1.25. Overnight on 04/08/23 through 04/09/23 patient began running an elevated temperature as high as 103F. Covid PCR, influenza A, influenza B, and RSV were obtained all negative. Chest x-ray initially completed negative for acute process. CT sinuses negative for acute process. Patient then reports tenderness right groin from previous stent placement and ultrasound completed negative for abscess or abnormality. Later in the evening patient went from room air to acute respiratory distress with hypoxia with oxygen saturation of 76% on room air. Patient started on 4 L via nasal cannula and was titrated up to 15 L via nonrebreather. Repeat chest x-ray completed at this time showing right lower lobe infiltrate consistent with aspiration pneumonitis. Pro-calcitonin 10.90. Oral antibiotics discontinued and patient placed on IV antibiotics with clindamycin 600 mg every 6 hours and Rocephin 2 g every 24 hours for treatment of aspiration pneumonitis. She has continued to improve slowly. She initially was hypoxic when recovering, but this resolved. Follow up: Dr. Perez next week, CBC in 2 days with results to Dr. Perez, 2 additional days of omnicef and clinda, 1 week of lactobacillus. Patient seen and examined at bedside. No shortness of breath, doing well, up and walking around, no nausea. Vital signs reviewed and stable. General: nontoxic, no distress, appears at stated age Cardiovascular: S1S2 reg, no murmur, positive posterior tibial pulse bilateral, Lungs: CTA bilateral, no rhonchi, no rales , no accessory muscle use Abdominal: soft, nontender to palpation, no guarding, no appreciable organomegaly Ext: no gross muscle atrophy, no edema, no contractures Neuro: CN II-XI grossly intact, no focal neuro deficits Psych: Alert, oriented, appropriate affect A total of 34 minutes of time were spent preparing this complex discharge summary. Patient was discharged on 04/15/23. This dictation was prepared using [employer] voice recognition software. Though every attempt is made to correct errors during during dictation some may still exist. Plan - Discharge Summary Discharge Rx Participant: No New Discharge Prescriptions: New clindamycin HCL 300 mg PO TID #6 capsule Lactobacillus Acidophilus [Acidophilus Probiotic] 1 each PO AC-BID #14 capsule Cefdinir [Omnicef] 300 mg PO Q12HR #4 capsule Continue Losartan Potassium 100 mg PO HS Isosorbide Mononitrate ER [Imdur] 30 mg PO HS Atorvastatin [Lipitor] 80 mg PO HS #90 tab amLODIPine BESYLATE [Norvasc] 5 mg PO DAILY Insulin Aspart (For Pump) [NovoLOG (For Pump)] 0.01 unit SQ-PUMP CONTINUOUS Aspirin EC [Ecotrin Low Dose] 81 mg PO HS Ezetimibe [Zetia] 10 mg PO HS Vitamin D3(Unknown Dose) 1 tab PO DAILY Pantoprazole Sodium [Protonix] 40 mg PO DAILY atenoloL 25 mg PO HS Solifenacin Succinate [Vesicare] 5 mg PO HS Famotidine 40 mg PO DAILY Clopidogrel [Plavix] 75 mg PO DAILY #30 tablet Discharge Medication List Isosorbide Mononitrate ER [Imdur] 30 mg PO HS 12/22/14 [History] Losartan Potassium 100 mg PO HS 12/22/14 [History] Atorvastatin [Lipitor] 80 mg PO HS #90 tab 12/25/14 [Rx] amLODIPine BESYLATE [Norvasc] 5 mg PO DAILY 06/30/15 [History] Insulin Aspart (For Pump) [NovoLOG (For Pump)] 0.01 unit SQ-PUMP CONTINUOUS 11/09/16 [History] Aspirin EC [Ecotrin Low Dose] 81 mg PO HS 12/28/16 [History] Ezetimibe [Zetia] 10 mg PO HS 08/23/22 [History] Famotidine 40 mg PO DAILY 08/23/22 [History] Solifenacin Succinate [Vesicare] 5 mg PO HS 08/23/22 [History] atenoloL 25 mg PO HS 08/23/22 [History] Clopidogrel [Plavix] 75 mg PO DAILY #30 tablet 01/31/23 [Rx] Pantoprazole Sodium [Protonix] 40 mg PO DAILY 04/07/23 [History] Vitamin D3(Unknown Dose) 1 tab PO DAILY 04/07/23 [History] Cefdinir [Omnicef] 300 mg PO Q12HR #4 capsule 04/15/23 [Rx] Lactobacillus Acidophilus [Acidophilus Probiotic] 1 each PO AC-BID #14 capsule 04/15/23 [Rx] clindamycin HCL 300 mg PO TID #6 capsule 04/15/23 [Rx] Follow up Appointment(s)/Referral(s): Brian Perez MD [Primary Care Provider] - 1-2 days Ambulatory/Diagnostic Orders: Complete Blood Count w/diff [LAB.AMB] Location: None Selected Activity/Diet/Wound Care/Special Instructions: Activity: as tolerated Diet: consistent carb Special Instructions: Please continue to check blood sugar 3 times daily Repeat Blood work on Sunday04/17/23 Return with temp greater than 100.4F, worsening breathing, increasing or decreasing blood sugars. Thank you for trusting us with your care. We wish you well on your journey to better health. Discharge Disposition: HOME SELF-CARE
[2023-04-15 11:31] LABS: Glucose,Whole Blood 119 mg/dL (70-110)
--- NOTE | 2023-04-15 12:04 | P.PN ---
Subjective Progress Note Date: 04/15/23 67-year-old female patient with known history of diabetes mellitus along with history of coronary artery disease previous coronary artery stenting, hypertension hyperlipidemia, peripheral Vascular disease with previous bilateral iliac artery stenting. The patient has type 1 diabetes mellitus and the pat abhay's current on insulin pump. She also has obstructive sleep apnea maintained on CPAP therapy. The patient came into the hospital after weekend celebration and the patient was drinking alcoholic beverages. She has had previous episodes of pancreatitis also. She came into the hospital and the patient was having diffuse abdominal pain, along with nausea and emesis. She was found to be in a mild component of DKA. Her serum bicarb level was down to 12 and anion gap was at 20. The patient also had an acute kidney injury with a BUN of 37 and a creatinine 1.5. Blood sugar was 739. Acetone was positive. PH was at 7.28 with a CBC showing a WBC count of 14.6 and the hemoglobin of 11.1. The patient was using her on insulin pump to control the blood sugar. The patient was treated accordingly. The patient however, developed an acute hypoxic respiratory failure which appeared to be febrile and tachypneic and hypoxic. She apparently aspirated. She was having some altered mentation. Chest x-ray was ordered and the patient was identified to have a right lower lobe pulmonary infiltrate which is of a new onset of the patient's current on accommodation of Rocephin and Zithromax. On today's evaluation, she is awake and alert and communicating. She is on 4 L of oxygen by nasal cannula. There is obvious triggers the right lung base consistent with an underlying aspi ration. The blood gas showed a pH of 7.4 with a pCO2 of 32 and pO2 of 55 and this was on FiO2 of 44%. The white cell count was 18.4 with a hemoglobin of 10 and a platelet count of 170. On today's evaluation of 04/10/2023, the patient is complaining of some vague abdominal pain. She is known to have previous episodes of pancreatitis. Otherwise, she is on oxygen. His oxygen requirements went up yesterday and the patient was placed on 8 L and currently she is down to 5 L again. Pulse ox on 8 L was up to 97%. The chest x-ray from today shows improvement in the right lower lobe pulmonary infiltrates. The patient's blood sugar from today is 288. Motor the patient was hospitalized for an acute DKA which is essentially recovered and the patient's anion gap is down to 11 and a serum bicarbs at 17. Sodium levels of 129. The white cycles of 8.5 with a hemoglobin of 8.8 and a platelet count of 117. The patient has limited cough. No significant sputum production. No signs of any respiratory distress. She is known to have coronary artery disease with previous coronary stenting, hypertension and hyperlipidemia and peripheral vascular disease. She is known to be diabetic and she is on insulin pump on outpatient basis. She does have a component of chronic kidney disease, stage III On today's evaluation of 04/12/2023, the patient has no new complaints. She still on oxygen at 4 L/m nasal cannula. No significant shortness of breath. No significant abdominal pain. The ultrasound of THE ABDOMEN WAS DONE AND WAS ESSENTIALLY NEGATIVE A NONSPECIFIC.. Meanwhile, the patient was given Levemir insulin which cause some hypoglycemia. The patient will be taken off the Levemir insulin and she'll be gradually transitioned into her insulin pump. She remains on accommodation of Rocephin and clindamycin. Blood work from today shows a BUN of 50 and a creatinine of 1.6 and a WBC count of 6.5 with a hemoglobin of 9.3 and a platelet count of 133. Nephrology was also consulted on the case regarding the renal failure noted the patient had an underlying chronic kidney disease stage III . Recovered from the DKA and the patient's gap is currently closed at 8 with a serum bicarb of 20 On 04/13/2023, the patient's condition is stable. The patient was already weaned down to 2 L of oxygen by nasal cannula and the patient is going to be placed on room air oxygen and the oxygen saturation is going to be monitored. No respiratory difficulties for now. The patient remains on a combination of Rocephin and clindamycin. On a separate note, the patient is being seen by nephrology. The patient's chronic kidney disease. Creatinine is stable. The patient has developed recurrent non-anion gap metabolic acidosis and the patient is currently on a bicarb infusion per recommendations given by tracie. The patient is also on a insulin pump. The most recent blood work shows a WBC count of 7.2 with a hemoglobin of 9.3 and a platelet count of 147. BUN is at 49 with a creatinine of 1.6 and the sodium is at 129. Blood sugars are fluctuating. Currently is elevated at 259. On 04/14/2023, no new complaints and the patient is doing well. He is on 2 L of oxygen by nasal cannula with a pulse ox of 94%. On room air, her pulse ox is 91%. The patient had a non-anion gap metabolic acidosis which is recovered and the serum bicarbs of 24. The patient's creatinine is down to 1.3. No nausea or emesis. She is back on her insulin pump. On 04/15/2023, the patient is doing well, no complaints, oxygenation is improved and the patient is going to go home on a combination of Omnicef and clindamycin. No need for home O2. Pulse ox is 94% on room air oxygen. Objective - Vital Signs Vital signs: Vital Signs Temp 99 F 04/15/23 03:28 Pulse 57 L 04/15/23 03:28 Resp 18 04/15/23 03:28 BP 127/50 04/15/23 03:28 Pulse Ox 93 L 04/15/23 03:28 FiO2 100 04/10/23 01:45 Intake & Output 04/14/23 04/15/23 04/15/23 18:59 06:59 18:59 Intake Total 490 Output Total 0 Balance 490 0 Intake: Oral 490 Output: Gastric Drainage 0 Urine 0 Stool 0 Urine/Stool Mix 0 Emesis 0 Oral Regurgitation 0 Other: Voiding Method Bedside Commode Bedside Commode # Voids 1 # Bowel Movements 0 - Exam General: Nontoxic, no distress and appears stated age. The patient is currently comfortable on room air oxygen for now Head: Atraumatic, normocephalic and symmetric. Eyes: EOMs intact, no lid lag, and anicteric sclera Mouth: no lip lesions, mucus membranes moist Cardiovascular: regular rate and rhythm with normal S1S2, systolic murmur, positive posterior tibial pulses bilaterally, and cap refill < 2 seconds. Lungs: Respirations even, regular, and unlabored on room air. Lungs CTA bilaterally, no rhonchi, no rales, no wheezing, and no accessory muscle usage. The patient's corrected in the right lung base Abdominal: soft, nontender to palpation, no guarding, no appreciable organomegaly Ext: ROM intact. No gross muscle atrophy, no edema, no contractures Neuro: Speech clear, face symmetrical and CN II-XII grossly intact with no noted focal neuro deficits Psych: Alert and oriented to person, place, time, and situation. Appropriate and pleasant affect. - Labs CBC & Chem 7: 04/15/23 06:24 04/15/23 06:24 Labs: Abnormal Lab Results - Last 24 Hours (Table) 04/14/23 04/14/23 04/14/23 Range/Units 12:57 16:23 19:59 WBC (3.8-10.6) k/uL RBC (3.80-5.40) m/uL Hgb (11.4-16.0) gm/dL Hct (34.0-46.0) % Sodium (137-145) mmol/L Potassium (3.5-5.1) mmol/L BUN (7-17) mg/dL POC Glucose (mg/dL) 149 H 133 H 158 H (70-110) mg/dL Calcium (8.4-10.2) mg/dL AST (14-36) U/L ALT (4-34) U/L Total Protein (6.3-8.2) g/dL Albumin (3.5-5.0) g/dL 04/15/23 04/15/23 04/15/23 Range/Units 02:07 06:24 06:24 WBC 12.1 H (3.8-10.6) k/uL RBC 3.10 L (3.80-5.40) m/uL Hgb 9.5 L (11.4-16.0) gm/dL Hct 28.3 L (34.0-46.0) % Sodium 136 L (137-145) mmol/L Potassium 3.4 L (3.5-5.1) mmol/L BUN 27 H (7-17) mg/dL POC Glucose (mg/dL) 159 H (70-110) mg/dL Calcium 7.3 L (8.4-10.2) mg/dL AST 93 H (14-36) U/L ALT 51 H (4-34) U/L Total Protein 4.8 L (6.3-8.2) g/dL Albumin 2.4 L (3.5-5.0) g/dL Microbiology - Last 24 Hours (Table) 04/10/23 19:19 Blood Culture - Preliminary Blood Assessment and Plan Plan: Acute hypoxic respiratory failure secondary to an aspiration pneumonia recovered and the patient's oxygenation is normalized and the patient is currently on room air oxygen. The patient remains on a combination of Rocephin and clindamycin. Chest x-ray shows improved aeration of the right lung Acute right lower lobe aspiration pneumonia, still hypoxic, improvement on the chest x-ray findings Acute Leukocytosis, improving, white cell count is also improved and normalized Altered mental status secondary to above, improved and the patient's mentation is back to normal Diabetes mellitus type 1 maintain on insulin pump on outpatient basis, blood sugars elevated and the patient has a component of non-anion gap metabolic acidosis Diabetic ketoacidosis, resolved Acute kidney injury, resulted fluid resuscitation treatment of DKA. Metabolic acidosis secondary to DKA, resolved, and the patient has a component of melena negative metabolic acidosis Hyperkalemia, resolved Hyponatremia, resolved CAD with previous stent placement Hypertension Hyperlipidemia Peripheral vascular disease status post bilateral iliac artery stenting 01/31/23 Plan Oxygenation is improved and the patient is currently on room air oxygen The patient is to be discharged home on a combination of Omnicef and clindamycin Patient is back on insulin pump Acidosis is recovered Creatinine is improved
[2023-04-15 12:28] VITALS: RESP 16; TEMP 96.6
[2023-04-15 12:29] VITALS: BP 149/72; PULSE 60
== END 2023-04-15 12:50 | disposition home or self-care (01) | DRG 637 ==
LOC: EC 12:07 → 3SCARD 13:59
PROVIDERS: ADMIT Family Medicine; ATTEND Family Medicine
DX: E10.10 Type 1 diabetes mellitus with ketoacidosis without coma (principal); A41.9 Sepsis, unspecified organism; J69.0 Pneumonitis due to inhalation of food and vomit; G93.41 Metabolic encephalopathy; N17.0 Acute kidney failure with tubular necrosis; J96.01 Acute respiratory failure with hypoxia; J96.02 Acute respiratory failure with hypercapnia; R65.20 Severe sepsis without septic shock; E87.1 Hypo-osmolality and hyponatremia; Z87.891 Personal history of nicotine dependence; D50.9 Iron deficiency anemia, unspecified; D63.1 Anemia in chronic kidney disease; E10.22 Type 1 diabetes mellitus with diabetic chronic kidney disease; E10.51 Type 1 diabetes mellitus with diabetic peripheral angiopathy without gangrene; E10.649 Type 1 diabetes mellitus with hypoglycemia without coma; T38.3X5A Adverse effect of insulin and oral hypoglycemic [antidiabetic] drugs, initial encounter; E78.5 Hyperlipidemia, unspecified; E86.1 Hypovolemia; E87.5 Hyperkalemia; F41.9 Anxiety disorder, unspecified; N18.31 Chronic kidney disease, stage 3a; R19.00 Intra-abdominal and pelvic swelling, mass and lump, unspecified site; G25.81 Restless legs syndrome; I12.9 Hypertensive chronic kidney disease with stage 1 through stage 4 chronic kidney disease, or unspecified chronic kidney disease; Z20.822 Contact with and (suspected) exposure to COVID-19; G47.33 Obstructive sleep apnea (adult) (pediatric); I25.10 Atherosclerotic heart disease of native coronary artery without angina pectoris; Z79.02 Long term (current) use of antithrombotics/antiplatelets; Z79.4 Long term (current) use of insulin; Z79.899 Other long term (current) drug therapy; Z95.5 Presence of coronary angioplasty implant and graft; Z96.41 Presence of insulin pump (external) (internal); Z28.21 Immunization not carried out because of patient refusal
CPT/HCPCS: 36415; 36600; 70450; 70486; 71045; 71046; 74018; 76700; 76857; 80048; 80051; 80053; 81003; 82009; 82150; 82306; 82565; 82607; 82728; 82746; 82803; 82805; 82947; 83540; 83550; 83690; 83735; 84100; 84145; 84484; 84520; 85025; 85027; 85610; 85730; 87040; 87502; 87634; 87635; 93005; 94640; 94760; 96361; 96374; 96375; 99291

== ENCOUNTER → 2023-10-13 | Outpatient (CLI) | payer MEDICARE ==
[2023-10-13 23:00] LABS: Basophils # (A) 0.18 X 10*3/uL (0.00-0.10); Basophils % (A) 1.9 %; Eosinophils # (A) 0.43 X 10*3/uL (0.04-0.35); Eosinophils % (A) 4.5 %; HCT 37.3 % (37.2-46.3); HGB 12.3 g/dL (12.0-15.0); Lymphocytes # (A) 3.47 X 10*3/uL (0.90-5.00); Lymphocytes % (A) 36.2 %; MCH 29.1 pg (27.0-32.0); MCV 88.4 FL (80.0-97.0); Mean Platelet Volume 11.1 FL (9.5-12.2); Monocytes # (A) 0.83 X 10*3/uL (0.20-1.00); Monocytes % (A) 8.7 %; NRBC Per 100 WBC 0 X 10*3/uL (0.00-0.01); Neutrophils # (A) 4.65 X 10*3/uL (1.80-7.70); Neutrophils % (A) 48.5 %; Platelet Count 309 X 10*3/uL (140-440); RBC 4.22 X 10*6/uL (4.10-5.20); RDW 15.6 % (11.5-14.5); WBC 9.58 X 10*3/uL (4.50-10.00)
== END | disposition home or self-care (01) ==
LOC: LABWHC1 12:10
PROVIDERS: ATTEND Internal Medicine Gastroenterology
DX: D64.9 Anemia, unspecified (principal)
CPT/HCPCS: 36415; 85025

== ENCOUNTER 2023-10-16 06:39 | Day surgery (SDC) | payer MEDICARE ==
[2023-10-16] MEDS ORDERED: LACTATED RINGERS 1,000 ML IV ONE (06:58)
[2023-10-16] MEDS ORDERED: LACTATED RINGERS 1,000 ML IV SCH (06:59)
[2023-10-16 07:14] LABS: Glucose,Whole Blood 144 mg/dL (70-110)
[2023-10-16 07:25] VITALS: TEMP 97.2
[2023-10-16] MEDS ORDERED: PROPOFOL 10 MG/ML 20 ML VIAL IV ONE (08:00)
[2023-10-16] MEDS ORDERED: LIDOCAINE 1% INJ 10MG/ML (20 ML MDV) ONE (08:00)
--- NOTE | 2023-10-16 08:19 | P.PCN ---
Date of Procedure: 10/16/23 Procedure(s) Performed: Brief history: Patient is a pleasant 67-year-old pleasant white female scheduled for an elective upper endoscopy as well as colonoscopy as a part of evaluation of intermittent episodes of nausea vomiting for the last several months duration. She has long-standing history of diabetes melitis of 40 years duration. His and scheduled for an upper endoscopy as well as colonoscopy as a part of screening for colorectal neoplasia Procedure performed: Esophagogastroduodenoscopy biopsy Colonoscopy Preoperative diagnosis: Intermittent nausea vomiting/history of GERD Screening for colon cancer Anesthesia: MAC Procedure: After informed consent was obtained from the patient was brought into the endoscopy unit and IV sedation was administered by anesthesia under continuous monitoring. Initially upper endoscopy was done. The Olympus GF 160 video endoscope was inserted inserted into the mouth and esophagus intubated without any difficulty and was gradually advanced into the stomach and duodenum and carefully examined. The bulb and second part of the duodenum appeared normal. Biopsies were done from the duodenum to rule out celiac disease The scope was then withdrawn into the stomach adequately insufflated with air and upon careful examination the antrum had diffuse gastritis and biopsies were done from this area. Mucosa of the body, cardia and fundus appeared normal. The scope was then withdrawn into the esophagus. The GE junction was located at 40 cm to the incisors. It appeared regular with no erythema erosions or ulcerations. Rest of the esophagus appeared normal. Patient tolerated the procedure well. At this time the patient continued to remain sedation. Initial digital rectal examination was normal. Olympus CF 160 video colonoscope was then inserted into the rectum and gradually advanced to the cecum without any difficulty. Careful examination was performed as the scope was gradually being withdrawn. The prep was poor and several areas of the colon.. The cecum, ascending colon, transverse colon, descending colon, sigmoid colon and rectum appeared normal. Retroflexion was performed in the rectum and no lesions were noted. Patient tolerated the procedure well. Impression: 1. Upper endoscopy revealed mild diffuse antral gastritis but no evidence of esophagitis or peptic ulcer disease 2. Colonoscopy colonoscopy was normal with no evidence of colorectal neoplasia except she had poor prep Recommendations: Findings of this examination were discussed with the patient as well as a family. She was advised to follow with the biopsy results. She will be seen in office in 2 weeks. Apparently repeat colonoscopy in 5 years.
[2023-10-16 08:32] LABS: Glucose,Whole Blood 143 mg/dL (70-110)
[2023-10-16 09:02] VITALS: BP 148/69; PULSE 53; RESP 18
== END 2023-10-16 09:07 | disposition home or self-care (01) ==
LOC: ORWHC2ENDO 06:39
PROVIDERS: ATTEND Internal Medicine Gastroenterology
DX: Z12.11 Encounter for screening for malignant neoplasm of colon (principal); K29.50 Unspecified chronic gastritis without bleeding; I10 Essential (primary) hypertension; E78.5 Hyperlipidemia, unspecified; I25.10 Atherosclerotic heart disease of native coronary artery without angina pectoris; G47.33 Obstructive sleep apnea (adult) (pediatric); F41.9 Anxiety disorder, unspecified; F32.A Depression, unspecified; Z88.0 Allergy status to penicillin; Z79.82 Long term (current) use of aspirin; Z79.899 Other long term (current) drug therapy; Z90.89 Acquired absence of other organs
CPT/HCPCS: 88305; 43239; G0121; J2001; J2704; 45378

== ENCOUNTER → 2023-11-14 | Outpatient (CLI) | payer MEDICARE ==
[2023-11-14 18:56] LABS: HCT 38.9 % (37.2-46.3); HGB 12.5 g/dL (12.0-15.0); MCH 29.5 pg (27.0-32.0); MCHC 32.1 g/dL (32.0-37.0); MCV 91.7 FL (80.0-97.0); Mean Platelet Volume 10.5 FL (9.5-12.2); NRBC Per 100 WBC 0 X 10*3/uL (0.00-0.01); Platelet Count 295 X 10*3/uL (140-440); RBC 4.24 X 10*6/uL (4.10-5.20); RDW 14.6 % (11.5-14.5); WBC 9.02 X 10*3/uL (4.50-10.00)
[2023-11-14 23:10] LABS: Blood Urea Nitrogen 25.2 mg/dL (9.0-27.0)
[2023-11-14 23:11] LABS: Carbon Dioxide 20.9 mmol/L (21.6-31.8); Chloride 103 mmol/L (96-109); Potassium 4.9 mmol/L (3.5-5.5); Sodium 138 mmol/L (135-145)
== END | disposition home or self-care (01) ==
LOC: LABPAT 12:36
PROVIDERS: ATTEND Internal Medicine Interventional Cardiology
DX: Z01.812 Encounter for preprocedural laboratory examination (principal); R07.9 Chest pain, unspecified
CPT/HCPCS: 80051; 82565; 84520; 85027

== ENCOUNTER 2023-11-19 05:37 | Day surgery (SDC) | payer MEDICARE ==
[2023-11-19] MEDS ORDERED: ALPRAZolam 0.5 MG TAB PO PRN (05:46)
[2023-11-19] MEDS ORDERED: ALPRAZolam 0.25 MG TAB PO PRN (05:46)
[2023-11-19] MEDS ORDERED: HEPARIN SODIUM,PORCINE 10,000 UNIT in SODIUM CHLORIDE 0.9% 1,000 ML IRRIGATION PRN (05:46)
[2023-11-19] MEDS ORDERED: SODIUM CHLORIDE 0.9% 1,000 ML in EMPTY BAG 1 BAG IV SCH (05:46)
[2023-11-19] MEDS ORDERED: NITROGLYCERIN SL TABS 0.4 MG TAB SUBLINGUAL PRN (05:46)
[2023-11-19] MEDS ORDERED: HEPARIN SODIUM,PORCINE (1 ML) 2,500 UNIT in SODIUM CHLORIDE 0.9% 250 ML IRRIGATION PRN (05:46)
[2023-11-19] MEDS ORDERED: SODIUM CHLORIDE 0.9% 1,000 ML IV ONE (06:11)
[2023-11-19 06:30] LABS: Glucose,Whole Blood 132 mg/dL (70-110)
[2023-11-19 06:43] VITALS: RESP 16; TEMP 97.7
[2023-11-19] MEDS ORDERED: ASPIRIN 325 MG TAB PO ONE (07:00)
[2023-11-19] MEDS ORDERED: LIDOCAINE 1% INJ 10MG/ML (20 ML MDV) ONE (07:30)
[2023-11-19] MEDS ORDERED: HEPARIN SODIUM 1,000 UN/ML (10ML VL) ONE (07:30)
[2023-11-19] MEDS ORDERED: fentaNYL (PF) 50 MCG/ML 2 ML AMP ONE (07:30)
[2023-11-19] MEDS ORDERED: VERAPAMIL 2.5 MG/ML 2 ML AMP ONE (07:30)
[2023-11-19] MEDS ORDERED: fentaNYL (PF) 50 MCG/1 ML VIAL IVP ONE (07:32)
[2023-11-19] MEDS ORDERED: LIDOCAINE 1% INJ 10MG/ML (20 ML MDV) SQ ONE (07:33)
[2023-11-19] MEDS ORDERED: VERAPAMIL SYRINGE (5 MG/10 ML) INTRAARTER ONE (07:35)
[2023-11-19] MEDS ORDERED: MIDAZOLAM 2 MG/2 ML VIAL IVP ONE (07:37)
[2023-11-19] MEDS ORDERED: HEPARIN SODIUM 1,000 UN/ML (10ML VL) IV ONE (07:38)
[2023-11-19] MEDS ORDERED: IOPAMIDOL-370 100ML BTL INJ ONE (07:44)
[2023-11-19] MEDS ORDERED: NON FORMULARY DRUG (Desvenlafaxine [Desvenlafaxine Er] 50 MG Tab.Er.24h) PO PRN (07:58)
[2023-11-19] MEDS ORDERED: RX INFO: IV CONTRAST WAS GIVEN 1 EACH MISC MISCELLANE PRN (07:58)
[2023-11-19] MEDS ORDERED: Insulin Aspart (For Pump) 100 UNIT/ML VIAL SQ-PUMP SCH (08:00)
[2023-11-19] MEDS ORDERED: SODIUM CHLORIDE 0.9% 1,000 ML IV SCH (08:00)
--- NOTE | 2023-11-19 08:04 | P.CARDCATH ---
Date of Procedure: 11/19/23 Description of Procedure: Cardiac Catheterization: The patient is a 68-year-old female with known history of hypertension, hyperlipidemia, diabetes mellitus and a prior history of CAD who has been complaining of chest discomfort and had an abnormal MPI. Recommendations were made regarding cardiac catheterization, the risks and the complications were discussed with the patient who is in full understanding and agreement. Procedure Description: Patient was brought to laboratory inspector in fasting semi-sedated state after receiving Fentanyl and Benadryl achieiving moderate conscious sedated state. Using Xylocaine Anesthesia and modified Seldinger technique, a 6-Austrian sheath was introduced in the right radial artery . Subsequently, selective coronary angiography was performed using a 5-Austrian 3.5 bend Sharon catheter. Multiple views of the coronary artery including hemiaxial views were obtained. The right Sharon catheter was used to cross the aortic valve and LVEDP was calculated. Following that, catheter and sheath were removed. Hemostasis was obtained with deployment of vascular band . There was no immediate complication. Patient was returned to room in stable condition. Of note, the patient received a total of 4000 units of intravenous heparin as well as intra-arterial verapamil. Findings: Left main: This is a large size vessel, bifurcating into LAD and left circumflex, left main has no obstructive disease LAD: This is a large size vessel, reaching to the apex, giving rise to moderatel y sized diagonal branch. The LAD after the takeoff of the first septal fabric coating supervisor has a 30-40% plaque no evidence of high-grade stenosis Left circumflex: This is a nondominant vessel giving rise to 3 obtuse marginal branch the first one is very proximal. The left circumflex has mild intimal disease with no high-grade stenosis RCA: This is a dominant vessel bifurcating distally to PDA and PLV. The proximal and mid RCA stented segment is patent with no evidence of significant in-stent restenosis. It has 20-30% plaque segment and a 20% plaque distal to the stent with no evidence of high-grade stenosis Left Ventriculogram: Not performed Hemodynamics: He was no gradient across the aortic valve , LVEDP was 10-15 mmHg Conclusion: 1. No evidence of significant restenosis in the RCA stent 2. Mild triple-vessel disease with no progression since 2020 3. Right dominance 4. Normal LVEDP Recommendations: Have recommended to continue medical therapy with the aggressive coronary risks modifications. The findings and the recommendations were discussed with the patient and the family and they were in full understanding and agreement. Duration of sedation is 13 minutes.
[2023-11-19] MEDS ORDERED: CLOPIDOGREL 75 MG TAB PO SCH (09:00)
[2023-11-19 12:43] VITALS: BP 122/78; PULSE 57
[2023-11-19] MEDS ORDERED: NON FORMULARY DRUG (Valsartan [Valsartan] 320 MG Tablet) PO SCH (21:00)
[2023-11-19] MEDS ORDERED: ASPIRIN 81 MG PO SCH (21:00)
[2023-11-19] MEDS ORDERED: EZETIMIBE 10 MG TAB PO SCH (21:00)
[2023-11-19] MEDS ORDERED: amLODIPine 10 MG TAB PO SCH (21:00)
[2023-11-19] MEDS ORDERED: ATORVASTATIN 80 MG TAB PO SCH (21:00)
[2023-11-19] MEDS ORDERED: PANTOPRAZOLE 40 MG TABLET PO SCH (21:00)
[2023-11-19] MEDS ORDERED: FAMOTIDINE 20 MG TAB PO SCH (21:00)
[2023-11-19] MEDS ORDERED: SOLIFENACIN SUCCINATE 5 MG PO SCH (21:00)
[2023-11-19] MEDS ORDERED: ISOSORBIDE MONONITRATE ER 30 MG TAB.ER.24H PO SCH (21:00)
== END 2023-11-19 11:26 | disposition home or self-care (01) ==
LOC: CATHCVL 05:37
PROVIDERS: ATTEND Internal Medicine Interventional Cardiology
DX: I25.10 Atherosclerotic heart disease of native coronary artery without angina pectoris (principal); I10 Essential (primary) hypertension; E78.5 Hyperlipidemia, unspecified; E11.9 Type 2 diabetes mellitus without complications; I73.9 Peripheral vascular disease, unspecified; Z98.61 Coronary angioplasty status; Z79.82 Long term (current) use of aspirin; Z79.899 Other long term (current) drug therapy; Z82.49 Family history of ischemic heart disease and other diseases of the circulatory system
CPT/HCPCS: 93458; 99152; C1769 ×2; C1894; J2250; J2001; J1644; Q9967; J3010

== ENCOUNTER 2023-12-07 16:50 | Inpatient (IN) | payer MEDICARE ==
[2023-12-07 17:14] LABS: Glucose,Whole Blood 535 mg/dL (70-110)
[2023-12-07] MEDS: ASPIRIN 81 MG PO STA ×3 (17:21→17:24)
[2023-12-07 17:26] LABS: Basophils # (A) 0.1 k/uL (0-0.2); Basophils % (A) 1 %; Eosinophils # (A) 0.1 k/uL (0-0.7); Eosinophils % (A) 1 %; HCT 38.9 % (34.0-46.0); HGB 12.8 gm/dL (11.4-16.0); Hypochromasia Slight; Lymphocytes # (A) 1.6 k/uL (1.0-4.8); Lymphocytes % (A) 11 %; MCH 31.1 pg (25.0-35.0); MCHC 32.8 g/dL (31.0-37.0); MCV 94.8 fL (80.0-100.0); Mean Platelet Volume 8.7; Monocytes # (A) 0.5 k/uL (0-1.0); Monocytes % (A) 4 %; Neutrophils # (A) 11.6 k/uL (1.3-7.7); Neutrophils % (A) 82 %; Platelet Count 241 k/uL (150-450); RDW 13.9 % (11.5-15.5); WBC 14.1 k/uL (3.8-10.6)
[2023-12-07 17:32] LABS: Appearance,Urine Clear (Clear); Bilirubin,Urine Negative (Negative); Blood,Urine Negative (Negative); Color,Urine Light Yellow; Glucose,Urine (UA) 4+ (Negative); Ketones,Urine 1+ (Negative); Leukocyte Esterase,Urine Negative (Negative); Nitrite,Urine Negative (Negative); PH, Urine 5.5 (5.0-8.0); Protein,Urine Negative (Negative); Specific Gravity,Urine 1.011 (1.001-1.035); Urobilinogen,Urine <2.0 mg/dL (<2.0)
[2023-12-07 17:38] LABS: ALT 22 U/L (4-34); AST 29 U/L (14-36); African American GFR (CKD) 29 (>60 ml/min/1.73 sqM); Albumin 4.1 g/dL (3.5-5.0); Alkaline Phosphatase 116 U/L (38-126); Amylase 98 U/L (30-110); Anion Gap 19 mmol/L; Blood Urea Nitrogen 45 mg/dL (7-17); Calcium 8.9 mg/dL (8.4-10.2); Carbon Dioxide 12 mmol/L (22-30); Chloride 102 mmol/L (98-107); Lipase 112 U/L (23-300); Non-African American GFR(CKD) 25 (>60 ml/min/1.73 sqM); Potassium 5.7 mmol/L (3.5-5.1); Sodium 133 mmol/L (137-145); Total Bilirubin 0.6 mg/dL (0.2-1.3); Total Protein 6.7 g/dL (6.3-8.2)
[2023-12-07 17:57] LABS: Glucose 534 mg/dL (74-99)
--- NOTE | 2023-12-07 18:01 | XR ---
EXAMINATION TYPE: XR chest 1V portable DATE OF EXAM: 12/07/2023 COMPARISON: 04/13/2023 INDICATION: Abdomen pain TECHNIQUE: Single frontal view of the chest is obtained. FINDINGS: The heart size is normal. The pulmonary vasculature is normal. The lungs are clear. IMPRESSION: 1. No acute pulmonary process.
[2023-12-07] MEDS: INSULIN REGULAR 100 UNIT/ML VIAL (IV) SQ STA (18:31)
[2023-12-07] MEDS: SODIUM CHLORIDE 0.9% 2,000 ML IV ONE (18:32)
[2023-12-07 19:48] LABS: Glucose,Whole Blood 412 mg/dL (70-110)
[2023-12-07 20:52] LABS: Glucose,Whole Blood 292 mg/dL (70-110)
[2023-12-07] MEDS ORDERED: DEXTROSE 50% SYRINGE 50 ML IVP PRN ×2 (21:00)
[2023-12-07] MEDS ORDERED: Magnesium Replacement Protocol 1 EACH MISC MISCELLANE PRN (21:00)
[2023-12-07] MEDS ORDERED: Potassium Replacement Protocol 1 EACH MISC MISCELLANE PRN (21:00)
[2023-12-07 22:31] LABS: Glucose,Whole Blood 167 mg/dL (70-110)
[2023-12-07] MEDS ORDERED: NALOXONE 0.4 MG/ML 1 ML VIAL IV PRN (22:34)
[2023-12-07] MEDS: D5-0.45% NACL WITH KCL 20MEQ/L 1,000 ML IV SCH (23:31)
[2023-12-07] MEDS: INSULIN REGULAR BOLUS (FROM DRIP BAG) IV ONE (23:31)
[2023-12-07] MEDS: INSULIN REGULAR 100 UNIT in SODIUM CHLORIDE 0.9% 100 ML IV SCH (23:32)
[2023-12-07 23:39] LABS: Glucose,Whole Blood 126 mg/dL (70-110)
[2023-12-07 23:47] LABS: VBG PH 7.46 (7.31-7.41)
[2023-12-08 00:09] LABS: African American GFR (CKD) 32 (>60 ml/min/1.73 sqM); Anion Gap 5 mmol/L; Blood Urea Nitrogen 45 mg/dL (7-17); Carbon Dioxide 21 mmol/L (22-30); Chloride 110 mmol/L (98-107); Glucose 122 mg/dL (74-99); Non-African American GFR(CKD) 28 (>60 ml/min/1.73 sqM); Potassium 4.7 mmol/L (3.5-5.1); Sodium 136 mmol/L (137-145)
[2023-12-08 00:35] LABS: Glucose,Whole Blood 86 mg/dL (70-110)
--- NOTE | 2023-12-08 01:08 | P.HPIM ---
History of Present Illness H&P Date: 12/07/23 Chief Complaint: Nausea vomiting 68-year-old female with diabetes mellitus, coronary artery disease Patient coming in with nausea vomiting and uncontrolled blood sugar. She reports that for the first time in her life she took some Mounjaro on Sunday after which she started having severe nausea vomiting with uncontrolled blood sugars she had very poor p.o. intake and not tolerating food. She was describing some vague abdominal discomfort. She does have insulin pump, today came in for evaluation for the symptoms denies any associated fevers chills coughing chest pain trouble breathing denies any urinary or bowel habit changes. Denies any GI bleeding She was found to be in DKA while in the ED, she reports that the last time she was in DKA was in March of last year Denies any tobacco smoking illicit drugs or heavy alcohol review of systems Pertinent positives as noted in HPI. All other systems were reviewed and are negative on exam Constitutional: No acute distress, conversant, pleasant Eyes: Anicteric sclerae, moist conjunctiva, Pupils equal round reactive to light ENMT: NC/AT Oropharynx clear, no erythema, or exudates Neck: Supple, no masses, or JVD No carotid bruits No thyromegaly Lungs: Clear to auscultation Clear to percussion Normal respiratory effort, no accessory muscle use Cardiovascular: Heart regular in rate and rhythm, No murmurs, gallops, or rubs No peripheral edema Abdominal: Soft Nontender, no guarding, rebound or rigidity Abdomen moving with respiration Normoactive bowel sounds No hepatomegaly, No splenomegaly No palpable mass No abdominal wall hernia noted Extremities: No digital cyanosis No clubbing Pedal pulses intact and symmetrical Radial pulses intact and symmetrical No calf tenderness Psychiatric: Alert and oriented to person, place and time Appropriate affect fair judgement Neuro Muscles Strength 5/5 in all 4 extremities Sensation to light touch grossly present throughout Cranial nerves II-XII grossly intact Lymphatics: no palpable cervical or supraclavicular lymph nodes Past Medical History Past Medical History: Coronary Artery Disease (CAD), Chest Pain / Angina, Diabetes Mellitus, Hyperlipidemia, Hypertension, Neurologic Disorder, Sleep Apnea/CPAP/BIPAP, Vascular Disorder Additional Past Medical History / Comment(s): Has Insulin pump, RLS, peripheral neuropathy, poor circulation, PVD, heart murmur, hx pancreatitis X2, bladder leakage, gastric paresis, dupuytren's abelino. hand, CPAP use. recent stress test abnormal per pt. History of Any Multi-Drug Resistant Organisms: None Reported Past Surgical History: Appendectomy, Bladder Surgery, Cholecystectomy, Heart Catheterization, Heart Catheterization With Stent, Orthopedic Surgery, Tubal Ligation Additional Past Surgical History / Comment(s): PTCA with stent, colonoscopy, aortogram, RIGHT FEM POP BYPASS, CATARACTS, bilateral carpal tunnel, right hand surgery. dye procedure. to lower extremities Past Anesthesia/Blood Transfusion Reactions: No Reported Reaction, Motion Si ckness Additional Past Anesthesia/Blood Transfusion Reaction / Comment(s): Legs "jump" when she lies down (RLS). Date of Last Stent Placement:: 12/24/14 Past Psychological History: Anxiety, Depression Smoking Status: Former smoker Past Alcohol Use History: Occasional Past Drug Use History: None Reported - Past Family History Mother Family Medical History: COPD Additional Family Medical History / Comment(s): cirrohsis Father Family Medical History: Cancer Medications and Allergies Home Medications Medication Instructions Recorded Confirmed Type Isosorbide Mononitrate ER [Imdur] 30 mg PO HS 12/22/14 12/07/23 History Atorvastatin [Lipitor] 80 mg PO HS #90 tab 12/25/14 12/07/23 Rx Insulin Aspart (For Pump) [NovoLOG 0.01 unit SQ-PUMP CONTINUOUS 11/09/16 12/07/23 History (For Pump)] Aspirin EC [Ecotrin Low Dose] 81 mg PO HS 12/28/16 12/07/23 History Ezetimibe [Zetia] 10 mg PO HS 08/23/22 12/07/23 History Famotidine 40 mg PO HS 08/23/22 12/07/23 History Pantoprazole Sodium [Protonix] 40 mg PO HS 04/07/23 12/07/23 History Desvenlafaxine [Desvenlafaxine ER] 50 mg PO DAILY PRN 10/12/23 12/07/23 History hydroCHLOROthiazide 25 mg PO HS 10/12/23 12/07/23 History Valsartan 320 mg PO HS 11/14/23 12/07/23 History Clopidogrel [Plavix] 75 mg PO HS 12/07/23 12/07/23 History Solifenacin Succinate [Vesicare] 10 mg PO HS 12/07/23 12/07/23 History Tirzepatide [Mounjaro] 2.5 mg SQ TU 12/07/23 12/07/23 History amLODIPine [Norvasc] 10 mg PO HS 12/07/23 12/07/23 History Allergies Allergy/AdvReac Type Severity Reaction Status Date / Time adhesive tape Allergy Rash/Hives Verified 12/07/23 19:05 Penicillins Allergy Rash/Hives Verified 12/07/23 19:05 Physical Exam Vitals: Vital Signs Temp Pulse Resp BP Pulse Ox 12/07/23 20:49 80 18 128/47 97 12/07/23 19:30 18 128/33 98 12/07/23 18:00 18 156/45 93 L 12/07/23 17:00 164/72 98 12/07/23 16:53 98.1 F 87 18 164/72 95 Intake and Output 12/07/23 12/07/23 12/07/23 06:59 14:59 22:59 Other: Weight 78.018 kg Results CBC & Chem 7: 12/07/23 17:17 12/07/23 23:30 Labs: Abnormal Lab Results - Last 24 Hours (Table) 12/07/23 12/07/23 12/07/23 Range/Units 17:12 17:17 17:17 WBC 14.1 H (3.8-10.6) k/uL Neutrophils # 11.6 H (1.3-7.7) k/uL Sodium (137-145) mmol/L Potassium (3.5-5.1) mmol/L Carbon Dioxide (22-30) mmol/L BUN (7-17) mg/dL Creatinine (0.52-1.04) mg/dL Glucose (74-99) mg/dL POC Glucose (mg/dL) 535 H (70-110) mg/dL Plasma Lactic Acid Driss (0.7-2.0) mmol/L Urine Glucose (UA) 4+ H (Negative) Urine Ketones 1+ H (Negative) 12/07/23 12/07/23 12/07/23 Range/Units 17:17 17:17 19:46 WBC (3.8-10.6) k/uL Neutrophils # (1.3-7.7) k/uL Sodium 133 L (137-145) mmol/L Potassium 5.7 H (3.5-5.1) mmol/L Carbon Dioxide 12 L (22-30) mmol/L BUN 45 H (7-17) mg/dL Creatinine 2.05 H (0.52-1.04) mg/dL Glucose 534 H* (74-99) mg/dL POC Glucose (mg/dL) 412 H (70-110) mg/dL Plasma Lactic Acid Driss 3.6 H* (0.7-2.0) mmol/L Urine Glucose (UA) (Negative) Urine Ketones (Negative) 12/07/23 Range/Units 20:48 WBC (3.8-10.6) k/uL Neutrophils # (1.3-7.7) k/uL Sodium (137-145) mmol/L Potassium (3.5-5.1) mmol/L Carbon Dioxide (22-30) mmol/L BUN (7-17) mg/dL Creatinine (0.52-1.04) mg/dL Glucose (74-99) mg/dL POC Glucose (mg/dL) 292 H (70-110) mg/dL Plasma Lactic Acid Driss (0.7-2.0) mmol/L Urine Glucose (UA) (Negative) Urine Ketones (Negative) Assessment and Plan Assessment: 68-year-old female with coronary artery disease, diabetes mellitus on insulin pump coming in with nausea vomiting abdominal pain after taking Mounjaro on Sunday about 3 to 4 days ago, I discussed the case with ED doctor and accepted the admission for diabetic ketoacidosis with anticipated length of stay more than 2 midnights Diabetic ketoacidosis Start patient on insulin drip per DKA protocol Transition to subcutaneous insulin once anion gap is closed and bicarb is corrected to 18 or above No evidence of infectious source Supportive care IV fluid hydration per DKA protocol Monitor electrolytes and renal function every 4 hours Monitor blood sugar every hour Blood work showing white count 14 most likely reactive to hyperglycemia Hemoglobin 12.8 Acute kidney injury most likely secondary to prerenal ATN from dehydration secondary to DKA BUN 45 creatinine 2 Sodium 133 potassium 5.7 Lactic acidosis 3.6 Continue with IV fluid hydration per DKA protocol Avoid nephrotoxic meds hold valsartan and hydrochlorothiazide Hypertension Controlled Continue with amlodipine Valsartan and hydrochlorothiazide on hold secondary to [facility] Coronary artery disease Continue statin aspirin and Plavix Continue with Imdur's Full code DVT prophylaxis heparin subcu 3 times daily
[2023-12-08 02:01] LABS: Glucose,Whole Blood 61 mg/dL (70-110)
--- NOTE | 2023-12-08 02:28 | ED ---
Nausea/Vomiting/Diarrhea HPI - General Chief complaint: Recheck/Abnormal Lab/Rx Stated complaint: Hyperglycemia Time Seen by Provider: 12/07/23 17:01 Source: EMS Mode of arrival: EMS Limitations: no limitations - History of Present Illness Initial comments: This patient is a 68-year-old woman who presents to have evaluation for nausea, vomiting, and elevated blood sugar. The patient believes she may be having a reaction to her diabetes injection. She states that since she took that, she has been having symptoms that remind her of previous episode of pancreatitis. She states she has had a number of episodes of vomiting and some intermittent abdominal pains. Currently no abdominal pain. She has not noted hematemesis or coffee-ground material. She states she is not tolerating fluids well. I her blood sugar has been running high for the course of the day as well. She has not noted fever or chills, chest pain, cough, dyspnea. MD complaint: nausea, vomiting Onset/Timin -: days(s) Description of Vomiting: food contents Associated Abdominal Pain: Yes Location: diffuse Severity: mild Quality: aching Consistency: now resolved Improves with: none Worsens with: none Associated Symptoms: nausea/vomiting - Related Data Home Medications Medication Instructions Recorded Confirmed Isosorbide Mononitrate ER [Imdur] 30 mg PO HS 12/22/14 12/07/23 Insulin Aspart (For Pump) [NovoLOG 0.01 unit SQ-PUMP CONTINUOUS 11/09/16 12/07/23 (For Pump)] Aspirin EC [Ecotrin Low Dose] 81 mg PO HS 12/28/16 12/07/23 Ezetimibe [Zetia] 10 mg PO HS 08/23/22 12/07/23 Famotidine 40 mg PO HS 08/23/22 12/07/23 Pantoprazole Sodium [Protonix] 40 mg PO HS 04/07/23 12/07/23 Desvenlafaxine [Desvenlafaxine ER] 50 mg PO DAILY PRN 10/12/23 12/07/23 hydroCHLOROthiazide 25 mg PO HS 10/12/23 12/07/23 Valsartan 320 mg PO HS 11/14/23 12/07/23 Clopidogrel [Plavix] 75 mg PO HS 12/07/23 12/07/23 Solifenacin Succinate [Vesicare] 10 mg PO HS 12/07/23 12/07/23 amLODIPine [Norvasc] 10 mg PO HS 12/07/23 12/07/23 Previous Rx's Medication Instructions Recorded Atorvastatin [Lipitor] 80 mg PO HS #90 tab 12/25/14 Allergies Allergy/AdvReac Type Severity Reaction Status Date / Time adhesive tape Allergy Rash/Hives Verified 12/07/23 19:05 Penicillins Allergy Rash/Hives Verified 12/07/23 19:05 Review of Systems ROS Statement: Those systems with pertinent positive or pertinent negative responses have been documented in the HPI. ROS Other: All systems not noted in ROS Statement are negative. Constitutional: Denies: fever, chills Respiratory: Denies: cough, dyspnea Cardiovascular: Denies: chest pain, palpitations Gastrointestinal: Reports: as per HPI, abdominal pain, nausea, vomiting. Denies: diarrhea, hematemesis, melena, hematochezia Genitourinary: Denies: dysuria, hematuria Musculoskeletal: Denies: back pain Skin: Denies: rash Neurological: Denies: headache, weakness, numbness Past Medical History Past Medical History: Coronary Artery Disease (CAD), Chest Pain / Angina, Diabetes Mellitus, Hyperlipidemia, Hypertension, Neurologic Disorder, Sleep Apnea/CPAP/BIPAP, Vascular Disorder Additional Past Medical History / Comment(s): Has Insulin pump, RLS, peripheral neuropathy, poor circulation, PVD, heart murmur, hx pancreatitis X2, bladder leakage, gastric paresis, dupuytren's abelino. hand, CPAP use. recent stress test abnormal per pt. History of Any Multi-Drug Resistant Organisms: None Reported Past Surgical History: Appendectomy, Bladder Surgery, Cholecystectomy, Heart Catheterization, Heart Catheterization With Stent, Orthopedic Surgery, Tubal Ligation Additional Past Surgical History / Comment(s): PTCA with stent, colonoscopy, aortogram, RIGHT FEM POP BYPASS, CATARACTS, bilateral carpal tunnel, right hand surgery. dye procedure. to lower extremities Past Anesthesia/Blood Transfusion Reactions: No Reported Reaction, Motion Sickness Additional Past Anesthesia/Blood Transfusion Reaction / Comment(s): Legs "jump" when she lies down (RLS). Date of Last Stent Placement:: 12/24/14 Past Psychological History: Anxiety, Depression Smoking Status: Former smoker Past Alcohol Use History: Occasional Past Drug Use History: None Reported - Past Family History Mother Family Medical History: COPD Additional Family Medical History / Comment(s): cirrohsis Father Family Medical History: Cancer General Exam Limitations: no limitations General appearance: alert, in no apparent distress Head exam: Present: atraumatic, normocephalic Eye exam: Present: normal appearance. Absent: scleral icterus, conjunctival inj ection ENT exam: Present: mucous membranes dry Neck exam: Present: normal inspection Respiratory exam: Present: normal lung sounds bilaterally. Absent: respiratory distress, wheezes, rales, rhonchi, stridor, accessory muscle use Cardiovascular Exam: Present: regular rate, normal rhythm, normal heart sounds. Absent: systolic murmur, diastolic murmur, rubs, gallop GI/Abdominal exam: Present: soft. Absent: distended, tenderness, guarding, rebound, rigid, mass Extremities exam: Present: normal inspection, normal capillary refill. Absent: pedal edema, calf tenderness Back exam: Present: normal inspection. Absent: CVA tenderness (R), CVA tenderness (L) Neurological exam: Present: alert Skin exam: Present: warm, dry, intact, normal color. Absent: rash Course Vital Signs 12/07/23 12/07/23 12/07/23 16:53 17:00 18:00 Temperature 98.1 F Pulse Rate 87 Respiratory 18 18 Rate Blood Pressure 164/72 164/72 156/45 O2 Sat by Pulse 95 98 93 L Oximetry 12/07/23 12/07/23 19:30 20:49 Temperature Pulse Rate 80 Respiratory 18 18 Rate Blood Pressure 128/33 128/47 O2 Sat by Pulse 98 97 Oximetry Medical Decision Making - Medical Decision Making The patient had chest x-ray that I interpreted as negative for acute infiltrate, pneumothorax, congestive heart failure This patient is a 68-year-old woman presenting to have evaluation for nausea vomiting and elevated blood sugars. The workup reveals that the patient has hyperglycemia and anion gap consistent with DKA. The patient is started on IV fluid and insulin and will be admitted to have further evaluation and treatment. Was pt. sent in by a medical professional or institution (, PA, SAMPLE EXAMINER, urgent care, hospital, or senior care...) When possible be specific @ -[No] Did you speak to anyone other than the patient for history (EMS, parent, family, police, friend...)? What history was obtained from this source @ -[No] Did you review nursing and triage notes (agree or disagree)? Why? @ -[I reviewed and agree with nursing and triage notes] Were old charts reviewed (outside hosp., previous admission, EMS record, old EKG, old radiological studies, urgent care reports/EKG's, senior care records)? Report findings @ -[No old charts were reviewed] Differential Diagnosis (chest pain, altered mental status, abdominal pain women, abdominal pain men, vaginal bleeding, weakness, fever, dyspnea, syncope, headache, dizziness, GI bleed, back pain, seizure, CVA, palpatations, mental health, musculoskeletal)? @ -[Differential Weakness: Hypoglycemia, shock, sepsis, hyponatremia, anemia, infection, ID, ETOH, adverse medicine reaction, overdose, stroke, this is not meant to be an all-inclusive list. EKG interpreted by me (3pts min.). @ -[I interpreted as above] X-rays interpreted by me (1pt min.). @ -I interpreted as above CT interpreted by me (1pt min.). @ -[None done] U/S interpreted by me (1pt. min.). @ -[None done] What testing was considered but not performed or refused? (CT, X-rays, U/S, labs)? Why? @ -[None] What meds were considered but not given or refused? Why? @ -[None] Did you discuss the management of the patient with other professionals (professionals i.e. , PA, SAMPLE EXAMINER, lab, RT, psych nurse, social science manager, salesperson flying squad, teacher, senior administrative services officer, case fitter)? Give summary @ -[Case discussed with admitting physician and treatment recommendations are incorporated Was smoking cessation discussed for >3mins.? @ -[No] Was critical care preformed (if so, how long)? @ -[Yes, 30 minutes Were there social determinants of health that impacted care today? How? (Homelessness, low income, unemployed, alcoholism, drug addiction, tr ansportation, low edu. Level, literacy, decrease access to med. care, intermediate, rehab)? @ -[No] Was there de-escalation of care discussed even if they declined (Discuss DNR or withdrawal of care, Hospice)? DNR status @ -[No] What co-morbidities impacted this encounter? (DM, HTN, Smoking, COPD, CAD, Ca ncer, CVA, ARF, Chemo, Hep., AIDS, mental health diagnosis, sleep apnea, morbid obesity)? @ -[Diabetes Was patient admitted / discharged? Hospital course, mention meds given and route, prescriptions, significant lab abnormalities, going to OR and other pertinent info. @ -[As above Undiagnosed new problem with uncertain prognosis? @ -[No] Drug Therapy requiring intensive monitoring for toxicity (Heparin, Nitro, Insulin, Cardizem)? @ -[Insulin Were any procedures done? @ -[No] Diagnosis/symptom? @ -[Acute DKA Acute kidney injury Acute, or Chronic, or Acute on Chronic? @ -[Acute Uncomplicated (without systemic symptoms) or Complicated (systemic symptoms)? @ -[Uncomplicated Side effects of treatment? @ -[No] Exacerbation, Progression, or Severe Exacerbation? @ -[No] Poses a threat to life or bodily function? How? (Chest pain, USA, ID, pneumonia, PE, COPD, DKA, ARF, appy, cholecystitis, CVA, Diverticulitis, Homicidal, Suicidal, threat to staff... and all critical care pts) @ -[Yes, untreated DKA will progress to severe acidosis and circulatory failure and - Lab Data Result diagrams: 12/07/23 17:17 12/09/23 07:09 Lab Results 12/07/23 12/07/23 12/07/23 Range/Units 17:12 17:17 17:17 WBC 14.1 H (3.8-10.6) k/uL RBC 4.10 (3.80-5.40) m/uL Hgb 12.8 (11.4-16.0) gm/dL Hct 38.9 (34.0-46.0) % MCV 94.8 (80.0-100.0) fL MCH 31.1 (25.0-35.0) pg MCHC 32.8 (31.0-37.0) g/dL RDW 13.9 (11.5-15.5) % Plt Count 241 (150-450) k/uL MPV 8.7 Neutrophils % 82 % Lymphocytes % 11 % Monocytes % 4 % Eosinophils % 1 % Basophils % 1 % Neutrophils # 11.6 H (1.3-7.7) k/uL Lymphocytes # 1.6 (1.0-4.8) k/uL Monocytes # 0.5 (0-1.0) k/uL Eosinophils # 0.1 (0-0.7) k/uL Basophils # 0.1 (0-0.2) k/uL Hypochromasia Slight Sodium (137-145) mmol/L Potassium (3.5-5.1) mmol/L Chloride (98-107) mmol/L Carbon Dioxide (22-30) mmol/L Anion Gap mmol/L BUN (7-17) mg/dL Creatinine (0.52-1.04) mg/dL Est GFR (CKD-EPI)AfAm (>60 ml/min/1.73 sqM) Est GFR (CKD-EPI)NonAf (>60 ml/min/1.73 sqM) Glucose (74-99) mg/dL POC Glucose (mg/dL) 535 H (70-110) mg/dL POC Glu Equipment Operator Wage Hand ID DanyCarolynn delgado, Coco Lactic Ac Sepsis Rflx Plasma Lactic Acid Driss (0.7-2.0) mmol/L Calcium (8.4-10.2) mg/dL Total Bilirubin (0.2-1.3) mg/dL AST (14-36) U/L ALT (4-34) U/L Alkaline Phosphatase (38-126) U/L Troponin I (0.000-0.034) ng/mL Total Protein (6.3-8.2) g/dL Albumin (3.5-5.0) g/dL Amylase (30-110) U/L Lipase (23-300) U/L Urine Color Light Yellow Urine Appearance Clear (Clear) Urine pH 5.5 (5.0-8.0) Ur Specific [place] 1.011 (1.001-1.035) Urine Protein Negative (Negative) Urine Glucose (UA) 4+ H (Negative) Urine Ketones 1+ H (Negative) Urine Blood Negative (Negative) Urine Nitrite Negative (Negative) Urine Bilirubin Negative (Negative) Urine Urobilinogen <2.0 (<2.0) mg/dL Ur Leukocyte Esterase Negative (Negative) 12/07/23 12/07/23 12/07/23 Range/Units 17:17 17:17 17:17 WBC (3.8-10.6) k/uL RBC (3.80-5.40) m/uL Hgb (11.4-16.0) gm/dL Hct (34.0-46.0) % MCV (80.0-100.0) fL MCH (25.0-35.0) pg MCHC (31.0-37.0) g/dL RDW (11.5-15.5) % Plt Count (150-450) k/uL MPV Neutrophils % % Lymphocytes % % Monocytes % % Eosinophils % % Basophils % % Neutrophils # (1.3-7.7) k/uL Lymphocytes # (1.0-4.8) k/uL Monocytes # (0-1.0) k/uL Eosinophils # (0-0.7) k/uL Basophils # (0-0.2) k/uL Hypochromasia Sodium 133 L (137-145) mmol/L Potassium 5.7 H (3.5-5.1) mmol/L Chloride 102 (98-107) mmol/L Carbon Dioxide 12 L (22-30) mmol/L Anion Gap 19 mmol/L BUN 45 H (7-17) mg/dL Creatinine 2.05 H (0.52-1.04) mg/dL Est GFR (CKD-EPI)AfAm 29 (>60 ml/min/1.73 sqM) Est GFR (CKD-EPI)NonAf 25 (>60 ml/min/1.73 sqM) Glucose 534 H* (74-99) mg/dL POC Glucose (mg/dL) (70-110) mg/dL POC Glu Equipment Operator Wage Hand ID Lactic Ac Sepsis Rflx Plasma Lactic Acid Driss 3.6 H* (0.7-2.0) mmol/L Calcium 8.9 (8.4-10.2) mg/dL Total Bilirubin 0.6 (0.2-1.3) mg/dL AST 29 (14-36) U/L ALT 22 (4-34) U/L Alkaline Phosphatase 116 (38-126) U/L Troponin I <0.012 (0.000-0.034) ng/mL Total Protein 6.7 (6.3-8.2) g/dL Albumin 4.1 (3.5-5.0) g/dL Amylase 98 (30-110) U/L Lipase 112 (23-300) U/L Urine Color Urine Appearance (Clear) Urine pH (5.0-8.0) Ur Specific [place] (1.001-1.035) Urine Protein (Negative) Urine Glucose (UA) (Negative) Urine Ketones (Negative) Urine Blood (Negative) Urine Nitrite (Negative) Urine Bilirubin (Negative) Urine Urobilinogen (<2.0) mg/dL Ur Leukocyte Esterase (Negative) 12/07/23 12/07/23 12/07/23 Range/Units 17:57 19:46 20:43 WBC (3.8-10.6) k/uL RBC (3.80-5.40) m/uL Hgb (11.4-16.0) gm/dL Hct (34.0-46.0) % MCV (80.0-100.0) fL MCH (25.0-35.0) pg MCHC (31.0-37.0) g/dL RDW (11.5-15.5) % Plt Count (150-450) k/uL MPV Neutrophils % % Lymphocytes % % Monocytes % % Eosinophils % % Basophils % % Neutrophils # (1.3-7.7) k/uL Lymphocytes # (1.0-4.8) k/uL Monocytes # (0-1.0) k/uL Eosinophils # (0-0.7) k/uL Basophils # (0-0.2) k/uL Hypochromasia Sodium (137-145) mmol/L Potassium (3.5-5.1) mmol/L Chloride (98-107) mmol/L Carbon Dioxide (22-30) mmol/L Anion Gap mmol/L BUN (7-17) mg/dL Creatinine (0.52-1.04) mg/dL Est GFR (CKD-EPI)AfAm (>60 ml/min/1.73 sqM) Est GFR (CKD-EPI)NonAf (>60 ml/min/1.73 sqM) Glucose (74-99) mg/dL POC Glucose (mg/dL) 412 H (70-110) mg/dL POC Glu Equipment Operator Wage Hand ID Angie Cleaning Lactic Ac Sepsis Rflx Y Plasma Lactic Acid Driss 1.6 (0.7-2.0) mmol/L Calcium (8.4-10.2) mg/dL Total Bilirubin (0.2-1.3) mg/dL AST (14-36) U/L ALT (4-34) U/L Alkaline Phosphatase (38-126) U/L Troponin I (0.000-0.034) ng/mL Total Protein (6.3-8.2) g/dL Albumin (3.5-5.0) g/dL Amylase (30-110) U/L Lipase (23-300) U/L Urine Color Urine Appearance (Clear) Urine pH (5.0-8.0) Ur Specific [place] (1.001-1.035) Urine Protein (Negative) Urine Glucose (UA) (Negative) Urine Ketones (Negative) Urine Blood (Negative) Urine Nitrite (Negative) Urine Bilirubin (Negative) Urine Urobilinogen (<2.0) mg/dL Ur Leukocyte Esterase (Negative) 12/07/23 12/07/23 Range/Units 20:48 22:28 WBC (3.8-10.6) k/uL RBC (3.80-5.40) m/uL Hgb (11.4-16.0) gm/dL Hct (34.0-46.0) % MCV (80.0-100.0) fL MCH (25.0-35.0) pg MCHC (31.0-37.0) g/dL RDW (11.5-15.5) % Plt Count (150-450) k/uL MPV Neutrophils % % Lymphocytes % % Monocytes % % Eosinophils % % Basophils % % Neutrophils # (1.3-7.7) k/uL Lymphocytes # (1.0-4.8) k/uL Monocytes # (0-1.0) k/uL Eosinophils # (0-0.7) k/uL Basophils # (0-0.2) k/uL Hypochromasia Sodium (137-145) mmol/L Potassium (3.5-5.1) mmol/L Chloride (98-107) mmol/L Carbon Dioxide (22-30) mmol/L Anion Gap mmol/L BUN (7-17) mg/dL Creatinine (0.52-1.04) mg/dL Est GFR (CKD-EPI)AfAm (>60 ml/min/1.73 sqM) Est GFR (CKD-EPI)NonAf (>60 ml/min/1.73 sqM) Glucose (74-99) mg/dL POC Glucose (mg/dL) 292 H 167 H (70-110) mg/dL POC Glu Equipment Operator Wage Hand ID Angie Cleaning Tina Lactic Ac Sepsis Rflx Plasma Lactic Acid Driss (0.7-2.0) mmol/L Calcium (8.4-10.2) mg/dL Total Bilirubin (0.2-1.3) mg/dL AST (14-36) U/L ALT (4-34) U/L Alkaline Phosphatase (38-126) U/L Troponin I (0.000-0.034) ng/mL Total Protein (6.3-8.2) g/dL Albumin (3.5-5.0) g/dL Amylase (30-110) U/L Lipase (23-300) U/L Urine Color Urine Appearance (Clear) Urine pH (5.0-8.0) Ur Specific [place] (1.001-1.035) Urine Protein (Negative) Urine Glucose (UA) (Negative) Urine Ketones (Negative) Urine Blood (Negative) Urine Nitrite (Negative) Urine Bilirubin (Negative) Urine Urobilinogen (<2.0) mg/dL Ur Leukocyte Esterase (Negative) Critical Care Time Critical Care Time: Yes (30 minutes) Disposition Clinical Impression: DKA (diabetic ketoacidoses), [facility] (acute kidney injury) Disposition: ADMITTED IP TO THIS [facility] Condition: Stable Is patient prescribed a controlled substance at d/c from ED?: No
[2023-12-08 02:37] LABS: Glucose,Whole Blood 52 mg/dL (70-110)
[2023-12-08] MEDS: Insulin Aspart (For Pump) 100 UNIT/ML VIAL SQ-PUMP SCH (02:39)
[2023-12-08 03:01] LABS: Glucose,Whole Blood 74 mg/dL (70-110)
[2023-12-08] MEDS: INSULIN NPH 100 UNIT/ML 10 ML VIAL SQ ONE (03:21)
[2023-12-08 03:41] LABS: Glucose,Whole Blood 70 mg/dL (70-110)
[2023-12-08 04:42] LABS: African American GFR (CKD) 34 (>60 ml/min/1.73 sqM); Anion Gap 3 mmol/L; Blood Urea Nitrogen 42 mg/dL (7-17); Carbon Dioxide 23 mmol/L (22-30); Chloride 112 mmol/L (98-107); Non-African American GFR(CKD) 30 (>60 ml/min/1.73 sqM); Potassium 4.3 mmol/L (3.5-5.1); Sodium 138 mmol/L (137-145)
[2023-12-08 04:46] LABS: Glucose 45 mg/dL (74-99)
[2023-12-08 04:52] LABS: Glucose,Whole Blood 44 mg/dL (70-110)
[2023-12-08] MEDS: INSULIN ASPART (NovoLOG) 100 UNIT/ML VIAL SQ SCH (05:16)
[2023-12-08 05:50] LABS: Glucose,Whole Blood 103 mg/dL (70-110)
[2023-12-08 07:15] LABS: Glucose,Whole Blood 179 mg/dL (70-110)
[2023-12-08] MEDS: HEPARIN SODIUM,PORCINE 5,000 UNIT/ML 1 ML VIAL SQ SCH (08:03)
[2023-12-08] MEDS: ONDANSETRON 4 MG/2 ML VIAL IVP PRN (10:09)
[2023-12-08 12:25] LABS: Glucose,Whole Blood 337 mg/dL (70-110)
[2023-12-08 13:12] VITALS: BMI 31.6
[2023-12-08] MEDS ORDERED: DESVENLAFAXINE SUCCINATE 50 MG TAB.ER.24H PO PRN (14:11)
--- NOTE | 2023-12-08 14:13 | P.PN ---
Subjective Progress Note Date: 12/08/23 Hospital Course: 68-year-old female with history of diabetes on insulin pump, coronary artery disease, dyslipidemia, hypertension presenting with nausea and vomiting and hyperglycemia. She started Mounjaro this week, and started develop abdominal symptoms leading to nausea vomiting difficulty tolerating food. Her continuous glucose monitor Reading high glucose, and she subsequently presented to the [facility]. On initial presentation, vital signs were within normal limits except for slight hypertension, initial blood work showed WBC of 14.1, sodium 133, potassium 5.7, creatinine 2.05, glucose 534, lactate 3.6, troponin negative, urine ketones 1+, serum ketone negative. pH was 7.46, pCO2 29. Patient was started on IV insulin, and quickly dropped her blood sugars all the way to 45. Patient is now off of IV insulin. Subjective: Patient seen and examined at bedside. No acute events overnight. She was having nausea vomiting this morning, but not able to tolerate oral intake. Pertinent positives and negatives as discussed above, a complete review of systems was performed and all other systems are negative. Vitals Signs Reviewed. General: Nontoxic, no distress, appears at stated age Derm: Warm, dry Head: Atraumatic, normocephalic, symmetric Eyes: EOMI, no lid lag, anicteric sclera Mouth: No lip lesion, mucus membranes moist Cardiovascular: S1S2 reg, no murmur Lungs: CTA bilateral, no rhonchi, no rales, no accessory muscle use Abdominal: Soft, nontender to palpation, no guarding, no appreciable organomegaly Ext: No gross muscle atrophy, no edema, no contractures Neuro: CN II-XI grossly intact, no focal neuro deficits Psych: Alert, oriented, appropriate affect Data Reviewed Today: Pertinent Labs: Creatinine 1.76, glucose up trended to 10 3-3 37, A1c 8.3 Imaging: EKG this morning showed normal sinus rhythm. Assessment and Plan: Active: Hyperglycemia, resolving Type 2 diabetes, insulin-dependent on insulin pump Lactic acidosis, resolved Acute kidney injury, resolving Nausea vomiting, resolved -Nausea vomiting likely started after patient started new medication Mounjaro -Likely led to dehydration, acute kidney injury, and acidosis and hyperglycemia -Now improving -Patient started on home insulin pump -Repeat BMP tomorrow Hypertension -Continue to hold valsartan and hydrochlorothiazide Chronic: CAD Dyslipidemia DVT ppx: Subcu heparin Code status: Full code Anticipated discharge place: Home Anticipated discharge time: Likely tomorrow Objective - Vital Signs Vital signs: Vital Signs Temp 98.7 F 12/08/23 12:20 Pulse 80 12/08/23 14:00 Resp 18 12/08/23 14:00 BP 148/68 12/08/23 12:20 Pulse Ox 96 12/08/23 12:20 FiO2 Intake & Output 12/07/23 12/08/23 12/08/23 18:59 06:59 18:59 Intake Total 7.749 0 Balance 7.749 0 Weight 78.018 kg 78.5 kg 78.5 kg Intake: Intake, IV Titration 7.749 Amount Insulin Regular 100 unit 7.749 In Sodium Chloride 0.9% 100 ml @ 0.1 UNITS/KG/HR 7.88 mls/hr IV .[id number] [facility] Rx#:[id number] Oral 0 Other: Voiding Method Toilet Toilet # Voids 0 - Labs CBC & Chem 7: 12/07/23 17:17 12/08/23 04:10 Labs: Abnormal Lab Results - Last 24 Hours (Table) 12/07/23 12/07/23 12/07/23 Range/Units 17:12 17:17 17:17 WBC 14.1 H (3.8-10.6) k/uL Neutrophils # 11.6 H (1.3-7.7) k/uL VBG pH (7.31-7.41) VBG pCO2 (37-51) mmHg VBG HCO3 (24-28) mmol/L Sodium (137-145) mmol/L Potassium (3.5-5.1) mmol/L Chloride (98-107) mmol/L Carbon Dioxide (22-30) mmol/L BUN (7-17) mg/dL Creatinine (0.52-1.04) mg/dL Glucose (74-99) mg/dL POC Glucose (mg/dL) 535 H (70-110) mg/dL Hemoglobin A1c (<=6.0) % Plasma Lactic Acid Driss (0.7-2.0) mmol/L Urine Glucose (UA) 4+ H (Negative) Urine Ketones 1+ H (Negative) 12/07/23 12/07/23 12/07/23 Range/Units 17:17 17:17 19:46 WBC (3.8-10.6) k/uL Neutrophils # (1.3-7.7) k/uL VBG pH (7.31-7.41) VBG pCO2 (37-51) mmHg VBG HCO3 (24-28) mmol/L Sodium 133 L (137-145) mmol/L Potassium 5.7 H (3.5-5.1) mmol/L Chloride (98-107) mmol/L Carbon Dioxide 12 L (22-30) mmol/L BUN 45 H (7-17) mg/dL Creatinine 2.05 H (0.52-1.04) mg/dL Glucose 534 H* (74-99) mg/dL POC Glucose (mg/dL) 412 H (70-110) mg/dL Hemoglobin A1c (<=6.0) % Plasma Lactic Acid Driss 3.6 H* (0.7-2.0) mmol/L Urine Glucose (UA) (Negative) Urine Ketones (Negative) 12/07/23 12/07/23 12/07/23 Range/Units 20:48 22:28 23:27 WBC (3.8-10.6) k/uL Neutrophils # (1.3-7.7) k/uL VBG pH (7.31-7.41) VBG pCO2 (37-51) mmHg VBG HCO3 (24-28) mmol/L Sodium (137-145) mmol/L Potassium (3.5-5.1) mmol/L Chloride (98-107) mmol/L Carbon Dioxide (22-30) mmol/L BUN (7-17) mg/dL Creatinine (0.52-1.04) mg/dL Glucose (74-99) mg/dL POC Glucose (mg/dL) 292 H 167 H 126 H (70-110) mg/dL Hemoglobin A1c (<=6.0) % Plasma Lactic Acid Driss (0.7-2.0) mmol/L Urine Glucose (UA) (Negative) Urine Ketones (Negative) 12/07/23 12/07/23 12/08/23 Range/Units 23:30 23:30 01:57 WBC (3.8-10.6) k/uL Neutrophils # (1.3-7.7) k/uL VBG pH 7.46 H (7.31-7.41) VBG pCO2 29 L (37-51) mmHg VBG HCO3 21 L (24-28) mmol/L Sodium 136 L (137-145) mmol/L Potassium (3.5-5.1) mmol/L Chloride 110 H (98-107) mmol/L Carbon Dioxide 21 L (22-30) mmol/L BUN 45 H (7-17) mg/dL Creatinine 1.86 H (0.52-1.04) mg/dL Glucose 122 H (74-99) mg/dL POC Glucose (mg/dL) 61 L (70-110) mg/dL Hemoglobin A1c (<=6.0) % Plasma Lactic Acid Driss (0.7-2.0) mmol/L Urine Glucose (UA) (Negative) Urine Ketones (Negative) 12/08/23 12/08/23 12/08/23 Range/Units 02:32 04:10 04:10 WBC (3.8-10.6) k/uL Neutrophils # (1.3-7.7) k/uL VBG pH (7.31-7.41) VBG pCO2 (37-51) mmHg VBG HCO3 (24-28) mmol/L Sodium (137-145) mmol/L Potassium (3.5-5.1) mmol/L Chloride 112 H (98-107) mmol/L Carbon Dioxide (22-30) mmol/L BUN 42 H (7-17) mg/dL Creatinine 1.76 H (0.52-1.04) mg/dL Glucose 45 L* (74-99) mg/dL POC Glucose (mg/dL) 52 L (70-110) mg/dL Hemoglobin A1c 8.3 H (<=6.0) % Plasma Lactic Acid Driss (0.7-2.0) mmol/L Urine Glucose (UA) (Negative) Urine Ketones (Negative) 12/08/23 12/08/23 12/08/23 Range/Units 04:49 07:14 12:23 WBC (3.8-10.6) k/uL Neutrophils # (1.3-7.7) k/uL VBG pH (7.31-7.41) VBG pCO2 (37-51) mmHg VBG HCO3 (24-28) mmol/L Sodium (137-145) mmol/L Potassium (3.5-5.1) mmol/L Chloride (98-107) mmol/L Carbon Dioxide (22-30) mmol/L BUN (7-17) mg/dL Creatinine (0.52-1.04) mg/dL Glucose (74-99) mg/dL POC Glucose (mg/dL) 44 L 179 H 337 H (70-110) mg/dL Hemoglobin A1c (<=6.0) % Plasma Lactic Acid Driss (0.7-2.0) mmol/L Urine Glucose (UA) (Negative) Urine Ketones (Negative)
[2023-12-08 17:33] LABS: Glucose,Whole Blood 87 mg/dL (70-110)
[2023-12-08] MEDS: FAMOTIDINE 20 MG TAB PO SCH (20:10)
[2023-12-08] MEDS: ISOSORBIDE MONONITRATE ER 30 MG TAB.ER.24H PO SCH (20:10)
[2023-12-08] MEDS: ATORVASTATIN 80 MG TAB PO SCH (20:11)
[2023-12-08] MEDS: ASPIRIN 81 MG PO SCH (20:11)
[2023-12-08] MEDS: EZETIMIBE 10 MG TAB PO SCH (20:11)
[2023-12-08] MEDS: amLODIPine 10 MG TAB PO SCH (20:11)
[2023-12-08] MEDS: CLOPIDOGREL 75 MG TAB PO SCH (20:11)
[2023-12-08] MEDS: PANTOPRAZOLE 40 MG TABLET PO SCH (20:11)
[2023-12-08 20:40] LABS: Glucose,Whole Blood 103 mg/dL (70-110)
[2023-12-08] MEDS ORDERED: NON FORMULARY DRUG (Valsartan [Valsartan] 320 MG Tablet) PO SCH (21:00)
[2023-12-08] MEDS ORDERED: hydroCHLOROthiazide 25 MG TAB PO SCH (21:00)
[2023-12-09 01:51] LABS: Glucose,Whole Blood 129 mg/dL (70-110)
[2023-12-09 07:17] LABS: Glucose,Whole Blood 104 mg/dL (70-110)
[2023-12-09 08:13] VITALS: BP 135/85; PULSE 72; RESP 18; TEMP 98.3
[2023-12-09 08:34] LABS: African American GFR (CKD) 45 (>60 ml/min/1.73 sqM); Anion Gap 5 mmol/L; Blood Urea Nitrogen 35 mg/dL (7-17); Calcium 8.6 mg/dL (8.4-10.2); Carbon Dioxide 23 mmol/L (22-30); Chloride 110 mmol/L (98-107); Glucose 99 mg/dL (74-99); Non-African American GFR(CKD) 39 (>60 ml/min/1.73 sqM); Sodium 138 mmol/L (137-145)
--- NOTE | 2023-12-09 11:05 | P.DS ---
Providers Date of admission: 12/07/23 22:34 Expected date of discharge: 12/09/23 Attending physician: Thais Saba MD Primary care physician: Brian Sanabria [facility] Course: Discharge Diagnosis: HHS Type 2 diabetes, insulin-dependent on insulin pump Lactic acidosis Acute kidney injury Nausea vomiting Hypertension Hospital Course: 68-year-old female with history of diabetes on insulin pump, coronary artery disease, dyslipidemia, hypertension presenting with nausea and vomiting and hyperglycemia. She started Mounjaro this week, and started develop abdominal symptoms leading to nausea vomiting difficulty tolerating food. Her continuous glucose monitor Reading high glucose, and she subsequently presented to the hospital. On initial presentation, vital signs were within normal limits except for slight hypertension, initial blood work showed WBC of 14.1, sodium 133, potassium 5.7, creatinine 2.05, glucose 534, lactate 3.6, troponin negative, urine ketones 1+, serum ketone negative. pH was 7.46, pCO2 29. Patient was sta rted on IV insulin, and quickly dropped her blood sugars all the way to 45. Patient is now off of IV insulin. Back on her insulin pump. Nausea and vomiting of resolved. Patient able to tolerate oral intake. Sugars have been within good range. A1c 8.3. Mounjaro discontinued. Renal function improved. Patient asked to hold her antihypertensive for another 3 days, follow-up with PCP and get repeat BMP. Patient seen and examined at bedside. Vital signs reviewed and stable. General: Nontoxic, no distress, appears at stated age Derm: Warm, dry Head: Atraumatic, normocephalic, symmetric Eyes: EOMI, no lid lag, anicteric sclera Mouth: No lip lesion, mucus membranes moist Cardiovascular: S1S2 reg, no murmur Lungs: CTA bilateral, no rhonchi, no rales, no accessory muscle use Abdominal: Soft, nontender to palpation, no guarding, no appreciable organomegaly Ext: No gross muscle atrophy, no edema, no contractures Neuro: CN II-XI grossly intact, no focal neuro deficits Psych: Alert, oriented, appropriate affect A total of 33 minutes of time were spent preparing this complex discharge summary. Patient was discharged on 12/09/2023 at 9: 20. Patient Condition at Discharge: Stable Plan - Discharge Summary Discharge Rx Participant: No New Discharge Prescriptions: Continue Isosorbide Mononitrate ER [Imdur] 30 mg PO HS Atorvastatin [Lipitor] 80 mg PO HS #90 tab Insulin Aspart (For Pump) [NovoLOG (For Pump)] 0.01 unit SQ-PUMP CONTINUOUS Aspirin EC [Ecotrin Low Dose] 81 mg PO HS Ezetimibe [Zetia] 10 mg PO HS Pantoprazole Sodium [Protonix] 40 mg PO HS hydroCHLOROthiazide 25 mg PO HS Valsartan 320 mg PO HS Clopidogrel [Plavix] 75 mg PO HS Famotidine 40 mg PO HS Desvenlafaxine [Desvenlafaxine ER] 50 mg PO DAILY PRN PRN Reason: Anxiety amLODIPine [Norvasc] 10 mg PO HS Solifenacin Succinate [Vesicare] 10 mg PO HS Discontinued Tirzepatide [Mounjaro] 2.5 mg SQ TU Discharge Medication List Isosorbide Mononitrate ER [Imdur] 30 mg PO HS 12/22/14 [History] Atorvastatin [Lipitor] 80 mg PO HS #90 tab 12/25/14 [Rx] Insulin Aspart (For Pump) [NovoLOG (For Pump)] 0.01 unit SQ-PUMP CONTINUOUS 11/09/16 [History] Aspirin EC [Ecotrin Low Dose] 81 mg PO HS 12/28/16 [History] Ezetimibe [Zetia] 10 mg PO HS 08/23/22 [History] Famotidine 40 mg PO HS 08/23/22 [History] Pantoprazole Sodium [Protonix] 40 mg PO HS 04/07/23 [History] Desvenlafaxine [Desvenlafaxine ER] 50 mg PO DAILY PRN 10/12/23 [History] hydroCHLOROthiazide 25 mg PO HS 10/12/23 [History] Valsartan 320 mg PO HS 11/14/23 [History] Clopidogrel [Plavix] 75 mg PO HS 12/07/23 [History] Solifenacin Succinate [Vesicare] 10 mg PO HS 12/07/23 [History] amLODIPine [Norvasc] 10 mg PO HS 12/07/23 [History] Follow up Appointment(s)/Referral(s): Brian Perez MD [Primary Care Provider] - 1 Week Patient Instructions/Handouts: Acute Kidney Injury (DC), Diabetic Hyperglycemia (DC) Activity/Diet/Wound Care/Special Instructions: Please do not take your hydrochlorothiazide and Valsartan for the next 3 days. Repeat kidney function test with your PCP. Diet as per home and as tolerated Activity limited until seen by a DR. Discharge Disposition: HOME SELF-CARE
== END 2023-12-09 13:37 | disposition home or self-care (01) | DRG 637 ==
LOC: EC 16:50 → 3SCARD 22:34 → 5NMEDONC 12-08 01:25
PROVIDERS: ADMIT Internal Medicine; ATTEND Internal Medicine
DX: E11.10 Type 2 diabetes mellitus with ketoacidosis without coma (principal); N17.0 Acute kidney failure with tubular necrosis; I25.10 Atherosclerotic heart disease of native coronary artery without angina pectoris; I10 Essential (primary) hypertension; G25.81 Restless legs syndrome; F41.9 Anxiety disorder, unspecified; F32.A Depression, unspecified; R11.2 Nausea with vomiting, unspecified; T38.3X5A Adverse effect of insulin and oral hypoglycemic [antidiabetic] drugs, initial encounter; G47.30 Sleep apnea, unspecified; E86.0 Dehydration; E11.43 Type 2 diabetes mellitus with diabetic autonomic (poly)neuropathy; E11.51 Type 2 diabetes mellitus with diabetic peripheral angiopathy without gangrene; K31.84 Gastroparesis; E78.5 Hyperlipidemia, unspecified; E11.42 Type 2 diabetes mellitus with diabetic polyneuropathy; Z96.41 Presence of insulin pump (external) (internal); Z79.4 Long term (current) use of insulin; Z88.1 Allergy status to other antibiotic agents; Z95.5 Presence of coronary angioplasty implant and graft; Z87.891 Personal history of nicotine dependence; Z79.899 Other long term (current) drug therapy; Z79.82 Long term (current) use of aspirin; Z79.02 Long term (current) use of antithrombotics/antiplatelets
CPT/HCPCS: 36415; 71045; 80048; 80051; 80053; 81003; 82009; 82150; 82565; 82803; 82947; 83036; 83605; 83690; 84100; 84484; 84520; 85025; 96361; 96374; 99291

== ENCOUNTER → 2024-06-11 | Outpatient (CLI) | payer MEDICARE ==
[2024-06-11 10:42] LABS: ALT 17 U/L (8-44); AST 24 U/L (13-35); Albumin 4.1 g/dL (3.8-4.9); Albumin/Globulin Ratio 1.78 Ratio (1.60-3.17); Alkaline Phosphatase 105 U/L (41-126); BUN/Creat Ratio 14.42 Ratio (12.00-20.00); Blood Urea Nitrogen 17.3 mg/dL (9.0-27.0); Calcium 9.1 mg/dL (8.7-10.3); Carbon Dioxide 24.7 mmol/L (21.6-31.8); Chloride 104 mmol/L (96-109); Chol/HDL Ratio 2.03 Ratio; Globulin 2.3 g/dL (1.6-3.3); Glucose 140 mg/dL (70-110); LDL Cholesterol,Calculated 61.3 mg/dL (0.0-131.0); Sodium 140 mmol/L (135-145); Total Bilirubin 0.5 mg/dL (0.3-1.2); Total Protein 6.4 g/dL (6.2-8.2); VLDL Calculation 13.38 mg/dL (5.00-40.00)
== END | disposition home or self-care (01) ==
LOC: LABWHC1 08:04
PROVIDERS: ATTEND Internal Medicine Interventional Cardiology
DX: E78.2 Mixed hyperlipidemia (principal)
CPT/HCPCS: 36415; 80053; 80061

== ENCOUNTER → 2024-09-11 | Outpatient (CLI) | payer MEDICARE ==
--- NOTE | 2024-09-11 11:46 | MM ---
Reason for Exam: Screening (asymptomatic). Last mammogram was performed 1 year(s) and 9 month(s) ago. Patient History: Menarche at age 15. First Full-Term at age 19. Postmenopausal. Risk Values: Scarlet 5 year model risk: 1.2%. NCI Lifetime model risk: 4.4%. Prior Study Comparison: 08/02/2017 Bilateral Screening Mammogram, [facility]. 09/23/2019 Bilateral Screening Mammogram, [facility]. 11/13/2022 Bilateral MG 3D screening mammo w/cad, [facility]. Tissue Density: The breasts are heterogeneously dense, which may obscure small masses. Findings: Analyzed By CAD. Right breast: There is no suspicious group of microcalcifications or new suspicious mass. Left breast: There is no suspicious group of microcalcifications or new suspicious mass. Overall Assessment: Negative, BI-RAD 1 Management: Screening Mammogram of both breasts in [address] [facility] will attempt to contact patient to return for supplemental views and ultrasound if indicated. Patient should continue monthly self-breast exams. A clinical breast exam by your physician is recommended on an annual basis. This exam should not preclude additional follow-up of suspicious palpable abnormalities. Note on Scarlet scores and lifetime risk: 1. A Scarlet score greater than 3% is considered moderate risk. If this is the case, consider specialist referral to assess eligibility for a risk reducing agent. 2. If overall lifetime risk for the development of breast cancer is 20% or higher, the patient may qualify for future screening with alternating mammogram and breast MRI. [facility], , 09/11/2024 11:43 AM. Electronically signed and approved by: Rolando Orozco DO
== END | disposition home or self-care (01) ==
LOC: RADMAMWWP 07:25
PROVIDERS: ATTEND Family Medicine
CPT/HCPCS: 77063; 77067

== ENCOUNTER → 2024-09-15 | Outpatient (CLI) | payer MEDICARE ==
[2024-09-15 15:02] LABS: Albumin 3.7 g/dL (3.8-4.9); BUN/Creat Ratio 22.54 Ratio (12.00-20.00); Blood Urea Nitrogen 29.3 mg/dL (9.0-27.0); Calcium 8.5 mg/dL (8.7-10.3); Carbon Dioxide 24.7 mmol/L (21.6-31.8); Chloride 109 mmol/L (96-109); Glucose 153 mg/dL (70-110); Phosphorus 4.4 mg/dL (2.4-5.1); Potassium 4.7 mmol/L (3.5-5.5); Sodium 141 mmol/L (135-145)
== END | disposition home or self-care (01) ==
LOC: LABWHC1 08:21
PROVIDERS: ATTEND Physician Assistant
DX: E87.5 Hyperkalemia (principal)
CPT/HCPCS: 36415; 80069

== ENCOUNTER → 2025-02-20 | Outpatient (CLI) | payer MEDICARE ==
[2025-02-20 15:17] LABS: MCH 30.3 pg (27.0-32.0); MCHC 32.4 g/dL (32.0-37.0); MCV 93.4 FL (80.0-97.0); Mean Platelet Volume 11.8 FL (9.5-12.2); NRBC Per 100 WBC 0 X 10*3/uL (0.00-0.01); Platelet Count 268 X 10*3/uL (140-440); RBC 3.96 X 10*6/uL (4.10-5.20); RDW 15.1 % (11.5-14.5); WBC 8.37 X 10*3/uL (4.50-10.00)
[2025-02-20 15:55] LABS: BUN/Creat Ratio 13.92 Ratio (12.00-20.00); Blood Urea Nitrogen 18.1 mg/dL (9.0-27.0); Carbon Dioxide 24.5 mmol/L (21.6-31.8); Chloride 107 mmol/L (96-109); Glucose 125 mg/dL (70-110); Magnesium 2.4 mg/dL (1.5-2.4); Sodium 143 mmol/L (135-145)
[2025-02-20 18:32] LABS: Appearance,Urine Clear (Clear); Bilirubin,Urine Negative (Negative); Blood,Urine Negative (Negative); Color,Urine Yellow (Yellow); Ketones,Urine Negative (Negative); Nitrite,Urine Negative (Negative); Specific Gravity,Urine 1.007 (1.001-1.030); Urobilinogen,Urine 0.2 E.U./DL
[2025-02-20 18:41] LABS: Bacteria,Urine None Seen (None Seen)
[2025-02-20 21:18] LABS: Urine Creatinine 51.3 mg/dL (28.0-217.0)
== END | disposition home or self-care (01) ==
LOC: LABWHC1 07:57
PROVIDERS: ATTEND Physician Assistant
DX: E55.9 Vitamin D deficiency, unspecified (principal); N25.81 Secondary hyperparathyroidism of renal origin; N39.0 Urinary tract infection, site not specified; N18.32 Chronic kidney disease, stage 3b; D63.1 Anemia in chronic kidney disease; R80.9 Proteinuria, unspecified
CPT/HCPCS: 36415; 80069; 81001; 82043; 82306; 82570; 83735; 83970; 85027

== ENCOUNTER → 2025-05-04 | Outpatient (CLI) | payer MEDICARE ==
--- NOTE | 2025-05-04 09:55 | CT ---
EXAMINATION TYPE: CT abdomen pelvis wo con DATE OF EXAM: 05/04/2025 9:22 AM COMPARISON: 07/20/2022 CLINICAL INDICATION: Female, 69 years old with history of R63.4 ABN WEIGHT LOSS; Abnormal weight loss , 25 lbs in 6 months, bowel issues TECHNIQUE: CT of the abdomen and pelvis without contrast. Coronal and sagittal reformats reconstructi ons were performed. Oral contrast used: with Oral Contrast (none if empty) CT DLP: 696 mGycm, Automated exposure control for dose reduction was used. FINDINGS: LOWER CHEST: Scattered coronary artery and mitral annular calcifications are noted. Focal groundglass posterior left lower lobe measuring 3.3 cm versus 2.6 cm back in 2021. Background emphysematous tapia ge. No pleural effusion. ABDOMEN LIVER: Unremarkable GALLBLADDER AND BILE DUCTS: Gallbladder appears surgically absent. PANCREAS: Atrophic in appearance. SPLEEN: Unremarkable. ADRENAL GLANDS: Unremarkable. KIDNEYS AND URETERS: No evidence of hydronephrosis or renal calculus. The ureters are unremarkable. PELVIS BLADDER: No evidence for wall thickening or mass given limitations of exam. REPRODUCTIVE: Uterus anteverted. Central 5 mm calcification probably relates to a tiny fibroid. Both ovaries are visualized. No abnormal fluid collection the pelvis or pelvic lymphadenopathy. ABDOMEN & PELVIS STOMACH AND BOWEL: No evidence of bowel obstruction. Moderate to large amount of fatty stool througho ut. No pericolonic inflammatory change. PERITONEUM/RETROPERITONEUM: No evidence of pneumoperitoneum or free fluid. VASCULATURE: Prominent atherosclerotic calcifications within the iliac arteries with bilateral common iliac artery stents.. MUSCULOSKELETAL: No acute osseous abnormalities LYMPH NODES: No gross evidence for lymphadenopathy. SOFT TISSUE/ABDOMINAL WALL: Some scarring noted along the right femoral canal probably from prior cat heterization. IMPRESSION: 1. Moderate to large fatty stool throughout the colon. Given the atrophic pancreas, consider the pos sibility of pancreatic insufficiency. 2. Slowly enlarging focal groundglass posterior left lower lobe now 3.3 cm versus 2.6 cm back in 2021 . Low-grade neoplasm not excluded. Recommend pulmonary medicine referral for further surveillance/man agement. [facility], , 05/04/2025 9:52 AM
== END | disposition home or self-care (01) ==
LOC: RADCTMAIN 07:26
PROVIDERS: ATTEND Internal Medicine Gastroenterology
DX: R63.4 Abnormal weight loss (principal); R19.5 Other fecal abnormalities
CPT/HCPCS: 74176

== ENCOUNTER → 2025-06-04 | Outpatient (CLI) | payer MEDICARE ==
--- NOTE | 2025-06-06 17:40 | PE ---
EXAMINATION TYPE: PET CT fusion skull to thigh DATE OF EXAM: 06/04/2025 CLINICAL INDICATION:Female, 69 years old with history of R91.8 LUNG MASS; TECHNIQUE: Following the intravenous administration of 12.91 mCi of F-18 FDG, whole body images are performed from the skull base to the midthigh. Images are reviewed on the computer in the coronal, axial, and sagittal planes. Reconstructed rotating images are created on independent workstation and reviewed on the computer. A non-contrast CT is performed in conjunction with the PET scan. Glucose level 124 mg/dL CT DLP: 663 mGycm, Automated exposure control for dose reduction was used. COMPARISON: CT 05/04/2025, 07/20/2022, PET/CT None, MRI: None FINDINGS: Mediastinal SUV mean is 2.1. Hepatic parenchyma SUV mean is 2.8. SKULL BASE AND NECK: No suspicious radiotracer activity. CHEST, MEDIASTINUM, AND HILAR REGION: Left lower lobe 2.9 x 2.5 cm groundglass lesion with central lucencies. Demonstrates a max SUV of 2.6 . Few scattered pulmonary micronodules which do not demonstrate FDG activity above or below the sensiti vity of PET/CT. ABDOMEN AND PELVIS: No suspicious radiotracer activity. MUSCULOSKELETAL STRUCTURES: No suspicious radiotracer activity. OTHER CT: Bilateral aphakia. Incidental azygous fissure. Cardiomegaly. Mild chronic microcalcificatio ns. Dense mitral annulus calcifications. Elevation of the right hemidiaphragm. Tiny fat filled umbili ezequiel hernia. Bilateral common iliac artery stents identified. Bilateral tubal ligation clips. Postsurg ical changes within the right inguinal region from vascular access. IMPRESSION: Left lower lobe groundglass 2.9 cm lesion with low level FDG activity. This is concerning for a low m etabolic malignancy versus other etiologies such as organizing pneumonia. No other suspicious radiotr acer activity identified. Consider tissue sampling versus continued surveillance. [facility], , 06/06/2025 5:38 PM
== END | disposition home or self-care (01) ==
LOC: RADPETMAIN 13:46
PROVIDERS: ATTEND Internal Medicine
DX: R91.8 Other nonspecific abnormal finding of lung field (principal); E11.9 Type 2 diabetes mellitus without complications
CPT/HCPCS: 78815; A9552